=== PATIENT | male | born 1935 | race Caucasian/White ===

== ENCOUNTER → 2017-07-08 | Outpatient (CLI) | payer MEDICARE, BC ==
--- NOTE | 2017-07-09 07:04 | CT ---
EXAMINATION TYPE: CT abdomen pelvis wo con DATE OF EXAM: 07/08/2017 HISTORY: Weight loss and blood in stool CT DLP: 976 mGycm. Automated Exposure Control for Dose Reduction was Utilized. TECHNIQUE: CT scan of the abdomen and pelvis is performed with oral but without IV contrast. COMPARISON: NONE FINDINGS: Within the limitations of a non-contrast study, the following observations are made. LUNG BASES: There is some peripheral reticulation and fibrosis. There is coronary artery calcificatio n present which is noted marker for coronary artery disease. LIVER/GB: Liver is somewhat small in size and hyperdense in appearance. Etiologies such as hemochroma tosis should be excluded clinically. Gallbladder is contracted with dependent density felt to reflect small stones and/or gallbladder sludge. PANCREAS: No significant abnormality is seen. SPLEEN: No significant abnormality is seen. ADRENALS: No significant abnormality is seen. KIDNEYS: There is cortical thinning in both kidneys. There is 2.6 cm simple appearing cyst centrally left kidney on axial image 31. There are few additional subcentimeter low dense lesions scattered thr oughout both kidneys too small to further characterize per presumed benign. There is mild abnormal bl adder wall thickening measuring up to 9 mm. Finding is likely product of outlet obstruction as there is enlarged prostate gland noted. BOWEL: Oral contrast reaches level of the proximal transverse colon. There is no suspicious small or large bowel dilatation. Normal-appearing appendix is seen from the cecum. There are diverticula in t he left and sigmoid colon. There is no CT evidence for acute diverticulitis. GENITAL ORGANS: Prostate gland is enlarged in size bulging on bladder base, underlying BPH is strongl y suspected. LYMPH NODES: No greater than 1cm abdominal or pelvic lymph nodes are appreciated. OSSEOUS STRUCTURES: Osseous structures are demineralized. There is moderate to severe multilevel spur ring and disc space narrowing throughout the visualized thoracolumbar spine. Prominent spur disc comp saul effaces anterior thecal sac at L1-L2 and L3-L4 levels. Moderate joint space loss in both hips is present. OTHER: There is atherosclerotic and ectatic abdominal aorta. IMPRESSION: 1. No suspicious mass or adenopathy is identified to suggest neoplasm. 2. Colonic diverticulosis without CT evidence for acute diverticulitis. 3. Other findings as noted above.
== END | disposition home or self-care (01) ==
LOC: RADCTMAIN 17:39
PROVIDERS: ATTEND Family Medicine
DX: K57.30 Diverticulosis of large intestine without perforation or abscess without bleeding (principal); R63.4 Abnormal weight loss
CPT/HCPCS: 74176

== ENCOUNTER 2018-05-02 17:00 | Inpatient (IN) | payer MEDICARE, BC ==
[2018-05-02] MEDS ORDERED: SODIUM CHLORIDE 0.9% 1,000 ML IV STA (17:09)
--- NOTE | 2018-05-02 17:38 | ED ---
General Adult HPI <Diogo Crocker - Last Filed: 05/03/18 02:29> - General Source: patient, family, RN notes reviewed, old records reviewed Mode of arrival: wheelchair Limitations: no limitations <Charles Reed - Last Filed: 05/04/18 16:22> - General Chief complaint: Neuro Symptoms/Deficit Stated complaint: weakness, confusion, drooling Time Seen by Provider: 05/02/18 17:08 - History of Present Illness Initial comments: This is an 80-year-old male to the ER for evaluation. This patient presents today for evaluation regarding altered mental state, confusion, issue of A. fib diabetes high blood pressure, patient is on blood thinners. Patient denies headache. (Charles Reed) - Related Data Home Medications Medication Instructions Recorded Confirmed Acetaminophen/Diphenhydramine 1 tab PO HS 03/11/16 05/02/18 [Tylenol PM Extra Strength] Amiodarone [Cordarone] 100 mg PO DAILY 03/11/16 05/02/18 Atorvastatin [Lipitor] 10 mg PO HS 03/11/16 05/02/18 Doxazosin [Cardura] 4 mg PO HS 03/11/16 05/02/18 Finasteride [Proscar] 5 mg PO DAILY 03/11/16 05/02/18 Fish Oil/Dha/Epa [Fish Oil 1,200 1 cap PO DAILY@1200 03/11/16 05/02/18 mg Fish Oil] Levothyroxine Sodium [Synthroid] 75 mcg PO DAILY 03/11/16 05/02/18 Metoprolol Tartrate [Lopressor] 25 mg PO BID 03/11/16 05/02/18 Calcium/Magnesium/Zinc 1 tab PO DAILY@1200 05/02/18 05/02/18 [Kmkgvds-Krpgzhgri-Pwxn Tablet] Furosemide [Lasix] 40 mg PO DAILY 05/02/18 05/02/18 Lisinopril [Prinivil] 5 mg PO HS 05/02/18 05/02/18 Potassium Chloride ER [K-Dur 20] 20 meq PO Q48H 05/02/18 05/02/18 Sulfacetamide Sodium 2 drops BOTH EYES Q4H 05/02/18 05/02/18 [Sulfacetamide Sod 10% Ophth Soln] Turmeric Root Extract [Turmeric] 500 mg PO DAILY 05/02/18 05/02/18 Warfarin [Coumadin] 1.25 mg PO MOWEFR 05/02/18 05/02/18 Warfarin [Coumadin] 2.5 mg PO SUTUTHSA 05/02/18 05/02/18 Allergies Allergy/AdvReac Type Severity Reaction Status Date / Time No Known Allergies Allergy Verified 05/02/18 20:16 Review of Systems ROS Other: All systems not noted in ROS Statement are negative. <Diogo Crocker - Last Filed: 05/03/18 02:29> ROS Other: All systems not noted in ROS Statement are negative. <Charles Reed - Last Filed: 05/04/18 16:22> ROS Statement: Those systems with pertinent positive or pertinent negative responses have been documented in the HPI. Past Medical History Past Medical History: Atrial Fibrillation, Heart Failure, Diabetes Mellitus, Hypertension, Thyroid Disorder Additional Past Medical History / Comment(s): macular degeneration History of Any Multi-Drug Resistant Organisms: None Reported Past Surgical History: Orthopedic Surgery Additional Past Surgical History / Comment(s): hemorroidectomy, bilateral knee surgery Past Psychological History: No Psychological Hx Reported Smoking Status: Former smoker Past Alcohol Use History: Rare Past Drug Use History: None Reported <Charles Reed - Last Filed: 05/04/18 16:22> General Exam Limitations: no limitations General appearance: alert, in no apparent distress Head exam: Present: atraumatic, normocephalic, normal inspection Eye exam: Present: normal appearance, PERRL, EOMI. Absent: scleral icterus, conjunctival injection, periorbital swelling ENT exam: Present: normal exam, mucous membranes moist Neck exam: Present: normal inspection. Absent: tenderness, meningismus, lymphadenopathy Respiratory exam: Present: normal lung sounds bilaterally. Absent: respiratory distress, wheezes, rales, rhonchi, stridor Cardiovascular Exam: Present: regular rate, normal rhythm, normal heart sounds. Absent: systolic murmur, diastolic murmur, rubs, gallop, clicks GI/Abdominal exam: Present: soft, normal bowel sounds. Absent: distended, tenderness, guarding, rebound, rigid Extremities exam: Present: normal inspection, full ROM, normal capillary refill. Absent: tenderness, pedal edema, joint swelling, calf tenderness Back exam: Present: normal inspection Neurological exam: Present: alert, oriented X3, CN II-XII intact Psychiatric exam: Present: normal affect, normal mood Skin exam: Present: warm, dry, intact, normal color. Absent: rash <Charles Reed - Last Filed: 05/04/18 16:22> Vital Signs 05/02/18 05/02/18 05/02/18 17:16 19:22 21:02 Temperature 99.3 F Pulse Rate 99 80 99 Respiratory 18 18 20 Rate Blood Pressure 122/79 132/86 138/98 Blood Pressure [Left Arm] O2 Sat by Pulse 93 L 98 94 L Oximetry 05/02/18 05/02/18 05/02/18 22:36 22:38 23:31 Temperature 99.2 F 99.3 F Pulse Rate 99 128 H Respiratory 17 15 Rate Blood Pressure 148/78 Blood Pressure 133/97 [Left Arm] O2 Sat by Pulse 94 L Oximetry 05/02/18 05/02/18 23:40 23:50 Temperature Pulse Rate 116 H 88 Respiratory 12 16 Rate Blood Pressure 128/101 128/101 Blood Pressure [Left Arm] O2 Sat by Pulse 95 94 L Oximetry EKG Findings - EKG Comments: EKG Findings:: EKG shows atrial fibrillation rate of 87, QRS 90, QTc 454 <Charles Reed - Last Filed: 05/04/18 16:22> Medical Decision Making - Lab Data Result diagrams: 05/02/18 17:42 05/02/18 17:42 <Diogo Crocker - Last Filed: 05/03/18 02:29> - Lab Data Result diagrams: 05/04/18 04:54 05/04/18 04:54 <Charles Reed - Last Filed: 05/04/18 16:22> - Medical Decision Making Receive this patient as a sign out. The sign out was to have patient admitted for arrange transfer, based on family request. I reviewed the MRI results. I discussed the case with Dr. Bailey, the neurologist who is service station attendant, and he does recommend that the patient should be at a facility with neurosurgery availability should the degree of edema increase or should additional hemorrhage develop. Family is very aware of the risks, but requests patient stay here. Dr. Deleon discussed the case with Dr. Bender who will admit the patient. I subsequently discussed the case with Dr. Orona as the patient will be going to ICU overnight. (Diogo Crocker) - Lab Data Lab Results 05/02/18 05/02/18 05/02/18 Range/Units 17:42 17:42 17:42 WBC 10.2 (3.8-10.6) k/uL RBC 4.76 (4.30-5.90) m/uL Hgb 14.2 (13.0-17.5) gm/dL Hct 43.6 (39.0-53.0) % MCV 91.5 (80.0-100.0) fL MCH 29.9 (25.0-35.0) pg MCHC 32.7 (31.0-37.0) g/dL RDW 13.6 (11.5-15.5) % Plt Count 189 (150-450) k/uL Neutrophils % 76 % Lymphocytes % 13 % Monocytes % 8 % Eosinophils % 1 % Basophils % 0 % Neutrophils # 7.7 (1.3-7.7) k/uL Lymphocytes # 1.3 (1.0-4.8) k/uL Monocytes # 0.8 (0-1.0) k/uL Eosinophils # 0.1 (0-0.7) k/uL Basophils # 0.0 (0-0.2) k/uL PT (9.0-12.0) sec INR (<1.2) APTT (22.0-30.0) sec Sodium 137 (137-145) mmol/L Potassium 4.2 (3.5-5.1) mmol/L Chloride 102 (98-107) mmol/L Carbon Dioxide 28 (22-30) mmol/L Anion Gap 7 mmol/L BUN 31 H (9-20) mg/dL Creatinine 1.70 H (0.66-1.25) mg/dL Est GFR (CKD-EPI)AfAm 43 (>60 ml/min/1.73 sqM) Est GFR (CKD-EPI)NonAf 37 (>60 ml/min/1.73 sqM) Glucose 156 H (74-99) mg/dL Calcium 9.4 (8.4-10.2) mg/dL Phosphorus 4.0 (2.5-4.5) mg/dL Magnesium 2.0 (1.6-2.3) mg/dL Total Bilirubin 1.3 (0.2-1.3) mg/dL AST 24 (17-59) U/L ALT 30 (21-72) U/L Alkaline Phosphatase 105 (38-126) U/L Ammonia (<30) umol/L Total Creatine Kinase 77 (55-170) U/L CK-MB (CK-2) 0.9 (0.0-2.4) ng/mL CK-MB (CK-2) Rel Index 1.2 Troponin I <0.012 (0.000-0.034) ng/mL Total Protein 7.1 (6.3-8.2) g/dL Albumin 4.1 (3.5-5.0) g/dL TSH 1.700 (0.465-4.680) mIU/L Urine Color Urine Appearance (Clear) Urine pH (5.0-8.0) Ur Specific [place] (1.001-1.035) Urine Protein (Negative) Urine Glucose (UA) (Negative) Urine Ketones (Negative) Urine Blood (Negative) Urine Nitrite (Negative) Urine Bilirubin (Negative) Urine Urobilinogen (<2.0) mg/dL Ur Leukocyte Esterase (Negative) Digoxin <0.4 ng/mL Blood Type Blood Type Recheck Antibody Screen Transfuse Plasma Spec Expiration Date 05/02/18 05/02/18 05/02/18 Range/Units 17:42 17:42 17:42 WBC (3.8-10.6) k/uL RBC (4.30-5.90) m/uL Hgb (13.0-17.5) gm/dL Hct (39.0-53.0) % MCV (80.0-100.0) fL MCH (25.0-35.0) pg MCHC (31.0-37.0) g/dL RDW (11.5-15.5) % Plt Count (150-450) k/uL Neutrophils % % Lymphocytes % % Monocytes % % Eosinophils % % Basophils % % Neutrophils # (1.3-7.7) k/uL Lymphocytes # (1.0-4.8) k/uL Monocytes # (0-1.0) k/uL Eosinophils # (0-0.7) k/uL Basophils # (0-0.2) k/uL PT 13.0 H (9.0-12.0) sec INR 1.4 H (<1.2) APTT 25.8 (22.0-30.0) sec Sodium (137-145) mmol/L Potassium (3.5-5.1) mmol/L Chloride (98-107) mmol/L Carbon Dioxide (22-30) mmol/L Anion Gap mmol/L BUN (9-20) mg/dL Creatinine (0.66-1.25) mg/dL Est GFR (CKD-EPI)AfAm (>60 ml/min/1.73 sqM) Est GFR (CKD-EPI)NonAf (>60 ml/min/1.73 sqM) Glucose (74-99) mg/dL Calcium (8.4-10.2) mg/dL Phosphorus (2.5-4.5) mg/dL Magnesium (1.6-2.3) mg/dL Total Bilirubin (0.2-1.3) mg/dL AST (17-59) U/L ALT (21-72) U/L Alkaline Phosphatase (38-126) U/L Ammonia <9 (<30) umol/L Total Creatine Kinase (55-170) U/L CK-MB (CK-2) (0.0-2.4) ng/mL CK-MB (CK-2) Rel Index Troponin I (0.000-0.034) ng/mL Total Protein (6.3-8.2) g/dL Albumin (3.5-5.0) g/dL TSH (0.465-4.680) mIU/L Urine Color Light Yellow Urine Appearance Clear (Clear) Urine pH 6.0 (5.0-8.0) Ur Specific [place] 1.011 (1.001-1.035) Urine Protein Negative (Negative) Urine Glucose (UA) Negative (Negative) Urine Ketones Negative (Negative) Urine Blood Negative (Negative) Urine Nitrite Negative (Negative) Urine Bilirubin Negative (Negative) Urine Urobilinogen <2.0 (<2.0) mg/dL Ur Leukocyte Esterase Negative (Negative) Digoxin ng/mL Blood Type Blood Type Recheck Antibody Screen Transfuse Plasma Spec Expiration Date 05/02/18 Range/Units 17:42 WBC (3.8-10.6) k/uL RBC (4.30-5.90) m/uL Hgb (13.0-17.5) gm/dL Hct (39.0-53.0) % MCV (80.0-100.0) fL MCH (25.0-35.0) pg MCHC (31.0-37.0) g/dL RDW (11.5-15.5) % Plt Count (150-450) k/uL Neutrophils % % Lymphocytes % % Monocytes % % Eosinophils % % Basophils % % Neutrophils # (1.3-7.7) k/uL Lymphocytes # (1.0-4.8) k/uL Monocytes # (0-1.0) k/uL Eosinophils # (0-0.7) k/uL Basophils # (0-0.2) k/uL PT (9.0-12.0) sec INR (<1.2) APTT (22.0-30.0) sec Sodium (137-145) mmol/L Potassium (3.5-5.1) mmol/L Chloride (98-107) mmol/L Carbon Dioxide (22-30) mmol/L Anion Gap mmol/L BUN (9-20) mg/dL Creatinine (0.66-1.25) mg/dL Est GFR (CKD-EPI)AfAm (>60 ml/min/1.73 sqM) Est GFR (CKD-EPI)NonAf (>60 ml/min/1.73 sqM) Glucose (74-99) mg/dL Calcium (8.4-10.2) mg/dL Phosphorus (2.5-4.5) mg/dL Magnesium (1.6-2.3) mg/dL Total Bilirubin (0.2-1.3) mg/dL AST (17-59) U/L ALT (21-72) U/L Alkaline Phosphatase (38-126) U/L Ammonia (<30) umol/L Total Creatine Kinase (55-170) U/L CK-MB (CK-2) (0.0-2.4) ng/mL CK-MB (CK-2) Rel Index Troponin I (0.000-0.034) ng/mL Total Protein (6.3-8.2) g/dL Albumin (3.5-5.0) g/dL TSH (0.465-4.680) mIU/L Urine Color Urine Appearance (Clear) Urine pH (5.0-8.0) Ur Specific [place] (1.001-1.035) Urine Protein (Negative) Urine Glucose (UA) (Negative) Urine Ketones (Negative) Urine Blood (Negative) Urine Nitrite (Negative) Urine Bilirubin (Negative) Urine Urobilinogen (<2.0) mg/dL Ur Leukocyte Esterase (Negative) Digoxin ng/mL Blood Type O Positive Blood Type Recheck No Antibody Screen NEGATIVE Transfuse Plasma 05/03/2018 Spec Expiration Date 05/05/2018 - 2311 Disposition <Diogo Crocker - Last Filed: 05/03/18 02:29> Is patient prescribed a controlled substance at d/c from ED?: No <Charles Reed - Last Filed: 05/04/18 16:22> Clinical Impression: Cerebrovascular accident Disposition: ADMITTED IP TO THIS HOSP Condition: Fair
[2018-05-02 17:58] LABS: Basophils % (A) 0 %; Eosinophils # (A) 0.1 k/uL (0-0.7); Eosinophils % (A) 1 %; HCT 43.6 % (39.0-53.0); HGB 14.2 gm/dL (13.0-17.5); Lymphocytes # (A) 1.3 k/uL (1.0-4.8); Lymphocytes % (A) 13 %; MCH 29.9 pg (25.0-35.0); MCHC 32.7 g/dL (31.0-37.0); MCV 91.5 fL (80.0-100.0); Mean Platelet Volume 6.7; Monocytes # (A) 0.8 k/uL (0-1.0); Monocytes % (A) 8 %; Neutrophils # (A) 7.7 k/uL (1.3-7.7); Neutrophils % (A) 76 %; Platelet Count 189 k/uL (150-450); RBC 4.76 m/uL (4.30-5.90); RDW 13.6 % (11.5-15.5); WBC 10.2 k/uL (3.8-10.6)
[2018-05-02 18:10] LABS: ALT 30 U/L (21-72); AST 24 U/L (17-59); Albumin 4.1 g/dL (3.5-5.0); Alkaline Phosphatase 105 U/L (38-126); Anion Gap 7 mmol/L; Blood Urea Nitrogen 31 mg/dL (9-20); Calcium 9.4 mg/dL (8.4-10.2); Carbon Dioxide 28 mmol/L (22-30); Chloride 102 mmol/L (98-107); Digoxin <0.4 ng/mL; Glucose 156 mg/dL (74-99); Potassium 4.2 mmol/L (3.5-5.1); Sodium 137 mmol/L (137-145); Total Bilirubin 1.3 mg/dL (0.2-1.3); Total Protein 7.1 g/dL (6.3-8.2)
[2018-05-02 18:11] LABS: INR 1.4 (<1.2); Partial Thromboplastin Time 25.8 sec (22.0-30.0)
[2018-05-02 18:15] LABS: Creatine Kinase 77 U/L (55-170)
[2018-05-02 18:21] LABS: Appearance,Urine Clear (Clear); Bilirubin,Urine Negative (Negative); Blood,Urine Negative (Negative); Color,Urine Light Yellow; Glucose,Urine (UA) Negative (Negative); Ketones,Urine Negative (Negative); Leukocyte Esterase,Urine Negative (Negative); Nitrite,Urine Negative (Negative); Protein,Urine Negative (Negative); Specific Gravity,Urine 1.011 (1.001-1.035); Urobilinogen,Urine <2.0 mg/dL (<2.0)
[2018-05-02 18:26] LABS: Creatine Kinase MB 0.9 ng/mL (0.0-2.4); Troponin I <0.012 ng/mL (0.000-0.034)
[2018-05-02] MEDS ORDERED: DEXAMETHASONE SOD PHOSPHATE 10 MG/ML 1 ML VIAL IV STA (19:16)
[2018-05-02] MEDS ORDERED: PHYTONADIONE 10 MG in SODIUM CHLORIDE 0.9% 50 ML IVPB STA (19:17)
--- NOTE | 2018-05-02 19:17 | CT ---
EXAMINATION TYPE: CT brain wo con for TPA DATE OF EXAM: 05/02/2018 COMPARISON: None HISTORY: CONFUSION AND WEAKNESS CT DLP: 1726.4 mGycm Automated exposure control for dose reduction was used. FINDINGS: There is a large area of hypodensity involving the right middle cerebral artery distribution in the r ight temporal lobe and anterior right occipital lobe and right posterior parietal lobe consistent wit h subacute infarct. Edema related to a tumor is a consideration. There are small areas of high attenu ation at the right temporal lobe convexity consistent with hemorrhage. There is effacement of the sul ci of the right temporal lobe. There is slight shift of the midline to the left side. The calvarium i s intact. IMPRESSION: LARGE RIGHT HEMISPHERE ABNORMALITY WITH PARENCHYMAL SMALL AREAS OF HEMORRHAGE IN THE RIGHT TEMPORAL LOBE. MILD MASS EFFECT. I WOULD CONSIDER BOTH SUBACUTE TEMPORAL LOBE INFARCT AND TEMPORAL LOBE TUMOR WITH MASS EFFECT AND EDEMA. CONTRAST CT SCAN WOULD BE HELPFUL FOR FURTHER EVALUATION. THIS EXAM WAS D ISCUSSED WITH ER PHYSICIAN AT 7:10 PM.
--- NOTE | 2018-05-02 19:20 | XR ---
EXAMINATION TYPE: XR chest 2V DATE OF EXAM: 05/02/2018 COMPARISON: 03/11/2016 HISTORY: Weakness TECHNIQUE: Frontal and lateral views of the chest are obtained. FINDINGS: There is no heart failure nor confluent pneumonic infiltrate. Costophrenic angles are rené r. There are chest leads. Bony thorax is intact. IMPRESSION: No active cardiopulmonary disease. No change.
--- NOTE | 2018-05-02 21:06 | MR ---
EXAMINATION TYPE: MR brain wo/w con DATE OF EXAM: 05/02/2018 COMPARISON: None HISTORY: Weakness TECHNIQUE: Multiplanar, multisequence images of the brain and brainstem is performed without and with IV contras t, utilizing mL intravenous . Gadolinium FINDINGS: There is mixed signal involving a large area of the right temporal lobe in the right middle cerebral artery distribution. There is also involvement of the adjacent right occipital lobe and right parieta l lobe. There is slight shift of the midline to the left side. I see no discrete mass. The contrast i mages show no pathologic enhancement. There is some mixed signal at the right temporal lobe convexity consistent with focal hemorrhage. There is normal contrast enhancement of the middle cerebral arteri es bilaterally. The cerebellum is intact. Brainstem is intact. There is cerebral cortical atrophy. IMPRESSION: There is edema and mass effect involving the right cerebral hemisphere in the right tempo ral lobe. This is in the right middle cerebral artery distribution. There is however arterial flow in the right middle cerebral artery. This is consistent with subacute infarct. No underlying tumor mass seen. There is cortical mixed signal in the right temporal lobe consistent with small areas of hemor rhage that are also demonstrated on the CT scan today.
[2018-05-02] MEDS ORDERED: ONDANSETRON 4 MG/2 ML VIAL IVP PRN (23:21)
[2018-05-02 23:36] LABS: Glucose,Whole Blood 219 mg/dL (75-99)
[2018-05-02 23:58] VITALS: BMI 30.5
[2018-05-03] MEDS ORDERED: NALOXONE 0.4 MG/ML 1 ML VIAL IV PRN (00:07)
[2018-05-03] MEDS: DEXAMETHASONE SOD PHOSPHATE 4 MG/ML 1 ML VIAL IV SCH ×4 (00:57→18:18)
[2018-05-03] MEDS: SULFACETAMIDE SOD 10% OPHTH DROPS 15 ML BTL BOTH EYES SCH ×7 (00:57→22:18)
[2018-05-03 05:00] LABS: Basophils % (A) 0 %; Eosinophils # (A) 0.1 k/uL (0-0.7); Eosinophils % (A) 2 %; HCT 42.7 % (39.0-53.0); HGB 13.8 gm/dL (13.0-17.5); Lymphocytes # (A) 0.5 k/uL (1.0-4.8); Lymphocytes % (A) 7 %; MCH 29.9 pg (25.0-35.0); MCHC 32.4 g/dL (31.0-37.0); MCV 92.4 fL (80.0-100.0); Mean Platelet Volume 6.2; Monocytes # (A) 0.1 k/uL (0-1.0); Monocytes % (A) 1 %; Neutrophils # (A) 6.5 k/uL (1.3-7.7); Neutrophils % (A) 90 %; Platelet Count 166 k/uL (150-450); RBC 4.62 m/uL (4.30-5.90); RDW 13.6 % (11.5-15.5); WBC 7.2 k/uL (3.8-10.6)
[2018-05-03 05:19] LABS: Calcium 9.1 mg/dL (8.4-10.2); Magnesium 1.9 mg/dL (1.6-2.3); Phosphorus 4.7 mg/dL (2.5-4.5); Potassium 4.2 mmol/L (3.5-5.1)
[2018-05-03] MEDS: LEVOTHYROXINE 75 MCG TAB PO SCH (06:48)
[2018-05-03] MEDS: POTASSIUM CHLORIDE ER 20 MEQ TAB.ER PO SCH (06:52)
--- NOTE | 2018-05-03 06:58 | XR ---
EXAMINATION TYPE: XR chest 1V DATE OF EXAM: 05/03/2018 HISTORY: CHF. REFERENCE: Previous study dated 05/02/2018. FINDINGS: The heart is mildly enlarged. There is improved interstitial change with comparison to the previous examination. There is no significant vascular congestion. No definite pleural fluid is seen. IMPRESSION: 1. CARDIOMEGALY. 2. IMPROVING INTERSTITIAL CHANGE.
[2018-05-03 07:53] LABS: Glucose,Whole Blood 223 mg/dL (75-99)
[2018-05-03] MEDS: INSULIN ASPART 100 UNIT/ML 1 ML 10 ML VIAL SQ SCH ×4 (08:06→20:53)
[2018-05-03] MEDS ORDERED: FUROSEMIDE 40 MG TAB PO SCH (09:00)
--- NOTE | 2018-05-03 10:11 | P.CNPUL ---
History of Present Illness Consult date: 05/03/18 Chief complaint: Left-sided weakness History of present illness: 80-year-old male patient who presented to the emergency department with altered mentation, confusion and generalized weakness. The patient also had some left- sided facial droop and slurred speech and left-sided sensation impairment. The patient is known to have chronic atrial fibrillation and he is maintained on warfarin for long-term anticoagulation. He also has issues with hyperlipidemia , congestion heart failure, chronic renal failure, hypertension, hypothyroidism , and BPH. The patient had an initial CAT scan of the head in the emergency department that showed a subacute infarct involving the right temporal lobe with some areas of hemorrhage or mass effect and edema. Subsequently an MRI of the brain was done that showed similar findings with his mass effect and edema involving the right cerebral hemisphere in the right temporal lobe. This was along the right MCA distribution. There is adequate arterial flow in the right middle cerebral artery. The findings are consistent with subacute infarct. No underlying tumors identified. There was areas of small hemorrhage as demonstrated on the CAT scan of the brain. Patient was taken off the Coumadin. His INR on admission was at 1.4. His renal function is slightly impaired with a creatinine of 1.5 and the patient has evidence of chronic renal failure. His baseline creatinine from earlier evaluations showed a creatinine ranging between 1.7 and 2.0. On today's evaluation, the patient is drowsy yet arousable upon repeated stimulation.. He is communicating. He has some residual weakness on the left side specially left upper extremity compared to right. There may be some minimal residual weakness in the left face on inspection also. His speech is within normal limits. No headaches. He is awake and alert and oriented 3. He is in atrial fibrillation. His rate is controlled for now. His heart rate is in the mid 90s. Hemodynamically he has no significant hypertensive reaction. No hypotension. No fever. No seizure activity. Swallow is adequate and the patient had breakfast this morning. He is on Decadron per neurology's recommendation a dose of 4 mg IV push every 6 hours. Outpatient medications were all resumed with the exception of his Coumadin. Review of Systems Constitutional: Reports fatigue, Reports lethargy, Reports weakness Eyes: denies blurred vision, denies bulging eye, denies decreased vision Ears: deny: decreased hearing, ear discharge, earache Ears, nose, mouth and throat: Denies headache, Denies sore throat Cardiovascular: Reports irregular heart beat Respiratory: Denies cough Gastrointestinal: Denies abdominal pain, Denies diarrhea, Denies nausea, Denies vomiting Genitourinary: Reports as per HPI Musculoskeletal: Denies myalgias Musculoskeletal: absent: ankle pain, ankle stiffness, ankle swelling Integumentary: Denies pruritus, Denies rash Neurological: Reports confusion, Reports motor disturbance, Reports sensory deficit, Reports weakness Psychiatric: Denies anxiety, Denies depression Endocrine: Reports as per HPI Hematologic/Lymphatic: Reports as per HPI Allergic/Immunologic: Reports as per HPI Past Medical History Past Medical History: Atrial Fibrillation, Heart Failure, Diabetes Mellitus, Hypertension, Thyroid Disorder Additional Past Medical History / Comment(s): macular degeneration History of Any Multi-Drug Resistant Organisms: None Reported Past Surgical History: Orthopedic Surgery Additional Past Surgical History / Comment(s): hemorroidectomy, bilateral knee surgery Past Psychological History: No Psychological Hx Reported Smoking Status: Former smoker Past Alcohol Use History: Rare Past Drug Use History: None Reported Medications and Allergies Home Medications Medication Instructions Recorded Confirmed Type Acetaminophen/Diphenhydramine 1 tab PO HS 03/11/16 05/02/18 History [Tylenol PM Extra Strength] Amiodarone [Cordarone] 100 mg PO DAILY 03/11/16 05/02/18 History Atorvastatin [Lipitor] 10 mg PO HS 03/11/16 05/02/18 History Doxazosin [Cardura] 4 mg PO HS 03/11/16 05/02/18 History Finasteride [Proscar] 5 mg PO DAILY 03/11/16 05/02/18 History Fish Oil/Dha/Epa [Fish Oil 1,200 1 cap PO DAILY@1200 03/11/16 05/02/18 History mg Fish Oil] Levothyroxine Sodium [Synthroid] 75 mcg PO DAILY 03/11/16 05/02/18 History Metoprolol Tartrate [Lopressor] 25 mg PO BID 03/11/16 05/02/18 History Calcium/Magnesium/Zinc 1 tab PO DAILY@1200 05/02/18 05/02/18 History [Avxwoik-Bnhsmtcux-Zexj Tablet] Furosemide [Lasix] 40 mg PO DAILY 05/02/18 05/02/18 History Lisinopril [Prinivil] 5 mg PO HS 05/02/18 05/02/18 History Potassium Chloride ER [K-Dur 20] 20 meq PO Q48H 05/02/18 05/02/18 History Sulfacetamide Sodium 2 drops BOTH EYES Q4H 05/02/18 05/02/18 History [Sulfacetamide Sod 10% Ophth Soln] Turmeric Root Extract [Turmeric] 500 mg PO DAILY 05/02/18 05/02/18 History Warfarin [Coumadin] 1.25 mg PO MOWEFR 05/02/18 05/02/18 History Warfarin [Coumadin] 2.5 mg PO SUTUTHSA 05/02/18 05/02/18 History Allergies Allergy/AdvReac Type Severity Reaction Status Date / Time No Known Allergies Allergy Verified 05/02/18 20:16 Physical Exam Vitals: Vital Signs Temp Pulse Resp BP BP Pulse Ox 05/03/18 07:40 93 14 125/79 94 L 05/03/18 07:30 97 12 133/96 94 L 05/03/18 07:20 107 H 17 133/96 92 L 05/03/18 07:10 124 H 14 133/96 93 L 05/03/18 07:00 103 H 13 133/96 96 05/03/18 06:50 97 25 H 133/96 97 05/03/18 06:40 101 H 20 133/96 93 L 05/03/18 06:30 121 H 18 117/79 94 L 05/03/18 06:20 116 H 18 117/79 96 05/03/18 06:10 116 H 15 117/79 96 05/03/18 06:00 105 H 14 117/79 95 05/03/18 05:50 105 H 34 H 117/79 97 05/03/18 05:40 110 H 14 117/79 94 L 05/03/18 05:30 99 18 135/73 95 05/03/18 05:20 89 8 L 135/73 93 L 05/03/18 05:10 90 21 135/73 92 L 05/03/18 05:00 99 12 135/73 95 05/03/18 04:50 111 H 14 135/73 90 L 05/03/18 04:40 85 12 135/73 93 L 05/03/18 04:30 91 18 116/71 96 05/03/18 04:20 116 H 20 116/71 93 L 05/03/18 04:10 107 H 14 116/71 91 L 08/04/18 04:00 98.8 F 100 13 116/71 92 L 08/04/18 03:50 118 H 13 116/71 91 L 08/04/18 03:40 99 14 116/71 92 L 08/04/18 03:30 103 H 12 135/81 92 L 08/04/18 03:20 85 12 135/81 93 L 08/04/18 03:10 112 H 12 135/81 93 L 08/04/18 03:00 96 12 135/81 94 L 08/04/18 02:50 108 H 19 135/81 91 L 08/04/18 02:40 115 H 12 135/81 90 L 08/04/18 02:30 101 H 13 155/101 91 L 08/04/18 02:20 111 H 13 155/101 90 L 08/04/18 02:10 82 14 155/101 91 L 08/04/18 02:00 101 H 13 155/101 91 L 08/04/18 01:50 127 H 13 155/101 91 L 08/04/18 01:40 105 H 13 155/101 95 08/04/18 01:30 118 H 19 143/102 95 08/04/18 01:20 101 H 21 143/102 95 08/04/18 01:10 100 13 143/102 95 /04/18 01:00 99 14 143/102 94 L /04/18 00:50 107 H 29 H 143/102 92 L 08/04/18 00:40 91 18 143/102 94 L 08/04/18 00:30 101 H 17 128/101 91 L 08/04/18 00:20 114 H 15 128/101 94 L 08/04/18 00:10 98 19 128/101 94 L 08/04/18 00:00 99.2 F 103 H 19 128/101 97 08/03/18 23:50 88 16 128/101 94 L 08/03/18 23:40 116 H 12 128/101 95 08/03/18 23:31 128 H 08/03/18 22:38 99.3 F 15 133/97 08/03/18 22:36 99.2 F 99 17 148/78 94 L 08/03/18 21:02 99 20 138/98 94 L 08/03/18 19:22 80 18 132/86 98 05/02/18 17:16 99.3 F 99 18 122/79 93 L Intake and Output 05/02/18 05/03/18 05/03/18 22:59 06:59 14:59 Output Total 950 Balance -950 Output: Urine 950 Other: # Voids 0 0 Weight 96.5 kg Head exam was generally normal. There was no scleral icterus or corneal arcus. Mucous membranes were moist. Neck was supple and without jugular venous distension, thyromegaly, or carotid bruits. Carotids were easily palpable bilaterally. There was no adenopathy. Lungs were clear to auscultation and percussion, and with normal diaphragmatic excursion. No wheezes or rales were noted. Heart sounds are irregular S1-S2 and there is no significant murmurs appreciated. Abdominal exam revealed normal bowel sounds. The abdomen was soft, non-tender, and without masses, organomegaly, or appreciable enlargement of the abdominal aorta. Examination of the extremities revealed easily palpable radial, femoral and pedal pulses. There was no cyanosis, clubbing or edema. Examination of the skin revealed no evidence of significant rashes, suspicious appearing nevi or other concerning lesions. Neurologically there may be some left facial droop which is minimal at this point. He has equal and symmetrical pupils. Tongue is in midline. Poor range of extraocular muscle movements. No vision impairment. Adequate swallow. There may be some minimal residual motor dysfunction in the left upper extremity on the left compared to right. DTRs are equal and symmetrical. No clonus. No Babinski. Sensory function cannot be accurately assessed. No neck stiffness. Results - Laboratory Findings CBC and BMP: 05/03/18 04:50 05/03/18 04:50 PT/INR, D-dimer PT 13.0 sec (9.0-12.0) H 05/02/18 17:42 INR 1.4 (<1.2) H 05/02/18 17:42 Abnormal lab findings: Abnormal Labs 05/02/18 05/02/18 05/02/18 17:42 17:42 23:33 Lymphocytes # PT 13.0 H INR 1.4 H BUN 31 H Creatinine 1.70 H Glucose 156 H POC Glucose (mg/dL) 219 H Phosphorus HDL Cholesterol 05/03/18 05/03/18 05/03/18 04:50 04:50 07:51 Lymphocytes # 0.5 L PT INR BUN 29 H Creatinine 1.50 H Glucose 244 H POC Glucose (mg/dL) 223 H Phosphorus 4.7 H HDL Cholesterol 69 H Assessment and Plan Plan: 1 subacute stroke involving the right temporal lobe with edema and mass effect and limited areas of hemorrhage secondary to CVA. Possibility of an embolic CVA nontender the patient has chronic atrial fibrillation. Currently off anticoagulants and his INR is at 1.4. Neurology recommended transferring this patient to a facility where there is no surgical intervention. Family opted to keep the patient in [place]. Patient currently on Decadron. 2 left facial droop and some limited motor weakness on the left upper extremity secondary to above 3 chronic atrial fibrillation 4 CHF, per history. We'll need an echocardiogram to assess LV function and rule out any intracardiac clots. 5 hypothyroidism 6 hyperlipidemia 7 hypertension 8 BPH, check was voiding residual and if it significant insert a Taylor catheter. 9 chronic renal failure with a baseline creatinine ranging between 1.5 and 2. Plan Repeat CAT scan of the brain to assess the progression of J[employer] DEVELOPMENT [employer]IST edema and J[employer] DEVELOPMENT [employer]IST bleed. Monitored hemodynamics and avoid hypotension. Continue with the Decadron for now. Obtain echocardiogram. Obtain Doppler of the carotids. Patient has adequate swallow. Resume the rest of the outpatient medications. Hold Coumadin for now due to concern of JOB DEVELOPMENT SPECIALIST bleed. Neurology consultation. Keep the patient ICU for the. Neuro checks. SCD to lower extremities. IV Protonix. We'll continue to follow. NovoLog Scale for blood sugar coverage.
[2018-05-03] MEDS ORDERED: PANTOPRAZOLE 40 MG/10 ML VIAL IVP SCH (10:15)
[2018-05-03] MEDS: FINASTERIDE 5 MG TAB PO SCH (10:16)
[2018-05-03] MEDS: METOPROLOL TARTRATE 25 MG TAB PO SCH ×2 (10:16→20:49)
[2018-05-03] MEDS: AMIODARONE 100 MG TAB PO SCH ×2 (10:30→11:41)
--- NOTE | 2018-05-03 11:14 | US ---
EXAMINATION TYPE: US carotid duplex BILAT DATE OF EXAM: 05/03/2018 COMPARISON: NONE CLINICAL HISTORY: cva. ICU patient is unresponsive EXAM MEASUREMENTS: RIGHT: Peak Systolic Velocity (PSV) cm/sec ----- Right CCA: 44.3 ----- Right ICA: 28.4 ----- Right ECA: 38.1 ICA/CCA ratio: 0.6 RIGHT: End Diastole cm/sec ----- Right CCA: 3.8 ----- Right ICA: 12.2 ----- Right ECA: 3.1 LEFT: Peak Systolic Velocity (PSV) cm/sec ----- Left CCA: 34.9 ----- Left ICA: 44.0 ----- Left ECA: 53.1 ICA/CCA ratio: 1.3 LEFT: End Diastole cm/sec ----- Left CCA: 5.3 ----- Left ICA: 10.6 ----- Left ECA: 7.5 VERTEBRALS (direction of flow): Right Vertebral: Antegrade Left Vertebral: Antegrade Rhythm: Arrhythmia Heterogeneous plaque seen at left bulb, low velocities seen at bilateral ICA's, no significant stenos is seen. Patient laying with neck to the left made for suboptimal study on the left side. IMPRESSION: 1. I DO NOT SEE EVIDENCE OF A HEMODYNAMICALLY SIGNIFICANT STENOSIS IN EITHER CAROTID SYSTEM. 2. SLOW FLOW VELOCITIES BILATERALLY. Criteria for Assigning % of Stenosis / Diameter reduction (Estimation based on the indirect measurements of the internal carotid artery velocities (ICA PSV). 1. Normal (no stenosis)=ICA PSV < 125 cm/s: ratio < 2.0: ICA EDV<40 cm/s. 2. Less than 50% stenosis=ICA PSV < 125 cm/s: ratio < 2.0: ICA EDV<40 cm/s. 3. 50 to 69% stenosis=ICA PSV of 125 to 230 cm/s: ration 2.0 ? 4.0: ICA EDV 40-100 cm/s. 4. Greater than 70% stenosis to near occlusion= ICA PSV > 230 cm/s: ratio > 4.0: ICA EDV > 100 cm/s. 5. Near occlusion= ICA PSV velocities may be low or undetectable: variable ratio and ICA EDV. 6. Total occlusion=unable to detect flow.
[2018-05-03] MEDS: SODIUM CHLORIDE 0.9% 1,000 ML IV SCH (11:41)
--- NOTE | 2018-05-03 11:47 | CT ---
EXAMINATION TYPE: CT brain wo con DATE OF EXAM: 05/03/2018 COMPARISON: Previous study dated 05/02/2018 HISTORY: Change in mentation CT DLP: 978.20 mGycm Automated exposure control for dose reduction was used. FINDINGS: There is an evolving right MCA infarct. There is petechial hemorrhage present in the periphery of thi s. There is moderate mass effect with approximately 7.3 mm of subfalcine shift towards the left. It i s difficult to compare to the previous study as there was a great deal of motion artifact on the prev ious study. There are underlying changes of atrophy. Visualized portions of the sinuses and mastoids are clear. The bony calvarium is intact. IMPRESSION: 1. PROBABLE DEVELOPING RIGHT MCA INFARCT WITH MODERATE SUBFALCINE SHIFT. 2. UNDERLYING ATROPHY. 3. WHEN THE PATIENT'S CONDITION STABILIZES A POSTCONTRAST CT OR MR WOULD BE SUGGESTED.
[2018-05-03] MEDS ORDERED: CALCIUM CARBONATE 500 MG CHEWABLE PO SCH (12:00)
[2018-05-03] MEDS: CALCIUM CARBONATE 500 MG CHEWABLE PO SCH (12:41)
[2018-05-03 12:44] LABS: Glucose,Whole Blood 284 mg/dL (75-99)
--- NOTE | 2018-05-03 13:07 | P.HPIM ---
History of Present Illness 80-year-old the male came to emergency department with altered mental status confusion excessive drowsiness unable to arouse with the left-sided facial droop and left-sided tingling numbness. Patient the had a CAT scan which showed an infarct in the right temporal lobe with subsequent hemorrhage into it and patient is on anticoagulation for his atrial fibrillation. As per family request who doesn't want any aggressive management patient was not transferred to tertiary care hospital as the daughter does not want any neurosurgical intervention at this time. Patient appears to have had an ischemic stroke with possible post infarct hemorrhage. Patient is fairly arousable, patient is on Decadron at this time anti-correlation is being held MRI was obtained which showed mass effect and edema and hemorrhage in the temporal lobe on the right side. No seizure activity. Neurology will evaluate the patient. Review of Systems Unable to obtain Past Medical History Past Medical History: Atrial Fibrillation, Heart Failure, Diabetes Mellitus, Hypertension, Thyroid Disorder Additional Past Medical History / Comment(s): macular degeneration History of Any Multi-Drug Resistant Organisms: None Reported Past Surgical History: Orthopedic Surgery Additional Past Surgical History / Comment(s): hemorroidectomy, bilateral knee surgery Past Psychological History: No Psychological Hx Reported Smoking Status: Former smoker Past Alcohol Use History: Rare Past Drug Use History: None Reported Medications and Allergies Home Medications Medication Instructions Recorded Confirmed Type Acetaminophen/Diphenhydramine 1 tab PO HS 03/11/16 05/02/18 History [Tylenol PM Extra Strength] Amiodarone [Cordarone] 100 mg PO DAILY 03/11/16 05/02/18 History Atorvastatin [Lipitor] 10 mg PO HS 03/11/16 05/02/18 History Doxazosin [Cardura] 4 mg PO HS 03/11/16 05/02/18 History Finasteride [Proscar] 5 mg PO DAILY 03/11/16 05/02/18 History Fish Oil/Dha/Epa [Fish Oil 1,200 1 cap PO DAILY@1200 03/11/16 05/02/18 History mg Fish Oil] Levothyroxine Sodium [Synthroid] 75 mcg PO DAILY 03/11/16 05/02/18 History Metoprolol Tartrate [Lopressor] 25 mg PO BID 03/11/16 05/02/18 History Calcium/Magnesium/Zinc 1 tab PO DAILY@1200 18 05/02/18 History [Uehacfm-Hzbvkerny-Ilqs Tablet] Furosemide [Lasix] 40 mg PO DAILY 05/02/18 05/02/18 History Lisinopril [Prinivil] 5 mg PO HS 05/02/18 05/02/18 History Potassium Chloride ER [K-Dur 20] 20 meq PO Q48H 05/02/18 05/02/18 History Sulfacetamide Sodium 2 drops BOTH EYES Q4H 05/02/18 05/02/18 History [Sulfacetamide Sod 10% Ophth Soln] Turmeric Root Extract [Turmeric] 500 mg PO DAILY 05/02/18 05/02/18 History Warfarin [Coumadin] 1.25 mg PO MOWEFR 05/02/18 05/02/18 History Warfarin [Coumadin] 2.5 mg PO SUTUTHSA 05/02/18 05/02/18 History Allergies Allergy/AdvReac Type Severity Reaction Status Date / Time No Known Allergies Allergy Verified 05/02/18 20:16 Physical Exam Vitals: Vital Signs Temp Pulse Resp BP BP Pulse Ox 05/03/18 12:00 99 F 98 17 153/97 97 05/03/18 11:00 101 H 21 143/81 98 05/03/18 10:10 88 12 115/59 95 05/03/18 10:00 115 H 19 115/59 97 05/03/18 09:50 87 13 99/56 94 L 05/03/18 09:40 93 13 99/56 94 L 05/03/18 09:30 93 14 118/101 95 05/03/18 09:20 123 H 13 118/101 95 05/03/18 09:10 119 H 14 118/101 96 05/03/18 09:00 92 16 118/101 94 L 05/03/18 08:50 91 14 118/101 96 05/03/18 08:40 102 H 16 118/101 94 L 05/03/18 08:30 111 H 29 H 125/79 97 05/03/18 08:20 115 H 19 125/79 96 05/03/18 08:10 110 H 23 125/79 93 L 05/03/18 08:00 100 20 125/79 95 05/03/18 07:50 111 H 23 125/79 96 05/03/18 07:40 93 14 125/79 94 L 08/04/18 07:30 97 12 133/96 94 L 08/04/18 07:20 107 H 17 133/96 92 L 08/04/18 07:10 124 H 14 133/96 93 L 08/04/18 07:00 103 H 13 133/96 96 /04/18 06:50 97 25 H 133/96 97 05/03/18 06:40 101 H 20 133/96 93 L 08/04/18 06:30 121 H 18 117/79 94 L 08/04/18 06:20 116 H 18 117/79 96 08/04/18 06:10 116 H 15 117/79 96 04/18 06:00 105 H 14 117/79 95 /04/18 05:50 105 H 34 H 117/79 97 /04/18 05:40 110 H 14 117/79 94 L /04/18 05:30 99 18 135/73 95 /04/18 05:20 89 8 L 135/73 93 L 08/04/18 05:10 90 21 135/73 92 L 08/04/18 05:00 99 12 135/73 95 08/04/18 04:50 111 H 14 135/73 90 L 08/04/18 04:40 85 12 135/73 93 L 08/04/18 04:30 91 18 116/71 96 /04/18 04:20 116 H 20 116/71 93 L 08/04/18 04:10 107 H 14 116/71 91 L 08/04/18 04:00 98.8 F 100 13 116/71 92 L 08/04/18 03:50 118 H 13 116/71 91 L 08/04/18 03:40 99 14 116/71 92 L 08/04/18 03:30 103 H 12 135/81 92 L 08/04/18 03:20 85 12 135/81 93 L 08/04/18 03:10 112 H 12 135/81 93 L 08/04/18 03:00 96 12 135/81 94 L 08/04/18 02:50 108 H 19 135/81 91 L 08/04/18 02:40 115 H 12 135/81 90 L 08/04/18 02:30 101 H 13 155/101 91 L 08/04/18 02:20 111 H 13 155/101 90 L 08/04/18 02:10 82 14 155/101 91 L 05/03/18 02:00 101 H 13 155/101 91 L 05/03/18 01:50 127 H 13 155/101 91 L 05/03/18 01:40 105 H 13 155/101 95 05/03/18 01:30 118 H 19 143/102 95 05/03/18 01:20 101 H 21 143/102 95 05/03/18 01:10 100 13 143/102 95 05/03/18 01:00 99 14 143/102 94 L 05/03/18 00:50 107 H 29 H 143/102 92 L 05/03/18 00:40 91 18 143/102 94 L 05/03/18 00:30 101 H 17 128/101 91 L 05/03/18 00:20 114 H 15 128/101 94 L 05/03/18 00:10 98 19 128/101 94 L 05/03/18 00:00 99.2 F 103 H 19 128/101 97 05/02/18 23:50 88 16 128/101 94 L 05/02/18 23:40 116 H 12 128/101 95 05/02/18 23:31 128 H 05/02/18 22:38 99.3 F 15 133/97 05/02/18 22:36 99.2 F 99 17 148/78 94 L 05/02/18 21:02 99 20 138/98 94 L 05/02/18 19:22 80 18 132/86 98 05/02/18 17:16 99.3 F 99 18 122/79 93 L Intake and Output 05/02/18 05/03/18 05/03/18 22:59 06:59 14:59 Intake Total 360 Output Total 950 200 Balance -950 160 Intake: IV 0 Sodium Chloride 0.9% 1, 0 000 ml @ 50 mls/hr IV . Q20H [facility] Rx#:[id number] Oral 240 Tube Feeding 120 Output: Urine 950 200 Other: # Voids 0 0 Weight 96.5 kg PHYSICAL EXAMINATION: GENERAL: Patient is barely arousable arousable with painful stimuli patient does have facial droop as mentioned above HEENT: Pupils are round and equally reacting to light. EOMI. No scleral icterus. No conjunctival pallor. Normocephalic, atraumatic. No pharyngeal erythema. No thyromegaly. CARDIOVASCULAR: S1 and S2 present. No murmurs, rubs, or gallops. PULMONARY: Chest is clear to auscultation, no wheezing or crackles. ABDOMEN: Soft, nontender, nondistended, normoactive bowel sounds. No palpable organomegaly. MUSCULOSKELETAL: No joint swelling or deformity. EXTREMITIES: No cyanosis, clubbing, or pedal edema. NEUROLOGICAL: Unable to assess SKIN: No rashes. Results CBC & Chem 7: 05/03/18 04:50 05/03/18 04:50 Labs: Abnormal Lab Results - Last 24 Hours (Table) 05/02/18 05/02/18 05/02/18 Range/Units 17:42 17:42 23:33 Lymphocytes # (1.0-4.8) k/uL PT 13.0 H (9.0-12.0) sec INR 1.4 H (<1.2) BUN 31 H (9-20) mg/dL Creatinine 1.70 H (0.66-1.25) mg/dL Glucose 156 H (74-99) mg/dL POC Glucose (mg/dL) 219 H (75-99) mg/dL Phosphorus (2.5-4.5) mg/dL HDL Cholesterol (40-60) mg/dL 05/03/18 05/03/18 05/03/18 Range/Units 04:50 04:50 07:51 Lymphocytes # 0.5 L (1.0-4.8) k/uL PT (9.0-12.0) sec INR (<1.2) BUN 29 H (9-20) mg/dL Creatinine 1.50 H (0.66-1.25) mg/dL Glucose 244 H (74-99) mg/dL POC Glucose (mg/dL) 223 H (75-99) mg/dL Phosphorus 4.7 H (2.5-4.5) mg/dL HDL Cholesterol 69 H (40-60) mg/dL 05/03/18 Range/Units 12:42 Lymphocytes # (1.0-4.8) k/uL PT (9.0-12.0) sec INR (<1.2) BUN (9-20) mg/dL Creatinine (0.66-1.25) mg/dL Glucose (74-99) mg/dL POC Glucose (mg/dL) 284 H (75-99) mg/dL Phosphorus (2.5-4.5) mg/dL HDL Cholesterol (40-60) mg/dL Microbiology - Last 24 Hours (Table) 05/02/18 17:42 Urine Culture - Preliminary Urine,Clean Catch Assessment and Plan Plan: -Subacute stroke ischemic stroke with the post ischemic hemorrhage in the right temporal lobe. 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 -Patient's prognosis is extremely poor continue with supportive measures as mentioned above will discuss with the family, newsstand vendor already discussed with the family members today. Her Cardizem will be obtain carotid Doppler will be obtained.
--- NOTE | 2018-05-03 15:48 | P.CNNES ---
History of Present Illness Consult date: 05/03/18 Requesting physician: Bruce Bender Reason for Consult: Subacute ischemic stroke History of Present Illness: Patient is a pleasant 80-year-old male who is being evaluated by the neurology service on 05/03/2018 per the request of Dr. Bender for the above- mentioned. Patient presented to the ER for evaluation regarding altered mental state, confusion, and hypertension. Patient does have history of atrial fibrillation and is on Coumadin in the home setting. Patient is a poor historian and information was gathered from the nursing staff as well as the chart. Prior to admission that she reported the patient was difficult to arouse and had left-sided facial droop along with left-sided numbness and tingling. Patient had computed tomography scan of the brain on arrival which showed large right hemisphere abnormality with parenchymal small areas of hemorrhage in the right temporal lobe. Mild mass effect was noted. CT showed both subacute temporal lobe infarct and temporal lobe tumor with mass effect and edema. MRI of the brain was done which showed edema and mass effect involving right cerebral hemisphere in the right temporal lobe. This would be in the right middle cerebral artery distribution. No underlying tumor mass was seen. Small areas of hemorrhage were noted in the right temporal lobe which were also demonstrated on the CAT scan. Coumadin was discontinued. INR was 1.4 on admission. Chest x-ray showed no active cardiopulmonary disease. EKG reveals patient is in atrial fibrillation with controlled rate. Carotid Doppler was done which showed no evidence of hemodynamically significant stenosis in either carotid system. A follow-up computed tomography scan of the brain was done which showed probable developing right middle cerebral artery infarct with moderate subfalcine shift. CT also showed underlying atrophy. Vital signs on admission were temperature 99.3, pulse rate 99, respiratory rate 18, blood pressure 122/79, and oxygen saturation of 93% on room air. Patient has been running a low-grade temperature without leukocytosis. Labs revealed unremarkable CBC with differential, BUN 29, creatinine 1.5, glucose 219, phosphorus 4.7. Lipid panel was within normal limits except for a high HDL of 69. At the time of my evaluation, patient is sitting up in bed resting comfortably and appears to be in no acute distress. Review of Systems REVIEW OF SYSTEMS: Otherwise unremarkable and noncontributory. Past Medical History Past Medical History: Atrial Fibrillation, Heart Failure, Diabetes Mellitus, Hypertension, Thyroid Disorder Additional Past Medical History / Comment(s): macular degeneration History of Any Multi-Drug Resistant Organisms: None Reported Past Surgical History: Orthopedic Surgery Additional Past Surgical History / Comment(s): hemorroidectomy, bilateral knee surgery Past Psychological History: No Psychological Hx Reported Smoking Status: Former smoker Past Alcohol Use History: Rare Past Drug Use History: None Reported Medications and Allergies Home Medications Medication Instructions Recorded Confirmed Type Acetaminophen/Diphenhydramine 1 tab PO HS 03/11/16 05/02/18 History [Tylenol PM Extra Strength] Amiodarone [Cordarone] 100 mg PO DAILY 03/11/16 05/02/18 History Atorvastatin [Lipitor] 10 mg PO HS 03/11/16 05/02/18 History Doxazosin [Cardura] 4 mg PO HS 03/11/16 05/02/18 History Finasteride [Proscar] 5 mg PO DAILY 03/11/16 05/02/18 History Fish Oil/Dha/Epa [Fish Oil 1,200 1 cap PO DAILY@1200 03/11/16 05/02/18 History mg Fish Oil] Levothyroxine Sodium [Synthroid] 75 mcg PO DAILY 03/11/16 05/02/18 History Metoprolol Tartrate [Lopressor] 25 mg PO BID 03/11/16 05/02/18 History Calcium/Magnesium/Zinc 1 tab PO DAILY@1200 05/02/18 05/02/18 History [Wcqrjav-Narrapvbb-Oimn Tablet] Furosemide [Lasix] 40 mg PO DAILY 05/02/18 05/02/18 History Lisinopril [Prinivil] 5 mg PO HS 05/02/18 05/02/18 History Potassium Chloride ER [K-Dur 20] 20 meq PO Q48H 05/02/18 05/02/18 History Sulfacetamide Sodium 2 drops BOTH EYES Q4H 05/02/18 05/02/18 History [Sulfacetamide Sod 10% Ophth Soln] Turmeric Root Extract [Turmeric] 500 mg PO DAILY 05/02/18 05/02/18 History Warfarin [Coumadin] 1.25 mg PO MOWEFR 05/02/18 05/02/18 History Warfarin [Coumadin] 2.5 mg PO SUTUTHSA 05/02/18 05/02/18 History Allergies Allergy/AdvReac Type Severity Reaction Status Date / Time No Known Allergies Allergy Verified 05/02/18 20:16 Physical Examination - Vital Signs Vital Signs: Vital Signs Temp Pulse Resp BP BP Pulse Ox 05/03/18 15:00 82 19 139/94 95 05/03/18 14:00 81 20 111/74 97 05/03/18 13:00 89 21 132/81 97 05/03/18 12:00 99 F 98 17 153/97 97 05/03/18 11:00 101 H 21 143/81 98 05/03/18 10:10 88 12 115/59 95 05/03/18 10:00 115 H 19 115/59 97 05/03/18 09:50 87 13 99/56 94 L 05/03/18 09:40 93 13 99/56 94 L 05/03/18 09:30 93 14 118/101 95 05/03/18 09:20 123 H 13 118/101 95 05/03/18 09:10 119 H 14 118/101 96 05/03/18 09:00 92 16 118/101 94 L 05/03/18 08:50 91 14 118/101 96 05/03/18 08:40 102 H 16 118/101 94 L 05/03/18 08:30 111 H 29 H 125/79 97 05/03/18 08:20 115 H 19 125/79 96 05/03/18 08:10 110 H 23 125/79 93 L 05/03/18 08:00 100 20 125/79 95 05/03/18 07:50 111 H 23 125/79 96 05/03/18 07:40 93 14 125/79 94 L 05/03/18 07:30 97 12 133/96 94 L 05/03/18 07:20 107 H 17 133/96 92 L 05/03/18 07:10 124 H 14 133/96 93 L 05/03/18 07:00 103 H 13 133/96 96 05/03/18 06:50 97 25 H 133/96 97 05/03/18 06:40 101 H 20 133/96 93 L 05/03/18 06:30 121 H 18 117/79 94 L 05/03/18 06:20 116 H 18 117/79 96 05/03/18 06:10 116 H 15 117/79 96 05/03/18 06:00 105 H 14 117/79 95 08/04/18 05:50 105 H 34 H 117/79 97 08/04/18 05:40 110 H 14 117/79 94 L 08/04/18 05:30 99 18 135/73 95 08/04/18 05:20 89 8 L 135/73 93 L 08/04/18 05:10 90 21 135/73 92 L 08/04/18 05:00 99 12 135/73 95 08/04/18 04:50 111 H 14 135/73 90 L 08/04/18 04:40 85 12 135/73 93 L 08/04/18 04:30 91 18 116/71 96 08/04/18 04:20 116 H 20 116/71 93 L 08/04/18 04:10 107 H 14 116/71 91 L 08/04/18 04:00 98.8 F 100 13 116/71 92 L 08/04/18 03:50 118 H 13 116/71 91 L 08/04/18 03:40 99 14 116/71 92 L 08/04/18 03:30 103 H 12 135/81 92 L 08/04/18 03:20 85 12 135/81 93 L 08/04/18 03:10 112 H 12 135/81 93 L 08/04/18 03:00 96 12 135/81 94 L 08/04/18 02:50 108 H 19 135/81 91 L 08/04/18 02:40 115 H 12 135/81 90 L 08/04/18 02:30 101 H 13 155/101 91 L 08/04/18 02:20 111 H 13 155/101 90 L 08/04/18 02:10 82 14 155/101 91 L 08/04/18 02:00 101 H 13 155/101 91 L 08/04/18 01:50 127 H 13 155/101 91 L 08/04/18 01:40 105 H 13 155/101 95 08/04/18 01:30 118 H 19 143/102 95 08/04/18 01:20 101 H 21 143/102 95 08/04/18 01:10 100 13 143/102 95 /04/18 01:00 99 14 143/102 94 L 08/04/18 00:50 107 H 29 H 143/102 92 L 08/04/18 00:40 91 18 143/102 94 L 08/04/18 00:30 101 H 17 128/101 91 L 05/03/18 00:20 114 H 15 128/101 94 L 05/03/18 00:10 98 19 128/101 94 L 05/03/18 00:00 99.2 F 103 H 19 128/101 97 05/02/18 23:50 88 16 128/101 94 L 05/02/18 23:40 116 H 12 128/101 95 05/02/18 23:31 128 H 05/02/18 22:38 99.3 F 15 133/97 05/02/18 22:36 99.2 F 99 17 148/78 94 L 05/02/18 21:02 99 20 138/98 94 L 05/02/18 19:22 80 18 132/86 98 05/02/18 17:16 99.3 F 99 18 122/79 93 L Intake and Output 05/03/18 05/03/18 05/03/18 06:59 14:59 22:59 Intake Total 700 50 Output Total 950 200 Balance -950 500 50 Intake: IV 100 50 Sodium Chloride 0.9% 1, 100 50 000 ml @ 50 mls/hr IV . Q20H [facility] Rx#:[id number] Oral 600 Tube Feeding 0 Output: Urine 950 200 Other: # Voids 0 0 PHYSICAL EXAM: GENERAL APPEARANCE: Patient is a well-developed, male who appears to be in no acute distress. HEENT: Normocephalic, atraumatic, no facial asymmetry is seen. Neck is supple with no masses felt. CARDIOVASCULAR: Regular rate and rhythm. ABDOMEN: Nontender, nondistended. EXTREMITIES: Show no edema or clubbing. NEUROLOGICAL EXAM: Patient is awake, alert, and oriented to place and self. Patient does not know what year this is. Speech and language are normal. Strength is 4/5 in the left upper extremity and 5-/5 in all other extremities. A meaningful sensory exam could not be performed due to patient not fully understanding direction. No obvious facial asymmetry is noted. No tremors or seizure-like activity noted. Results - Laboratory Findings CBC and BMP: 05/03/18 04:50 05/03/18 04:50 Abnormal Lab Findings: Abnormal Labs 05/02/18 05/02/18 05/02/18 17:42 17:42 23:33 Lymphocytes # PT 13.0 H INR 1.4 H BUN 31 H Creatinine 1.70 H Glucose 156 H POC Glucose (mg/dL) 219 H Phosphorus HDL Cholesterol 05/03/18 05/03/18 05/03/18 04:50 04:50 07:51 Lymphocytes # 0.5 L PT INR BUN 29 H Creatinine 1.50 H Glucose 244 H POC Glucose (mg/dL) 223 H Phosphorus 4.7 H HDL Cholesterol 69 H 05/03/18 12:42 Lymphocytes # PT INR BUN Creatinine Glucose POC Glucose (mg/dL) 284 H Phosphorus HDL Cholesterol Assessment and Plan Plan: Impression: 1. Subacute stroke 2. Hemorrhagic areas in the right temporal lobe 3. Cerebral edema, on Decadron 4. Left-sided weakness 5. Altered mental status 6. Atrial fibrillation 7. Coagulability disorder, Coumadin-induced 8. Chronic kidney disease Recommendation: It does appear patient suffered a subacute ischemic stroke with small areas of hemorrhage in the right temporal lobe. I do recommend transferring patient to a facility that has neurosurgery available. Family wishes to keep the patient at [facility]. If patient is not to be transferred, I suggest CODE STATUS be discussed with the family. I recommend to continue Decadron for cerebral edema. Continue to hold Coumadin. Staff reports patient status is actually improved. Should patient show any sign of decline, I would recommend transfer to another facility. As you recall, carotid Doppler showed no significant stenosis. I recommend physical therapy and occupational therapy to evaluate and treat. I recommend speech therapy for swallow evaluation. I will order an EEG, fasting lipid panel, and serum homocysteine level. I will continue to follow with you. Further recommendations to follow. Thank you for allowing me to participate in the care of this patient. Feel free to call with any questions or concerns. I performed an examination of the patient and discussed the management with the RESIDENT CARE TECHNICIAN. I have reviewed the RESIDENT CARE TECHNICIAN notes and agree with the findings and plan of care.
[2018-05-03 17:15] LABS: Glucose,Whole Blood 276 mg/dL (75-99)
[2018-05-03] MEDS ORDERED: INSULIN ASPART 100 UNIT/ML 1 ML 10 ML VIAL SQ ONE (17:55)
[2018-05-03 20:27] LABS: Glucose,Whole Blood 185 mg/dL (75-99)
[2018-05-03] MEDS: DOXAZOSIN 4 MG TAB PO SCH (20:49)
[2018-05-03] MEDS: ATORVASTATIN 10 MG TAB PO SCH (20:50)
[2018-05-03] MEDS: LISINOPRIL 5 MG TAB PO SCH (22:19)
[2018-05-04] MEDS: SULFACETAMIDE SOD 10% OPHTH DROPS 15 ML BTL BOTH EYES SCH ×6 (02:48→21:40)
[2018-05-04 05:08] LABS: Basophils % (A) 0 %; Eosinophils # (A) 0.1 k/uL (0-0.7); Eosinophils % (A) 0 %; HCT 41.5 % (39.0-53.0); Lymphocytes # (A) 0.6 k/uL (1.0-4.8); Lymphocytes % (A) 4 %; MCH 28.5 pg (25.0-35.0); MCHC 31.2 g/dL (31.0-37.0); MCV 91.5 fL (80.0-100.0); Mean Platelet Volume 6.7; Monocytes # (A) 0.4 k/uL (0-1.0); Monocytes % (A) 3 %; Neutrophils % (A) 93 %; Platelet Count 177 k/uL (150-450); RBC 4.54 m/uL (4.30-5.90); RDW 13.4 % (11.5-15.5); WBC 15.1 k/uL (3.8-10.6)
[2018-05-04 05:17] LABS: Calcium 8.8 mg/dL (8.4-10.2); Potassium 4.1 mmol/L (3.5-5.1)
[2018-05-04] MEDS: SODIUM CHLORIDE 0.9% 1,000 ML IV SCH (05:48)
[2018-05-04] MEDS: DEXAMETHASONE SOD PHOSPHATE 4 MG/ML 1 ML VIAL IV SCH ×4 (05:48→18:04)
[2018-05-04] MEDS: LEVOTHYROXINE 75 MCG TAB PO SCH (05:49)
--- NOTE | 2018-05-04 06:27 | XR ---
EXAMINATION TYPE: XR chest 1V DATE OF EXAM: 05/04/2018 HISTORY: CHF. REFERENCE: Previous study dated 05/03/2018. FINDINGS: The heart is enlarged. There is worsening vascular congestion and pulmonary edema. Pleural spaces appear clear. IMPRESSION: WORSENING CHANGES OF CONGESTIVE HEART FAILURE.
[2018-05-04 07:21] LABS: Glucose,Whole Blood 173 mg/dL (75-99)
[2018-05-04] MEDS: INSULIN ASPART 100 UNIT/ML 1 ML 10 ML VIAL SQ SCH ×4 (07:45→21:38)
[2018-05-04] MEDS: PANTOPRAZOLE 40 MG TABLET PO SCH (07:46)
[2018-05-04] MEDS: METOPROLOL TARTRATE 25 MG TAB PO SCH ×2 (09:20→20:57)
[2018-05-04] MEDS: FINASTERIDE 5 MG TAB PO SCH (09:20)
[2018-05-04] MEDS: AMIODARONE 100 MG TAB PO SCH (09:20)
--- NOTE | 2018-05-04 09:48 | P.PN ---
Subjective Progress Note Date: 05/04/18 80-year-old male patient who presented to the emergency department with altered mentation, confusion and generalized weakness. The patient also had some left- sided facial droop and slurred speech and left-sided sensation impairment. The patient is known to have chronic atrial fibrillation and he is maintained on warfarin for long-term anticoagulation. He also has issues with hyperlipidemia , congestion heart failure, chronic renal failure, hypertension, hypothyroidism , and BPH. The patient had an initial CAT scan of the head in the emergency department that showed a subacute infarct involving the right temporal lobe with some areas of hemorrhage or mass effect and edema. Subsequently an MRI of the brain was done that showed similar findings with his mass effect and edema involving the right cerebral hemisphere in the right temporal lobe. This was along the right MCA distribution. There is adequate arterial flow in the right middle cerebral artery. The findings are consistent with subacute infarct. No underlying tumors identified. There was areas of small hemorrhage as demonstrated on the CAT scan of the brain. Patient was taken off the Coumadin. His INR on admission was at 1.4. His renal function is slightly impaired with a creatinine of 1.5 and the patient has evidence of chronic renal failure. His baseline creatinine from earlier evaluations showed a creatinine ranging between 1.7 and 2.0. On today's evaluation, the patient is drowsy yet arousable upon repeated stimulation.. He is communicating. He has some residual weakness on the left side specially left upper extremity compared to right. There may be some minimal residual weakness in the left face on inspection also. His speech is within normal limits. No headaches. He is awake and alert and oriented 3. He is in atrial fibrillation. His rate is controlled for now. His heart rate is in the mid 90s. Hemodynamically he has no significant hypertensive reaction. No hypotension. No fever. No seizure activity. Swallow is adequate and the patient had breakfast this morning. He is on Decadron per neurology's recommendation a dose of 4 mg IV push every 6 hours. Outpatient medications were all resumed with the exception of his Coumadin. On 05/04/2018, I'm seeing this patient for a follow-up. The patient feels good. He was able to ambulate however was able to get out of bed and sit up on a chair. He feels the left-sided slightly weak however and examination I cannot appreciate that. I think both upper extremities are quite strong. There may be some slight facial droop on the left. Hemodynamically stable. No headaches. No altered mentation. He is following commands and answering questions appropriately. A follow-up CAT scan of the brain was done that showed an evolving CVA along the left MCA distribution along with some mass effect. He remains on Decadron. His cardiac rhythm is still in atrial fibrillation. Rate is controlled. He is on no anticoagulants due to concern of hemorrhagic transformation of the CVA. Renal function is stable with a creatinine of 1.3. Rest of the electrodes are all within normal limits. Objective - Vital Signs Vital signs: Vital Signs Temp 97.7 F 05/04/18 04:00 Pulse 90 05/04/18 07:00 Resp 26 H 05/04/18 07:00 BP 137/80 05/04/18 07:00 Pulse Ox 97 05/04/18 07:00 Intake & Output 05/03/18 05/04/18 05/04/18 18:59 06:59 18:59 Intake Total 1380 840 50 Output Total 450 700 Balance 930 140 50 Weight 94.5 kg Intake: IV 300 600 50 Sodium Chloride 0.9% 1, 300 600 50 000 ml @ 50 mls/hr IV . Q20H [facility] Rx#:[id number] Oral 1080 240 Tube Feeding 0 Output: Urine 450 700 Other: # Voids 0 - Exam Head exam was generally normal. There was no scleral icterus or corneal arcus. Mucous membranes were moist. Neck was supple and without jugular venous distension, thyromegaly, or carotid bruits. Carotids were easily palpable bilaterally. There was no adenopathy. Lungs were clear to auscultation and percussion, and with normal diaphragmatic excursion. No wheezes or rales were noted. Heart sounds are irregular S1-S2 and there is no significant murmurs appreciated. Abdominal exam revealed normal bowel sounds. The abdomen was soft, non-tender, and without masses, organomegaly, or appreciable enlargement of the abdominal aorta. Examination of the extremities revealed easily palpable radial, femoral and pedal pulses. There was no cyanosis, clubbing or edema. Examination of the skin revealed no evidence of significant rashes, suspicious appearing nevi or other concerning lesions. Neurologically there may be some left facial droop which is minimal at this point. He has equal and symmetrical pupils. Tongue is in midline. Poor range of extraocular muscle movements. No vision impairment. Adequate swallow. There may be some minimal residual motor dysfunction in the left upper extremity on the left compared to right. DTRs are equal and symmetrical. No clonus. No Babinski. Sensory function cannot be accurately assessed. No neck stiffness. - Labs CBC & Chem 7: 05/04/18 04:54 05/04/18 04:54 Labs: Abnormal Lab Results - Last 24 Hours (Table) 05/03/18 05/03/18 05/03/18 Range/Units 12:42 17:13 20:26 WBC (3.8-10.6) k/uL Neutrophils # (1.3-7.7) k/uL Lymphocytes # (1.0-4.8) k/uL Sodium (137-145) mmol/L BUN (9-20) mg/dL Creatinine (0.66-1.25) mg/dL Glucose (74-99) mg/dL POC Glucose (mg/dL) 284 H 276 H 185 H (75-99) mg/dL 05/04/18 05/04/18 05/04/18 Range/Units 04:54 04:54 07:20 WBC 15.1 H (3.8-10.6) k/uL Neutrophils # 14.0 H (1.3-7.7) k/uL Lymphocytes # 0.6 L (1.0-4.8) k/uL Sodium 135 L (137-145) mmol/L BUN 33 H (9-20) mg/dL Creatinine 1.30 H (0.66-1.25) mg/dL Glucose 174 H (74-99) mg/dL POC Glucose (mg/dL) 173 H (75-99) mg/dL Microbiology - Last 24 Hours (Table) 05/02/18 17:42 Urine Culture - Final Urine,Clean Catch Assessment and Plan Plan: 1 subacute stroke involving the right temporal lobe with edema and mass effect and limited areas of hemorrhage secondary to CVA. Possibility of an embolic CVA nontender the patient has chronic atrial fibrillation. The patient had a follow-up CAT scan yesterday that showed evolution of a right MCA/temporal CVA with some mass effect and the patient is to be on Decadron. Surprisingly, no significant deficits can be seen at least on the water aspect of the patient is awake and alert and stable. 2 left facial droop and some limited motor weakness on the left upper extremity secondary to above, unchanged compared to yesterday 3 chronic atrial fibrillation 4 CHF, per history. We'll need an echocardiogram to assess LV function and rule out any intracardiac clots. 5 hypothyroidism 6 hyperlipidemia 7 hypertension 8 BPH, check was voiding residual and if it significant insert a Taylor catheter. 9 chronic renal failure Plan Will discuss with neurology the need for a follow-up CAT scan of the brain specially with the edema in the mass effect and the punctate hemorrhages seen. Kept on IV fluids to KVO. Keep the patient ICU. Continue Decadron. Patient is swallowing well and he is tolerating diet. He is hemodynamically stable. He remains nature fibrillation. Rate is controlled. No anticoagulants. We'll follow.
[2018-05-04] MEDS: CALCIUM CARBONATE 500 MG CHEWABLE PO SCH (11:51)
[2018-05-04 11:56] LABS: Glucose,Whole Blood 237 mg/dL (75-99)
--- NOTE | 2018-05-04 12:23 | P.PN ---
Subjective 80-year-old the male came to emergency department with altered mental status confusion excessive drowsiness unable to arouse with the left-sided facial droop and left-sided tingling numbness. Patient the had a CAT scan which showed an infarct in the right temporal lobe with subsequent hemorrhage into it and patient is on anticoagulation for his atrial fibrillation. As per family request who doesn't want any aggressive management patient was not transferred to tertiary care hospital as the daughter does not want any neurosurgical intervention at this time. Patient appears to have had an ischemic stroke with possible post infarct hemorrhage. Patient is fairly arousable, patient is on Decadron at this time anti-correlation is being held MRI was obtained which showed mass effect and edema and hemorrhage in the temporal lobe on the right side. No seizure activity. Neurology will evaluate the patient. 05/04/2018 Patient clinically looking much better today sitting in the chair able to answer my questions appropriately. Although quite weak patient's cerebral edema clinically appears to be improving with Decadron all the CAT scan from yesterday showed worsening infarct and edema. Patient was evaluated by neurology. Patient is not on any prophylactic antiseizure medications at this time. Constitutional: Denied any fatigue denied any fever. Cardio vascular: denied any chest pain, palpitations Gastrointestinal denied any nausea vomiting Pulmonary: Denied any shortness of breath cough Neurologic unable to assess alert oriented 3 today Objective - Vital Signs Vital signs: Vital Signs Temp 98.6 F 05/04/18 12:00 Pulse 89 05/04/18 12:00 Resp 18 05/04/18 12:00 BP 127/87 05/04/18 12:00 Pulse Ox 94 L 05/04/18 12:00 Intake & Output 05/03/18 05/04/18 05/04/18 18:59 06:59 18:59 Intake Total 0005 338 4994 Output Total 450 700 450 Balance 930 140 830 Weight 94.5 kg Intake: IV 300 600 200 Sodium Chloride 0.9% 1, 300 600 200 000 ml @ 50 mls/hr IV . Q20H [facility] Rx#:[id number] Oral 3776 190 2136 Tube Feeding 0 Output: Urine 450 700 450 Other: # Voids 0 - Exam PHYSICAL EXAMINATION: GENERAL: Appears quite weak although alert oriented 3 HEENT: Pupils are round and equally reacting to light. EOMI. No scleral icterus. No conjunctival pallor. Normocephalic, atraumatic. No pharyngeal erythema. No thyromegaly. CARDIOVASCULAR: S1 and S2 present. No murmurs, rubs, or gallops. PULMONARY: Chest is clear to auscultation, no wheezing or crackles. ABDOMEN: Soft, nontender, nondistended, normoactive bowel sounds. No palpable organomegaly. MUSCULOSKELETAL: No joint swelling or deformity. EXTREMITIES: No cyanosis, clubbing, or pedal edema. NEUROLOGICAL: Unable to assess SKIN: No rashes. - Labs CBC & Chem 7: 05/04/18 04:54 05/04/18 04:54 Labs: Abnormal Lab Results - Last 24 Hours (Table) 05/03/18 05/03/18 05/03/18 Range/Units 12:42 17:13 20:26 WBC (3.8-10.6) k/uL Neutrophils # (1.3-7.7) k/uL Lymphocytes # (1.0-4.8) k/uL Sodium (137-145) mmol/L BUN (9-20) mg/dL Creatinine (0.66-1.25) mg/dL Glucose (74-99) mg/dL POC Glucose (mg/dL) 284 H 276 H 185 H (75-99) mg/dL 05/04/18 05/04/18 05/04/18 Range/Units 04:54 04:54 07:20 WBC 15.1 H (3.8-10.6) k/uL Neutrophils # 14.0 H (1.3-7.7) k/uL Lymphocytes # 0.6 L (1.0-4.8) k/uL Sodium 135 L (137-145) mmol/L BUN 33 H (9-20) mg/dL Creatinine 1.30 H (0.66-1.25) mg/dL Glucose 174 H (74-99) mg/dL POC Glucose (mg/dL) 173 H (75-99) mg/dL 05/04/18 Range/Units 11:55 WBC (3.8-10.6) k/uL Neutrophils # (1.3-7.7) k/uL Lymphocytes # (1.0-4.8) k/uL Sodium (137-145) mmol/L BUN (9-20) mg/dL Creatinine (0.66-1.25) mg/dL Glucose (74-99) mg/dL POC Glucose (mg/dL) 237 H (75-99) mg/dL Microbiology - Last 24 Hours (Table) 05/02/18 17:42 Urine Culture - Final Urine,Clean Catch Assessment and Plan Plan: -Subacute stroke ischemic stroke with the post ischemic hemorrhage in the right temporal lobe. Holding off anticoagulation patient has significant edema in the temporal lobe area for which patient is on Decadron, patient looks clinically well patient may need prophylactic antiseizure medications. Continue with present therapy Dr. 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 Patient is drinking water well his creatinine today is 1.3
--- NOTE | 2018-05-04 13:29 | ECHOF ---
Referral Reason:cva MEASUREMENTS -------- HEIGHT: 177.8 cm WEIGHT: 96.2 kg BP: 115/59 RVIDd: 2.8 cm (< 3.3) IVSd: 1.2 cm (0.6 - 1.1) LVIDd: 4.3 cm (3.9 - 5.3) LVPWd: 1.1 cm (0.6 - 1.1) IVSs: 1.7 cm LVIDs: 2.7 cm LVPWs: 1.7 cm LA Diam: 2.9 cm (2.7 - 3.8) LAESV Index (A-L): 30.38 ml/m Ao Diam: 4.7 cm (2.0 - 3.7) AV Cusp: 1.6 cm (1.5 - 2.6) MV EXCURSION: 18.330 mm (> 18.000) MV EF SLOPE: 102 mm/s (70 - 150) EPSS: 1.2 cm RAP: 15.00 mmHg RVSP: 39.61 mmHg FINDINGS -------- Atrial fibrillation. This was a technically adequate study. The left ventricular size is normal. There is borderline concentric left ventricular hypertrophy. Overall left ventricular systolic function is mild-moderately impaired with, an EF between 40 - 45 % . The right ventricle is normal in size. LA is midly dilated 29-33ml/m2. The right atrium is normal in size. There is mild aortic valve sclerosis. There is mild aortic regurgitation. The mitral valve leaflets are mildly thickened. Mild mitral annular calcification present. Mild m itral regurgitation is present. Mild tricuspid regurgitation present. There is mild pulmonary hypertension. The right ventricular systolic pressure, as measured by Doppler, is 39.61mmHg. Trace/mild (physiologic) pulmonic regurgitation. The aortic root is dilated measuring 4.7cm. The inferior vena cava is dilated with no significant inspiratory collapse which is consistent estima edie right atrial pressure of >15 mmHg. There is no pericardial effusion. CONCLUSIONS -------- 1. Atrial fibrillation. 2. This was a technically adequate study. 3. The left ventricular size is normal. 4. There is borderline concentric left ventricular hypertrophy. 5. Overall left ventricular systolic function is mild-moderately impaired with, an EF between 40 - 45 %. 6. The right ventricle is normal in size. 7. LA is midly dilated 29-33ml/m2. 8. The right atrium is normal in size. 9. There is mild aortic valve sclerosis. 10. There is mild aortic regurgitation. 11. The mitral valve leaflets are mildly thickened. 12. Mild mitral annular calcification present. 13. Mild mitral regurgitation is present. 14. Mild tricuspid regurgitation present. 15. There is mild pulmonary hypertension. 16. The right ventricular systolic pressure, as measured by Doppler, is 39.61mmHg. 17. Trace/mild (physiologic) pulmonic regurgitation. 18. The aortic root is dilated measuring 4.7cm. 19. The inferior vena cava is dilated with no significant inspiratory collapse which is consistent es timated right atrial pressure of >15 mmHg. 20. There is no pericardial effusion. FOOT CUTTER: Yadira Thompson RDCS
--- NOTE | 2018-05-04 17:20 | P.PN ---
Subjective Progress Note Date: 05/04/18 Patient is a pleasant 80-year-old male who is being followed by the neurology service for CVA. Patient was found to be more confused and drowsy in the home setting and came to the emergency room at [facility]. CT on admission showed a large right hemisphere abnormality with parenchymal small areas of hemorrhage in the right temporal lobe. Mild mass effect. CT showed both subacute temporal lobe infarct and temporal lobe tumor with mass effect and edema. Brain MRI showed edema and mass effect in the right cerebral hemisphere in the right temporal lobe. No underlying tumor mass was seen. Small areas of hemorrhage noted which was also demonstrated on the CAT scan. I recommended patient be transferred to facility that has neurosurgical ability. Family opted for patient to remain here. Carotid Doppler showed no evidence of hemodynamically significant stenosis. Patient is doing much better today as compared to yesterday. Left upper extremity is much stronger today as compared to yesterday. Patient is hemodynamically stable. As you recall, follow-up CT did show an evolving CVA along the left MCA distribution along with mass effect. He continues to receive Decadron. Anticoagulation is on hold. At the time of my evaluation, patient's resting comfortably in bed and appears to be in no acute distress. Objective - Vital Signs Vital signs: Vital Signs Temp 98.4 F 05/04/18 16:00 Pulse 75 05/04/18 17:00 Resp 13 05/04/18 17:00 BP 145/84 05/04/18 17:00 Pulse Ox 96 05/04/18 17:00 Intake & Output 05/03/18 05/04/18 05/04/18 18:59 06:59 18:59 Intake Total 8562 777 1817 Output Total 450 700 701 Balance 487 274 5352 Weight 94.5 kg Intake: IV 300 600 200 Sodium Chloride 0.9% 1, 300 600 200 000 ml @ 50 mls/hr IV . Q20H [facility] Rx#:[id number] Oral 3419 119 4419 Tube Feeding 0 Output: Urine 450 700 700 Stool 1 Other: # Voids 0 - Exam PHYSICAL EXAM: GENERAL APPEARANCE: Patient is a well-developed, male who appears to be in no acute distress. HEENT: Normocephalic, atraumatic, slight facial asymmetry is seen. Neck is supple with no masses felt. CARDIOVASCULAR: Regular rate and rhythm. ABDOMEN: Nontender, nondistended. EXTREMITIES: Show no edema or clubbing. NEUROLOGICAL EXAM: Patient is awake, alert, and oriented 3. Speech and language are normal. Strength is 5-/5 in the left upper extremity and 5/5 in all other extremities. Sensory exam is normal to light touch in all 4 extremities. Questionable left facial droop on cranial nerve testing. No tremors or seizure-like activity is noted. - Labs CBC & Chem 7: 05/04/18 04:54 05/04/18 04:54 Labs: Abnormal Lab Results - Last 24 Hours (Table) 05/03/18 05/03/18 05/04/18 Range/Units 17:13 20:26 04:54 WBC (3.8-10.6) k/uL Neutrophils # (1.3-7.7) k/uL Lymphocytes # (1.0-4.8) k/uL Sodium 135 L (137-145) mmol/L BUN 33 H (9-20) mg/dL Creatinine 1.30 H (0.66-1.25) mg/dL Glucose 174 H (74-99) mg/dL POC Glucose (mg/dL) 276 H 185 H (75-99) mg/dL 05/04/18 05/04/18 05/04/18 Range/Units 04:54 07:20 11:55 WBC 15.1 H (3.8-10.6) k/uL Neutrophils # 14.0 H (1.3-7.7) k/uL Lymphocytes # 0.6 L (1.0-4.8) k/uL Sodium (137-145) mmol/L BUN (9-20) mg/dL Creatinine (0.66-1.25) mg/dL Glucose (74-99) mg/dL POC Glucose (mg/dL) 173 H 237 H (75-99) mg/dL Microbiology - Last 24 Hours (Table) 05/02/18 17:42 Urine Culture - Final Urine,Clean Catch Assessment and Plan Plan: Impression: 1. Subacute stroke 2. Hemorrhagic areas in the right temporal lobe 3. Cerebral edema, on Decadron 4. Left-sided weakness 5. Altered mental status 6. Atrial fibrillation 7. Coagulability disorder, Coumadin-induced 8. Chronic kidney disease Recommendation: It does appear patient suffered a subacute ischemic stroke with small areas of hemorrhage in the right temporal lobe. I do recommend transferring patient to a facility that has neurosurgery available. Family wishes to keep the patient at [facility]. If patient is not to be transferred, I suggest CODE STATUS be discussed with the family. I recommend to continue Decadron for cerebral edema. Continue to hold Coumadin. Should patient show any sign of decline, I would recommend transfer to another facility. I will repeat a computed tomography scan of the brain to evaluate edema. I do not recommend prophylactic antiepileptic medication. He will need antiepileptic medication only if he develops seizures. Continue physical therapy. EEG is not yet performed. His fasting lipid panel is within normal limits. Serum homocysteine level is pending. I will continue to follow with you. Further recommendations to follow. I performed an examination of the patient and discussed the management with the FILLING CARRIER. I have reviewed the FILLING CARRIER notes and agree with the findings and plan of care.
[2018-05-04 17:33] LABS: Glucose,Whole Blood 192 mg/dL (75-99)
--- NOTE | 2018-05-04 18:55 | CT ---
EXAMINATION TYPE: CT brain wo con DATE OF EXAM: 05/04/2018 COMPARISON: 03/03/2018 HISTORY: 82-year-old male CVA. TECHNIQUE: Examination was done in axial plane without intravenous contrast. Coronal and sagittal r econstructions performed. CT DLP: 1022.6 mGycm Automated exposure control for dose reduction was used. FINDINGS: Redemonstrated is extensive hypodensity at the right frontoparietal junction extending down into the right temporal lobe. Some areas of cortical density are preserved but there is gyriform and petechial hemorrhage again noted throughout the abnormal regions. Continued sulcal effacement and partial flat tening of the right lateral ventricle. There is 6 mm of leftward midline shift versus 7 mm, previousl y. No angus herniation seen. Paranasal sinuses and mastoid air cells well pneumatized. Orbits and globes are intact. IMPRESSION: 1. Overall similar appearance to the right frontoparietal and right temporal hypodensity with associa edie mass effect. Leftward midline shift measures 6 mm versus 7 mm, previously and there is similar as sociated gyriform and petechial areas of hemorrhage. Acute infarct suspected. 2. When patient's condition stabilizes, follow-up contrast enhanced MRI to exclude underlying mass.
[2018-05-04] MEDS: ATORVASTATIN 10 MG TAB PO SCH (20:56)
[2018-05-04] MEDS: DOXAZOSIN 4 MG TAB PO SCH (20:56)
[2018-05-04] MEDS: LISINOPRIL 5 MG TAB PO SCH (20:57)
[2018-05-04 21:00] LABS: Glucose,Whole Blood 306 mg/dL (75-99)
[2018-05-04] MEDS: POTASSIUM CHLORIDE ER 20 MEQ TAB.ER PO SCH (21:40)
[2018-05-05] MEDS: DEXAMETHASONE SOD PHOSPHATE 4 MG/ML 1 ML VIAL IV SCH ×5 (00:21→23:25)
[2018-05-05] MEDS: SULFACETAMIDE SOD 10% OPHTH DROPS 15 ML BTL BOTH EYES SCH ×6 (02:11→23:25)
[2018-05-05 04:42] LABS: Basophils % (A) 0 %; Eosinophils % (A) 0 %; HGB 13.6 gm/dL (13.0-17.5); Lymphocytes # (A) 0.6 k/uL (1.0-4.8); Lymphocytes % (A) 5 %; MCH 28.9 pg (25.0-35.0); MCHC 31.7 g/dL (31.0-37.0); MCV 91.2 fL (80.0-100.0); Mean Platelet Volume 6.8; Monocytes # (A) 0.3 k/uL (0-1.0); Monocytes % (A) 3 %; Neutrophils # (A) 11.5 k/uL (1.3-7.7); Neutrophils % (A) 92 %; Platelet Count 197 k/uL (150-450); RBC 4.72 m/uL (4.30-5.90); RDW 13.3 % (11.5-15.5); WBC 12.6 k/uL (3.8-10.6)
[2018-05-05 04:56] LABS: Calcium 8.9 mg/dL (8.4-10.2); Phosphorus 3.5 mg/dL (2.5-4.5); Potassium 4.8 mmol/L (3.5-5.1)
[2018-05-05] MEDS: LEVOTHYROXINE 75 MCG TAB PO SCH (06:35)
[2018-05-05] MEDS: MAGNESIUM SULFATE-D5W PMX 1 GM in DEXTROSE/WATER 1 100ML.BAG IVPB SCH ×2 (06:37→09:27)
[2018-05-05 07:24] LABS: Glucose,Whole Blood 234 mg/dL (75-99)
--- NOTE | 2018-05-05 08:16 | XR ---
EXAMINATION TYPE: XR chest 1V DATE OF EXAM: 05/05/2018 COMPARISON: 05/04/2018 HISTORY: Congestive heart failure TECHNIQUE: Single frontal view of the chest is obtained. FINDINGS: Patchy bibasilar subsegmental atelectasis is noted. Previously seen pulmonary vascular con gestion has resolved in the interim. Cardia mediastinal silhouette is mildly enlarged. Osseous struct ures are generally demineralized. IMPRESSION: Resolution of the previously seen pulmonary vascular congestion. No overt congestive hea rt failure.
[2018-05-05] MEDS: PANTOPRAZOLE 40 MG TABLET PO SCH (08:38)
[2018-05-05] MEDS: INSULIN ASPART 100 UNIT/ML 1 ML 10 ML VIAL SQ SCH ×7 (08:39→20:43)
[2018-05-05] MEDS: AMIODARONE 100 MG TAB PO SCH (09:12)
[2018-05-05] MEDS: FINASTERIDE 5 MG TAB PO SCH (09:12)
[2018-05-05] MEDS: METOPROLOL TARTRATE 25 MG TAB PO SCH ×2 (09:12→20:42)
[2018-05-05] MEDS ORDERED: INSULIN ASPART 100 UNIT/ML 1 ML 10 ML VIAL SQ ONE ×2 (09:14→12:13)
[2018-05-05 09:15] LABS: Glucose,Whole Blood 221 mg/dL (75-99)
--- NOTE | 2018-05-05 11:42 | CDI ---
Last Revision, August 2017 Documentation Clarification Form Date: 05/05/2018 11:31:39 AM From: Verona Berg RN, CCDS Admit Date: 05/02/2018 9:40:00 PM Patient Name: Aba Deleon Visit Number: [id number] ATTENTION: The Clinical Documentation Specialists (CDI) and [facility] Coding Staff appreciate your assistance in clarifying documentation. Please respond to the clarification below the line at the bottom and electronically sign. The CDI & [facility] Coding staff will review the response and follow-up if needed. Please note: Queries are made part of the Legal Health Record. If you have any questions, please contact the author of this message via ITS. Dr. Hickey History/Risk Factors: CHF, AF, DM Clinical Indicators: 05/04 Attending Progress Note: "Congestive heart failure history: Patient is bit hypovolemic because of which is a diuretic therapy is being held at did not know the ejection fraction echocardiac exam is being obtained to assess his LV function, results of which are still pending." VS/Pulse OX: Temp 99.3, hr 99, RR 18, B/P 122/79, spo2 93% ra BNP: not checked. Echocardiogram Results: EF 40-45%, mild pulmonary HTN 05/05 Chest X Ray: "Resolution of the previously seen pulmonary vascular congestion. No overt congestive heart failure." Treatment: Lasix 40 mg PO QD In your professional opinion, can you please clarify the acuity and type of CHF if known? Systolic Heart Failure: Chronic Acute on Chronic Unable to Determine Other, please specify Please continue to document in your progress notes and discharge summary in order to capture severity of illness and risk of mortality. Include clinical findings that support your diagnosis. Systolic Heart Failure: Acute on Chronic MTDD
[2018-05-05] MEDS: CALCIUM CARBONATE 500 MG CHEWABLE PO SCH (11:50)
--- NOTE | 2018-05-05 12:03 | P.PN ---
Subjective Progress Note Date: 05/05/18 Principal diagnosis: Subacute CVA involving the right temporal lobe with edema and limited hemorrhage 80-year-old male patient who presented to the emergency department with altered mentation, confusion and generalized weakness. The patient also had some left- sided facial droop and slurred speech and left-sided sensation impairment. The patient is known to have chronic atrial fibrillation and he is maintained on warfarin for long-term anticoagulation. He also has issues with hyperlipidemia , congestion heart failure, chronic renal failure, hypertension, hypothyroidism , and BPH. The patient had an initial CAT scan of the head in the emergency department that showed a subacute infarct involving the right temporal lobe with some areas of hemorrhage or mass effect and edema. Subsequently an MRI of the brain was done that showed similar findings with his mass effect and edema involving the right cerebral hemisphere in the right temporal lobe. This was along the right MCA distribution. There is adequate arterial flow in the right middle cerebral artery. The findings are consistent with subacute infarct. No underlying tumors identified. There was areas of small hemorrhage as demonstrated on the CAT scan of the brain. Patient was taken off the Coumadin. His INR on admission was at 1.4. His renal function is slightly impaired with a creatinine of 1.5 and the patient has evidence of chronic renal failure. His baseline creatinine from earlier evaluations showed a creatinine ranging between 1.7 and 2.0. On today's evaluation, the patient is drowsy yet arousable upon repeated stimulation.. He is communicating. He has some residual weakness on the left side specially left upper extremity compared to right. There may be some minimal residual weakness in the left face on inspection also. His speech is within normal limits. No headaches. He is awake and alert and oriented 3. He is in atrial fibrillation. His rate is controlled for now. His heart rate is in the mid 90s. Hemodynamically he has no significant hypertensive reaction. No hypotension. No fever. No seizure activity. Swallow is adequate and the patient had breakfast this morning. He is on Decadron per neurology's recommendation a dose of 4 mg IV push every 6 hours. Outpatient medications were all resumed with the exception of his Coumadin. On 05/04/2018, I'm seeing this patient for a follow-up. The patient feels good. He was able to ambulate however was able to get out of bed and sit up on a chair. He feels the left-sided slightly weak however and examination I cannot appreciate that. I think both upper extremities are quite strong. There may be some slight facial droop on the left. Hemodynamically stable. No headaches. No altered mentation. He is following commands and answering questions appropriately. A follow-up CAT scan of the brain was done that showed an evolving CVA along the left MCA distribution along with some mass effect. He remains on Decadron. His cardiac rhythm is still in atrial fibrillation. Rate is controlled. He is on no anticoagulants due to concern of hemorrhagic transformation of the CVA. Renal function is stable with a creatinine of 1.3. Rest of the electrodes are all within normal limits. On 05/05/2018, patient was reevaluated, seems to be doing quite well, no appreciable weakness was noted on physical examination. Patient is alert, oriented, knew exactly where he was, he knew the month, but did not know the exact year. Patient is relatively asymptomatic, hemodynamically stable, in atrial fibrillation, but rate seems to be well-controlled. Coumadin is still on hold. Repeat CT of the brain showed similar appearance compared to the previous one, MRI was recommended by the radiologist. Labs were reviewed CBC is relatively normal, WBC count is 12.6 basic metabolic profile is normal, renal profile is improving creatinine is up to 1.20 today. Chest x-ray showed improved pulmonary vascular congestion, patchy bibasilar atelectasis is noted. Objective - Vital Signs Vital signs: Vital Signs Temp 97.9 F 05/05/18 04:00 Pulse 81 05/05/18 10:00 Resp 21 05/05/18 10:00 BP 164/111 05/05/18 10:00 Pulse Ox 97 05/05/18 10:00 Intake & Output 05/04/18 05/05/18 05/05/18 18:59 06:59 18:59 Intake Total 2120 890 100 Output Total 701 2000 1 Balance 1419 -1110 99 Weight 93.8 kg Intake: IV 200 Sodium Chloride 0.9% 1, 200 000 ml @ 50 mls/hr IV . Q20H [facility] Rx#:[id number] Intake, IV Titration 100 Amount Magnesium Sulfate-D5w Pmx 100 1 gm In Dextrose/Water 1 100ml.bag @ 100 mls/hr IVPB Q1H [facility] Rx#: [id number] Oral 1920 890 Output: Urine 700 2000 0 Stool 1 1 Other: # Voids 1 - Exam Physical exam revealed an 82-year-old white male in no distress. Head: Atraumatic, normocephalic. HEENT: PERRLA, EOMI, no icterus, neck supple, no stridor, no neck masses, no lymphadenopathy, no carotid bruits noted. Lungs were clear to auscultation and percussion, and with normal diaphragmatic excursion. No wheezes or rales were noted. Heart sounds irregular irregular rhythm, normal S1-S2 and there is no significant murmurs appreciated. Abdominal exam revealed normal bowel sounds. The abdomen was soft, non-tender, and without masses, organomegaly, or appreciable enlargement of the abdominal aorta. Examination of the extremities revealed no clubbing, no edema, no cyanosis. Examination of the skin revealed no rashes, no erythema. Neurologically there may be some left facial droop which is minimal at this point. He has equal and symmetrical pupils. Tongue is in midline. Poor range of extraocular muscle movements. No vision impairment. Adequate swallow. No significant weakness was appreciated in upper and lower extremities. DTRs are equal and symmetrical. No clonus. No Babinski. Sensory function cannot be accurately assessed. No neck stiffness. - Labs CBC & Chem 7: 05/05/18 03:58 05/05/18 03:58 Labs: Abnormal Lab Results - Last 24 Hours (Table) 05/04/18 05/04/18 05/04/18 Range/Units 11:55 17:20 20:58 WBC (3.8-10.6) k/uL Neutrophils # (1.3-7.7) k/uL Lymphocytes # (1.0-4.8) k/uL Sodium (137-145) mmol/L BUN (9-20) mg/dL Glucose (74-99) mg/dL POC Glucose (mg/dL) 237 H 192 H 306 H (75-99) mg/dL 05/05/18 05/05/18 05/05/18 Range/Units 03:58 03:58 07:20 WBC 12.6 H (3.8-10.6) k/uL Neutrophils # 11.5 H (1.3-7.7) k/uL Lymphocytes # 0.6 L (1.0-4.8) k/uL Sodium 132 L (137-145) mmol/L BUN 38 H (9-20) mg/dL Glucose 175 H (74-99) mg/dL POC Glucose (mg/dL) 234 H (75-99) mg/dL 05/05/18 Range/Units 09:13 WBC (3.8-10.6) k/uL Neutrophils # (1.3-7.7) k/uL Lymphocytes # (1.0-4.8) k/uL Sodium (137-145) mmol/L BUN (9-20) mg/dL Glucose (74-99) mg/dL POC Glucose (mg/dL) 221 H (75-99) mg/dL Assessment and Plan Assessment: 1 subacute stroke involving the right temporal lobe with edema and mass effect and limited areas of hemorrhage secondary to CVA. Possibility of an embolic CVA nontender the patient has chronic atrial fibrillation. The patient had a follow-up CAT scan yesterday that showed evolution of a right MCA/temporal CVA with some mass effect and the patient is to be on Decadron. 2 left facial droop and resolution of the limited motor weakness on the left upper extremity secondary to above 3 chronic atrial fibrillation 4 CHF, per history. We'll need an echocardiogram to assess LV function and rule out any intracardiac clots. 5 hypothyroidism 6 hyperlipidemia 7 hypertension 8 BPH, check was voiding residual and if it significant insert a Taylor catheter. 9 acute renal failure, improving creatinine is 1.2 today. Recommendation: Continue present supportive care measures, consider transferring the patient to a monitor bed on selective, patient is being followed by neurology, so far, the patient seems to be doing better than expected. We'll continue to follow. Time with Patient: Less than 30
[2018-05-05 12:11] LABS: Glucose,Whole Blood 234 mg/dL (75-99)
--- NOTE | 2018-05-05 12:46 | EEG ---
ELECTROENCEPHALOGRAM REPORT DATE OF SERVICE: 05/05/2018. REASON FOR TESTING: Stroke. DESCRIPTION OF THE PROCEDURE: This EEG was performed using a 21 channel digital electroencephalograph, following international 10-20 system. DESCRIPTION OF THE RECORDING: From the beginning of the of the tracing, and with patient's eyes closed, the background rhythm was mostly consisting of 7 Hz theta frequency in the posterior occipital leads. No obvious asymmetry is seen. Photic stimulation was performed with no driving response seen. No pathological waves were elicited. Occasional movement artifacts and muscle artifacts are seen. Hyperventilation was not performed. The patient does reach stage II of sleep during the tracing and occasional sleep spindles are seen. No epileptiform discharges were seen. INTERPRETATION: This asleep and awake EEG is abnormal due to presence of generalized slowing of the background rhythm, mostly in the theta range. This is consistent with mild encephalopathy. No epileptiform discharges were seen. The absence of epileptiform discharges does not rule out the diagnosis of epilepsy; therefore clinical correlation is recommended. MMMARIE / ALIREZAN: [id number] /
--- NOTE | 2018-05-05 13:20 | PN ---
PROGRESS NOTE DATE OF SERVICE: 05/05/2018. INTERVAL HISTORY: This 82-year-old gentleman who was admitted with right temporal lobe infarct with hemorrhage is being closely monitored. No chest pain. No palpitations. No fever. Patient was on anticoagulation previously. EXAM: Alert and oriented x3. The pulse is 67, blood pressure 126/74, respiration 20, temperature 97.2, pulse ox 98% room air. HEENT: Conjunctivae normal. Neck: No jugular venous distention. Cardiovascular : S1, S2. Respiration: Breath sounds diminished in the bases. No rhonchi. No crackles. Abdomen is soft, nontender. No mass palpable. Legs no edema. No swelling. Central nervous system: Mild diffuse weakness. LAB STUDIES: WBC 12.6, hemoglobin 13.2, sodium 132, and glucose 221 and 234. ASSESSMENT: 1. Acute right temporal cerebral infarct with hemorrhagic conversion. 2. Chronic atrial fibrillation off anticoagulation. 3. Congestive heart failure with chronic systolic dysfunction. Ejection fraction 40 to 45%. 4. Hypothyroidism. 5. Hyperlipidemia. 6. Hypertension. 7. Chronic kidney stage 3. 8. Macular degeneration. 9. Gait dysfunction. 10.History of nicotine dependence. 11.FULL CODE. RECOMMENDATIONS AND DISCUSSION: This 82-year-old gentleman who presented with multiple complex medical issues, we will monitor the patient closely. Continue the current medications, management and symptomatic treatment. Continue with current medications. Off antiplatelets and anticoagulants because of the hemorrhagic conversion. PT/OT evaluation and resume the home medications. Neurovascular work up including 2D echo showed ejection fraction about 45%. The patient also had mild multiple valvular abnormalities. Carotid ultrasound, carotid Doppler showed no evidence of hemodynamically significant stenosis. We will continue to monitor. Guarded prognosis. PT, OT evaluation. Further recommendations to follow. MMODL / IJN: [id number] / MTDD
--- NOTE | 2018-05-05 16:22 | P.PN ---
Subjective Progress Note Date: 05/05/18 Patient is a pleasant 80-year-old male who is being followed by the neurology service for CVA. Patient was found to be more confused and drowsy in the home setting and came to the emergency room at [facility]. CT on admission showed a large right hemisphere abnormality with parenchymal small areas of hemorrhage in the right temporal lobe. Mild mass effect. CT showed both subacute temporal lobe infarct and temporal lobe tumor with mass effect and edema. Brain MRI showed edema and mass effect in the right cerebral hemisphere and the right temporal lobe. No underlying tumor mass was seen. Small areas of hemorrhage noted which was also demonstrated on the CAT scan. I recommended patient be transferred to facility that has neurosurgical ability. Family opted for patient to remain here. Carotid Doppler showed no evidence of hemodynamically significant stenosis. Patient is doing much better today as compared to yesterday. Left upper extremity is much stronger today as compared to yesterday. Patient is hemodynamically stable. As you recall, follow-up CT did show an evolving CVA along the left MCA distribution along with mass effect. He continues to receive Decadron. Anticoagulation is on hold. At the time of my evaluation, patient's resting comfortably in bed and appears to be in no acute distress. 05/05/2018 Patient is a pleasant 80-year-old male who is being followed by the neurology service for CVA. Patient is doing much better today as compared to yesterday. Patient is alert and conversant and sitting up in the chair. EEG was done this morning and shows generalized slowing of the background rhythm which is consistent with mild encephalopathy. No epileptiform discharges were seen. As you recall, MRI of the brain showed edema and mass effect in the right cerebral hemisphere and the right temporal lobe. Small hemorrhagic areas were noted which were also demonstrated on the computed tomography scan. A repeat computed tomography scan was done which showed overall similar appearance to the right frontoparietal and right temporal hypodensity with associated mass effect. Also petechial areas of hemorrhage were noted. This is similar as compared to the computed tomography scan. Neurologically, patient 's strength is much improved as compared to yesterday. Patient is awake, alert , and oriented 2. Patient could not recall the year. Vital signs of been stable. Coumadin remains on hold. Patient continues to be on Decadron 4 mass effect. At the time of my evaluation, patient's sitting up in the chair and appears to be in no acute distress. Objective - Vital Signs Vital signs: Vital Signs Temp 97.2 F L 05/05/18 12:00 Pulse 73 05/05/18 15:00 Resp 19 05/05/18 15:00 BP 120/85 05/05/18 15:00 Pulse Ox 98 05/05/18 13:00 Intake & Output 05/04/18 05/05/18 05/05/18 18:59 06:59 18:59 Intake Total 2120 890 200 Output Total 701 2000 676 Balance 1419 -1110 -476 Weight 93.8 kg Intake: IV 200 Sodium Chloride 0.9% 1, 200 000 ml @ 50 mls/hr IV . Q20H [facility] Rx#:[id number] Intake, IV Titration 100 Amount Magnesium Sulfate-D5w Pmx 100 1 gm In Dextrose/Water 1 100ml.bag @ 100 mls/hr IVPB Q1H [facility] Rx#: [id number] Oral 1920 890 100 Output: Urine 700 2000 675 Stool 1 1 Other: # Voids 2 - Exam PHYSICAL EXAM: GENERAL APPEARANCE: Patient is a well-developed, male who appears to be in no acute distress. HEENT: Normocephalic, atraumatic, slight facial asymmetry is seen. Neck is supple with no masses felt. CARDIOVASCULAR: Regular rate and rhythm. ABDOMEN: Nontender, nondistended. EXTREMITIES: Show no edema or clubbing. NEUROLOGICAL EXAM: Patient is awake, alert, and oriented 2. Patient could not recall the year. Speech and language are normal. Strength is 5-/5 in the left upper extremity and 5/5 in all other extremities. Sensory exam is normal to light touch in all 4 extremities. Questionable left facial droop on cranial nerve testing. No tremors or seizure-like activity is noted. - Labs CBC & Chem 7: 05/05/18 03:58 05/05/18 03:58 Labs: Abnormal Lab Results - Last 24 Hours (Table) 05/04/18 05/04/18 05/05/18 Range/Units 17:20 20:58 03:58 WBC 12.6 H (3.8-10.6) k/uL Neutrophils # 11.5 H (1.3-7.7) k/uL Lymphocytes # 0.6 L (1.0-4.8) k/uL Sodium (137-145) mmol/L BUN (9-20) mg/dL Glucose (74-99) mg/dL POC Glucose (mg/dL) 192 H 306 H (75-99) mg/dL 05/05/18 05/05/18 05/05/18 Range/Units 03:58 07:20 09:13 WBC (3.8-10.6) k/uL Neutrophils # (1.3-7.7) k/uL Lymphocytes # (1.0-4.8) k/uL Sodium 132 L (137-145) mmol/L BUN 38 H (9-20) mg/dL Glucose 175 H (74-99) mg/dL POC Glucose (mg/dL) 234 H 221 H (75-99) mg/dL 05/05/18 Range/Units 12:09 WBC (3.8-10.6) k/uL Neutrophils # (1.3-7.7) k/uL Lymphocytes # (1.0-4.8) k/uL Sodium (137-145) mmol/L BUN (9-20) mg/dL Glucose (74-99) mg/dL POC Glucose (mg/dL) 234 H (75-99) mg/dL Assessment and Plan Plan: Impression: 1. Subacute stroke 2. Hemorrhagic areas in the right temporal lobe 3. Cerebral edema, on Decadron 4. Left-sided weakness 5. Altered mental status 6. Atrial fibrillation 7. Coagulability disorder, Coumadin-induced 8. Chronic kidney disease Recommendation: It does appear patient suffered a subacute ischemic stroke with small areas of hemorrhage in the right temporal lobe. I do recommend transferring patient to a facility that has neurosurgery available. Family wishes to keep the patient at [facility]. If patient is not to be transferred, I suggest CODE STATUS be discussed with the family. I recommend to continue Decadron for cerebral edema. Continue to hold Coumadin. Should patient show any sign of decline, I would recommend transfer to another facility. His repeat computed tomography scan of the brain was essentially unchanged as compared to last CT of the brain. I do not recommend prophylactic antiepileptic medication. He will need antiepileptic medication only if he develops seizures. Continue physical therapy. EEG showed mild encephalopathy but no epileptiform discharges. His fasting lipid panel is within normal limits. Serum homocysteine level is within normal limits. Patient is stable from a neurological standpoint. As mentioned above, and a decline in neurological status I would recommend transfer to facility with neurosurgical ability. I will continue to follow with you on an as-needed basis. Feel free to call with any questions or concerns. I performed an examination of the patient and discussed the management with the RETAIL DISTRICT MANAGER. I have reviewed the RETAIL DISTRICT MANAGER notes and agree with the findings and plan of care.
[2018-05-05 17:43] LABS: Glucose,Whole Blood 224 mg/dL (75-99)
[2018-05-05 20:39] LABS: Glucose,Whole Blood 243 mg/dL (75-99)
[2018-05-05] MEDS: LISINOPRIL 5 MG TAB PO SCH (20:42)
[2018-05-05] MEDS: ATORVASTATIN 10 MG TAB PO SCH (20:42)
[2018-05-05] MEDS: DOXAZOSIN 4 MG TAB PO SCH (20:42)
[2018-05-06] MEDS: SULFACETAMIDE SOD 10% OPHTH DROPS 15 ML BTL BOTH EYES SCH ×6 (02:29→21:13)
[2018-05-06 06:12] LABS: Glucose,Whole Blood 176 mg/dL (75-99)
[2018-05-06 06:28] LABS: Basophils % (A) 0 %; Eosinophils % (A) 0 %; HCT 43.6 % (39.0-53.0); HGB 13.8 gm/dL (13.0-17.5); Lymphocytes # (A) 0.7 k/uL (1.0-4.8); Lymphocytes % (A) 6 %; MCH 28.8 pg (25.0-35.0); MCHC 31.7 g/dL (31.0-37.0); MCV 90.9 fL (80.0-100.0); Mean Platelet Volume 7.1; Monocytes # (A) 0.3 k/uL (0-1.0); Monocytes % (A) 3 %; Neutrophils # (A) 9.8 k/uL (1.3-7.7); Neutrophils % (A) 90 %; Platelet Count 199 k/uL (150-450); RDW 13.4 % (11.5-15.5); WBC 10.9 k/uL (3.8-10.6)
[2018-05-06] MEDS: INSULIN ASPART 100 UNIT/ML 1 ML 10 ML VIAL SQ SCH ×8 (06:48→21:12)
[2018-05-06 06:49] LABS: Calcium 8.8 mg/dL (8.4-10.2); Magnesium 2.4 mg/dL (1.6-2.3); Phosphorus 3.7 mg/dL (2.5-4.5); Potassium 4.7 mmol/L (3.5-5.1)
[2018-05-06] MEDS: DEXAMETHASONE SOD PHOSPHATE 4 MG/ML 1 ML VIAL IV SCH ×4 (06:57→23:13)
[2018-05-06] MEDS: LEVOTHYROXINE 75 MCG TAB PO SCH (06:57)
[2018-05-06] MEDS: PANTOPRAZOLE 40 MG TABLET PO SCH (07:02)
[2018-05-06] MEDS: AMIODARONE 100 MG TAB PO SCH (08:41)
[2018-05-06] MEDS: FINASTERIDE 5 MG TAB PO SCH (08:42)
[2018-05-06] MEDS: METOPROLOL TARTRATE 25 MG TAB PO SCH ×2 (08:42→19:55)
--- NOTE | 2018-05-06 09:14 | XR ---
EXAMINATION TYPE: XR chest 1V DATE OF EXAM: 05/06/2018 COMPARISON: 05/05/2018 HISTORY: 82-year-old male follow-up CHF TECHNIQUE: Single frontal view of the chest is obtained. FINDINGS: Heart remains borderline enlarged. Aorta within normal limits. Mild diffuse interstitial prominence i s unchanged. No new consolidation or pleural effusion. IMPRESSION: Stable exam with chronic-appearing changes, possible minimal residual pulmonary vascular congestion.
--- NOTE | 2018-05-06 11:05 | P.PN ---
Subjective Progress Note Date: 05/06/18 Principal diagnosis: Subacute CVA involving the right temporal lobe with edema and limited hemorrhage 80-year-old male patient who presented to the emergency department with altered mentation, confusion and generalized weakness. The patient also had some left- sided facial droop and slurred speech and left-sided sensation impairment. The patient is known to have chronic atrial fibrillation and he is maintained on warfarin for long-term anticoagulation. He also has issues with hyperlipidemia , congestion heart failure, chronic renal failure, hypertension, hypothyroidism , and BPH. The patient had an initial CAT scan of the head in the emergency department that showed a subacute infarct involving the right temporal lobe with some areas of hemorrhage or mass effect and edema. Subsequently an MRI of the brain was done that showed similar findings with his mass effect and edema involving the right cerebral hemisphere in the right temporal lobe. This was along the right MCA distribution. There is adequate arterial flow in the right middle cerebral artery. The findings are consistent with subacute infarct. No underlying tumors identified. There was areas of small hemorrhage as demonstrated on the CAT scan of the brain. Patient was taken off the Coumadin. His INR on admission was at 1.4. His renal function is slightly impaired with a creatinine of 1.5 and the patient has evidence of chronic renal failure. His baseline creatinine from earlier evaluations showed a creatinine ranging between 1.7 and 2.0. On today's evaluation, the patient is drowsy yet arousable upon repeated stimulation.. He is communicating. He has some residual weakness on the left side specially left upper extremity compared to right. There may be some minimal residual weakness in the left face on inspection also. His speech is within normal limits. No headaches. He is awake and alert and oriented 3. He is in atrial fibrillation. His rate is controlled for now. His heart rate is in the mid 90s. Hemodynamically he has no significant hypertensive reaction. No hypotension. No fever. No seizure activity. Swallow is adequate and the patient had breakfast this morning. He is on Decadron per neurology's recommendation a dose of 4 mg IV push every 6 hours. Outpatient medications were all resumed with the exception of his Coumadin. On 05/04/2018, I'm seeing this patient for a follow-up. The patient feels good. He was able to ambulate however was able to get out of bed and sit up on a chair. He feels the left-sided slightly weak however and examination I cannot appreciate that. I think both upper extremities are quite strong. There may be some slight facial droop on the left. Hemodynamically stable. No headaches. No altered mentation. He is following commands and answering questions appropriately. A follow-up CAT scan of the brain was done that showed an evolving CVA along the left MCA distribution along with some mass effect. He remains on Decadron. His cardiac rhythm is still in atrial fibrillation. Rate is controlled. He is on no anticoagulants due to concern of hemorrhagic transformation of the CVA. Renal function is stable with a creatinine of 1.3. Rest of the electrodes are all within normal limits. On 05/05/2018, patient was reevaluated, seems to be doing quite well, no appreciable weakness was noted on physical examination. Patient is alert, oriented, knew exactly where he was, he knew the month, but did not know the exact year. Patient is relatively asymptomatic, hemodynamically stable, in atrial fibrillation, but rate seems to be well-controlled. Coumadin is still on hold. Repeat CT of the brain showed similar appearance compared to the previous one, MRI was recommended by the radiologist. Labs were reviewed CBC is relatively normal, WBC count is 12.6 basic metabolic profile is normal, renal profile is improving creatinine is up to 1.20 today. Chest x-ray showed improved pulmonary vascular congestion, patchy bibasilar atelectasis is noted. The patient is seen again today 05/06/2018 in follow-up on the selective care unit. He remains in no acute distress. He is able to protect his airway. He is maintaining O2 saturations in the 90s on room air. Chest x-ray reveals chronic changes with minimal pulmonary vascular congestion. No new consolidations or pleural effusions. He is currently afebrile. White count 10.9. Hemoglobin 13.8. Creatinine 1.36. He remains on Decadron. EEG revealed slowing of the background rhythm consistent with mild encephalopathy. No epileptiform discharges were noted. Objective - Vital Signs Vital signs: Vital Signs Temp 97.0 F L 05/06/18 08:00 Pulse 72 05/06/18 08:00 Resp 18 05/06/18 08:00 BP 149/88 05/06/18 08:00 Pulse Ox 93 L 05/06/18 08:00 Intake & Output 05/05/18 05/06/18 05/06/18 18:59 06:59 18:59 Intake Total 210 247 240 Output Total 976 250 1 Balance -766 -3 239 Weight 95.8 kg Intake: IV 10 10 0.9 10 Sodium Chloride 0.9% 10 Intake, IV Titration 100 Amount Magnesium Sulfate-D5w Pmx 100 1 gm In Dextrose/Water 1 100ml.bag @ 100 mls/hr IVPB Q1H [facility] Rx#: [id number] Oral 100 237 240 Output: Urine 975 250 Stool 1 1 Other: Voiding Method Urinal Incontinent # Voids 1 0 - Exam Physical exam revealed an 82-year-old white male in no distress. Head: Atraumatic, normocephalic. HEENT: PERRLA, EOMI, no icterus, neck supple, no stridor, no neck masses, no lymphadenopathy, no carotid bruits noted. Lungs were clear to auscultation and percussion, and with normal diaphragmatic excursion. No wheezes or rales were noted. Heart sounds irregular irregular rhythm, normal S1-S2 and there is no significant murmurs appreciated. Abdominal exam revealed normal bowel sounds. The abdomen was soft, non-tender, and without masses, organomegaly, or appreciable enlargement of the abdominal aorta. Examination of the extremities revealed no clubbing, no edema, no cyanosis. Examination of the skin revealed no rashes, no erythema. Neurologically there may be some left facial droop which is minimal at this point. He has equal and symmetrical pupils. Tongue is in midline. Poor range of extraocular muscle movements. No vision impairment. Adequate swallow. No significant weakness was appreciated in upper and lower extremities. DTRs are equal and symmetrical. No clonus. No Babinski. Sensory function cannot be accurately assessed. No neck stiffness. - Labs CBC & Chem 7: 05/06/18 06:00 05/06/18 06:00 Labs: Abnormal Lab Results - Last 24 Hours (Table) 05/05/18 05/05/18 05/05/18 Range/Units 12:09 17:22 20:36 WBC (3.8-10.6) k/uL Neutrophils # (1.3-7.7) k/uL Lymphocytes # (1.0-4.8) k/uL BUN (9-20) mg/dL Creatinine (0.66-1.25) mg/dL Glucose (74-99) mg/dL POC Glucose (mg/dL) 234 H 224 H 243 H (75-99) mg/dL Magnesium (1.6-2.3) mg/dL 05/06/18 05/06/18 05/06/18 Range/Units 05:59 06:00 06:00 WBC 10.9 H (3.8-10.6) k/uL Neutrophils # 9.8 H (1.3-7.7) k/uL Lymphocytes # 0.7 L (1.0-4.8) k/uL BUN 38 H (9-20) mg/dL Creatinine 1.36 H (0.66-1.25) mg/dL Glucose 160 H (74-99) mg/dL POC Glucose (mg/dL) 176 H (75-99) mg/dL Magnesium 2.4 H (1.6-2.3) mg/dL Assessment and Plan Assessment: Impression: 1 subacute stroke involving the right temporal lobe with edema and mass effect and limited areas of hemorrhage secondary to CVA. Possibility of an embolic CVA nontender the patient has chronic atrial fibrillation. The patient had a follow-up CAT scan yesterday that showed evolution of a right MCA/temporal CVA with some mass effect and the patient is to be on Decadron. 2 left facial droop and resolution of the limited motor weakness on the left upper extremity secondary to above 3 chronic atrial fibrillation, was on warfarin in the outpatient setting. 4 CHF, per history. Echocardiogram reveals mildly impaired left ventricular systolic function with ejection fraction 40-45%. 5 hypothyroidism 6 hyperlipidemia 7 hypertension 8 BPH, check was voiding residual and if it significant insert a Taylor catheter. 9 acute renal failure, improving creatinine is 1. 36 today. Recommendation: The patient was seen and evaluated by Dr. Berumen. Chest x-ray and labs were reviewed. He remains stable from the pulmonary standpoint. Maintaining good O2 saturations in the 90s on room air. He remains on Decadron. Prognosis remains guarded. We will continue to follow make further recommendations based on his clinical status. I, the cosigning physician, performed a history & physical examination of the patient. Lungs sounds with faint crackles in the posterior bases. Maintaining good O2 saturations in the 90s on room air. I discussed the assessment and plan of care with my nurse practitioner, Kailee Ross. I attest to the above note as dictated by her.
[2018-05-06 12:21] LABS: Glucose,Whole Blood 167 mg/dL (75-99)
[2018-05-06] MEDS: CALCIUM CARBONATE 500 MG CHEWABLE PO SCH (12:32)
--- NOTE | 2018-05-06 13:03 | PN ---
PROGRESS NOTE DATE OF SERVICE: 05/06/2018 INTERVAL HISTORY: This is an 82-year-old gentleman who was admitted with acute right temporal lobe cerebra; infarct is being closely monitored at this time. The patient is slightly drowsy today, but able to answer the questions. The PT/OT evaluated the patient for possible ECF rehab. The most recent chest x-ray showed no evidence of fluid overload. No chest pain or palpitation. PHYSICAL EXAM: Arousable, oriented x2. Pulse 72, blood pressure 149/88, respiration 18, temperature 97 degrees, pulse ox 98% on room air. HEENT: Conjunctivae normal, oral mucosa moist. NECK: No jugular venous distension. No carotid, bruit. is no nausea. No jugular venous distention. No lymph node enlargement. CARDIOVASCULAR SYSTEM: S1, S2, muffled. RESPIRATION: Breath sounds diminished at the bases, no rhonchi, no crackles. ABDOMEN: Soft, nontender. NERVOUS SYSTEM: Diffusely weak. LAB STUDIES: WBC is 10.9, sodium 137, potassium 4.7, creatinine is 1.36. ASSESSMENT: 1. Acute right temporal cerebral infarct with hemorrhagic conversion. 2. Chronic atrial fibrillation, off anticoagulation. 3. Congestive heart failure with chronic systolic dysfunction ejection fraction 40%- 45%. 4. Hypothyroidism. 5. Hyperlipidemia. 6. Hypertension. 7. Chronic kidney disease stage III. 8. Macular degeneration. 9. Gait dysfunction. 10.History of nicotine dependence. 11.FULL CODE. RECOMMENDATION AND DISCUSSION: In this 82-year-old gentleman who presented with multiple complex medical issues, will monitor the patient closely, continue with the current medication and continue symptomatic treatment. Otherwise, at this time I would hold off the antiplatelets and anticoagulants for now. Otherwise PT, OT evaluation, possible ECF rehab. Other than that, I would also recommend continue the neuro checks. The blood pressure is labile at this time. Will continue to monitor because of recent stroke and further recommendations to follow. Prognosis guarded. MMODL / IJN: [id number] /
--- NOTE | 2018-05-06 15:24 | FL ---
MODIFIED SWALLOW / DEGLUTITION STUDY DATE OF EXAM: 05/06/2018 CLINICAL HISTORY: 82-year-old male with CVA and coughing at the bedside, weak swallow, Dysphagia. TECHNIQUE: Deglutition study is performed utilizing thin liquid barium, barium thick pudding, and ba rium coated cracker. Total fluoroscopy time: 2 minutes 28 seconds. Total images: None. Real-time fluoroscopy support was provided to speech pathology. COMPARISON: None. FINDINGS: Swallow initiation was mildly delayed with bolus free spilling to the level of the vallecula. Inlet which showed a single episode of transient penetration. Otherwise, no penetration or aspiration . 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 No sign ificant pharyngeal residue was appreciated. IMPRESSION: Mildly delayed swallow. Single episode of transient penetration with thin liquids. Otherwise, no othe r penetration or aspiration seen. Please refer to speech therapist notes for further details if necessary.
[2018-05-06 16:23] LABS: Glucose,Whole Blood 186 mg/dL (75-99)
[2018-05-06] MEDS: ATORVASTATIN 10 MG TAB PO SCH (19:55)
[2018-05-06] MEDS: DOXAZOSIN 4 MG TAB PO SCH (19:55)
[2018-05-06] MEDS: LISINOPRIL 5 MG TAB PO SCH (19:55)
[2018-05-06 21:04] LABS: Glucose,Whole Blood 241 mg/dL (75-99)
[2018-05-06] MEDS: POTASSIUM CHLORIDE ER 20 MEQ TAB.ER PO SCH (21:13)
[2018-05-07] MEDS: SULFACETAMIDE SOD 10% OPHTH DROPS 15 ML BTL BOTH EYES SCH ×6 (01:28→21:31)
[2018-05-07] MEDS: DEXAMETHASONE SOD PHOSPHATE 4 MG/ML 1 ML VIAL IV SCH ×4 (05:33→23:10)
[2018-05-07] MEDS: LEVOTHYROXINE 75 MCG TAB PO SCH (05:33)
[2018-05-07 05:41] LABS: Glucose,Whole Blood 165 mg/dL (75-99)
[2018-05-07 06:30] LABS: Basophils % (A) 0 %; Eosinophils % (A) 0 %; HGB 14.1 gm/dL (13.0-17.5); Lymphocytes # (A) 0.6 k/uL (1.0-4.8); Lymphocytes % (A) 6 %; MCH 29.7 pg (25.0-35.0); MCHC 32.8 g/dL (31.0-37.0); MCV 90.6 fL (80.0-100.0); Monocytes # (A) 0.5 k/uL (0-1.0); Monocytes % (A) 5 %; Neutrophils # (A) 8.8 k/uL (1.3-7.7); Neutrophils % (A) 89 %; Platelet Count 179 k/uL (150-450); RBC 4.75 m/uL (4.30-5.90); RDW 13.4 % (11.5-15.5)
[2018-05-07 06:58] LABS: Calcium 8.4 mg/dL (8.4-10.2); Magnesium 2.2 mg/dL (1.6-2.3); Phosphorus 3.7 mg/dL (2.5-4.5); Potassium 4.7 mmol/L (3.5-5.1)
[2018-05-07] MEDS: PANTOPRAZOLE 40 MG TABLET PO SCH (07:04)
[2018-05-07] MEDS: INSULIN ASPART 100 UNIT/ML 1 ML 10 ML VIAL SQ SCH ×8 (07:04→21:31)
--- NOTE | 2018-05-07 08:09 | XR ---
EXAMINATION TYPE: XR chest 1V DATE OF EXAM: 05/07/2018 CLINICAL HISTORY: Difficulty breathing progress study. History of CHF. TECHNIQUE: Single AP portable frontal view of the chest is obtained. COMPARISON: Chest x-ray from one day earlier and older studies. FINDINGS: Cardiac silhouette size is stable and mildly enlarged. There is chronic parenchymal change without suspicious new focal airspace opacity, pleural effusion, or pneumothorax bilaterally. Osseous structures are intact. Overlying EKG leads are redemonstrated. IMPRESSION: Overall stable findings, cardiomegaly and chronic parenchymal changes without suspiciou s acute pulmonary process.
[2018-05-07] MEDS: METOPROLOL TARTRATE 25 MG TAB PO SCH ×2 (08:52→21:31)
[2018-05-07] MEDS: AMIODARONE 100 MG TAB PO SCH (08:52)
[2018-05-07] MEDS: FINASTERIDE 5 MG TAB PO SCH (08:52)
--- NOTE | 2018-05-07 11:24 | P.PN ---
Subjective Progress Note Date: 05/07/18 Principal diagnosis: Subacute CVA involving the right temporal lobe with edema and limited hemorrhage 80-year-old male patient who presented to the emergency department with altered mentation, confusion and generalized weakness. The patient also had some left- sided facial droop and slurred speech and left-sided sensation impairment. The patient is known to have chronic atrial fibrillation and he is maintained on warfarin for long-term anticoagulation. He also has issues with hyperlipidemia , congestion heart failure, chronic renal failure, hypertension, hypothyroidism , and BPH. The patient had an initial CAT scan of the head in the emergency department that showed a subacute infarct involving the right temporal lobe with some areas of hemorrhage or mass effect and edema. Subsequently an MRI of the brain was done that showed similar findings with his mass effect and edema involving the right cerebral hemisphere in the right temporal lobe. This was along the right MCA distribution. There is adequate arterial flow in the right middle cerebral artery. The findings are consistent with subacute infarct. No underlying tumors identified. There was areas of small hemorrhage as demonstrated on the CAT scan of the brain. Patient was taken off the Coumadin. His INR on admission was at 1.4. His renal function is slightly impaired with a creatinine of 1.5 and the patient has evidence of chronic renal failure. His baseline creatinine from earlier evaluations showed a creatinine ranging between 1.7 and 2.0. On today's evaluation, the patient is drowsy yet arousable upon repeated stimulation.. He is communicating. He has some residual weakness on the left side specially left upper extremity compared to right. There may be some minimal residual weakness in the left face on inspection also. His speech is within normal limits. No headaches. He is awake and alert and oriented 3. He is in atrial fibrillation. His rate is controlled for now. His heart rate is in the mid 90s. Hemodynamically he has no significant hypertensive reaction. No hypotension. No fever. No seizure activity. Swallow is adequate and the patient had breakfast this morning. He is on Decadron per neurology's recommendation a dose of 4 mg IV push every 6 hours. Outpatient medications were all resumed with the exception of his Coumadin. On 05/04/2018, I'm seeing this patient for a follow-up. The patient feels good. He was able to ambulate however was able to get out of bed and sit up on a chair. He feels the left-sided slightly weak however and examination I cannot appreciate that. I think both upper extremities are quite strong. There may be some slight facial droop on the left. Hemodynamically stable. No headaches. No altered mentation. He is following commands and answering questions appropriately. A follow-up CAT scan of the brain was done that showed an evolving CVA along the left MCA distribution along with some mass effect. He remains on Decadron. His cardiac rhythm is still in atrial fibrillation. Rate is controlled. He is on no anticoagulants due to concern of hemorrhagic transformation of the CVA. Renal function is stable with a creatinine of 1.3. Rest of the electrodes are all within normal limits. On 05/05/2018, patient was reevaluated, seems to be doing quite well, no appreciable weakness was noted on physical examination. Patient is alert, oriented, knew exactly where he was, he knew the month, but did not know the exact year. Patient is relatively asymptomatic, hemodynamically stable, in atrial fibrillation, but rate seems to be well-controlled. Coumadin is still on hold. Repeat CT of the brain showed similar appearance compared to the previous one, MRI was recommended by the radiologist. Labs were reviewed CBC is relatively normal, WBC count is 12.6 basic metabolic profile is normal, renal profile is improving creatinine is up to 1.20 today. Chest x-ray showed improved pulmonary vascular congestion, patchy bibasilar atelectasis is noted. The patient is seen again today 05/06/2018 in follow-up on the selective care unit. He remains in no acute distress. He is able to protect his airway. He is maintaining O2 saturations in the 90s on room air. Chest x-ray reveals chronic changes with minimal pulmonary vascular congestion. No new consolidations or pleural effusions. He is currently afebrile. White count 10.9. Hemoglobin 13.8. Creatinine 1.36. He remains on Decadron. EEG revealed slowing of the background rhythm consistent with mild encephalopathy. No epileptiform discharges were noted. The patient is seen again today 05/07/2018 in follow-up on the selective care unit. He is a bit more awake and alert today as compared to yesterday. He denies any shortness of breath, cough or congestion. He was having some coughing episodes with swallowing as witness percent. The patient himself denies having issues with swallowing. His chest x-ray is stable with no acute pulmonary process. He is maintaining good O2 saturations in the upper 90s on room air. He's been afebrile. Hemodynamically stable. White count 10.0. Hemoglobin 14.1. Creatinine 1.30. Objective - Vital Signs Vital signs: Vital Signs Temp 97.0 F L 05/07/18 08:00 Pulse 85 05/07/18 08:00 Resp 18 05/07/18 08:00 BP 148/87 05/07/18 08:00 Pulse Ox 97 05/07/18 08:00 Intake & Output 05/06/18 05/07/18 05/07/18 18:59 06:59 18:59 Intake Total 360 30 240 Output Total 2 1 Balance 358 30 239 Weight 0 g Intake: IV 30 0.9 30 Oral 360 240 Output: Stool 2 1 Other: Voiding Method Incontinent Incontinent Incontinent # Voids 1 - Exam Physical exam revealed an 82-year-old white male in no distress. Head: Atraumatic, normocephalic. HEENT: PERRLA, EOMI, no icterus, neck supple, no stridor, no neck masses, no lymphadenopathy, no carotid bruits noted. Lungs were clear to auscultation and percussion, and with normal diaphragmatic excursion. No wheezes or rales were noted. Heart sounds irregular irregular rhythm, normal S1-S2 and there is no significant murmurs appreciated. Abdominal exam revealed normal bowel sounds. The abdomen was soft, non-tender, and without masses, organomegaly, or appreciable enlargement of the abdominal aorta. Examination of the extremities revealed no clubbing, no edema, no cyanosis. Examination of the skin revealed no rashes, no erythema. Neurologically there may be some left facial droop which is minimal at this point. He has equal and symmetrical pupils. Tongue is in midline. Poor range of extraocular muscle movements. No vision impairment. Adequate swallow. No significant weakness was appreciated in upper and lower extremities. DTRs are equal and symmetrical. No clonus. No Babinski. Sensory function cannot be accurately assessed. No neck stiffness. - Labs CBC & Chem 7: 05/07/18 06:09 05/07/18 06:09 Labs: Abnormal Lab Results - Last 24 Hours (Table) 05/06/18 05/06/18 05/06/18 Range/Units 11:53 16:10 21:03 Neutrophils # (1.3-7.7) k/uL Lymphocytes # (1.0-4.8) k/uL Sodium (137-145) mmol/L BUN (9-20) mg/dL Creatinine (0.66-1.25) mg/dL Glucose (74-99) mg/dL POC Glucose (mg/dL) 167 H 186 H 241 H (75-99) mg/dL 05/07/18 05/07/18 05/07/18 Range/Units 05:39 06:09 06:09 Neutrophils # 8.8 H (1.3-7.7) k/uL Lymphocytes # 0.6 L (1.0-4.8) k/uL Sodium 135 L (137-145) mmol/L BUN 39 H (9-20) mg/dL Creatinine 1.30 H (0.66-1.25) mg/dL Glucose 186 H (74-99) mg/dL POC Glucose (mg/dL) 165 H (75-99) mg/dL Assessment and Plan Assessment: Impression: 1 subacute stroke involving the right temporal lobe with edema and mass effect and limited areas of hemorrhage secondary to CVA. Possibility of an embolic CVA nontender the patient has chronic atrial fibrillation. The patient had a follow-up CAT scan that showed evolution of a right MCA/temporal CVA with some mass effect and the patient is on Decadron. 2 left facial droop and resolution of the limited motor weakness on the left upper extremity secondary to above 3 chronic atrial fibrillation, was on warfarin in the outpatient setting. 4 CHF, per history. Echocardiogram reveals mildly impaired left ventricular systolic function with ejection fraction 40-45%. 5 hypothyroidism 6 hyperlipidemia 7 hypertension 8 BPH, check was voiding residual and if it significant insert a Taylor catheter. 9 acute renal failure, improving creatinine is 1. 30 today. 10 Dysphagia. Swallow eval revealed mildly delayed swallow. Single episode of transient penetration with thin liquids. Otherwise no penetration or aspiration noted. Recommendation: The patient was seen and evaluated by Dr. Berumen. Chest x-ray, swallow evaluation and labs were reviewed. He remains stable from the pulmonary standpoint. Maintaining good O2 saturations in the 90s on room air. Prognosis remains guarded. Discharge planning in place. We will continue to follow make further recommendations based on his clinical status. I, the cosigning physician, performed a history & physical examination of the patient. Lungs sounds clear. Maintaining good O2 saturations in the 90s on room air. I discussed the assessment and plan of care with my nurse practitioner, Kailee Ross. I attest to the above note as dictated by her.
[2018-05-07 11:38] LABS: Glucose,Whole Blood 219 mg/dL (75-99)
[2018-05-07] MEDS: CALCIUM CARBONATE 500 MG CHEWABLE PO SCH (11:51)
--- NOTE | 2018-05-07 12:16 | PN ---
PROGRESS NOTE DATE OF SERVICE: 05/07/2018 This 82-year-old gentleman was admitted with acute right temporal cerebral infarct with hemorrhagic conversion is being closely monitored at this time. The patient was slightly drowsy yesterday, much more alert today. PT, OT is following the patient for possible ECF rehab. No chest pain or palpitation. No fever. PHYSICAL EXAM: On exam, alert and oriented x2. Pulse 85, blood pressure 148/87, respiration 18 , temperature 97 degrees, pulse ox 97% on room air. HEENT: Conjunctivae normal. Oral mucosa moist. NECK: No jugular venous distention. No carotid bruit. No lymph enlargement. CARDIOVASCULAR: S1 and S2 muffled. No S3, no S4. RESPIRATORY: Breath sounds diminished at the bases. No rhonchi. No crackles. ABDOMEN: Soft, nontender. No mass palpable. LEGS: No edema, no swelling. NERVOUS SYSTEM: Higher function as mentioned earlier. Moves all 4 limbs. No focal motor deficits. LYMPHATICS: No lymphadenopathy of the neck, axillae or groin. SKIN: No ulcer, rash or bleeding. LABS: WBC 10, hemoglobin 14.1. Sodium 135. Creatinine is 1.3. ASSESSMENT: 1. Acute right temporal cerebral infarct with hemorrhagic conversion. 2. Chronic atrial fibrillation off anticoagulation. 3. Congestive heart failure with chronic systolic dysfunction, ejection fraction 40% to 45%. 4. Gait dysfunction. 5. Hypothyroidism. 6. Hyperlipidemia. 7. Hypertension. 8. Chronic kidney disease stage III. 9. Macular degeneration. 10.Gait dysfunction. 11.History of nicotine dependence. 12.FULL CODE. RECOMMENDATIONS AND DISCUSSION: This 82-year-old gentleman who presented with multiple medical problems, will monitor the patient closely. Continue the current medications, continue symptomatic treatment. Otherwise monitor the blood pressure closely. PT, OT evaluation, possible ECF rehab, off anticoagulation, antiplatelet agents. Closely will follow up with neurology. The patient also had some swallowing difficulties even though the modified barium swallow was negative. Will continue to monitor and follow closely with speech pathology recommendations. Further recommendations to follow. MMODL / IJN: [id number] / MTDHarley
[2018-05-07] MEDS: THIAMINE 100 MG TAB PO SCH (13:34)
[2018-05-07] MEDS: FOLIC ACID 1 MG TAB PO SCH (13:35)
[2018-05-07] MEDS: MULTIVITAMINS, THERA 1 EACH TAB PO SCH (13:35)
[2018-05-07 16:46] LABS: Glucose,Whole Blood 195 mg/dL (75-99)
[2018-05-07 21:26] LABS: Glucose,Whole Blood 181 mg/dL (75-99)
[2018-05-07] MEDS: DOXAZOSIN 4 MG TAB PO SCH (21:30)
[2018-05-07] MEDS: ATORVASTATIN 10 MG TAB PO SCH (21:30)
[2018-05-07] MEDS: LISINOPRIL 5 MG TAB PO SCH (21:31)
[2018-05-08 01:14] LABS: Hemoglobin A1C 7.9 % (4.0-6.0)
[2018-05-08] MEDS: SULFACETAMIDE SOD 10% OPHTH DROPS 15 ML BTL BOTH EYES SCH ×6 (04:28→20:46)
[2018-05-08 05:45] LABS: Basophils % (A) 0 %; Eosinophils # (A) 0.1 k/uL (0-0.7); Eosinophils % (A) 1 %; HCT 45.8 % (39.0-53.0); Lymphocytes # (A) 0.5 k/uL (1.0-4.8); Lymphocytes % (A) 5 %; MCH 29.7 pg (25.0-35.0); MCHC 32.8 g/dL (31.0-37.0); MCV 90.3 fL (80.0-100.0); Monocytes # (A) 0.4 k/uL (0-1.0); Monocytes % (A) 4 %; Neutrophils # (A) 9.9 k/uL (1.3-7.7); Neutrophils % (A) 90 %; Platelet Count 186 k/uL (150-450); RBC 5.07 m/uL (4.30-5.90); RDW 13.4 % (11.5-15.5)
[2018-05-08 05:51] LABS: Glucose,Whole Blood 179 mg/dL (75-99)
[2018-05-08 05:55] LABS: Calcium 8.5 mg/dL (8.4-10.2); Magnesium 2.2 mg/dL (1.6-2.3); Phosphorus 3.8 mg/dL (2.5-4.5); Potassium 4.6 mmol/L (3.5-5.1)
[2018-05-08] MEDS: LEVOTHYROXINE 75 MCG TAB PO SCH (06:51)
[2018-05-08] MEDS: PANTOPRAZOLE 40 MG TABLET PO SCH (06:52)
[2018-05-08] MEDS: DEXAMETHASONE SOD PHOSPHATE 4 MG/ML 1 ML VIAL IV SCH ×4 (06:52→22:59)
[2018-05-08] MEDS: INSULIN ASPART 100 UNIT/ML 1 ML 10 ML VIAL SQ SCH ×8 (06:52→20:58)
[2018-05-08] MEDS: AMIODARONE 100 MG TAB PO SCH (09:47)
[2018-05-08] MEDS: METOPROLOL TARTRATE 25 MG TAB PO SCH ×2 (09:47→20:46)
[2018-05-08] MEDS: FINASTERIDE 5 MG TAB PO SCH (09:47)
[2018-05-08] MEDS: CALCIUM CARBONATE 500 MG CHEWABLE PO SCH (11:32)
[2018-05-08] MEDS: FOLIC ACID 1 MG TAB PO SCH (11:34)
[2018-05-08] MEDS: MULTIVITAMINS, THERA 1 EACH TAB PO SCH (11:34)
[2018-05-08] MEDS: THIAMINE 100 MG TAB PO SCH (11:34)
[2018-05-08 11:47] LABS: Glucose,Whole Blood 233 mg/dL (75-99)
--- NOTE | 2018-05-08 12:32 | PN ---
PROGRESS NOTE DATE OF SERVICE: 05/08/2018 This is an 82-year-old gentleman admitted with acute right temporal cerebral infarct is improving significantly. No chest pain. No palpitations. PT, OT is evaluated the patient. The chest x-ray showed no evidence of any significant fluid overload at this time. The patient also had some swallowing difficulties even though the video fluoroscopic swallow test was normal. Diet was adjusted. No chest pain. No palpitations. No fever. PHYSICAL EXAM: Alert and oriented x3. Pulse 79, blood pressure 150/104, respirations 16, temperature 97.1, pulse ox 98% on room air. HEENT: Conjunctivae normal, oral mucosa moist. Neck is no jugular venous distention. No lymph node enlargement. CARDIOVASCULAR SYSTEMS: S1, S2. RESPIRATION: Breath sounds diminished at the bases, no rhonchi, no crackles. ABDOMEN: Soft, nontender. LEGS: No edema, no swelling. NERVOUS SYSTEM: Diffusely weak, left more than right. LABS: WBC 11 and glucose is 175. ASSESSMENT: 1. Acute right temporal cerebral infarct with hemorrhagic conversion. 2. Chronic atrial fibrillation off anticoagulation currently. 3. Congestive heart failure with chronic systolic dysfunction, ejection fraction 40%- 45%. 4. Gait dysfunction. 5. Hypothyroidism. 6. Hyperlipidemia. 7. Hypertension. 8. Chronic kidney disease stage III. 9. Macular degeneration. 10.Gait dysfunction. 11.History of nicotine dependence. 12.FULL CODE. RECOMMENDATION: This 82-year-old gentleman presented with multiple complex medical issues, will monitor the patient closely, continue with the current management and symptomatic treatment. Otherwise at this time, the patient is off anticoagulations and antiplatelet agents, possibly ECF rehab. I would recommend also repeat CAT scan of the brain to ensure stability. Will continue to monitor. Further recommendations to follow. MMODL / IJN: [id number] /
--- NOTE | 2018-05-08 13:03 | CT ---
EXAMINATION TYPE: CT brain wo con DATE OF EXAM: 05/08/2018 COMPARISON: 05/04/2018 HISTORY: rt infarct with hemorhagic conversion CT DLP: 1938.7 mGycm Automated exposure control for dose reduction was used. FINDINGS: There is a similar appearing wedge shaped area of hypoattenuation involving the right frontoparietal junction and temporal lobe zamora and white matter with a few punctate areas of hyperintensity such as on series 8 image 13 and 14 similar and less conspicuous to the prior. These represent punctate areas of petechial hemorrhage that are evolving from the prior. No other evidence of hemorrhagic transform ation is seen. Right to left midline shift is stable measuring 6 mm. There remains effacement of the peripheral sulci and partial effacement of the right lateral ventricle. No new transtentorial or unca l herniation is seen. No new evidence of additional areas of infarct are noted. A few patchy areas of hypoattenuation are noted within the periventricular subcortical white matter, most commonly on the basis of chronic microangiopathy. Paranasal sinuses and mastoid air cells are we ll aerated. Calvarium is intact. Cerebral atrophy is similar to the prior. IMPRESSION: PUNCTATE AREAS OF EVOLVING SUBACUTE PETECHIAL HEMORRHAGE AT THE PERIPHERY OF THE RIGHT MIDDLE CEREBRA L ARTERY AND WATERSHED INFARCT WITH PERSISTENT AND UNCHANGED 6 MM RIGHT TO LEFTWARD MIDLINE SHIFT (CASTAÑEDA BFALCINE HERNIATION). NO NEW ADDITIONAL AREAS OF HEMORRHAGIC TRANSFORMATION.
[2018-05-08 16:35] LABS: Glucose,Whole Blood 195 mg/dL (75-99)
[2018-05-08] MEDS: ATORVASTATIN 10 MG TAB PO SCH (20:46)
[2018-05-08] MEDS: DOXAZOSIN 4 MG TAB PO SCH (20:46)
[2018-05-08] MEDS: POTASSIUM CHLORIDE ER 20 MEQ TAB.ER PO SCH (20:46)
[2018-05-08] MEDS: LISINOPRIL 5 MG TAB PO SCH (20:46)
[2018-05-08 20:48] LABS: Glucose,Whole Blood 178 mg/dL (75-99)
[2018-05-09] MEDS: SULFACETAMIDE SOD 10% OPHTH DROPS 15 ML BTL BOTH EYES SCH ×3 (01:37→10:32)
[2018-05-09 03:59] VITALS: RESP 18
[2018-05-09 05:53] LABS: Glucose,Whole Blood 189 mg/dL (75-99)
[2018-05-09] MEDS: LEVOTHYROXINE 75 MCG TAB PO SCH (06:06)
[2018-05-09] MEDS: DEXAMETHASONE SOD PHOSPHATE 4 MG/ML 1 ML VIAL IV SCH ×2 (06:06→11:52)
[2018-05-09] MEDS: PANTOPRAZOLE 40 MG TABLET PO SCH (06:07)
[2018-05-09] MEDS: INSULIN ASPART 100 UNIT/ML 1 ML 10 ML VIAL SQ SCH ×4 (07:06→11:51)
[2018-05-09] MEDS: METOPROLOL TARTRATE 25 MG TAB PO SCH (07:52)
[2018-05-09] MEDS: FINASTERIDE 5 MG TAB PO SCH (07:52)
[2018-05-09] MEDS: AMIODARONE 100 MG TAB PO SCH (07:52)
--- NOTE | 2018-05-09 10:51 | P.DS ---
Providers Date of admission: 05/02/18 21:40 Expected date of discharge: 05/09/18 Attending physician: Bruce Hickey Consults: 05/02/18 21:39 Consult Physician Urgent Consulting Provider: Jack Bailey Consult Reason/Comments: Subacute ischemic stroke Do you want consulting provider notified?: Already Contacted 05/02/18 22:45 Consult Physician Stat Consulting Provider: Gabe Orona Consult Reason/Comments: ICU management Do you want consulting provider notified?: Already Contacted Primary care physician: Von Deleon Hospital Course: Final Diagnoses 1. Acute right temporal cerebral infarct with hemorrhagic conversion 2. Chronic atrial fibrillation off anticoagulation currently 3. Congestive heart failure with chronic systolic dysfunction, EF 40-45% 4. Gait dysfunction 5. Hypothyroidism 6. Hyperlipidemia 7. Hypertension 8. Chronic kidney disease, stage III 9. Macular degeneration 10. Gait dysfunction 11. History of nicotine dependence Hospital course: This is an 82-year-old gentleman admitted with acute right temporal cerebral infarct. Evaluated by weight recorder/nutrition services aide, neurology. Follow-up brain CT reported evolving subacute petechial hemorrhage of right middle cerebral artery pressure for, watershed infarct with persistent and unchanged 6 mm great toe leftward midline shift( subfalcine herniation), no new additional areas of hemorrhagic transformation.Currently off of anticoagulation. Maintained on Decadron as per neurology. Significant clinical improvement. Cleared by consults for discharge. Patient is being discharged to [facility] subacute rehab in a stable condition with guarded prognosis. Exam: GENERAL: Alert and oriented 3, no acute distress. CV: Regular S1 and S2, irregular,CVR.PULM: Bilateral bases diminished, no rhonchi, no crackles.ABD: Soft, nontender, positive bowel sounds. NEURO: Diffuse weakness, left more than right. The impression and plan of care has been dictated as directed. : I performed a history and examination of this patient, discussed the same with the dictator. I agree with the dictator's note ,documented as a scribe. Any additional findings or plans will be noted. Time taken: 35 minutes Patient Condition at Discharge: Stable Plan - Discharge Summary Discharge Rx Participant: Yes New Discharge Prescriptions: New Folic Acid 1 mg PO DAILY@1200 tab Multivitamins, Thera [Multivitamin (formulary)] 1 each PO DAILY@1200 tab Pantoprazole [Protonix] 40 mg PO AC-BRKFST tablet. Thiamine [Vitamin B-1] 100 mg PO DAILY@1200 tab INSULIN LISPRO (HumaLOG) [humaLOG] 0 unit SQ ACHS #1 vial Dexamethasone [Decadron] 2 mg PO DAILY #1 tablet Continue Atorvastatin [Lipitor] 10 mg PO HS Fish Oil/Dha/Epa [Fish Oil 1,200 mg Fish Oil] 1 cap PO DAILY@1200 Finasteride [Proscar] 5 mg PO DAILY Doxazosin [Cardura] 4 mg PO HS Levothyroxine Sodium [Synthroid] 75 mcg PO DAILY Amiodarone [Cordarone] 100 mg PO DAILY Metoprolol Tartrate [Lopressor] 25 mg PO BID Acetaminophen/Diphenhydramine [Tylenol PM Extra Strength] 1 tab PO HS Lisinopril [Prinivil] 5 mg PO HS Potassium Chloride ER [K-Dur 20] 20 meq PO Q48H Furosemide [Lasix] 40 mg PO DAILY Calcium/Magnesium/Zinc [Bhfegga-Lhxxgyjdk-Xqhh Tablet] 1 tab PO DAILY@1200 Turmeric Root Extract [Turmeric] 500 mg PO DAILY Sulfacetamide Sodium [Sulfacetamide Sod 10% Ophth Soln] 2 drops BOTH EYES Q4H Discontinued Warfarin [Coumadin] 1.25 mg PO MOWEFR Warfarin [Coumadin] 2.5 mg PO SUTUTHSA Discharge Medication List Acetaminophen/Diphenhydramine [Tylenol PM Extra Strength] 1 tab PO HS 03/11/16 [ History] Amiodarone [Cordarone] 100 mg PO DAILY 03/11/16 [History] Atorvastatin [Lipitor] 10 mg PO HS 03/11/16 [History] Doxazosin [Cardura] 4 mg PO HS 03/11/16 [History] Finasteride [Proscar] 5 mg PO DAILY 03/11/16 [History] Fish Oil/Dha/Epa [Fish Oil 1,200 mg Fish Oil] 1 cap PO DAILY@1200 03/11/16 [ History] Levothyroxine Sodium [Synthroid] 75 mcg PO DAILY 03/11/16 [History] Metoprolol Tartrate [Lopressor] 25 mg PO BID 03/11/16 [History] Calcium/Magnesium/Zinc [Psblooi-Ermnfpooc-Qkap Tablet] 1 tab PO DAILY@1200 05/02 [History] Furosemide [Lasix] 40 mg PO DAILY 05/02/18 [History] Lisinopril [Prinivil] 5 mg PO HS 05/02/18 [History] Potassium Chloride ER [K-Dur 20] 20 meq PO Q48H 05/02/18 [History] Sulfacetamide Sodium [Sulfacetamide Sod 10% Ophth Soln] 2 drops BOTH EYES Q4H [History] Turmeric Root Extract [Turmeric] 500 mg PO DAILY 05/02/18 [History] Dexamethasone [Decadron] 2 mg PO DAILY #1 tablet 05/09/18 [Rx] Folic Acid 1 mg PO DAILY@1200 tab 05/09/18 [Rx] INSULIN LISPRO (HumaLOG) [humaLOG] 0 unit SQ ACHS #1 vial 05/09/18 [Rx] Multivitamins, Thera [Multivitamin (formulary)] 1 each PO DAILY@1200 tab [Rx] Pantoprazole [Protonix] 40 mg PO AC-BRKFST tablet. 05/09/18 [Rx] Thiamine [Vitamin B-1] 100 mg PO DAILY@1200 tab 05/09/18 [Rx] Follow up Appointment(s)/Referral(s): Jack Bailey MD [STAFF PHYSICIAN] - 2 Weeks Von Deleon MD [Primary Care Provider] - 1 Week (after dc from [facility]) Suman Carlos MD [STAFF PHYSICIAN] - 3 Days (while at [facility] Patient Instructions/Handouts: Ischemic Stroke (DC) Activity/Diet/Wound Care/Special Instructions: [facility] Decadron as per neurology. Off of anticoagulation currently. cbc,bmp in 3 days Diet: Strict aspiration precautions , consistent carb ,dysphagia level III chopped, nectar thick liquids, no straws Activity: As tolerated Discharge Disposition: TRANSFER TO SNF/ECF
[2018-05-09 11:19] VITALS: BP 144/97; PULSE 72; TEMP 96.2
[2018-05-09 11:39] LABS: Glucose,Whole Blood 175 mg/dL (75-99)
[2018-05-09] MEDS: THIAMINE 100 MG TAB PO SCH (11:51)
[2018-05-09] MEDS: FOLIC ACID 1 MG TAB PO SCH (11:51)
[2018-05-09] MEDS: MULTIVITAMINS, THERA 1 EACH TAB PO SCH (11:51)
[2018-05-09] MEDS: CALCIUM CARBONATE 500 MG CHEWABLE PO SCH (11:51)
== END 2018-05-09 15:17 | DRG 64 ==
LOC: EC 17:00 → 6ICU 21:40 → 6SEL 05-06 02:51
PROVIDERS: ADMIT Internal Medicine; ATTEND Internal Medicine
DX: I63.511 Cerebral infarction due to unspecified occlusion or stenosis of right middle cerebral artery (principal); I61.9 Nontraumatic intracerebral hemorrhage, unspecified; G93.6 Cerebral edema; G93.40 Encephalopathy, unspecified; G81.94 Hemiplegia, unspecified affecting left nondominant side; I50.22 Chronic systolic (congestive) heart failure; I13.0 Hypertensive heart and chronic kidney disease with heart failure and stage 1 through stage 4 chronic kidney disease, or unspecified chronic kidney disease; N17.9 Acute kidney failure, unspecified; J98.11 Atelectasis; E11.22 Type 2 diabetes mellitus with diabetic chronic kidney disease; N18.3 Chronic kidney disease, stage 3 (moderate); I48.2 Chronic atrial fibrillation; R13.10 Dysphagia, unspecified; E86.1 Hypovolemia; R40.2362 Coma scale, best motor response, obeys commands, at arrival to emergency department; R40.2132 Coma scale, eyes open, to sound, at arrival to emergency department; R40.2242 Coma scale, best verbal response, confused conversation, at arrival to emergency department; R29.706 NIHSS score 6; R26.9 Unspecified abnormalities of gait and mobility; R47.81 Slurred speech; H35.30 Unspecified macular degeneration; R29.810 Facial weakness; E03.9 Hypothyroidism, unspecified; E78.5 Hyperlipidemia, unspecified; N40.0 Benign prostatic hyperplasia without lower urinary tract symptoms; Z79.01 Long term (current) use of anticoagulants; Z79.890 Hormone replacement therapy; Z79.899 Other long term (current) drug therapy; Z87.891 Personal history of nicotine dependence; Z71.6 Tobacco abuse counseling
CPT/HCPCS: 36415; 70450; 70553; 71045; 71046; 74230; 80048; 80053; 80061; 80162; 81003; 82140; 82550; 82553; 83036; 83090; 83735; 84100; 84443; 84484; 85025; 85610; 85730; 86850; 86900; 86901; 87086; 93005; 93306; 93880; 95819; 96361; 96365; 96366; 96368; 99285

== ENCOUNTER 2018-05-17 20:44 | Inpatient (IN) | payer MEDICARE, BC ==
[2018-05-17] MEDS ORDERED: SODIUM CHLORIDE 0.9% 500 ML IV ONE ×3 (21:05→22:41)
[2018-05-17 21:22] LABS: Basophils % (A) 0 %; Eosinophils # (A) 0.1 k/uL (0-0.7); Eosinophils % (A) 1 %; HCT 54.3 % (39.0-53.0); HGB 17.4 gm/dL (13.0-17.5); Lymphocytes # (A) 0.8 k/uL (1.0-4.8); Lymphocytes % (A) 4 %; MCH 30.3 pg (25.0-35.0); MCV 94.5 fL (80.0-100.0); Mean Platelet Volume 7.4; Monocytes # (A) 0.8 k/uL (0-1.0); Monocytes % (A) 4 %; Neutrophils # (A) 17.8 k/uL (1.3-7.7); Neutrophils % (A) 91 %; Platelet Count 138 k/uL (150-450); RBC 5.75 m/uL (4.30-5.90); RDW 13.7 % (11.5-15.5); WBC 19.6 k/uL (3.8-10.6)
--- NOTE | 2018-05-17 21:24 | ED ---
General Adult HPI - General Chief complaint: Altered Mental Status Stated complaint: Altered Mental Status Time Seen by Provider: 05/17/18 21:05 Source: family, EMS, RN notes reviewed, old records reviewed Mode of arrival: EMS Limitations: no limitations - History of Present Illness Initial comments: 82-year-old male presenting with altered mental status [facility]. Patient was found by family sent in a chair. He was hypoxic and nonresponsive. Patient is several weeks status post CVA. He is in [facility] for [facility]. According to family he was diaphoretic. At the time of my initial evaluation, patient is somewhat lethargic however he is able to answer questions. Denies any specific complaints. No pain complaints. He is alert and oriented. - Related Data Home Medications Medication Instructions Recorded Confirmed Acetaminophen/Diphenhydramine 1 tab PO HS 03/11/16 05/02/18 [Tylenol PM Extra Strength] Amiodarone [Cordarone] 100 mg PO DAILY 03/11/16 05/02/18 Atorvastatin [Lipitor] 10 mg PO HS 03/11/16 05/02/18 Doxazosin [Cardura] 4 mg PO HS 03/11/16 05/02/18 Finasteride [Proscar] 5 mg PO DAILY 03/11/16 05/02/18 Fish Oil/Dha/Epa [Fish Oil 1,200 1 cap PO DAILY@1200 03/11/16 05/02/18 mg Fish Oil] Levothyroxine Sodium [Synthroid] 75 mcg PO DAILY 03/11/16 05/02/18 Metoprolol Tartrate [Lopressor] 25 mg PO BID 03/11/16 05/02/18 Calcium/Magnesium/Zinc 1 tab PO DAILY@1200 05/02/18 05/02/18 [Ejvosbl-Eyllnhcuh-Eufo Tablet] Furosemide [Lasix] 40 mg PO DAILY 05/02/18 05/02/18 Lisinopril [Prinivil] 5 mg PO HS 05/02/18 05/02/18 Potassium Chloride ER [K-Dur 20] 20 meq PO Q48H 05/02/18 05/02/18 Sulfacetamide Sodium 2 drops BOTH EYES Q4H 05/02/18 05/02/18 [Sulfacetamide Sod 10% Ophth Soln] Turmeric Root Extract [Turmeric] 500 mg PO DAILY 05/02/18 05/02/18 Previous Rx's Medication Instructions Recorded Dexamethasone [Decadron] 2 mg PO DAILY #1 tablet 05/09/18 Folic Acid 1 mg PO DAILY@1200 tab 05/09/18 INSULIN LISPRO (HumaLOG) [humaLOG] 0 unit SQ ACHS #1 vial 05/09/18 Multivitamins, Thera [Multivitamin 1 each PO DAILY@1200 tab 05/09/18 (formulary)] Pantoprazole [Protonix] 40 mg PO [id number] tablet. 05/09/18 Thiamine [Vitamin B-1] 100 mg PO DAILY@1200 tab 05/09/18 Allergies Allergy/AdvReac Type Severity Reaction Status Date / Time No Known Allergies Allergy Verified 05/02/18 20:16 Review of Systems ROS Statement: Those systems with pertinent positive or pertinent negative responses have been documented in the HPI. ROS Other: All systems not noted in ROS Statement are negative. Past Medical History Past Medical History: Atrial Fibrillation, Heart Failure, Diabetes Mellitus, Hypertension, Thyroid Disorder Additional Past Medical History / Comment(s): macular degeneration, massive stroke History of Any Multi-Drug Resistant Organisms: None Reported Past Surgical History: Orthopedic Surgery Additional Past Surgical History / Comment(s): hemorroidectomy, bilateral knee surgery Past Psychological History: No Psychological Hx Reported Smoking Status: Former smoker Past Alcohol Use History: Rare Past Drug Use History: None Reported General Exam Limitations: no limitations General appearance: in no apparent distress, lethargic Head exam: Present: atraumatic, normocephalic Eye exam: Present: PERRL (2 mm and sluggish bilaterally) ENT exam: Present: mucous membranes dry Neck exam: Present: normal inspection. Absent: meningismus Respiratory exam: Present: normal lung sounds bilaterally. Absent: respiratory distress, wheezes Cardiovascular Exam: Present: regular rate, irregular rhythm GI/Abdominal exam: Present: soft. Absent: distended, tenderness, guarding Extremities exam: Present: other (Hemostasis). Absent: pedal edema Neurological exam: Present: alert, CN II-XII intact. Absent: motor sensory deficit Skin exam: Absent: warm (cool), cyanosis, diaphoretic Course Vital Signs 05/17/18 05/17/18 05/17/18 20:49 21:33 22:27 Temperature 94.9 F L 100 F H Pulse Rate 94 103 H 99 Respiratory 16 20 Rate Blood Pressure 102/56 102/68 O2 Sat by Pulse 87 L 100 100 Oximetry EKG Findings - EKG Comments: EKG Findings:: EKG: Atrial fibrillation, rate of 80, artifact in V2, no ST segment elevation or depression, QRS duration 84, QTC 452 Medical Decision Making - Medical Decision Making 82-year-old male presenting with confusion, hypoxia. Initially temperature is low however rectal temperature reveals patient is febrile with temperature of 100. Laboratory studies reveal significantly elevated white blood cell count at 19, lactic of 4.4. Patient's urinalysis is negative for infection, chest x- ray interpreted by radiology as negative however there is concern for right lower lobe pneumonia and on history there is concern for aspiration. Patient will be treated for aspiration pneumonia. Admitted to internal medicine. - Lab Data Result diagrams: 05/17/18 21:10 05/17/18 21:10 Lab Results 05/17/18 05/17/18 05/17/18 Range/Units 21:10 21:10 21:10 WBC 19.6 H (3.8-10.6) k/uL RBC 5.75 (4.30-5.90) m/uL Hgb 17.4 (13.0-17.5) gm/dL Hct 54.3 H (39.0-53.0) % MCV 94.5 (80.0-100.0) fL MCH 30.3 (25.0-35.0) pg MCHC 32.0 (31.0-37.0) g/dL RDW 13.7 (11.5-15.5) % Plt Count 138 L (150-450) k/uL Neutrophils % 91 % Lymphocytes % 4 % Monocytes % 4 % Eosinophils % 1 % Basophils % 0 % Neutrophils # 17.8 H (1.3-7.7) k/uL Lymphocytes # 0.8 L (1.0-4.8) k/uL Monocytes # 0.8 (0-1.0) k/uL Eosinophils # 0.1 (0-0.7) k/uL Basophils # 0.0 (0-0.2) k/uL PT (9.0-12.0) sec INR (<1.2) APTT (22.0-30.0) sec Sodium 138 (137-145) mmol/L Potassium 4.6 (3.5-5.1) mmol/L Chloride 101 (98-107) mmol/L Carbon Dioxide 23 (22-30) mmol/L Anion Gap 14 mmol/L BUN 40 H (9-20) mg/dL Creatinine 1.81 H (0.66-1.25) mg/dL Est GFR (CKD-EPI)AfAm 39 (>60 ml/min/1.73 sqM) Est GFR (CKD-EPI)NonAf 34 (>60 ml/min/1.73 sqM) Glucose 274 H (74-99) mg/dL Plasma Lactic Acid Raffy (0.7-2.0) mmol/L Calcium 8.8 (8.4-10.2) mg/dL Total Bilirubin 1.7 H (0.2-1.3) mg/dL AST 22 (17-59) U/L ALT 28 (21-72) U/L Alkaline Phosphatase 97 (38-126) U/L Total Creatine Kinase <20 L (55-170) U/L CK-MB (CK-2) 1.0 (0.0-2.4) ng/mL CK-MB (CK-2) Rel Index Troponin I 0.022 (0.000-0.034) ng/mL Total Protein 6.3 (6.3-8.2) g/dL Albumin 3.6 (3.5-5.0) g/dL TSH 9.760 H (0.465-4.680) mIU/L Urine Color Urine Appearance (Clear) Urine pH (5.0-8.0) Ur Specific [place] (1.001-1.035) Urine Protein (Negative) Urine Glucose (UA) (Negative) Urine Ketones (Negative) Urine Blood (Negative) Urine Nitrite (Negative) Urine Bilirubin (Negative) Urine Urobilinogen (<2.0) mg/dL Ur Leukocyte Esterase (Negative) Urine RBC (0-5) /hpf Urine WBC (0-5) /hpf Ur Squamous Epith Cells (0-4) /hpf Amorphous Sediment (None) /hpf Hyaline Casts (0-2) /lpf Granular Casts (0) /lpf Urine Mucus (None) /hpf 05/17/18 05/17/18 05/17/18 Range/Units 21:10 21:10 21:25 WBC (3.8-10.6) k/uL RBC (4.30-5.90) m/uL Hgb (13.0-17.5) gm/dL Hct (39.0-53.0) % MCV (80.0-100.0) fL MCH (25.0-35.0) pg MCHC (31.0-37.0) g/dL RDW (11.5-15.5) % Plt Count (150-450) k/uL Neutrophils % % Lymphocytes % % Monocytes % % Eosinophils % % Basophils % % Neutrophils # (1.3-7.7) k/uL Lymphocytes # (1.0-4.8) k/uL Monocytes # (0-1.0) k/uL Eosinophils # (0-0.7) k/uL Basophils # (0-0.2) k/uL PT 11.7 (9.0-12.0) sec INR 1.2 H (<1.2) APTT 20.9 L (22.0-30.0) sec Sodium (137-145) mmol/L Potassium (3.5-5.1) mmol/L Chloride (98-107) mmol/L Carbon Dioxide (22-30) mmol/L Anion Gap mmol/L BUN (9-20) mg/dL Creatinine (0.66-1.25) mg/dL Est GFR (CKD-EPI)AfAm (>60 ml/min/1.73 sqM) Est GFR (CKD-EPI)NonAf (>60 ml/min/1.73 sqM) Glucose (74-99) mg/dL Plasma Lactic Acid Raffy 4.4 H* (0.7-2.0) mmol/L Calcium (8.4-10.2) mg/dL Total Bilirubin (0.2-1.3) mg/dL AST (17-59) U/L ALT (21-72) U/L Alkaline Phosphatase (38-126) U/L Total Creatine Kinase (55-170) U/L CK-MB (CK-2) (0.0-2.4) ng/mL CK-MB (CK-2) Rel Index Troponin I (0.000-0.034) ng/mL Total Protein (6.3-8.2) g/dL Albumin (3.5-5.0) g/dL TSH (0.465-4.680) mIU/L Urine Color Dark Yellow Urine Appearance Cloudy (Clear) Urine pH 6.0 (5.0-8.0) Ur Specific [place] 1.016 (1.001-1.035) Urine Protein 2+ H (Negative) Urine Glucose (UA) 1+ H (Negative) Urine Ketones Negative (Negative) Urine Blood Negative (Negative) Urine Nitrite Negative (Negative) Urine Bilirubin Negative (Negative) Urine Urobilinogen 4.0 (<2.0) mg/dL Ur Leukocyte Esterase Trace H (Negative) Urine RBC 2 (0-5) /hpf Urine WBC 8 H (0-5) /hpf Ur Squamous Epith Cells 3 (0-4) /hpf Amorphous Sediment Rare H (None) /hpf Hyaline Casts 40 H (0-2) /lpf Granular Casts 186 (0) /lpf Urine Mucus Occasional H (None) /hpf Disposition Clinical Impression: Altered mental status, Aspiration pneumonia Disposition: ADMITTED IP TO THIS [facility] Condition: Stable Is patient prescribed a controlled substance at d/c from ED?: No Referrals: Von Deleon MD [Primary Care Provider] - 1-2 days Decision to Admit Reason: Admit from EC Decision Date: 05/17/18 Decision Time: 22:40
[2018-05-17 21:31] LABS: Albumin 3.6 g/dL (3.5-5.0); Calcium 8.8 mg/dL (8.4-10.2); Potassium 4.6 mmol/L (3.5-5.1); Total Bilirubin 1.7 mg/dL (0.2-1.3); Total Protein 6.3 g/dL (6.3-8.2)
[2018-05-17 21:36] LABS: INR 1.2 (<1.2); Prothrombin Time 11.7 sec (9.0-12.0)
[2018-05-17 21:43] LABS: Creatine Kinase <20 U/L (55-170)
[2018-05-17] MEDS ORDERED: SODIUM CHLORIDE 0.9% 1,000 ML IV ONE (21:54)
[2018-05-17] MEDS ORDERED: cefTRIAXone IN SWFI 1,000 MG/10 ML SYRINGE IVP STA (21:54)
[2018-05-17] MEDS ORDERED: VANCOMYCIN IV PER PHARMACY 1 EACH MISC MISCELLANE PRN (21:54)
[2018-05-17] MEDS ORDERED: AMPICILLIN-SULBACTAM 3 GM in SODIUM CHLORIDE 0.9% 100 ML IVPB STA (21:55)
[2018-05-17 21:56] LABS: Troponin I 0.022 ng/mL (0.000-0.034)
--- NOTE | 2018-05-17 21:58 | XR ---
EXAMINATION TYPE: XR chest 2V DATE OF EXAM: 05/17/2018 COMPARISON: Chest x-ray from 10 days ago. HISTORY: Altered mental status and weakness. TECHNIQUE: Frontal and lateral views of the chest are obtained. FINDINGS: There is chronic parenchymal change without suspicious focal air space opacity, pleural ef fusion, or pneumothorax seen. The cardiac silhouette size is felt upper limits of normal currently. There is mild to moderate multilevel spurring of the thoracic spine.. IMPRESSION: No acute cardiopulmonary process currently.
[2018-05-17 22:00] LABS: Partial Thromboplastin Time 20.9 sec (22.0-30.0)
--- NOTE | 2018-05-17 22:00 | CT ---
EXAMINATION TYPE: CT brain wo con DATE OF EXAM: 05/17/2018 HISTORY: Altered mental status. CT DLP: 985.8 mGycm. Automated Exposure Control for Dose Reduction was Utilized. TECHNIQUE: CT scan of the head is performed without contrast. COMPARISON: CT brain from 9 days ago and older studies. FINDINGS: There is no new acute intracranial hemorrhage or midline shift identified. Subtle midline shift to the left axial image 26 is stable. There is diffuse ventricular and sulcal prominence consi stent with diffuse age-related cerebral atrophy. There is low-attenuation in the periventricular whi te matter consistent with chronic small vessel ischemic change. There is redemonstration of evolving subacute partially hemorrhagic infarct in the right MCA distribution involving frontal temporal and p arietal lobes The globes are intact and the visualized sinuses are clear. IMPRESSION: There is moderate diffuse age-related cerebral atrophy and chronic small vessel ischemic change as well as evolving subacute MCA distribution infarct all redemonstrated. No significant lackey ge from most recent CT 9 days earlier.
[2018-05-17 22:01] LABS: Amorphous Sediment,Urine Rare /hpf; Appearance,Urine Cloudy (Clear); Bilirubin,Urine Negative (Negative); Blood,Urine Negative (Negative); Color,Urine Dark Yellow; Glucose,Urine (UA) 1+ (Negative); Granular Casts,Urine 186 /lpf (0); Hyaline Casts,Urine 40 /lpf (0-2); Ketones,Urine Negative (Negative); Leukocyte Esterase,Urine Trace (Negative); Mucus,Urine Occasional /hpf; Nitrite,Urine Negative (Negative); Protein,Urine 2+ (Negative); RBC,Urine 2 /hpf (0-5); Specific Gravity,Urine 1.016 (1.001-1.035); Squamous Epithelial Cell,Urine 3 /hpf (0-4); WBC,Urine 8 /hpf (0-5)
[2018-05-17] MEDS ORDERED: VANCOMYCIN 1,500 MG in SODIUM CHLORIDE 0.9% 250 ML IVPB STA (22:07)
[2018-05-17] MEDS ORDERED: NALOXONE 0.4 MG/ML 1 ML VIAL IV PRN (22:35)
[2018-05-17] MEDS ORDERED: ACETAMINOPHEN TAB 325 MG TAB PO PRN (22:35)
[2018-05-17] MEDS: SODIUM CHLORIDE 0.9% 1,000 ML IV SCH (22:45)
[2018-05-17 23:11] LABS: T4, Free (Free Thyroxine) 1.99 ng/dL (0.78-2.19)
[2018-05-18 00:10] VITALS: BMI 28.1
[2018-05-18 02:59] LABS: Calcium 8.1 mg/dL (8.4-10.2); Potassium 4.8 mmol/L (3.5-5.1)
[2018-05-18 06:31] LABS: Glucose,Whole Blood 173 mg/dL (75-99)
[2018-05-18] MEDS: AMPICILLIN-SULBACTAM 3 GM in SODIUM CHLORIDE 0.9% 100 ML IVPB SCH ×2 (06:41→12:08)
[2018-05-18] MEDS: LEVOTHYROXINE 75 MCG TAB PO SCH (06:41)
--- NOTE | 2018-05-18 08:06 | XR ---
EXAMINATION TYPE: XR chest 2V DATE OF EXAM: 05/18/2018 HISTORY: Aspiration PNA. REFERENCE: Previous study dated 05/17/2018. FINDINGS: The lungs are clear. Pleural space are clear. The heart is not enlarged. IMPRESSION: NO ACUTE INTRATHORACIC ABNORMALITY.
--- NOTE | 2018-05-18 08:29 | US ---
EXAMINATION TYPE: US gallbladder DATE OF EXAM: 05/18/2018 COMPARISON: CT 07/08/2017 CLINICAL HISTORY: Pain. Patient is a poor historian. Extremely difficult and limited exam due to pauly ent's inability to take a deep breath and hold, roll onto his side, and due to overlying bowel gas. EXAM MEASUREMENTS: Liver Length: 13.5 cm Gallbladder Wall: 0.2 cm CBD: 0.5 cm Right Kidney: 9.0 x 4.5 x 4.7 cm Pancreas: Obscured by bowel gas Liver: Limited visualization, visualized portions appear wnl Gallbladder: Multiple echogenic foci visualized Evidence for sonographic Whitmore's sign: No CBD: wnl as visualized, distal portion obscured by bowel gas Right Kidney: No hydronephrosis. Limited visualization due to bowel gas. The pancreas is obscured. The liver is normal in size without biliary dilatation. The gallbladder contains multiple gallstones. Gallbladder wall is not thickened measuring 2 mm. The d istal common hepatic duct measures 5 mm. There is no sonographic Whitmore's sign. Limited views of the right kidney are normal. IMPRESSION: CHOLELITHIASIS.
[2018-05-18] MEDS: DEXAMETHASONE 2 MG TAB PO SCH (08:34)
[2018-05-18] MEDS: VANCOMYCIN 1,500 MG in SODIUM CHLORIDE 0.9% 250 ML IVPB SCH (08:34)
[2018-05-18] MEDS: AMIODARONE 100 MG TAB PO SCH (08:34)
[2018-05-18 11:53] LABS: Glucose,Whole Blood 187 mg/dL (75-99)
[2018-05-18] MEDS: THIAMINE 100 MG TAB PO SCH (12:08)
[2018-05-18] MEDS: SODIUM CHLORIDE 0.9% 1,000 ML IV SCH (12:08)
[2018-05-18] MEDS ORDERED: IPRATROPIUM-ALBUTEROL 3 ML NEB INHALATION PRN (15:36)
[2018-05-18 16:56] LABS: Glucose,Whole Blood 240 mg/dL (75-99)
[2018-05-18] MEDS: PIPERACILLIN-TAZOBACTAM 3.375 GM in DEXTROSE/WATER 1 50ML.BAG IVPB SCH (17:01)
[2018-05-18] MEDS: SULFACETAMIDE SOD 10% OPHTH DROPS 15 ML BTL BOTH EYES SCH ×2 (17:01→22:25)
[2018-05-18] MEDS: FUROSEMIDE 10 MG/ML 4 ML VIAL IV SCH (17:02)
[2018-05-18] MEDS: INSULIN ASPART 100 UNIT/ML 1 ML 10 ML VIAL SQ SCH ×2 (17:02→22:20)
--- NOTE | 2018-05-18 19:06 | HP ---
HISTORY AND PHYSICAL DATE OF SERVICE: 05/18/2018 CHIEF COMPLAINT: Change in mental status. HISTORY OF PRESENT ILLNESS: This 82-year-old gentleman with a past medical history of multiple medical problems including atrial fibrillation, CHF, diabetes, hypertension, pneumonia being followed by Dr. Von Deleon in the outpatient setting was recently admitted with significant right temporal cerebral infarct with hemorrhagic conversion. The patient was sent to rehab to [facility] on [facility] under the care of Dr. Carlos. The patient apparently doing well, but yesterday the patient was sitting in a chair and the patient become unresponsive and hypoxic and the patient taken to [facility] and admitted to the hospital for further evaluation and treatment. The blood pressure was also found to be low which was fluctuating as well. Chest x-ray showed possible aspiration pneumonia. Patient is on broad-spectrum IV antibiotics. Plasma lactic acid elevated to 4.4. There is no history of any fever, rigors or chills. No history of chest pain, palpitation at this time. PAST MEDICAL HISTORY: History of recent stroke as mentioned, atrial fibrillation, CHF, CVA, TIA, diabetes, hypertension, pneumonia, macular degeneration. MEDICATIONS: Home medications are: 1. K-Dur 20 mEq p.o. q48 hours. 2. Turmeric 500 mg q.h.s. 3. Vitamin B1 100 mg daily. 5. Protonix 40 mg daily. 6. Multivitamins. 7. Lopressor 25 mg p.o. b.i.d. 8. Prinivil 5 mg p.o. q.h.s. 9. Synthroid 75 mcg p.o. daily. 10.Humalog scale. 11.Lasix 40 mg p.o. daily. 12.Folic acid 1 mg daily. 13.Fish oil. 14.Proscar 5 mg daily. 15.Cardura 4 mg q.h.s. 16.Decadron 2 mg p.o. daily. 17.Calcium with magnesium 1 tablets p.o. daily. 18.Lipitor 10 mg q.h.s. 19.Cordarone 100 mg p.o. daily. 20.Tylenol p.m. 1 tablet q.h.s. ALLERGIES: None. FAMILY HISTORY: No history of heart disease or strokes in the family. SOCIAL HISTORY: Previous history of smoking. No history of current smoking. No alcohol intake. REVIEW OF SYSTEMS: ENT: Diminished hearing and diminished vision. CARDIOVASCULAR: No angina or palpitations. RESPIRATORY: As mentioned earlier. GI: No nausea or vomiting. no dysuria. Nervous System: As mentioned earlier. Musculoskeletal: As mentioned earlier. Hematology/Oncology: No history of anemia. ENDOCRINE: Diabetes and hypothyroidism. CONSTITUTIONAL: As mentioned earlier. Dermatology: Negative. Rheumatology: Negative. Psychiatry: As mentioned earlier. PHYSICAL EXAMINATION: Alert and oriented x2. Pulse is 109. Blood pressure 170/92, respiration 18, temperature 97.5, pulse ox 100 percent on 3 L. HEENT is conjunctivae normal. Oral mucosa moist. Neck is no jugular venous distention. No carotid bruit. No lymph node enlargement. Cardiovascular S1, S2 muffled. No S3, no S4. Respiratory: Breath sounds diminished in the bases. A few scattered rhonchi. No crackles. ABDOMEN: Soft, nontender. No mass palpable. Legs: No edema. No swelling. NERVOUS SYSTEM: Higher functions as mentioned. Moves all 4 limbs. No focal motor or sensory deficits. Lymphatics: No lymph nodes palpable in the neck, axillae or groin. SKIN: No ulcer, rash or bleeding. LABS: WBC 19.6 and hemoglobin 17.4. INR 1.2. Creatinine is 1.60. ASSESSMENT: 1. Syncope possibly vasovagal and orthostatic hypotension. 2. Possible bilateral aspiration pneumonia. 3. History of recent acute right temporal infarct with hemorrhagic conversion. 4. Chronic atrial fibrillation off anticoagulation therapy. 5. Congestive heart failure with chronic systolic dysfunction ejection fraction 40-45 percent. 6. Gait dysfunction. 7. Hypothyroidism. 8. Hyperlipidemia. 9. Hypertension. 10.Chronic kidney stage 3. 11.Macular degeneration. 12.Gait dysfunction. 13.History of nicotine dependence. 14.NO CODE, NO CPR, NO VENT. RECOMMENDATIONS AND DISCUSSION: In this 82-year-old gentleman who presented with multiple complex medical issues. We will monitor the patient closely. Continue the current medications, continue symptomatic treatment. We will initiate broad-spectrum IV antibiotics, bronchodilators, continue the diuretics. Guarded prognosis because of multiple complex medical issues. Continue the rest of medications. PT/OT evaluation. Orthostatic vitals. Prognosis guarded because of multiple complex medical issues. Further recommendations to follow. The patient is currently NO CODE, NO CPR, NO VENT. MMODL / IJN: [id number] / [facility]
[2018-05-18] MEDS: IPRATROPIUM-ALBUTEROL 3 ML NEB INHALATION SCH (20:25)
[2018-05-18] MEDS ORDERED: ACETAMINOPHEN TAB 500 MG TAB PO PRN (21:00)
[2018-05-18] MEDS ORDERED: diphenhydrAMINE 25 MG CAP PO PRN (21:00)
[2018-05-18] MEDS ORDERED: LISINOPRIL 5 MG TAB PO SCH (21:00)
[2018-05-18] MEDS ORDERED: NON-FORMULARY DRUG (Turmeric Root Extract [Turmeric] 500 MG) PO SCH (21:00)
[2018-05-18 21:19] LABS: Glucose,Whole Blood 243 mg/dL (75-99)
[2018-05-18] MEDS: METOPROLOL TARTRATE 25 MG TAB PO SCH (22:17)
[2018-05-18] MEDS: DOXAZOSIN 4 MG TAB PO SCH (22:17)
[2018-05-18] MEDS: ATORVASTATIN 10 MG TAB PO SCH (22:18)
[2018-05-19] MEDS: SULFACETAMIDE SOD 10% OPHTH DROPS 15 ML BTL BOTH EYES SCH ×6 (02:21→21:49)
[2018-05-19] MEDS: PIPERACILLIN-TAZOBACTAM 3.375 GM in DEXTROSE/WATER 1 50ML.BAG IVPB SCH ×3 (02:54→17:11)
[2018-05-19] MEDS: PANTOPRAZOLE 40 MG TABLET PO SCH (05:57)
[2018-05-19] MEDS: LEVOTHYROXINE 75 MCG TAB PO SCH (05:57)
[2018-05-19 06:37] LABS: Basophils % (A) 0 %; Calcium 8.4 mg/dL (8.4-10.2); Eosinophils % (A) 0 %; HCT 43.8 % (39.0-53.0); Lymphocytes # (A) 1.2 k/uL (1.0-4.8); Lymphocytes % (A) 8 %; MCHC 32.1 g/dL (31.0-37.0); MCV 93.6 fL (80.0-100.0); Mean Platelet Volume 7.4; Monocytes # (A) 0.7 k/uL (0-1.0); Monocytes % (A) 4 %; Neutrophils # (A) 13.3 k/uL (1.3-7.7); Neutrophils % (A) 87 %; Platelet Count 105 k/uL (150-450); Potassium 4.4 mmol/L (3.5-5.1); RBC 4.68 m/uL (4.30-5.90); RDW 13.8 % (11.5-15.5); WBC 15.3 k/uL (3.8-10.6)
[2018-05-19 06:38] LABS: HGB 14.1 gm/dL (13.0-17.5)
[2018-05-19 06:40] LABS: Glucose,Whole Blood 169 mg/dL (75-99)
[2018-05-19] MEDS: INSULIN ASPART 100 UNIT/ML 1 ML 10 ML VIAL SQ SCH ×4 (06:53→21:49)
[2018-05-19] MEDS: IPRATROPIUM-ALBUTEROL 3 ML NEB INHALATION SCH ×3 (07:28→20:56)
[2018-05-19] MEDS: FINASTERIDE 5 MG TAB PO SCH (08:24)
[2018-05-19] MEDS: THIAMINE 100 MG TAB PO SCH (08:24)
[2018-05-19] MEDS: POTASSIUM CHLORIDE ER 20 MEQ TAB.ER PO SCH (08:24)
[2018-05-19] MEDS: DEXAMETHASONE 2 MG TAB PO SCH (08:24)
[2018-05-19] MEDS: FOLIC ACID 1 MG TAB PO SCH (08:24)
[2018-05-19] MEDS: AMIODARONE 100 MG TAB PO SCH (08:24)
[2018-05-19] MEDS: METOPROLOL TARTRATE 25 MG TAB PO SCH ×2 (08:24→21:40)
[2018-05-19] MEDS: FUROSEMIDE 10 MG/ML 4 ML VIAL IV SCH (08:25)
[2018-05-19] MEDS: VANCOMYCIN 1,500 MG in SODIUM CHLORIDE 0.9% 250 ML IVPB SCH (08:40)
[2018-05-19 11:47] LABS: Glucose,Whole Blood 187 mg/dL (75-99)
[2018-05-19] MEDS ORDERED: NON-FORMULARY DRUG (Fish Oil/Dha/Epa [Fish Oil 1,200 Mg Fish Oil] 1 CAP) PO SCH (12:00)
[2018-05-19] MEDS ORDERED: NON-FORMULARY DRUG (Calcium/Magnesium/Zinc [Calcium-Magnesium-Zinc Tablet] 1 TAB) PO SCH (12:00)
[2018-05-19 13:14] LABS: Hemoglobin A1C 8.4 % (4.0-6.0)
[2018-05-19 16:50] LABS: Glucose,Whole Blood 222 mg/dL (75-99)
--- NOTE | 2018-05-19 18:43 | PN ---
PROGRESS NOTE DATE OF SERVICE: 05/19/2018. INTERVAL HISTORY: This 82-year-old gentleman who was admitted with syncope and vasovagal syncope also had orthostatic hypotension. Patient also had possible bilateral aspiration pneumonia. The sensorium has improved significantly and gallbladder ultrasound showed cholelithiasis. No chest pain. No palpitation. The blood pressure is fluctuating. PHYSICAL EXAM: Alert and oriented x3. The pulse is 73. Blood pressure 93/77, respiration 18. Temperature 98.2. Pulse ox 97 percent on 2 L. HEENT is conjunctivae normal. Oral mucosa moist. Neck is no jugular venous distention. No carotid bruit. No lymph node enlargement. Cardiovascular systems: S1, S2 muffled. Respiration: Breath sounds diminished in the bases. A few scattered rhonchi and crackles. ABDOMEN: Soft, nontender. No mass palpable. Legs: No edema and no swelling. Nervous system: Higher functions as mentioned earlier. Moves all four extremities. No focal motor or sensory deficits. Lymphatics: No lymph nodes palpable in the neck, axillae or groin. Skin: No ulcer, rash or bleeding. LABS: At this time shows WBC 15.2, hemoglobin 14.1, glucose noted. ASSESSMENT: 1. Syncope possibly vasovagal and orthostatic hypotension. 2. Bilateral aspiration pneumonia. 3. History of recent acute right temporal infarct with hemorrhagic conversion. 4. Chronic atrial fibrillation off anticoagulation therapy. 5. Congestive heart failure with chronic systolic dysfunction ejection fraction 40-45 percent. 6. Gait dysfunction. 7. Hypothyroidism. 8. Hyperlipidemia. 9. Hypertension. 10.Chronic kidney disease stage 3. 11.Macular degeneration. 12.Gait dysfunction. 13.Nicotine dependence. 14.NO CODE, NO CPR, NO VENT. RECOMMENDATIONS AND DISCUSSION: Recommend to continue current medications, continue to monitor. Symptomatic treatment. Otherwise at this time, we will monitor the patient closely. Closely follow with PT, OT evaluation. Guarded prognosis. Further recommendations to follow. MMODL / IJN: [id number] /
[2018-05-19 20:52] LABS: Glucose,Whole Blood 234 mg/dL (75-99)
[2018-05-19] MEDS: DOXAZOSIN 4 MG TAB PO SCH (20:53)
[2018-05-19] MEDS: ATORVASTATIN 10 MG TAB PO SCH (21:49)
[2018-05-20] MEDS: SULFACETAMIDE SOD 10% OPHTH DROPS 15 ML BTL BOTH EYES SCH ×6 (00:39→20:53)
[2018-05-20] MEDS: PIPERACILLIN-TAZOBACTAM 3.375 GM in DEXTROSE/WATER 1 50ML.BAG IVPB SCH ×3 (00:39→17:16)
[2018-05-20 06:22] LABS: Glucose,Whole Blood 147 mg/dL (75-99)
[2018-05-20 06:23] LABS: Basophils % (A) 0 %; Eosinophils # (A) 0.1 k/uL (0-0.7); Eosinophils % (A) 0 %; HCT 46.3 % (39.0-53.0); HGB 14.4 gm/dL (13.0-17.5); Lymphocytes # (A) 1.1 k/uL (1.0-4.8); Lymphocytes % (A) 7 %; MCH 29.4 pg (25.0-35.0); MCHC 31.1 g/dL (31.0-37.0); MCV 94.6 fL (80.0-100.0); Mean Platelet Volume 6.8; Monocytes # (A) 0.7 k/uL (0-1.0); Monocytes % (A) 4 %; Neutrophils # (A) 13.9 k/uL (1.3-7.7); Neutrophils % (A) 87 %; RDW 13.7 % (11.5-15.5)
[2018-05-20 06:26] LABS: Calcium 8.1 mg/dL (8.4-10.2); Potassium 3.9 mmol/L (3.5-5.1)
[2018-05-20] MEDS: LEVOTHYROXINE 75 MCG TAB PO SCH (07:09)
[2018-05-20] MEDS: PANTOPRAZOLE 40 MG TABLET PO SCH (07:09)
[2018-05-20 07:24] LABS: Platelet Count 96 k/uL (150-450)
[2018-05-20] MEDS: INSULIN ASPART 100 UNIT/ML 1 ML 10 ML VIAL SQ SCH ×4 (08:10→21:30)
[2018-05-20] MEDS: VANCOMYCIN 1,500 MG in SODIUM CHLORIDE 0.9% 250 ML IVPB SCH (08:29)
[2018-05-20] MEDS: AMIODARONE 100 MG TAB PO SCH (08:31)
[2018-05-20] MEDS: THIAMINE 100 MG TAB PO SCH (08:31)
[2018-05-20] MEDS: FUROSEMIDE 10 MG/ML 4 ML VIAL IV SCH (08:31)
[2018-05-20] MEDS: FOLIC ACID 1 MG TAB PO SCH (08:31)
[2018-05-20] MEDS: METOPROLOL TARTRATE 25 MG TAB PO SCH ×2 (08:31→20:53)
[2018-05-20] MEDS: FINASTERIDE 5 MG TAB PO SCH (08:32)
[2018-05-20] MEDS: DEXAMETHASONE 2 MG TAB PO SCH (08:32)
[2018-05-20] MEDS: IPRATROPIUM-ALBUTEROL 3 ML NEB INHALATION SCH ×3 (08:49→20:23)
[2018-05-20 12:17] LABS: Glucose,Whole Blood 223 mg/dL (75-99)
--- NOTE | 2018-05-20 16:42 | P.CNPUL ---
History of Present Illness Consult date: 05/20/18 Requesting physician: Kala Hickey Reason for consult: dyspnea Chief complaint: Altered mental status History of present illness: This is an 82-year-old gentleman who follows with Dr. Von Deleon as his primary care physician. He has a history of atrial fibrillation, systolic congestive heart failure with an ejection fraction of 40-45%, diabetes mellitus , type tension, hypothyroidism, macular degeneration, hyperlipidemia, chronic kidney disease, stage III, prior history of nicotine dependence, gait dysfunction. 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 He was not continued on anticoagulation for his chronic atrial fibrillation following that. Yesterday he was found by his family in the skilled nursing sitting up in a chair unresponsive and hypoxic. He was brought here for further evaluation. EKG revealed atrial fibrillation with a controlled ventricular response. Computed tomography scan of the brain revealed moderate diffuse age-related cerebral atrophy and chronic small vessel ischemic change as well as evolving subacute MCA distribution infarct. All without significant change compared to previous computed tomography scan 9 days prior. There is some concern regarding possible aspiration pneumonia and the right lower lobe and we're consulted for the same. White count 19.6. T-max 100 rectally. Initially hypoxic 87% on a 15 L nonrebreather mask. On today's consultation the patient is currently sitting up in a chair at the bedside. He is drowsy but arouses to verbal stimuli. He is answering questions appropriately. He currently denies any shortness of breath. He has a loose nonproductive cough. No chills or night sweats. He is currently afebrile, maintaining good O2 saturations in the upper 90s on room air. He's been hemodynamically stable. Today's white count 16.0. Hemoglobin 14.4. Hematocrit 1.43. Initial lactic acid 4.4, currently 1.7. Review of Systems Constitutional: Reports fatigue, Reports lethargy, Reports weakness Eyes: denies blurred vision, denies bulging eye, denies decreased vision Ears: deny: decreased hearing, ear discharge, earache Ears, nose, mouth and throat: Denies headache, Denies sore throat Cardiovascular: Reports irregular heart beat Respiratory: Denies cough Gastrointestinal: Denies abdominal pain, Denies diarrhea, Denies nausea, Denies vomiting Genitourinary: Reports as per HPI Musculoskeletal: Denies myalgias Musculoskeletal: absent: ankle pain, ankle stiffness, ankle swelling Integumentary: Denies pruritus, Denies rash Neurological: Reports confusion, Reports motor disturbance, Reports sensory deficit, Reports weakness Psychiatric: Denies anxiety, Denies depression Endocrine: Reports as per HPI Hematologic/Lymphatic: Reports as per HPI Allergic/Immunologic: Reports as per HPI Past Medical History Past Medical History: Atrial Fibrillation, Heart Failure, CVA/TIA, Diabetes Mellitus, Hypertension, Pneumonia, Thyroid Disorder Additional Past Medical History / Comment(s): macular degeneration, massive stroke History of Any Multi-Drug Resistant Organisms: None Reported Past Surgical History: Orthopedic Surgery Additional Past Surgical History / Comment(s): hemorroidectomy, bilateral knee surgery Past Psychological History: No Psychological Hx Reported Smoking Status: Former smoker Past Alcohol Use History: Rare Past Drug Use History: None Reported Medications and Allergies Home Medications Medication Instructions Recorded Confirmed Type Acetaminophen/Diphenhydramine 1 tab PO HS 03/11/16 05/18/18 History [Tylenol PM Extra Strength] Amiodarone [Cordarone] 100 mg PO DAILY 03/11/16 05/18/18 History Atorvastatin [Lipitor] 10 mg PO HS 03/11/16 05/18/18 History Doxazosin [Cardura] 4 mg PO HS 03/11/16 05/18/18 History Finasteride [Proscar] 5 mg PO DAILY 03/11/16 05/18/18 History Fish Oil/Dha/Epa [Fish Oil 1,200 1 cap PO DAILY@1200 03/11/16 05/18/18 History mg Fish Oil] Levothyroxine Sodium [Synthroid] 75 mcg PO DAILY 03/11/16 05/18/18 History Metoprolol Tartrate [Lopressor] 25 mg PO BID 03/11/16 05/18/18 History Calcium/Magnesium/Zinc 1 tab PO DAILY@1200 05/02/18 05/18/18 History [Zkchzrj-Iawfylcsa-Llsn Tablet] Furosemide [Lasix] 40 mg PO DAILY 05/02/18 05/18/18 History Lisinopril [Prinivil] 5 mg PO HS 05/02/18 05/18/18 History Potassium Chloride ER [K-Dur 20] 20 meq PO Q48H 05/02/18 05/18/18 History Sulfacetamide Sodium 2 drops BOTH EYES Q4H 05/02/18 05/18/18 History [Sulfacetamide Sod 10% Ophth Soln] Turmeric Root Extract [Turmeric] 500 mg PO HS 05/02/18 05/18/18 History Dexamethasone [Decadron] 2 mg PO DAILY #1 tablet 05/09/18 05/18/18 Rx Folic Acid 1 mg PO DAILY@1200 tab 05/09/18 05/18/18 Rx Pantoprazole [Protonix] 40 mg PO [id number] tablet. 05/09/18 05/18/18 Rx Thiamine [Vitamin B-1] 100 mg PO DAILY@1200 tab 05/09/18 05/18/18 Rx INSULIN LISPRO (HumaLOG) [humaLOG] See Protocol SQ ACHS 05/18/18 05/18/18 History Multivitamins, Thera [Multivitamin 1 tab PO DAILY@1200 05/18/18 05/18/18 History (formulary)] Allergies Allergy/AdvReac Type Severity Reaction Status Date / Time No Known Allergies Allergy Verified 05/18/18 12:09 Physical Exam Vitals: Vital Signs Temp Pulse Pulse Resp BP BP BP 05/20/18 13:39 105 H 05/20/18 13:27 100 05/20/18 12:00 97.7 F 82 18 112/74 05/20/18 08:59 90 05/20/18 08:49 86 05/20/18 08:00 97.8 F 80 18 110/70 102/72 05/20/18 04:00 96.9 F L 89 18 116/70 134/80 120/74 05/20/18 00:00 97.5 F L 79 18 137/80 05/19/18 21:12 100 05/19/18 21:00 05/19/18 20:56 98 05/19/18 20:00 97.7 F 70 18 93/62 Pulse Ox 05/20/18 13:39 05/20/18 13:27 05/20/18 12:00 98 05/20/18 08:59 05/20/18 08:49 05/20/18 08:00 99 05/20/18 04:00 99 05/20/18 00:00 99 05/19/18 21:12 05/19/18 21:00 97 05/19/18 20:56 05/19/18 20:00 100 Intake and Output 05/20/18 05/20/18 05/20/18 06:59 14:59 22:59 Intake Total 120 Balance 120 Intake: Oral 120 Other: Voiding Method Diaper Diaper # Voids 2 1 Weight 88 kg Head exam was generally normal. There was no scleral icterus or corneal arcus. Mucous membranes were moist. Neck was supple and without jugular venous distension, thyromegaly, or carotid bruits. Carotids were easily palpable bilaterally. There was no adenopathy. Lungs were clear to auscultation and percussion, and with normal diaphragmatic excursion. No wheezes or rales were noted. Heart sounds are irregular S1-S2 and there is no significant murmurs appreciated. Abdominal exam revealed normal bowel sounds. The abdomen was soft, non-tender, and without masses, organomegaly, or appreciable enlargement of the abdominal aorta. Examination of the extremities revealed easily palpable radial, femoral and pedal pulses. There was no cyanosis, clubbing or edema. Examination of the skin revealed no evidence of significant rashes, suspicious appearing nevi or other concerning lesions. Neurologically there may be some left facial droop which is minimal at this point. He has equal and symmetrical pupils. Tongue is in midline. Poor range of extraocular muscle movements. No vision impairment. Adequate swallow without using straws and thickened liquids. There may be some minimal residual motor dysfunction in the left upper extremity on the left compared to right. DTRs are equal and symmetrical. No clonus. No Babinski. Sensory function cannot be accurately assessed. No neck stiffness. Results - Laboratory Findings CBC and BMP: 05/20/18 05:47 05/20/18 05:47 PT/INR, D-dimer PT 11.7 sec (9.0-12.0) 05/17/18 21:10 INR 1.2 (<1.2) H 05/17/18 21:10 Abnormal lab findings: Abnormal Labs 05/17/18 05/17/18 05/17/18 21:10 21:10 21:10 WBC 19.6 H Hct 54.3 H Plt Count 138 L Neutrophils # 17.8 H Lymphocytes # 0.8 L INR APTT BUN 40 H Creatinine 1.81 H Glucose 274 H POC Glucose (mg/dL) Hemoglobin A1c Plasma Lactic Acid Raffy Calcium Total Bilirubin 1.7 H Total Creatine Kinase <20 L TSH 9.760 H Free T3 pg/mL Urine Protein Urine Glucose (UA) Ur Leukocyte Esterase Urine WBC Amorphous Sediment Hyaline Casts Urine Mucus 05/17/18 05/17/18 05/17/18 21:10 21:10 21:10 WBC Hct Plt Count Neutrophils # Lymphocytes # INR 1.2 H APTT 20.9 L BUN Creatinine Glucose POC Glucose (mg/dL) Hemoglobin A1c Plasma Lactic Acid Raffy 4.4 H* Calcium Total Bilirubin Total Creatine Kinase TSH Free T3 pg/mL 2.5 L Urine Protein Urine Glucose (UA) Ur Leukocyte Esterase Urine WBC Amorphous Sediment Hyaline Casts Urine Mucus 05/17/18 05/17/18 05/18/18 21:10 21:25 02:08 WBC Hct Plt Count Neutrophils # Lymphocytes # INR APTT BUN 42 H Creatinine 1.60 H Glucose 212 H POC Glucose (mg/dL) Hemoglobin A1c 8.4 H Plasma Lactic Acid Raffy Calcium 8.1 L Total Bilirubin Total Creatine Kinase TSH Free T3 pg/mL Urine Protein 2+ H Urine Glucose (UA) 1+ H Ur Leukocyte Esterase Trace H Urine WBC 8 H Amorphous Sediment Rare H Hyaline Casts 40 H Urine Mucus Occasional H 05/18/18 05/18/18 05/18/18 06:30 11:23 16:53 WBC Hct Plt Count Neutrophils # Lymphocytes # INR APTT BUN Creatinine Glucose POC Glucose (mg/dL) 173 H 187 H 240 H Hemoglobin A1c Plasma Lactic Acid Raffy Calcium Total Bilirubin Total Creatine Kinase TSH Free T3 pg/mL Urine Protein Urine Glucose (UA) Ur Leukocyte Esterase Urine WBC Amorphous Sediment Hyaline Casts Urine Mucus 05/18/18 05/19/18 05/19/18 21:05 05:58 05:58 WBC 15.3 H Hct Plt Count 105 L Neutrophils # 13.3 H Lymphocytes # INR APTT BUN 37 H Creatinine 1.60 H Glucose 184 H POC Glucose (mg/dL) 243 H Hemoglobin A1c Plasma Lactic Acid Raffy Calcium Total Bilirubin Total Creatine Kinase TSH Free T3 pg/mL Urine Protein Urine Glucose (UA) Ur Leukocyte Esterase Urine WBC Amorphous Sediment Hyaline Casts Urine Mucus 05/19/18 05/19/18 05/19/18 06:30 11:35 16:32 WBC Hct Plt Count Neutrophils # Lymphocytes # INR APTT BUN Creatinine Glucose POC Glucose (mg/dL) 169 H 187 H 222 H Hemoglobin A1c Plasma Lactic Acid Raffy Calcium Total Bilirubin Total Creatine Kinase TSH Free T3 pg/mL Urine Protein Urine Glucose (UA) Ur Leukocyte Esterase Urine WBC Amorphous Sediment Hyaline Casts Urine Mucus 05/19/18 05/20/18 05/20/18 20:50 05:47 05:47 WBC 16.0 H Hct Plt Count 96 L Neutrophils # 13.9 H Lymphocytes # INR APTT BUN 32 H Creatinine 1.43 H Glucose 153 H POC Glucose (mg/dL) 234 H Hemoglobin A1c Plasma Lactic Acid Raffy Calcium 8.1 L Total Bilirubin Total Creatine Kinase TSH Free T3 pg/mL Urine Protein Urine Glucose (UA) Ur Leukocyte Esterase Urine WBC Amorphous Sediment Hyaline Casts Urine Mucus 05/20/18 05/20/18 06:09 11:58 WBC Hct Plt Count Neutrophils # Lymphocytes # INR APTT BUN Creatinine Glucose POC Glucose (mg/dL) 147 H 223 H Hemoglobin A1c Plasma Lactic Acid Raffy Calcium Total Bilirubin Total Creatine Kinase TSH Free T3 pg/mL Urine Protein Urine Glucose (UA) Ur Leukocyte Esterase Urine WBC Amorphous Sediment Hyaline Casts Urine Mucus - Diagnostic Findings Chest x-ray: image reviewed Assessment and Plan Assessment: Impression: #1 Acute hypoxic respiratory failure secondary to suspected aspiration pneumonia , cannot rule out hospital-acquired as the patient was recently discharged on . #2 Altered mental status secondary to above. #3 Lactic acidosis secondary to above, recovered. #4 Leukocytosis secondary to above #5 Acute on chronic renal failure. Baseline creatinine ranges between 1.5 and 2.0. #6 Recent evolving subacute MCA distribution infarct along with moderate diffuse age-related cerebral atrophy and chronic small vessel ischemic changes or #7 Atrial fibrillation, chronic, previously anticoagulated with warfarin, discontinued from recent admission for CVA with limited areas of hemorrhage. #8 Chronic systolic congestive heart failure with an ejection fraction of 45%. #9 Hypothyroidism. #10 Hyperlipidemia. #11 Hypertension. #12 Poor overall functional performance based on the above-mentioned multiple comorbidities. 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 Plan: The patient was seen and evaluated by Dr. Orona. Chest x-ray and labs were reviewed. We will go ahead and treat the patient for suspected aspiration pneumonia however not clearly visualized on chest x-ray. Sputum sample if possible. Currently on vancomycin and Zosyn. Continue bronchodilators. Aspiration precautions. Continue diuretics. The patient is a DO NOT RESUSCITATE /DO NOT INTUBATE CODE STATUS. We will continue to follow and make further recommendations based on his clinical status. I, the cosigning physician, performed a history & physical examination of the patient. Lungs sounds are clear. Maintaining good O2 saturations in the 90s on room air. I discussed the assessment and plan of care with my nurse practitioner, Kailee Ross. I attest to the above consultation as dictated by her. Time with Patient: Greater than 30
[2018-05-20 16:59] LABS: Glucose,Whole Blood 239 mg/dL (75-99)
--- NOTE | 2018-05-20 17:04 | PN ---
PROGRESS NOTE DATE OF SERVICE: 05/20/2008 INTERVAL HISTORY: This 82-year-old gentleman admitted with syncope also had possible bilateral aspiration pneumonia. The patient was having cough at this time. One-to-one aspiration precautions recommended by speech pathology. No chest pain. No palpitations. No fever. EXAM: On exam, alert and oriented x2. Pulse 82, blood pressure 112/74, respiration 18, temperature 97.9, pulse ox 98 percent on room air. HEENT: Conjunctivae normal. Oral mucosa moist. Neck is no jugular venous distention. No carotid bruit. No lymph node enlargement. Cardiovascular system: S1, S2 muffled. Respiratory: Breath sounds diminished at the bases. A few scattered rhonchi and crackles. ABDOMEN: Soft, nontender. Legs are no edema. No swelling. Central nervous system: Mild diffuse weakness. LABS: WBC 16, hemoglobin 14.4, and creatinine is 1.43. ASSESSMENT: 1. Syncope possibly vasovagal and orthostatic hypotension. 2. Bilateral aspiration pneumonia. 3. History of recent acute right temporal infarct with hemorrhagic conversion. 4. Chronic atrial fibrillation with anticoagulation therapy. 5. Congestive heart failure with chronic systolic dysfunction ejection fraction 40-45 percent. 6. Gait dysfunction. 7. Hypothyroidism. 8. Hyperlipidemia. 9. Hypertension. 10.Chronic kidney stage III. 11.Macular degeneration. 12.Gait dysfunction. 13.History of nicotine dependence. 14.NO CODE, NO CPR, NO VENT. RECOMMENDATIONS AND DISCUSSION: Recommend to continue current medications, management and symptomatic treatment. Otherwise, at this time, I recommend continue with broad-spectrum IV antibiotics and monitor the orthostatics. Continue to monitor orthostatic vitals. Aspiration precautions. I discussed with staff. Further recommendations to follow. MMODL / IJN: [id number] /
[2018-05-20] MEDS: DOXAZOSIN 4 MG TAB PO SCH (20:53)
[2018-05-20] MEDS: ATORVASTATIN 10 MG TAB PO SCH (20:53)
[2018-05-20 21:33] LABS: Glucose,Whole Blood 226 mg/dL (75-99)
[2018-05-21] MEDS: SULFACETAMIDE SOD 10% OPHTH DROPS 15 ML BTL BOTH EYES SCH ×5 (00:09→17:20)
[2018-05-21 02:00] VITALS: RESP 18
[2018-05-21] MEDS: LEVOTHYROXINE 75 MCG TAB PO SCH (06:01)
[2018-05-21] MEDS: PANTOPRAZOLE 40 MG TABLET PO SCH (06:01)
[2018-05-21 06:12] LABS: Glucose,Whole Blood 166 mg/dL (75-99)
[2018-05-21] MEDS: INSULIN ASPART 100 UNIT/ML 1 ML 10 ML VIAL SQ SCH ×3 (06:21→17:20)
[2018-05-21 06:52] LABS: Basophils % (A) 0 %; Eosinophils # (A) 0.1 k/uL (0-0.7); Eosinophils % (A) 0 %; HCT 41.7 % (39.0-53.0); HGB 13.4 gm/dL (13.0-17.5); Lymphocytes # (A) 1.1 k/uL (1.0-4.8); Lymphocytes % (A) 8 %; MCV 93.8 fL (80.0-100.0); Mean Platelet Volume 7.2; Monocytes # (A) 0.6 k/uL (0-1.0); Monocytes % (A) 4 %; Neutrophils # (A) 11.6 k/uL (1.3-7.7); Neutrophils % (A) 86 %; Platelet Count 100 k/uL (150-450); RBC 4.45 m/uL (4.30-5.90); RDW 13.5 % (11.5-15.5); WBC 13.5 k/uL (3.8-10.6)
[2018-05-21] MEDS ORDERED: VANCOMYCIN TROUGH DUE 1 EACH MISC MISCELLANE ONE (07:00)
[2018-05-21 07:24] LABS: Potassium 3.6 mmol/L (3.5-5.1)
[2018-05-21] MEDS: IPRATROPIUM-ALBUTEROL 3 ML NEB INHALATION SCH ×2 (09:12→13:21)
[2018-05-21] MEDS: PIPERACILLIN-TAZOBACTAM 3.375 GM in DEXTROSE/WATER 1 50ML.BAG IVPB SCH ×3 (09:12→17:19)
[2018-05-21] MEDS: FUROSEMIDE 10 MG/ML 4 ML VIAL IV SCH (09:13)
[2018-05-21] MEDS: FINASTERIDE 5 MG TAB PO SCH (09:13)
[2018-05-21] MEDS: DEXAMETHASONE 2 MG TAB PO SCH (09:13)
[2018-05-21] MEDS: AMIODARONE 100 MG TAB PO SCH (09:13)
[2018-05-21] MEDS: THIAMINE 100 MG TAB PO SCH (09:14)
[2018-05-21] MEDS: POTASSIUM CHLORIDE ER 20 MEQ TAB.ER PO SCH (09:14)
[2018-05-21] MEDS: METOPROLOL TARTRATE 25 MG TAB PO SCH (09:14)
[2018-05-21] MEDS: FOLIC ACID 1 MG TAB PO SCH (09:14)
[2018-05-21] MEDS: VANCOMYCIN 1,500 MG in SODIUM CHLORIDE 0.9% 250 ML IVPB SCH (10:28)
--- NOTE | 2018-05-21 11:32 | FL ---
Modified barium swallow. HISTORY: Dysphagia. Modified barium swallow was performed with the department of speech pathology. The patient was prese nted with various consistencies of barium. There is no evidence for aspiration. Mild transient penetration with thin liquid barium. Full report is to follow from the department of speech pathology. Impression: Mild transient penetration with thin liquid barium.
--- NOTE | 2018-05-21 13:44 | P.PN ---
Subjective Progress Note Date: 05/21/18 Principal diagnosis: Altered mental status This is an 82-year-old gentleman who follows with Dr. Von Deleon as his primary care physician. He has a history of atrial fibrillation, systolic congestive heart failure with an ejection fraction of 40-45%, diabetes mellitus , type tension, hypothyroidism, macular degeneration, hyperlipidemia, chronic kidney disease, stage III, prior history of nicotine dependence, gait dysfunction. 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 He was not continued on anticoagulation for his chronic atrial fibrillation following that. Yesterday he was found by his family in the [facility] sitting up in a chair unresponsive and hypoxic. He was brought here for further evaluation. EKG revealed atrial fibrillation with a controlled ventricular response. Computed tomography scan of the brain revealed moderate diffuse age-related cerebral atrophy and chronic small vessel ischemic change as well as evolving subacute MCA distribution infarct. All without significant change compared to previous computed tomography scan 9 days prior. There is some concern regarding possible aspiration pneumonia and the right lower lobe and we're consulted for the same. White count 19.6. T-max 100 rectally. Initially hypoxic 87% on a 15 L nonrebreather mask. On today's consultation the patient is currently sitting up in a chair at the bedside. He is drowsy but arouses to verbal stimuli. He is answering questions appropriately. He currently denies any shortness of breath. He has a loose nonproductive cough. No chills or night sweats. He is currently afebrile, maintaining good O2 saturations in the upper 90s on room air. He's been hemodynamically stable. Today's white count 16.0. Hemoglobin 14.4. Hematocrit 1.43. Initial lactic acid 4.4, currently 1.7. The patient is seen again today 05/21/2018 in follow-up on the selective care unit. He is currently resting quite comfortably in bed. He is eating his lunch. He is tolerating his diet well. He has been seen and evaluated by speech therapy and had a swallow evaluation. He was found to have mild transient penetration with thin liquid barium. There was no evidence of aspiration. He has been afebrile. Maintaining O2 saturations in the high 90s on room air. He's been hemodynamically stable. Blood and urine cultures are negative. White count 13.5. Hemoglobin 13.4. Creatinine 1.71. He remains on IV diuretics. He is also on vancomycin and Zosyn. Objective - Vital Signs Vital signs: Vital Signs Temp 97.6 F 05/21/18 12:00 Pulse 102 H 05/21/18 13:32 Resp 18 05/21/18 12:00 BP 122/73 05/21/18 12:00 Pulse Ox 99 05/21/18 12:00 Intake & Output 05/20/18 05/21/18 05/21/18 18:59 06:59 18:59 Intake Total 120 240 Output Total 1 Balance 120 239 Weight 87.8 kg Intake: Oral 120 240 Output: Urine/Stool Mix 1 Other: Voiding Method Diaper Diaper Diaper # Voids 1 2 - Exam Head exam was generally normal. There was no scleral icterus or corneal arcus. Mucous membranes were moist. Neck was supple and without jugular venous distension, thyromegaly, or carotid bruits. Carotids were easily palpable bilaterally. There was no adenopathy. Lungs were clear to auscultation and percussion, and with normal diaphragmatic excursion. No wheezes or rales were noted. Heart sounds are irregular S1-S2 and there is no significant murmurs appreciated. Abdominal exam revealed normal bowel sounds. The abdomen was soft, non-tender, and without masses, organomegaly, or appreciable enlargement of the abdominal aorta. Examination of the extremities revealed easily palpable radial, femoral and pedal pulses. There was no cyanosis, clubbing or edema. Examination of the skin revealed no evidence of significant rashes, suspicious appearing nevi or other concerning lesions. Neurologically there may be some left facial droop which is minimal at this point. He has equal and symmetrical pupils. Tongue is in midline. Poor range of extraocular muscle movements. No vision impairment. Adequate swallow without using straws and thickened liquids. There may be some minimal residual motor dysfunction in the left upper extremity on the left compared to right. DTRs are equal and symmetrical. No clonus. No Babinski. Sensory function cannot be accurately assessed. No neck stiffness. - Labs CBC & Chem 7: 05/21/18 06:17 05/21/18 06:17 Labs: Abnormal Lab Results - Last 24 Hours (Table) 05/20/18 05/20/18 05/21/18 Range/Units 16:56 21:32 06:10 WBC (3.8-10.6) k/uL Plt Count (150-450) k/uL Neutrophils # (1.3-7.7) k/uL Sodium (137-145) mmol/L BUN (9-20) mg/dL Creatinine (0.66-1.25) mg/dL Glucose (74-99) mg/dL POC Glucose (mg/dL) 239 H 226 H 166 H (75-99) mg/dL Calcium (8.4-10.2) mg/dL 05/21/18 05/21/18 Range/Units 06:17 06:17 WBC 13.5 H (3.8-10.6) k/uL Plt Count 100 L (150-450) k/uL Neutrophils # 11.6 H (1.3-7.7) k/uL Sodium 135 L (137-145) mmol/L BUN 37 H (9-20) mg/dL Creatinine 1.71 H (0.66-1.25) mg/dL Glucose 168 H (74-99) mg/dL POC Glucose (mg/dL) (75-99) mg/dL Calcium 8.0 L (8.4-10.2) mg/dL Microbiology - Last 24 Hours (Table) 05/17/18 21:10 Blood Culture - Preliminary Blood No Growth after 72 hours Assessment and Plan Assessment: Impression: #1 Acute hypoxic respiratory failure secondary to suspected aspiration pneumonia , cannot rule out hospital-acquired as the patient was recently discharged on . Swallow evaluation revealed mild penetration of thin barium but no evidence of aspiration. #2 Altered mental status secondary to above. Improved. #3 Lactic acidosis secondary to above, recovered. #4 Leukocytosis secondary to above #5 Acute on chronic renal failure. Baseline creatinine ranges between 1.5 and 2.0. #6 Recent evolving subacute MCA distribution infarct along with moderate diffuse age-related cerebral atrophy and chronic small vessel ischemic changes or #7 Atrial fibrillation, chronic, previously anticoagulated with warfarin, discontinued from recent admission for CVA with limited areas of hemorrhage. #8 Chronic systolic congestive heart failure with an ejection fraction of 45%. #9 Hypothyroidism. #10 Hyperlipidemia. #11 Hypertension. #12 Poor overall functional performance based on the above-mentioned multiple comorbidities. 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 Plan: The patient was seen and evaluated by Dr. Orona. The patient is stable from the pulmonary standpoint and could be transferred back to inpatient rehabilitation. Continue bronchodilators. Aspiration precautions. Continue diuretics. The patient is a DO NOT RESUSCITATE/DO NOT INTUBATE CODE STATUS. We will continue to follow and make further recommendations based on his clinical status. I, the cosigning physician, performed a history & physical examination of the patient. Lungs sounds are clear. Maintaining good O2 saturations in the 90s on room air. I discussed the assessment and plan of care with my nurse practitioner, Kailee Ross. I attest to the above consultation as dictated by her.
--- NOTE | 2018-05-21 14:18 | P.DS ---
Providers Date of admission: 05/17/18 22:57 Expected date of discharge: 05/21/18 Attending physician: Bruce Hickey Consults: 05/20/18 10:44 Consult Physician Routine Consulting Provider: Gabe Orona Consult Reason/Comments: pneumonia Do you want consulting provider notified?: Yes Primary care physician: Von Deleon Hospital Course: Final Diagnoses: 1. Syncope, possible vasovagal and orthostatic hypotension 2. Bilateral aspiration pneumonia 3. 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 Chronic atrial fibrillation without anticoagulation therapy 5. Congestive heart failure with chronic systolic dysfunction, EF 40-45% 6. Gait dysfunction 7. Hypothyroidism 8. Hypertension 9. Hyperlipidemia 10. chronic kidney disease stage III 11.Macular degeneration 12. History of nicotine dependence 13. No code, no CPR, no vent Hospital course: This is an 82-year-old gentleman admitted with syncope, possible bilateral aspiration pneumonia with cough. Evaluated by both speech therapy and pulmonary. MBS performed, with recommendations noted on discharge plan. Maintained on IV antibiotics. Significant clinical improvement. Patient has been cleared by all consults for discharge. Patient is being discharged to [facility] subacute rehab in a stable condition with guarded prognosis. Exam: GEN: Alert and oriented 2, no acute distress.CV; muffled S1, S2. Respiratory: Bilateral bases diminished, scattered rhonchi and crackles. Abdomen: Soft, nontender. NEURO: Mild diffuse weakness. The impression and plan of care has been dictated as directed. : I performed a history and examination of this patient, discussed the same with the dictator. I agree with the dictator's note ,documented as a scribe. Any additional findings or plans will be noted. Time taken: 35 minutes Patient Condition at Discharge: Stable Plan - Discharge Summary Discharge Rx Participant: Yes New Discharge Prescriptions: New Amoxic-Pot Clav 875-125Mg [Augmentin 875-125] 1 tab PO Q12HR #10 tablet Ipratropium-Albuterol Nebulize [Duoneb 0.5 mg-3 mg/3 ml Soln] 3 ml INHALATION RT-TID ampul.neb Ipratropium-Albuterol Nebulize [Duoneb 0.5 mg-3 mg/3 ml Soln] 3 ml INHALATION Q4H PRN ampul.neb PRN Reason: Shortness Of Breath Or Wheezing Budesonide-Formot 160-4.5 Mcg [Symbicort 160-4.5 Mcg Inhaler] 2 puff INHALATION BID #1 inhaler Continue Atorvastatin [Lipitor] 10 mg PO HS Fish Oil/Dha/Epa [Fish Oil 1,200 mg Fish Oil] 1 cap PO DAILY@1200 Finasteride [Proscar] 5 mg PO DAILY Doxazosin [Cardura] 4 mg PO HS Levothyroxine Sodium [Synthroid] 75 mcg PO DAILY Amiodarone [Cordarone] 100 mg PO DAILY Metoprolol Tartrate [Lopressor] 25 mg PO BID Acetaminophen/Diphenhydramine [Tylenol PM Extra Strength] 1 tab PO HS Potassium Chloride ER [K-Dur 20] 20 meq PO Q48H Furosemide [Lasix] 40 mg PO DAILY Calcium/Magnesium/Zinc [Edjemcg-Aejbxfqdv-Arux Tablet] 1 tab PO DAILY@1200 Turmeric Root Extract [Turmeric] 500 mg PO HS Sulfacetamide Sodium [Sulfacetamide Sod 10% Ophth Soln] 2 drops BOTH EYES Q4H Folic Acid 1 mg PO DAILY@1200 tab Pantoprazole [Protonix] 40 mg PO AC-BRKFST tablet. Thiamine [Vitamin B-1] 100 mg PO DAILY@1200 tab Dexamethasone [Decadron] 2 mg PO DAILY #1 tablet Multivitamins, Thera [Multivitamin (formulary)] 1 tab PO DAILY@1200 INSULIN LISPRO (HumaLOG) [humaLOG] See Protocol SQ ACHS Discontinued Lisinopril [Prinivil] 5 mg PO HS Discharge Medication List Acetaminophen/Diphenhydramine [Tylenol PM Extra Strength] 1 tab PO HS 03/11/16 [ History] Amiodarone [Cordarone] 100 mg PO DAILY 03/11/16 [History] Atorvastatin [Lipitor] 10 mg PO HS 03/11/16 [History] Doxazosin [Cardura] 4 mg PO HS 03/11/16 [History] Finasteride [Proscar] 5 mg PO DAILY 03/11/16 [History] Fish Oil/Dha/Epa [Fish Oil 1,200 mg Fish Oil] 1 cap PO DAILY@1200 03/11/16 [ History] Levothyroxine Sodium [Synthroid] 75 mcg PO DAILY 03/11/16 [History] Metoprolol Tartrate [Lopressor] 25 mg PO BID 03/11/16 [History] Calcium/Magnesium/Zinc [Xkyfsge-Kdqvepwet-Cwhk Tablet] 1 tab PO DAILY@1200 05/02 [History] Furosemide [Lasix] 40 mg PO DAILY 05/02/18 [History] Potassium Chloride ER [K-Dur 20] 20 meq PO Q48H 05/02/18 [History] Sulfacetamide Sodium [Sulfacetamide Sod 10% Ophth Soln] 2 drops BOTH EYES Q4H [History] Turmeric Root Extract [Turmeric] 500 mg PO HS 05/02/18 [History] Dexamethasone [Decadron] 2 mg PO DAILY #1 tablet 05/09/18 [Rx] Folic Acid 1 mg PO DAILY@1200 tab 05/09/18 [Rx] Pantoprazole [Protonix] 40 mg PO AC-BRKFST tablet. 05/09/18 [Rx] Thiamine [Vitamin B-1] 100 mg PO DAILY@1200 tab 05/09/18 [Rx] INSULIN LISPRO (HumaLOG) [humaLOG] See Protocol SQ ACHS 05/18/18 [History] Multivitamins, Thera [Multivitamin (formulary)] 1 tab PO DAILY@1200 05/18/18 [ History] Amoxic-Pot Clav 875-125Mg [Augmentin 875-125] 1 tab PO Q12HR #10 tablet [Rx] Budesonide-Formot 160-4.5 Mcg [Symbicort 160-4.5 Mcg Inhaler] 2 puff INHALATION BID #1 inhaler 05/21/18 [Rx] Ipratropium-Albuterol Nebulize [Duoneb 0.5 mg-3 mg/3 ml Soln] 3 ml INHALATION Q4H PRN ampul.neb 05/21/18 [Rx] Ipratropium-Albuterol Nebulize [Duoneb 0.5 mg-3 mg/3 ml Soln] 3 ml INHALATION RT -TID ampul.neb 05/21/18 [Rx] Follow up Appointment(s)/Referral(s): Von Deleon MD [Primary Care Provider] - 3 Days (After DC from subacute rehab ) Suman Carlos MD [STAFF PHYSICIAN] - 3 Days (While at subacute rehab) Gabe Orona MD [STAFF PHYSICIAN] - 1 Week Activity/Diet/Wound Care/Special Instructions: [facility] Diet : Strict aspiration precautions , head of bed up at 90. 1-1 Supervision with all oral intake dysphagia 3, CHopped, No straws, liquids from, NT liquids ortho vs Q SHIFT thIGH hIGH TEDS Discharge Disposition: TRANSFER TO SNF/ECF
[2018-05-21 16:44] LABS: Glucose,Whole Blood 196 mg/dL (75-99)
[2018-05-21 16:52] LABS: Glucose,Whole Blood 249 mg/dL (75-99)
[2018-05-21 17:22] VITALS: BP 132/81; PULSE 114; TEMP 97.1
== END 2018-05-21 19:00 | DRG 177 ==
LOC: EC 20:44 → 6SEL 22:57
PROVIDERS: ADMIT Internal Medicine; ATTEND Internal Medicine
DX: J69.0 Pneumonitis due to inhalation of food and vomit (principal); J96.01 Acute respiratory failure with hypoxia; E87.2 Acidosis; I13.0 Hypertensive heart and chronic kidney disease with heart failure and stage 1 through stage 4 chronic kidney disease, or unspecified chronic kidney disease; I50.22 Chronic systolic (congestive) heart failure; N17.9 Acute kidney failure, unspecified; E03.9 Hypothyroidism, unspecified; E11.22 Type 2 diabetes mellitus with diabetic chronic kidney disease; E78.5 Hyperlipidemia, unspecified; F17.200 Nicotine dependence, unspecified, uncomplicated; H35.30 Unspecified macular degeneration; I48.2 Chronic atrial fibrillation; I95.1 Orthostatic hypotension; K80.20 Calculus of gallbladder without cholecystitis without obstruction; N18.3 Chronic kidney disease, stage 3 (moderate); Z79.01 Long term (current) use of anticoagulants; Z79.899 Other long term (current) drug therapy; Z86.73 Personal history of transient ischemic attack (TIA), and cerebral infarction without residual deficits; Z79.4 Long term (current) use of insulin; Z79.890 Hormone replacement therapy
CPT/HCPCS: 36415; 70450; 71046; 74230; 76705; 80048; 80053; 80202; 81001; 82550; 82553; 83036; 83605; 84439; 84443; 84481; 84484; 85025; 85610; 85730; 87040; 87086; 93005; 94640; 94760; 96361; 96365; 96375; 99285

== ENCOUNTER 2018-05-26 23:03 | Inpatient (IN) | payer MEDICARE, BC ==
[2018-05-26] MEDS ORDERED: SODIUM CHLORIDE 0.9% 500 ML IV STA (23:26)
[2018-05-26 23:41] LABS: Basophils % (A) 0 %; Eosinophils % (A) 0 %; HCT 43.3 % (39.0-53.0); HGB 14.3 gm/dL (13.0-17.5); Lymphocytes # (A) 0.4 k/uL (1.0-4.8); Lymphocytes % (A) 6 %; MCH 30.7 pg (25.0-35.0); MCHC 33.1 g/dL (31.0-37.0); MCV 92.7 fL (80.0-100.0); Mean Platelet Volume 7.6; Monocytes # (A) 0.5 k/uL (0-1.0); Monocytes % (A) 7 %; Neutrophils # (A) 5.6 k/uL (1.3-7.7); Neutrophils % (A) 86 %; Platelet Count 105 k/uL (150-450); RBC 4.67 m/uL (4.30-5.90); RDW 13.8 % (11.5-15.5); WBC 6.5 k/uL (3.8-10.6)
--- NOTE | 2018-05-26 23:41 | ED ---
General Adult HPI - General Chief complaint: Recheck/Abnormal Lab/Rx Stated complaint: altered mental status Time Seen by Provider: 05/26/18 23:14 Source: patient, family, EMS, RN notes reviewed, old records reviewed Mode of arrival: ambulatory Limitations: altered mental status - History of Present Illness Initial comments: 82-year-old male presents for evaluation of elevated heart rate and concern for congestive heart failure. Patient is presenting from the shelter, he has had recent CVA and admission of this institution with pneumonia and sepsis. Patient has had some confusion and has been somewhat difficult to arouse over the past several weeks. His is at bedside and states that this is unchanged this evening from where it has been over the past several weeks. Patient was evaluated by his primary care physician this evening found to be in A. fib with RVR with a rate of 150. He was transferred to the emergency department for further evaluation and treatment. At the time my evaluation, patient is somewhat lethargic, but able to answer questions. Denies any pain complaints. There was concern from the patient's family that he was holding his chest earlier today. He was asked at that time if he had chest pain and denied. - Related Data Home Medications Medication Instructions Recorded Confirmed Acetaminophen/Diphenhydramine 1 tab PO HS 05/27/18 05/27/18 [Tylenol PM 500-25mg] Amiodarone [Cordarone] 100 mg PO DAILY 05/27/18 05/27/18 Amoxicillin/Potassium Clav 1 tab PO BID 05/27/18 05/27/18 [Augmentin 875-125 Tablet] Atorvastatin [Lipitor] 10 mg PO DAILY 05/27/18 05/27/18 Budesonide/Formoterol Fumarate 2 puff INHALATION BID 05/27/18 05/27/18 [Symbicort 160-4.5 Mcg Inhaler] Calcium Carbonate [Calcium] 600 mg PO DAILY 05/27/18 05/27/18 Dexamethasone 2 mg PO DAILY 05/27/18 05/27/18 Dexamethasone [Decadron] 0.5 mg PO DAILY 05/27/18 05/27/18 Doxazosin [Cardura] 4 mg PO HS 05/27/18 05/27/18 Finasteride [Proscar] 5 mg PO DAILY 05/27/18 05/27/18 Fluticasone/Vilanterol [Breo 1 puff INHALATION DAILY 05/27/18 05/27/18 Ellipta 100-25 Mcg Inhaler] Folic Acid 1 mg PO DAILY 05/27/18 05/27/18 Furosemide [Lasix] 40 mg PO DAILY 05/27/18 05/27/18 Insulin Glargine,Hum.rec.anlog 0 unit SQ 05/27/18 05/27/18 [Basaglar Kwikpen U-100] Ipratropium-Albuterol Nebulize 3 ml INHALATION TID 05/27/18 05/27/18 [Duoneb 0.5 mg-3 mg/3 ml Soln] Levothyroxine Sodium [Synthroid] 75 mcg PO DAILY 05/27/18 05/27/18 Lisinopril [Zestril] 5 mg PO HS 05/27/18 05/27/18 Metoprolol Tartrate 25 mg PO BID 05/27/18 05/27/18 Multivitamin [Men's Multi-Vitamin] 1 each PO DAILY 05/27/18 05/27/18 [place]-3 Fatty Acids/Fish Oil [Fish 1 each PO DAILY 05/27/18 05/27/18 Oil 1,000 mg Softgel] Pantoprazole Sodium [Protonix] 40 mg PO DAILY 05/27/18 05/27/18 Potassium Chloride [K-Tab ER] 10 meq PO DAILY 05/27/18 05/27/18 Potassium Chloride [K-Tab ER] 20 meq PO DAILY 05/27/18 05/27/18 Sulfacetamide Sodium 2 drop BOTH EYES BID 05/27/18 05/27/18 [Sulfacetamide Sod 10% Ophth Soln] Thiamine HCl [Vitamin B-1] 100 mg PO DAILY 05/27/18 05/27/18 Allergies Allergy/AdvReac Type Severity Reaction Status Date / Time No Known Allergies Allergy Verified 05/26/18 23:19 Review of Systems ROS Statement: Those systems with pertinent positive or pertinent negative responses have been documented in the HPI. ROS Other: All systems not noted in ROS Statement are negative. Past Medical History Past Medical History: Atrial Fibrillation, Heart Failure, CVA/TIA, Diabetes Mellitus, Hypertension, Pneumonia, Thyroid Disorder Additional Past Medical History / Comment(s): macular degeneration, massive stroke History of Any Multi-Drug Resistant Organisms: None Reported Past Surgical History: Orthopedic Surgery Additional Past Surgical History / Comment(s): hemorroidectomy, bilateral knee surgery Past Psychological History: No Psychological Hx Reported Smoking Status: Former smoker Past Alcohol Use History: Rare Past Drug Use History: None Reported General Exam Limitations: altered mental status General appearance: lethargic Head exam: Present: atraumatic, normocephalic Eye exam: Present: normal appearance, PERRL ENT exam: Present: mucous membranes dry Neck exam: Present: normal inspection. Absent: tenderness, meningismus Respiratory exam: Present: normal lung sounds bilaterally. Absent: respiratory distress, wheezes Cardiovascular Exam: Present: regular rate, irregular rhythm GI/Abdominal exam: Present: soft. Absent: distended, tenderness, guarding Extremities exam: Present: pedal edema Neurological exam: Absent: motor sensory deficit Skin exam: Present: warm, dry, intact. Absent: cyanosis, diaphoretic Course Vital Signs 05/26/18 05/26/18 05/27/18 23:10 23:14 00:13 Temperature 96.6 F L Pulse Rate 106 H 90 Pulse Rate [ 84 Director Of Clinical Services ] Respiratory 16 18 Rate Blood Pressure 134/86 142/88 O2 Sat by Pulse 98 100 Oximetry 05/27/18 00:43 Temperature Pulse Rate 81 Pulse Rate [ Director Of Clinical Services ] Respiratory 16 Rate Blood Pressure 115/63 O2 Sat by Pulse 96 Oximetry EKG Findings - EKG Comments: EKG Findings:: EKG: Atrial fibrillation, T-wave flattening in the anterior septal leads, rate of 94, QRS duration 100, QTC 358, no ST segment elevation. Medical Decision Making - Medical Decision Making 82-year-old male presenting with A. fib with RVR at the shelter. This was not identified in the emergency partner. He was rate controlled A. fib. There is some new EKG changes with T-wave flattening in the precordial leads. No ST segment elevation. There was reported history of some chest pain although this history is difficult to completely characterize. Chest x-ray does show some bilateral infiltrate and atelectasis. This may be residual pneumonia from his recent aspiration pneumonia. He is currently on Augmentin. He will be maintained on this medication. White blood cell count 6.5, hemoglobin 14.3 creatinine stable at 1.5. Mild lactic acidosis likely related to dehydration at 2.3. Troponin is 0.016. Mild elevation in BNP at 2000. No clinical signs of acute heart failure. Patient will be admitted with serial cardiac enzymes. Given the infiltrate on x-ray, x- ray will be repeated to ensure no worsening of pneumonia. Also CBC will be repeated to evaluate white blood cell count in the morning. Cardiology placed on consult. Admitted to telemetry. Case discussed with admitting physician Dr. Elizondo. - Lab Data Result diagrams: 05/26/18 23:10 05/26/18 23:10 Lab Results 05/26/18 05/26/18 05/26/18 Range/Units 23:10 23:10 23:10 WBC 6.5 (3.8-10.6) k/uL RBC 4.67 (4.30-5.90) m/uL Hgb 14.3 (13.0-17.5) gm/dL Hct 43.3 (39.0-53.0) % MCV 92.7 (80.0-100.0) fL MCH 30.7 (25.0-35.0) pg MCHC 33.1 (31.0-37.0) g/dL RDW 13.8 (11.5-15.5) % Plt Count 105 L (150-450) k/uL Neutrophils % 86 % Lymphocytes % 6 % Monocytes % 7 % Eosinophils % 0 % Basophils % 0 % Neutrophils # 5.6 (1.3-7.7) k/uL Lymphocytes # 0.4 L (1.0-4.8) k/uL Monocytes # 0.5 (0-1.0) k/uL Eosinophils # 0.0 (0-0.7) k/uL Basophils # 0.0 (0-0.2) k/uL PT (9.0-12.0) sec INR (<1.2) APTT (22.0-30.0) sec VBG pH (7.31-7.41) VBG pCO2 (37-51) mmHg VBG HCO3 (24-28) mmol/L Sodium 136 L (137-145) mmol/L Potassium 3.4 L (3.5-5.1) mmol/L Chloride 104 (98-107) mmol/L Carbon Dioxide 21 L (22-30) mmol/L Anion Gap 11 mmol/L BUN 35 H (9-20) mg/dL Creatinine 1.50 H (0.66-1.25) mg/dL Est GFR (CKD-EPI)AfAm 50 (>60 ml/min/1.73 sqM) Est GFR (CKD-EPI)NonAf 43 (>60 ml/min/1.73 sqM) Glucose 312 H (74-99) mg/dL Plasma Lactic Acid Raffy (0.7-2.0) mmol/L Calcium 8.2 L (8.4-10.2) mg/dL Magnesium 2.0 (1.6-2.3) mg/dL Total Bilirubin 0.6 (0.2-1.3) mg/dL AST 14 L (17-59) U/L ALT 30 (21-72) U/L Alkaline Phosphatase 80 (38-126) U/L Total Creatine Kinase 21 L (55-170) U/L CK-MB (CK-2) 0.7 (0.0-2.4) ng/mL CK-MB (CK-2) Rel Index 3.3 Troponin I 0.016 (0.000-0.034) ng/mL NT-Pro-B Natriuret Pep pg/mL Total Protein 5.1 L (6.3-8.2) g/dL Albumin 2.8 L (3.5-5.0) g/dL 05/26/18 05/26/18 05/26/18 Range/Units 23:10 23:10 23:10 WBC (3.8-10.6) k/uL RBC (4.30-5.90) m/uL Hgb (13.0-17.5) gm/dL Hct (39.0-53.0) % MCV (80.0-100.0) fL MCH (25.0-35.0) pg MCHC (31.0-37.0) g/dL RDW (11.5-15.5) % Plt Count (150-450) k/uL Neutrophils % % Lymphocytes % % Monocytes % % Eosinophils % % Basophils % % Neutrophils # (1.3-7.7) k/uL Lymphocytes # (1.0-4.8) k/uL Monocytes # (0-1.0) k/uL Eosinophils # (0-0.7) k/uL Basophils # (0-0.2) k/uL PT 10.9 (9.0-12.0) sec INR 1.1 (<1.2) APTT 23.1 (22.0-30.0) sec VBG pH (7.31-7.41) VBG pCO2 (37-51) mmHg VBG HCO3 (24-28) mmol/L Sodium (137-145) mmol/L Potassium (3.5-5.1) mmol/L Chloride (98-107) mmol/L Carbon Dioxide (22-30) mmol/L Anion Gap mmol/L BUN (9-20) mg/dL Creatinine (0.66-1.25) mg/dL Est GFR (CKD-EPI)AfAm (>60 ml/min/1.73 sqM) Est GFR (CKD-EPI)NonAf (>60 ml/min/1.73 sqM) Glucose (74-99) mg/dL Plasma Lactic Acid Raffy 2.3 H* (0.7-2.0) mmol/L Calcium (8.4-10.2) mg/dL Magnesium (1.6-2.3) mg/dL Total Bilirubin (0.2-1.3) mg/dL AST (17-59) U/L ALT (21-72) U/L Alkaline Phosphatase (38-126) U/L Total Creatine Kinase (55-170) U/L CK-MB (CK-2) (0.0-2.4) ng/mL CK-MB (CK-2) Rel Index Troponin I (0.000-0.034) ng/mL NT-Pro-B Natriuret Pep 2250 pg/mL Total Protein (6.3-8.2) g/dL Albumin (3.5-5.0) g/dL 05/26/18 Range/Units 23:10 WBC (3.8-10.6) k/uL RBC (4.30-5.90) m/uL Hgb (13.0-17.5) gm/dL Hct (39.0-53.0) % MCV (80.0-100.0) fL MCH (25.0-35.0) pg MCHC (31.0-37.0) g/dL RDW (11.5-15.5) % Plt Count (150-450) k/uL Neutrophils % % Lymphocytes % % Monocytes % % Eosinophils % % Basophils % % Neutrophils # (1.3-7.7) k/uL Lymphocytes # (1.0-4.8) k/uL Monocytes # (0-1.0) k/uL Eosinophils # (0-0.7) k/uL Basophils # (0-0.2) k/uL PT (9.0-12.0) sec INR (<1.2) APTT (22.0-30.0) sec VBG pH 7.44 H (7.31-7.41) VBG pCO2 33 L (37-51) mmHg VBG HCO3 22 L (24-28) mmol/L Sodium (137-145) mmol/L Potassium (3.5-5.1) mmol/L Chloride (98-107) mmol/L Carbon Dioxide (22-30) mmol/L Anion Gap mmol/L BUN (9-20) mg/dL Creatinine (0.66-1.25) mg/dL Est GFR (CKD-EPI)AfAm (>60 ml/min/1.73 sqM) Est GFR (CKD-EPI)NonAf (>60 ml/min/1.73 sqM) Glucose (74-99) mg/dL Plasma Lactic Acid Raffy (0.7-2.0) mmol/L Calcium (8.4-10.2) mg/dL Magnesium (1.6-2.3) mg/dL Total Bilirubin (0.2-1.3) mg/dL AST (17-59) U/L ALT (21-72) U/L Alkaline Phosphatase (38-126) U/L Total Creatine Kinase (55-170) U/L CK-MB (CK-2) (0.0-2.4) ng/mL CK-MB (CK-2) Rel Index Troponin I (0.000-0.034) ng/mL NT-Pro-B Natriuret Pep pg/mL Total Protein (6.3-8.2) g/dL Albumin (3.5-5.0) g/dL Disposition Clinical Impression: Chest pain Disposition: ADMITTED IP TO THIS [facility] Condition: Stable Is patient prescribed a controlled substance at d/c from ED?: No Referrals: Von Deleon MD [Primary Care Provider] - 1-2 days Decision to Admit Reason: Admit from EC Decision Date: 05/27/18 Decision Time: 00:54
[2018-05-26 23:47] LABS: VBG PH 7.44 (7.31-7.41)
[2018-05-26 23:50] LABS: Albumin 2.8 g/dL (3.5-5.0); Calcium 8.2 mg/dL (8.4-10.2); Potassium 3.4 mmol/L (3.5-5.1); Total Bilirubin 0.6 mg/dL (0.2-1.3); Total Protein 5.1 g/dL (6.3-8.2)
--- NOTE | 2018-05-26 23:52 | XR ---
EXAMINATION TYPE: XR chest 2V DATE OF EXAM: 05/26/2018 COMPARISON: 05/18/2018 HISTORY: Chest pain TECHNIQUE: Frontal and lateral views of the chest are obtained. FINDINGS: There is poor inspiration. There is coarse infiltrate in the mid and lower lung kim. Th ere is no gross heart failure. Thoracic aorta is atheromatous. There are chest leads. I see no pleura l effusion. IMPRESSION: There is infiltrate and atelectasis in the mid and lower lung kim that is new compare d to old exam. No definite heart failure. Poor inspiration.
[2018-05-26 23:59] LABS: INR 1.1 (<1.2)
[2018-05-27] LABS: Partial Thromboplastin Time 23.1 sec (22.0-30.0); Prothrombin Time 10.9 sec (9.0-12.0)
[2018-05-27 00:19] LABS: Creatine Kinase MB 0.7 ng/mL (0.0-2.4); Troponin I 0.016 ng/mL (0.000-0.034)
[2018-05-27] MEDS ORDERED: NALOXONE 0.4 MG/ML 1 ML VIAL IV PRN (00:42)
[2018-05-27] MEDS: SODIUM CHLORIDE 0.9% 1,000 ML IV SCH ×2 (00:59→21:20)
[2018-05-27] MEDS ORDERED: Potassium Replacement Protocol 1 EACH MISC MISCELLANE PRN (03:38)
[2018-05-27] MEDS: POTASSIUM CHLORIDE 20 MEQ in WATER FOR INJECTION 1 100ML.BAG IVPB SCH ×3 (04:12→09:01)
[2018-05-27 06:02] LABS: Glucose,Whole Blood 236 mg/dL (75-99)
[2018-05-27] MEDS: LEVOTHYROXINE 75 MCG TAB PO SCH (06:13)
[2018-05-27] MEDS: PANTOPRAZOLE 40 MG TABLET PO SCH (06:13)
[2018-05-27] MEDS: INSULIN ASPART 100 UNIT/ML 1 ML 10 ML VIAL SQ SCH ×4 (06:19→21:37)
[2018-05-27 06:46] LABS: Creatine Kinase MB 0.9 ng/mL (0.0-2.4); Troponin I 0.013 ng/mL (0.000-0.034)
[2018-05-27] MEDS: IPRATROPIUM-ALBUTEROL 3 ML NEB INHALATION SCH ×3 (07:31→20:55)
[2018-05-27] MEDS: AMOXIC-POT CLAV 875-125MG 1 EACH TAB PO SCH ×2 (09:00→21:21)
[2018-05-27] MEDS: ATORVASTATIN 10 MG TAB PO SCH (09:00)
[2018-05-27] MEDS ORDERED: FUROSEMIDE 40 MG TAB PO SCH (09:00)
[2018-05-27] MEDS: POTASSIUM CHLORIDE ER 10 MEQ TAB.ER.PRT PO SCH (09:00)
[2018-05-27] MEDS: METOPROLOL TARTRATE 25 MG TAB PO SCH ×2 (09:00→21:21)
[2018-05-27] MEDS: AMIODARONE 100 MG TAB PO SCH (09:01)
[2018-05-27] MEDS: POTASSIUM CHLORIDE ER 20 MEQ TAB.ER PO SCH (09:02)
[2018-05-27] MEDS: SULFACETAMIDE SOD 10% OPHTH DROPS 15 ML BTL BOTH EYES SCH ×2 (09:34→21:21)
[2018-05-27 11:35] LABS: Appearance,Urine Clear (Clear); Bilirubin,Urine Negative (Negative); Blood,Urine Trace (Negative); Color,Urine Light Yellow; Glucose,Urine (UA) 2+ (Negative); Ketones,Urine Negative (Negative); Leukocyte Esterase,Urine Negative (Negative); Mucus,Urine Rare /hpf; Nitrite,Urine Negative (Negative); Protein,Urine Negative (Negative); RBC,Urine 3 /hpf (0-5); Specific Gravity,Urine 1.006 (1.001-1.035); Squamous Epithelial Cell,Urine <1 /hpf (0-4); Urobilinogen,Urine <2.0 mg/dL (<2.0); WBC,Urine 1 /hpf (0-5)
[2018-05-27 11:50] LABS: Glucose,Whole Blood 180 mg/dL (75-99)
[2018-05-27] MEDS: THIAMINE 100 MG TAB PO SCH (12:06)
--- NOTE | 2018-05-27 12:10 | P.CRDCN ---
History of Present Illness Consult date: 05/27/18 Requesting physician: Kala Hickey Consult reason: atrial fibrillation Chief complaint: Palpitations History of present illness: This is a pleasant 82-year-old gentleman who follows with Dr. Beard in the office. He has a known history of persistent atrial fibrillation, hypertension, diabetes, chronic renal failure, nicotine dependence , was recently in the hospital with a stroke and is currently at an ECF. Patient was brought into the hospital because of rapid irregular heartbeat and shortness of breath. Patient had been on Coumadin in the past, this was discontinued on this recent admission with CVA because there was evidence of hemorrhage. Chest x-ray on admission here reveals infiltrate and atelectasis in the mid to lower lung kim which appear to be new as compared with old exam. No definite evidence of heart failure. EKG on arrival here showed atrial fibrillation with a moderately rapid ventricular response. I pressure on arrival 134/86, heart rate low 100s, 98% on room air. Blood pressure this morning 132/90 with a heart rate of 100, 96% on room air. White blood cell count 6.5, hemoglobin 14.3, platelet count 105. Sodium 136, potassium 3. 0.4, BUN 35, creatinine 1.5. Lactic acid 2.3 on admission, magnesium 2.0. Troponin 0.01 6.013, BNP 2250. Patient was seen and examined, he is aware of where he is , however he did not recognize Dr. Beard. Patient also had his hand on his chest at the time we were examining him, complaining of some chest discomfort. He appears to be eating okay, good appetite, no difficulty swallowing. Past Medical History Past Medical History: Atrial Fibrillation, Heart Failure, CVA/TIA, Diabetes Mellitus, Hypertension, Pneumonia, Thyroid Disorder Additional Past Medical History / Comment(s): macular degeneration, massive stroke History of Any Multi-Drug Resistant Organisms: None Reported Past Surgical History: Orthopedic Surgery Additional Past Surgical History / Comment(s): hemorroidectomy, bilateral knee surgery Past Psychological History: No Psychological Hx Reported Smoking Status: Former smoker Past Alcohol Use History: Rare Past Drug Use History: None Reported Medications and Allergies Home Medications Medication Instructions Recorded Confirmed Type Acetaminophen/Diphenhydramine 1 tab PO HS 05/27/18 05/27/18 History [Tylenol PM 500-25mg] Amiodarone [Cordarone] 100 mg PO DAILY 05/27/18 05/27/18 History Atorvastatin [Lipitor] 10 mg PO HS 05/27/18 05/27/18 History Calcium/Magnesium/Zinc 1 tab PO DAILY@119905/27/18 05/27/18 History [Vfvpnha-Izuremurx-Ebqy Tablet] Dexamethasone [Decadron] 2 mg PO DAILY 05/27/18 05/27/18 History Dimethicone/Zinc Oxide [Inzo Zinc 1 applic TOPICAL BID 05/27/18 05/27/18 History Oxide Barrier Cream] Doxazosin [Cardura] 4 mg PO HS 05/27/18 05/27/18 History Finasteride [Proscar] 5 mg PO DAILY 05/27/18 05/27/18 History Fluticasone/Vilanterol [Breo 1 puff INHALATION RT-DAILY 05/27/18 05/27/18 History Ellipta 100-25 Mcg Inhaler] Folic Acid 1 mg PO DAILY@119905/27/18 05/27/18 History Furosemide [Lasix] 40 mg PO DAILY@59905/27/18 05/27/18 History INSULIN LISPRO (HumaLOG) [HumaLOG] See Protocol SQ ACHS 05/27/18 05/27/18 History Insulin Glargine,Hum.rec.anlog 10 unit SQ 05/27/18 05/27/18 History [Basaglar Kwikpen U-100] Ipratropium-Albuterol Nebulize 3 ml INHALATION RT-Q4H PRN 05/27/18 05/27/18 History [Duoneb 0.5 mg-3 mg/3 ml Soln] Ipratropium-Albuterol Nebulize 3 ml INHALATION RT-TID 05/27/18 05/27/18 History [Duoneb 0.5 mg-3 mg/3 ml Soln] Levothyroxine Sodium [Synthroid] 75 mcg PO DAILY@59905/27/18 05/27/18 History Metoprolol Tartrate 25 mg PO BID 05/27/18 05/27/18 History Multivits,Th W-Ca,Fe,Oth Min 1 tab PO DAILY@119905/27/18 05/27/18 History [Therapeutic M] [place]-3 Fatty Acids/Fish Oil [Fish 1 cap PO DAILY@1200 05/27/18 05/27/18 History Oil 1,000 mg Softgel] Pantoprazole Sodium [Protonix] 40 mg PO DAILY 05/27/18 05/27/18 History Potassium Chloride [Klor-Con 20] 10 meq PO DAILY@1700 05/27/18 05/27/18 History Potassium Chloride [Klor-Con 20] 20 meq PO DAILY@0900 05/27/18 05/27/18 History Sulfacetamide Sodium 2 drop BOTH EYES Q4H 05/27/18 05/27/18 History [Sulfacetamide Sod 10% Ophth Soln] Thiamine HCl [Vitamin B-1] 100 mg PO DAILY@1200 05/27/18 05/27/18 History Turmeric Root Extract [Turmeric] 500 mg PO HS 05/27/18 05/27/18 History Allergies Allergy/AdvReac Type Severity Reaction Status Date / Time No Known Allergies Allergy Verified 05/26/18 23:19 Physical Exam Vitals: Vital Signs Temp Pulse Pulse Resp BP BP Pulse Ox 05/27/18 11:33 97.8 F 100 15 133/90 96 05/27/18 08:44 97.3 F L 109 H 134/103 96 05/27/18 07:43 124 H 05/27/18 07:35 122 H 05/27/18 04:00 97.2 F L 125 H 16 142/87 99 05/27/18 02:49 97.4 F L 05/27/18 02:03 95 16 126/76 100 05/27/18 01:52 96.4 F L 77 16 136/69 97 05/27/18 01:11 94 14 105/76 100 05/27/18 00:43 81 16 115/63 96 05/27/18 00:13 90 18 142/88 100 05/26/18 23:14 96.6 F L 106 H 16 134/86 98 05/26/18 23:10 84 Intake and Output 05/26/18 05/27/18 05/27/18 22:59 06:59 14:59 Intake Total 200 218 Balance 200 218 Intake: Intake, IV Titration 200 Amount Sodium Chloride 0.9% 1, 200 000 ml @ 50 mls/hr IV . Q20H [facility] Rx#:[id number] Oral 218 Other: Voiding Method Diaper Diaper Weight 71 kg PHYSICAL EXAMINATION: GENERAL: 82-year-old gentleman in no acute distress at the time of my examination HEENT: Head is atraumatic, normocephalic. Pupils equal, round. Sclera anicteric. Conjunctiva are clear. Mucous membranes of the mouth are moist. Neck is supple. There is no elevated jugular venous pressure. No carotid bruit is heard. HEART EXAMINATION: Heart S1-S2 irregularly irregular CHEST EXAMINATION: Lungs are clear to auscultation and precussion. No chest wall tenderness is noted on palpation or with deep breathing. ABDOMEN: Soft, nontender. Bowel sounds are heard. No organomegaly noted. EXTREMITIES: 2+ peripheral pulses with no evidence of peripheral edema and no calf tenderness noted. NEUROLOGIC patient is awake, alert and oriented X2. . Results 05/26/18 23:10 05/26/18 23:10 Cardiac Enzymes 05/26/18 05/26/18 05/27/18 Range/Units 23:10 23:10 05:51 AST 14 L (17-59) U/L CK-MB (CK-2) 0.7 0.9 (0.0-2.4) ng/mL Troponin I 0.016 0.013 (0.000-0.034) ng/mL Coagulation 05/26/18 Range/Units 23:10 PT 10.9 (9.0-12.0) sec APTT 23.1 (22.0-30.0) sec CBC 05/26/18 Range/Units 23:10 WBC 6.5 (3.8-10.6) k/uL RBC 4.67 (4.30-5.90) m/uL Hgb 14.3 (13.0-17.5) gm/dL Hct 43.3 (39.0-53.0) % Plt Count 105 L (150-450) k/uL Comprehensive Metabolic Panel 05/26/18 Range/Units 23:10 Sodium 136 L (137-145) mmol/L Potassium 3.4 L (3.5-5.1) mmol/L Chloride 104 (98-107) mmol/L Carbon Dioxide 21 L (22-30) mmol/L BUN 35 H (9-20) mg/dL Creatinine 1.50 H (0.66-1.25) mg/dL Glucose 312 H (74-99) mg/dL Calcium 8.2 L (8.4-10.2) mg/dL AST 14 L (17-59) U/L ALT 30 (21-72) U/L Alkaline Phosphatase 80 (38-126) U/L Total Protein 5.1 L (6.3-8.2) g/dL Albumin 2.8 L (3.5-5.0) g/dL Current Medications Generic Name Dose Route Start Last Admin Trade Name Freq PRN Reason Stop Dose Admin Acetaminophen 650 mg 05/27/18 00:42 Tylenol Tab PO Q6HR PRN Mild Pain or Fever > 100.5 Albuterol/Ipratropium 3 ml 05/27/18 08:00 05/27/18 07:31 Duoneb 0.5 Mg-3 Mg/3 Ml Soln INHALATION 3 ml RT-TID [facility] Administration Amiodarone HCl 100 mg 05/27/18 09:00 05/27/18 09:01 Cordarone PO 100 mg DAILY [facility] Administration Amoxicillin/Clavulanate Potassium 1 each 05/27/18 09:00 05/27/18 09:00 Augmentin 875-125 PO 1 each BID [facility] Administration Atorvastatin Calcium 10 mg 05/27/18 09:00 05/27/18 09:00 Lipitor PO 10 mg DAILY [facility] Administration Doxazosin Mesylate 4 mg 05/27/18 21:00 Cardura PO HS [facility] Furosemide 40 mg 05/27/18 09:00 05/27/18 09:00 Lasix PO 40 mg DAILY [facility] Administration Sodium Chloride 1,000 mls @ 50 mls/hr 05/27/18 00:45 05/27/18 00:59 Saline 0.9% IV 50 mls/hr .Q20H [facility] Administration Insulin Aspart 0 unit 05/27/18 07:30 05/27/18 06:19 Novolog SQ 3 unit ACHS [facility] Administration Protocol Levothyroxine Sodium 75 mcg 05/27/18 06:30 05/27/18 06:13 Synthroid PO 75 mcg DAILY@0630 [facility] Administration Lisinopril 5 mg 05/27/18 21:00 Zestril PO HS [facility] Metoprolol Tartrate 25 mg 05/27/18 09:00 05/27/18 09:00 Lopressor PO 25 mg BID [facility] Administration Miscellaneous Information 1 each 05/27/18 03:38 Potassium Per Protocol MISCELLANE DAILY PRN Per Protocol Protocol Naloxone HCl 0.2 mg 05/27/18 00:42 Narcan IV Q2M PRN Opioid Reversal Pantoprazole Sodium 40 mg 05/27/18 07:30 05/27/18 06:13 Protonix PO 40 mg [id number] [facility] Administration Potassium Chloride 10 meq 05/27/18 17:00 05/27/18 09:00 K-Dur 10 PO 10 meq 1700 [facility] Administration Potassium Chloride 20 meq 05/27/18 09:00 05/27/18 09:02 K-Dur 20 PO Not Given 0900 [facility] Sulfacetamide Sodium 2 drops 05/27/18 09:00 05/27/18 09:34 Bleph-10 BOTH EYES 2 drops BID [facility] Administration Thiamine HCl 100 mg 05/27/18 12:00 Vitamin B-1 PO DAILY@1200 [facility] Intake and Output 05/26/18 05/27/18 05/27/18 22:59 06:59 14:59 Intake Total 200 218 Balance 200 218 Intake: Intake, IV Titration 200 Amount Sodium Chloride 0.9% 1, 200 000 ml @ 50 mls/hr IV . Q20H [facility] Rx#:[id number] Oral 218 Other: Voiding Method Diaper Diaper Weight 71 kg 05/26/18 23:10 05/26/18 23:10 EKG Interpretations (text) EKG shows atrial fibrillation with a moderately rapid ventricular response. Assessment and Plan Plan: Assessment and plan #1 atrial fibrillation with moderately rapid ventricular response in a patient with chronic persistent atrial fibrillation #2 recent CVA in early April, the CT at that time revealed a large right hemisphere abnormality with small areas of hemorrhage in the right temporal lobe. #3 hypertension #4 diabetes #5 hyperlipidemia #6 history of nicotine dependence Plan We will obtain an echocardiogram with Doppler study as well as TSH level. Patient is not on anticoagulation at this time because of the recent CVA with evidence of hemorrhage. We will increase his dose of beta brianda for more optimal heart rate control. Further recommendations to follow. DNP note has been reviewed, I agree with a documented findings and plan of care. Patient was seen and examined.
[2018-05-27 12:52] LABS: Creatine Kinase <20 U/L (55-170)
[2018-05-27] MEDS ORDERED: FUROSEMIDE 10 MG/ML 4 ML VIAL IV SCH (13:00)
[2018-05-27 13:03] LABS: Troponin I 0.014 ng/mL (0.000-0.034)
--- NOTE | 2018-05-27 13:42 | XR ---
EXAMINATION TYPE: XR chest 2V DATE OF EXAM: 05/27/2018 COMPARISON: 05/26/2018 INDICATION: Pneumonia TECHNIQUE: Frontal and lateral views of the chest are obtained. FINDINGS: The heart size is enlarged. The pulmonary vasculature is normal. Mild right middle lobe infiltrate appears to be present.. IMPRESSION: 1. Mild cardiomegaly. 2. Mild right middle lobe infiltrate.
--- NOTE | 2018-05-27 15:04 | P.HPIM ---
History of Present Illness 82-year-old pleasant was sent in from subacute rehabilitation because of severe lethargy found to be in atrial fibrillation. Patient does have atrial fibrillation history. Not on any anti-correlation because of his recent subarachnoid hemorrhage. Patient is unable to provide much of a history because of excessive tiredness chest x-ray did show infiltrate elevated BNP. Patient's previous ejection fraction is around 40-45% patient on oral Lasix which will be switched to IV Lasix. Chest x-ray suspicious for some infiltrate although patient does not have any leukocytosis or fever I suspicion is low for pneumonia is not coughing up much. Patient's weight creatinine is 1.6 baseline is around 1.6-1.8. Patient is able to recognize his daughter and her name. Patient does have baseline some age appropriate memory deficit but does not have any significant dementia. Review of Systems Unable to obtain due to his clinical condition Past Medical History Past Medical History: Atrial Fibrillation, Heart Failure, CVA/TIA, Diabetes Mellitus, Hypertension, Pneumonia, Thyroid Disorder Additional Past Medical History / Comment(s): macular degeneration, massive stroke History of Any Multi-Drug Resistant Organisms: None Reported Past Surgical History: Orthopedic Surgery Additional Past Surgical History / Comment(s): hemorroidectomy, bilateral knee surgery Past Psychological History: No Psychological Hx Reported Smoking Status: Former smoker Past Alcohol Use History: Rare Past Drug Use History: None Reported Medications and Allergies Home Medications Medication Instructions Recorded Confirmed Type Acetaminophen/Diphenhydramine 1 tab PO HS 05/27/18 05/27/18 History [Tylenol PM 500-25mg] Amiodarone [Cordarone] 100 mg PO DAILY 05/27/18 05/27/18 History Atorvastatin [Lipitor] 10 mg PO HS 05/27/18 05/27/18 History Calcium/Magnesium/Zinc 1 tab PO DAILY@1200 05/27/18 05/27/18 History [Lpwhwvx-Frmoumqsf-Fful Tablet] Dexamethasone [Decadron] 2 mg PO DAILY 05/27/18 05/27/18 History Dimethicone/Zinc Oxide [Inzo Zinc 1 applic TOPICAL BID 05/27/18 05/27/18 History Oxide Barrier Cream] Doxazosin [Cardura] 4 mg PO HS 05/27/18 05/27/18 History Finasteride [Proscar] 5 mg PO DAILY 05/27/18 05/27/18 History Fluticasone/Vilanterol [Breo 1 puff INHALATION RT-DAILY 05/27/18 05/27/18 History Ellipta 100-25 Mcg Inhaler] Folic Acid 1 mg PO DAILY@119905/27/18 05/27/18 History Furosemide [Lasix] 40 mg PO DAILY@0605/27/18 05/27/18 History INSULIN LISPRO (HumaLOG) [HumaLOG] See Protocol SQ ACHS 05/27/18 05/27/18 History Insulin Glargine,Hum.rec.anlog 10 unit SQ HS 05/27/18 05/27/18 History [Basaglar Kwikpen U-100] Ipratropium-Albuterol Nebulize 3 ml INHALATION RT-Q4H PRN 05/27/18 05/27/18 History [Duoneb 0.5 mg-3 mg/3 ml Soln] Ipratropium-Albuterol Nebulize 3 ml INHALATION RT-TID 05/27/18 05/27/18 History [Duoneb 0.5 mg-3 mg/3 ml Soln] Levothyroxine Sodium [Synthroid] 75 mcg PO DAILY@0605/27/18 05/27/18 History Metoprolol Tartrate 25 mg PO BID 05/27/18 05/27/18 History Multivits,Th W-Ca,Fe,Oth Min 1 tab PO DAILY@119905/27/18 05/27/18 History [Therapeutic M] [place]-3 Fatty Acids/Fish Oil [Fish 1 cap PO DAILY@119905/27/18 05/27/18 History Oil 1,000 mg Softgel] Pantoprazole Sodium [Protonix] 40 mg PO DAILY 05/27/18 05/27/18 History Potassium Chloride [Klor-Con 20] 10 meq PO DAILY@1700 05/27/18 05/27/18 History Potassium Chloride [Klor-Con 20] 20 meq PO DAILY@0905/27/18 05/27/18 History Sulfacetamide Sodium 2 drop BOTH EYES Q4H 05/27/18 05/27/18 History [Sulfacetamide Sod 10% Ophth Soln] Thiamine HCl [Vitamin B-1] 100 mg PO DAILY@1200 05/27/18 05/27/18 History Turmeric Root Extract [Turmeric] 500 mg PO HS 05/27/18 05/27/18 History Allergies Allergy/AdvReac Type Severity Reaction Status Date / Time No Known Allergies Allergy Verified 05/26/18 23:19 Physical Exam Vitals: Vital Signs Temp Pulse Pulse Resp BP BP Pulse Ox 05/27/18 13:06 120 H 05/27/18 12:58 108 H 05/27/18 11:33 97.8 F 100 15 133/90 96 05/27/18 08:44 97.3 F L 109 H 134/103 96 05/27/18 07:43 124 H 05/27/18 07:35 122 H 05/27/18 04:00 97.2 F L 125 H 16 142/87 99 05/27/18 02:49 97.4 F L 05/27/18 02:03 95 16 126/76 100 05/27/18 01:52 96.4 F L 77 16 136/69 97 05/27/18 01:11 94 14 105/76 100 05/27/18 00:43 81 16 115/63 96 05/27/18 00:13 90 18 142/88 100 05/26/18 23:14 96.6 F L 106 H 16 134/86 98 05/26/18 23:10 84 Intake and Output 05/26/18 05/27/18 05/27/18 22:59 06:59 14:59 Intake Total 200 668 Output Total 1 Balance 200 667 Intake: Intake, IV Titration 200 450 Amount Potassium Chloride 20 meq 50 In Water For Injection 1 100ml.bag @ 50 mls/hr IVPB Q2H [facility] Rx#: [id number] Sodium Chloride 0.9% 1, 200 400 000 ml @ 50 mls/hr IV . Q20H [facility] Rx#:[id number] Oral 218 Output: Stool 1 Other: Voiding Method Diaper Diaper # Voids 2 Weight 71 kg PHYSICAL EXAMINATION: GENERAL: The patient is alert and oriented x3, not in any acute distress. Severely lethargic HEENT: Pupils are round and equally reacting to light. EOMI. No scleral icterus. No conjunctival pallor. Normocephalic, atraumatic. No pharyngeal erythema. No thyromegaly. CARDIOVASCULAR: S1 and S2 present. No murmurs, rubs, or gallops. Tachycardic irregularly irregular rhythm PULMONARY: Chest is clear to auscultation, no wheezing or crackles. ABDOMEN: Soft, nontender, nondistended, normoactive bowel sounds. No palpable organomegaly. MUSCULOSKELETAL: No joint swelling or deformity. EXTREMITIES: No cyanosis, clubbing, or pedal edema. NEUROLOGICAL: Gross neurological examination did not reveal any focal deficits. SKIN: No rashes. Results CBC & Chem 7: 05/26/18 23:10 05/27/18 12:16 Labs: Abnormal Lab Results - Last 24 Hours (Table) 05/26/18 05/26/18 05/26/18 Range/Units 11:00 23:10 23:10 Plt Count 105 L (150-450) k/uL Lymphocytes # 0.4 L (1.0-4.8) k/uL VBG pH (7.31-7.41) VBG pCO2 (37-51) mmHg VBG HCO3 (24-28) mmol/L Sodium (137-145) mmol/L Potassium (3.5-5.1) mmol/L Carbon Dioxide (22-30) mmol/L BUN (9-20) mg/dL Creatinine (0.66-1.25) mg/dL Glucose (74-99) mg/dL POC Glucose (mg/dL) (75-99) mg/dL Plasma Lactic Acid Raffy (0.7-2.0) mmol/L Calcium (8.4-10.2) mg/dL AST (17-59) U/L Total Creatine Kinase 21 L (55-170) U/L Total Protein (6.3-8.2) g/dL Albumin (3.5-5.0) g/dL Urine Glucose (UA) 2+ H (Negative) Urine Blood Trace H (Negative) Urine Mucus Rare H (None) /hpf 05/26/18 05/26/18 05/26/18 Range/Units 23:10 23:10 23:10 Plt Count (150-450) k/uL Lymphocytes # (1.0-4.8) k/uL VBG pH 7.44 H (7.31-7.41) VBG pCO2 33 L (37-51) mmHg VBG HCO3 22 L (24-28) mmol/L Sodium 136 L (137-145) mmol/L Potassium 3.4 L (3.5-5.1) mmol/L Carbon Dioxide 21 L (22-30) mmol/L BUN 35 H (9-20) mg/dL Creatinine 1.50 H (0.66-1.25) mg/dL Glucose 312 H (74-99) mg/dL POC Glucose (mg/dL) (75-99) mg/dL Plasma Lactic Acid Raffy 2.3 H* (0.7-2.0) mmol/L Calcium 8.2 L (8.4-10.2) mg/dL AST 14 L (17-59) U/L Total Creatine Kinase (55-170) U/L Total Protein 5.1 L (6.3-8.2) g/dL Albumin 2.8 L (3.5-5.0) g/dL Urine Glucose (UA) (Negative) Urine Blood (Negative) Urine Mucus (None) /hpf 05/27/18 05/27/18 05/27/18 Range/Units 05:51 06:01 11:47 Plt Count (150-450) k/uL Lymphocytes # (1.0-4.8) k/uL VBG pH (7.31-7.41) VBG pCO2 (37-51) mmHg VBG HCO3 (24-28) mmol/L Sodium (137-145) mmol/L Potassium (3.5-5.1) mmol/L Carbon Dioxide (22-30) mmol/L BUN (9-20) mg/dL Creatinine (0.66-1.25) mg/dL Glucose (74-99) mg/dL POC Glucose (mg/dL) 236 H 180 H (75-99) mg/dL Plasma Lactic Acid Raffy (0.7-2.0) mmol/L Calcium (8.4-10.2) mg/dL AST (17-59) U/L Total Creatine Kinase 23 L (55-170) U/L Total Protein (6.3-8.2) g/dL Albumin (3.5-5.0) g/dL Urine Glucose (UA) (Negative) Urine Blood (Negative) Urine Mucus (None) /hpf 05/27/18 Range/Units 12:16 Plt Count (150-450) k/uL Lymphocytes # (1.0-4.8) k/uL VBG pH (7.31-7.41) VBG pCO2 (37-51) mmHg VBG HCO3 (24-28) mmol/L Sodium (137-145) mmol/L Potassium (3.5-5.1) mmol/L Carbon Dioxide (22-30) mmol/L BUN (9-20) mg/dL Creatinine (0.66-1.25) mg/dL Glucose (74-99) mg/dL POC Glucose (mg/dL) (75-99) mg/dL Plasma Lactic Acid Raffy (0.7-2.0) mmol/L Calcium (8.4-10.2) mg/dL AST (17-59) U/L Total Creatine Kinase <20 L (55-170) U/L Total Protein (6.3-8.2) g/dL Albumin (3.5-5.0) g/dL Urine Glucose (UA) (Negative) Urine Blood (Negative) Urine Mucus (None) /hpf Thrombosis Risk Factor Assmnt - Choose All That Apply Any of the Below Risk Factors Present?: No Other Risk Factors: Yes Each Risk Factor Represents 3 Points: Age 75 years or older Other congenital or acquired thrombophilia - If yes, enter type in comment: Yes Each Risk Factor Represents 5 Points: Stroke (< 1 month) Thrombosis Risk Factor Assessment Total Risk Factor Score: 8 Thrombosis Risk Factor Assessment Level: High Risk Assessment and Plan Plan: -Atrial fibrillation with rapid ventricular rate: Patient does have chronic persistent atrial fibrillation patient will be resumed on his rate control medications, TSH level will be obtained repeat echocardiogram will be obtained, not on any anticoagulation because of his recent subarachnoid hemorrhage -Hypertension -Type 2 diabetes mellitus next and-hyperlipemia -Congestive heart failure chronic systolic dysfunction previous ejection fraction of around 40% possible mild exacerbation patient will be started on IV Lasix -Chronic kidney disease stage III creatinine is around his baseline. -Residual infiltrate probably from his recent bilateral aspiration pneumonia -Hypothyroidism -CODE STATUS DO NOT RESUSCITATE
[2018-05-27 16:42] LABS: Glucose,Whole Blood 216 mg/dL (75-99)
[2018-05-27 19:40] LABS: Hemoglobin A1C 8.3 % (4.0-6.0)
[2018-05-27 20:42] LABS: Glucose,Whole Blood 157 mg/dL (75-99)
[2018-05-27] MEDS: LISINOPRIL 5 MG TAB PO SCH (21:21)
[2018-05-27] MEDS: DOXAZOSIN 4 MG TAB PO SCH (21:21)
[2018-05-28 05:52] LABS: Glucose,Whole Blood 134 mg/dL (75-99)
[2018-05-28] MEDS: LEVOTHYROXINE 75 MCG TAB PO SCH (06:06)
[2018-05-28] MEDS: PANTOPRAZOLE 40 MG TABLET PO SCH (06:06)
[2018-05-28] MEDS: INSULIN ASPART 100 UNIT/ML 1 ML 10 ML VIAL SQ SCH ×4 (06:12→20:44)
[2018-05-28 06:49] LABS: Basophils % (A) 0 %; Eosinophils # (A) 0.2 k/uL (0-0.7); Eosinophils % (A) 3 %; HCT 38.5 % (39.0-53.0); HGB 12.7 gm/dL (13.0-17.5); Lymphocytes # (A) 0.9 k/uL (1.0-4.8); Lymphocytes % (A) 13 %; MCHC 32.9 g/dL (31.0-37.0); MCV 94.1 fL (80.0-100.0); Mean Platelet Volume 6.9; Monocytes # (A) 0.5 k/uL (0-1.0); Monocytes % (A) 7 %; Neutrophils % (A) 75 %; Platelet Count 122 k/uL (150-450); RBC 4.09 m/uL (4.30-5.90); RDW 13.8 % (11.5-15.5); WBC 6.8 k/uL (3.8-10.6)
[2018-05-28 07:04] LABS: Albumin 2.4 g/dL (3.5-5.0); Calcium 7.7 mg/dL (8.4-10.2); Total Bilirubin 0.8 mg/dL (0.2-1.3); Total Protein 4.6 g/dL (6.3-8.2)
[2018-05-28] MEDS: IPRATROPIUM-ALBUTEROL 3 ML NEB INHALATION SCH ×3 (09:07→20:23)
[2018-05-28] MEDS: SULFACETAMIDE SOD 10% OPHTH DROPS 15 ML BTL BOTH EYES SCH ×2 (09:49→20:44)
[2018-05-28] MEDS: METOPROLOL TARTRATE 25 MG TAB PO SCH ×3 (09:50→20:44)
[2018-05-28] MEDS: ATORVASTATIN 10 MG TAB PO SCH (09:50)
[2018-05-28] MEDS: AMOXIC-POT CLAV 875-125MG 1 EACH TAB PO SCH ×2 (09:50→20:44)
[2018-05-28] MEDS: FUROSEMIDE 40 MG TAB PO SCH (09:50)
[2018-05-28] MEDS: AMIODARONE 100 MG TAB PO SCH (09:50)
[2018-05-28] MEDS: THIAMINE 100 MG TAB PO SCH (09:51)
[2018-05-28] MEDS: POTASSIUM CHLORIDE ER 20 MEQ TAB.ER PO SCH (09:51)
[2018-05-28] MEDS: NYSTATIN 100,000 UNIT/ML SUSP 500,000 UNIT/5 ML CUP PO SCH ×4 (09:53→20:44)
[2018-05-28 11:49] LABS: Glucose,Whole Blood 257 mg/dL (75-99)
--- NOTE | 2018-05-28 12:51 | P.PN ---
Subjective Patient is admitted for a atrial fibrillation with rapid ventricular rate unsure whether patient has CHF exacerbation continue with present oral Lasix. We will obtain a BNP. Rate is well controlled kidney function did improve patient is mildly hyponatremic. Patient is still lethargic but more awake and able to eat by himself. Objective - Vital Signs Vital signs: Vital Signs Temp 96.9 F L 05/28/18 11:56 Pulse 99 05/28/18 11:56 Resp 16 05/28/18 11:56 BP 124/80 05/28/18 11:56 Pulse Ox 97 05/28/18 11:56 Intake & Output 05/27/18 05/28/18 05/28/18 18:59 06:59 18:59 Intake Total 1608 360 Output Total 3 1 2 Balance 1605 -1 358 Weight 71 kg 72.5 kg Intake: Intake, IV Titration 450 Amount Potassium Chloride 20 meq 50 In Water For Injection 1 100ml.bag @ 50 mls/hr IVPB Q2H [facility] Rx#: [id number] Sodium Chloride 0.9% 1, 400 000 ml @ 50 mls/hr IV . Q20H [facility] Rx#:[id number] Oral 1158 360 Output: Stool 3 1 2 Other: Voiding Method Diaper Diaper Diaper # Voids 3 1 1 # Bowel Movements 2 1 1 - Exam PHYSICAL EXAMINATION: GENERAL: The patient is alert and oriented x3, not in any acute distress. Severely lethargic HEENT: Pupils are round and equally reacting to light. EOMI. No scleral icterus. No conjunctival pallor. Normocephalic, atraumatic. No pharyngeal erythema. No thyromegaly. CARDIOVASCULAR: S1 and S2 present. No murmurs, rubs, or gallops. Tachycardic irregularly irregular rhythm PULMONARY: Chest is clear to auscultation, no wheezing or crackles. ABDOMEN: Soft, nontender, nondistended, normoactive bowel sounds. No palpable organomegaly. MUSCULOSKELETAL: No joint swelling or deformity. EXTREMITIES: No cyanosis, clubbing, or pedal edema. NEUROLOGICAL: Gross neurological examination did not reveal any focal deficits. SKIN: No rashes. - Labs CBC & Chem 7: 05/28/18 05:30 05/28/18 05:30 Labs: Abnormal Lab Results - Last 24 Hours (Table) 05/26/18 05/27/1818 Range/Units 23:10 12:16 16:22 RBC (4.30-5.90) m/uL Hgb (13.0-17.5) gm/dL Hct (39.0-53.0) % Plt Count (150-450) k/uL Lymphocytes # (1.0-4.8) k/uL Sodium (137-145) mmol/L BUN (9-20) mg/dL Glucose (74-99) mg/dL POC Glucose (mg/dL) 216 H (75-99) mg/dL Hemoglobin A1c 8.3 H (4.0-6.0) % Calcium (8.4-10.2) mg/dL Total Creatine Kinase <20 L (55-170) U/L Total Protein (6.3-8.2) g/dL Albumin (3.5-5.0) g/dL 05/27/18 05/28/18 05/28/18 Range/Units 20:40 05:30 05:30 RBC 4.09 L (4.30-5.90) m/uL Hgb 12.7 L (13.0-17.5) gm/dL Hct 38.5 L (39.0-53.0) % Plt Count 122 L (150-450) k/uL Lymphocytes # 0.9 L (1.0-4.8) k/uL Sodium 134 L (137-145) mmol/L BUN 24 H (9-20) mg/dL Glucose 127 H (74-99) mg/dL POC Glucose (mg/dL) 157 H (75-99) mg/dL Hemoglobin A1c (4.0-6.0) % Calcium 7.7 L (8.4-10.2) mg/dL Total Creatine Kinase (55-170) U/L Total Protein 4.6 L (6.3-8.2) g/dL Albumin 2.4 L (3.5-5.0) g/dL 05/28/18 05/28/18 Range/Units 05:51 11:21 RBC (4.30-5.90) m/uL Hgb (13.0-17.5) gm/dL Hct (39.0-53.0) % Plt Count (150-450) k/uL Lymphocytes # (1.0-4.8) k/uL Sodium (137-145) mmol/L BUN (9-20) mg/dL Glucose (74-99) mg/dL POC Glucose (mg/dL) 134 H 257 H (75-99) mg/dL Hemoglobin A1c (4.0-6.0) % Calcium (8.4-10.2) mg/dL Total Creatine Kinase (55-170) U/L Total Protein (6.3-8.2) g/dL Albumin (3.5-5.0) g/dL Microbiology - Last 24 Hours (Table) 05/27/18 11:00 Urine Culture - Preliminary Urine,Catheterized Assessment and Plan Plan: -Atrial fibrillation with rapid ventricular rate: Patient does have chronic persistent atrial fibrillation patient will be resumed on his rate control medications, heart rate improved and patient is not on anticoagulant because of his recent subarachnoid hemorrhage -Hypertension -Type 2 diabetes mellitus next and-hyperlipemia -Congestive heart failure chronic systolic dysfunction may have mild acute exacerbation. Continue with oral Lasix BNP today. -Chronic kidney disease stage III creatinine is around his baseline. There is superimposed acute renal failure which improved probably due to heart failure -Residual infiltrate probably from his recent bilateral aspiration pneumonia -Hypothyroidism -CODE STATUS DO NOT RESUSCITATE
--- NOTE | 2018-05-28 14:54 | P.PN ---
Subjective Progress Note Date: 05/28/18 This is a pleasant 82-year-old gentleman who follows with Dr. Beard in the office. He has a known history of persistent atrial fibrillation, hypertension, diabetes, chronic renal failure, nicotine dependence , was recently in the hospital with a stroke and is currently at an ECF. Patient was brought into the hospital because of rapid irregular heartbeat and shortness of breath. Patient had been on Coumadin in the past, this was discontinued on this recent admission with CVA because there was evidence of hemorrhage. Chest x-ray on admission here reveals infiltrate and atelectasis in the mid to lower lung kim which appear to be new as compared with old exam. No definite evidence of heart failure. EKG on arrival here showed atrial fibrillation with a moderately rapid ventricular response. I pressure on arrival 134/86, heart rate low 100s, 98% on room air. Blood pressure this morning 132/90 with a heart rate of 100, 96% on room air. White blood cell count 6.5, hemoglobin 14.3, platelet count 105. Sodium 136, potassium 3. 0.4, BUN 35, creatinine 1.5. Lactic acid 2.3 on admission, magnesium 2.0. Troponin 0.01 6.013, BNP 2250. Patient was seen and examined, he is aware of where he is , however he did not recognize Dr. Beard. Patient also had his hand on his chest at the time we were examining him, complaining of some chest discomfort. He appears to be eating okay, good appetite, no difficulty swallowing. 05/28/2000 Patient seen and examined this morning, does appear to be somewhat more alert today. Heart rate in the 1 teens. We will increase the dose of beta brianda to a 3 times a day dose. Blood pressure 124/80, 97% on room air. White blood cell count 6.8, hemoglobin 12.7, platelet count 122. Sodium 134, potassium 4.0 , BUN 24, creatinine 1.1. BNP level 3550. Objective - Vital Signs Vital signs: Vital Signs Temp 96.9 F L 05/28/18 11:56 Pulse 99 05/28/18 11:56 Resp 16 05/28/18 11:56 BP 124/80 05/28/18 11:56 Pulse Ox 97 05/28/18 11:56 Intake & Output 05/27/18 05/28/18 05/28/18 18:59 06:59 18:59 Intake Total 1608 540 Output Total 3 1 2 Balance 1605 -1 538 Weight 71 kg 72.5 kg Intake: Intake, IV Titration 450 Amount Potassium Chloride 20 meq 50 In Water For Injection 1 100ml.bag @ 50 mls/hr IVPB Q2H [facility] Rx#: [id number] Sodium Chloride 0.9% 1, 400 000 ml @ 50 mls/hr IV . Q20H [facility] Rx#:[id number] Oral 1158 540 Output: Stool 3 1 2 Other: Voiding Method Diaper Diaper Diaper # Voids 3 1 1 # Bowel Movements 2 1 1 - Exam PHYSICAL EXAMINATION: GENERAL: 82-year-old gentleman in no acute distress at the time of my examination HEENT: Head is atraumatic, normocephalic. Pupils equal, round. Sclera anicteric. Conjunctiva are clear. Mucous membranes of the mouth are moist. Neck is supple. There is no elevated jugular venous pressure. No carotid bruit is heard. HEART EXAMINATION: Heart S1-S2 irregularly irregular CHEST EXAMINATION: Lungs are clear to auscultation and precussion. No chest wall tenderness is noted on palpation or with deep breathing. ABDOMEN: Soft, nontender. Bowel sounds are heard. No organomegaly noted. EXTREMITIES: 2+ peripheral pulses with no evidence of peripheral edema and no calf tenderness noted. NEUROLOGIC patient is awake, alert and oriented X2. - Labs CBC & Chem 7: 05/28/18 05:30 05/28/18 05:30 Labs: Abnormal Lab Results - Last 24 Hours (Table) 05/26/18 05/27/18 05/27/18 Range/Units 23:10 16:22 20:40 RBC (4.30-5.90) m/uL Hgb (13.0-17.5) gm/dL Hct (39.0-53.0) % Plt Count (150-450) k/uL Lymphocytes # (1.0-4.8) k/uL Sodium (137-145) mmol/L BUN (9-20) mg/dL Glucose (74-99) mg/dL POC Glucose (mg/dL) 216 H 157 H (75-99) mg/dL Hemoglobin A1c 8.3 H (4.0-6.0) % Calcium (8.4-10.2) mg/dL Total Protein (6.3-8.2) g/dL Albumin (3.5-5.0) g/dL 05/28/18 05/28/18 05/28/18 Range/Units 05:30 05:30 05:51 RBC 4.09 L (4.30-5.90) m/uL Hgb 12.7 L (13.0-17.5) gm/dL Hct 38.5 L (39.0-53.0) % Plt Count 122 L (150-450) k/uL Lymphocytes # 0.9 L (1.0-4.8) k/uL Sodium 134 L (137-145) mmol/L BUN 24 H (9-20) mg/dL Glucose 127 H (74-99) mg/dL POC Glucose (mg/dL) 134 H (75-99) mg/dL Hemoglobin A1c (4.0-6.0) % Calcium 7.7 L (8.4-10.2) mg/dL Total Protein 4.6 L (6.3-8.2) g/dL Albumin 2.4 L (3.5-5.0) g/dL 05/28/18 Range/Units 11:21 RBC (4.30-5.90) m/uL Hgb (13.0-17.5) gm/dL Hct (39.0-53.0) % Plt Count (150-450) k/uL Lymphocytes # (1.0-4.8) k/uL Sodium (137-145) mmol/L BUN (9-20) mg/dL Glucose (74-99) mg/dL POC Glucose (mg/dL) 257 H (75-99) mg/dL Hemoglobin A1c (4.0-6.0) % Calcium (8.4-10.2) mg/dL Total Protein (6.3-8.2) g/dL Albumin (3.5-5.0) g/dL Microbiology - Last 24 Hours (Table) 05/27/18 11:00 Urine Culture - Preliminary Urine,Catheterized Assessment and Plan Plan: Assessment and plan #1 atrial fibrillation with moderately rapid ventricular response in a patient with chronic persistent atrial fibrillation #2 recent CVA in early April, the CT at that time revealed a large right hemisphere abnormality with small areas of hemorrhage in the right temporal lobe. #3 hypertension #4 diabetes #5 hyperlipidemia #6 history of nicotine dependence Plan Echocardiogram with Doppler study remains pending. We'll increase dose of beta brianda to a 3 times a day dose today. Continue the rest of his medications. DNP note has been reviewed, I agree with a documented findings and plan of care. Patient was seen and examined.
[2018-05-28 16:19] LABS: Glucose,Whole Blood 161 mg/dL (75-99)
[2018-05-28] MEDS: SODIUM CHLORIDE 0.9% 1,000 ML IV SCH (17:35)
[2018-05-28] MEDS: POTASSIUM CHLORIDE ER 10 MEQ TAB.ER.PRT PO SCH (17:35)
[2018-05-28 20:30] LABS: Glucose,Whole Blood 284 mg/dL (75-99)
[2018-05-28] MEDS: DOXAZOSIN 4 MG TAB PO SCH (20:44)
[2018-05-28] MEDS: LISINOPRIL 5 MG TAB PO SCH (20:44)
[2018-05-28] MEDS: ACETAMINOPHEN TAB 325 MG TAB PO PRN (23:10)
[2018-05-29 05:42] LABS: Glucose,Whole Blood 153 mg/dL (75-99)
[2018-05-29] MEDS: PANTOPRAZOLE 40 MG TABLET PO SCH (06:10)
[2018-05-29] MEDS: LEVOTHYROXINE 75 MCG TAB PO SCH (06:11)
[2018-05-29] MEDS: INSULIN ASPART 100 UNIT/ML 1 ML 10 ML VIAL SQ SCH ×4 (06:14→22:21)
[2018-05-29] MEDS: POTASSIUM CHLORIDE ER 20 MEQ TAB.ER PO SCH (08:08)
[2018-05-29] MEDS: ATORVASTATIN 10 MG TAB PO SCH (08:08)
[2018-05-29] MEDS: AMOXIC-POT CLAV 875-125MG 1 EACH TAB PO SCH ×2 (08:08→22:06)
[2018-05-29] MEDS: METOPROLOL TARTRATE 25 MG TAB PO SCH ×3 (08:08→22:06)
[2018-05-29] MEDS: FUROSEMIDE 40 MG TAB PO SCH (08:08)
[2018-05-29] MEDS: AMIODARONE 100 MG TAB PO SCH (08:08)
[2018-05-29] MEDS: NYSTATIN 100,000 UNIT/ML SUSP 500,000 UNIT/5 ML CUP PO SCH ×4 (08:08→22:07)
[2018-05-29] MEDS: IPRATROPIUM-ALBUTEROL 3 ML NEB INHALATION SCH ×3 (08:19→20:21)
[2018-05-29] MEDS: SULFACETAMIDE SOD 10% OPHTH DROPS 15 ML BTL BOTH EYES SCH ×3 (08:50→22:07)
--- NOTE | 2018-05-29 11:15 | P.PN ---
Subjective Patient is admitted for a atrial fibrillation with rapid ventricular rate unsure whether patient has CHF exacerbation continue with present oral Lasix. We will obtain a BNP. Rate is well controlled kidney function did improve patient is mildly hyponatremic. Patient is still lethargic but more awake and able to eat by himself. 05/29/2018 Clinical condition no significant change patient has issues with the swallowing during his last hospital admission patient had aspiration pneumonia and patient is still on Augmentin. Patient is supposed to be on thick liquids which the patient doesn't like. We'll get speech therapy evaluation again see if there is any change in his swallow. Objective - Vital Signs Vital signs: Vital Signs Temp 98.6 F 05/29/18 08:00 Pulse 103 H 05/29/18 08:29 Resp 16 05/29/18 08:29 BP 134/74 05/29/18 08:00 Pulse Ox 93 L 05/29/18 08:19 Intake & Output 05/28/18 05/29/18 05/29/18 18:59 06:59 18:59 Intake Total 1140 400 180 Output Total 3 2 Balance 1137 398 180 Weight 86.5 kg Intake: IV 400 Sodium Chloride 0.9% 1, 400 000 ml @ 50 mls/hr IV . Q20H [facility] Rx#:[id number] Intake, IV Titration 600 Amount Sodium Chloride 0.9% 1, 600 000 ml @ 50 mls/hr IV . Q20H [facility] Rx#:[id number] Oral 540 180 Output: Stool 3 2 Other: Voiding Method Diaper Diaper # Voids 1 2 # Bowel Movements 1 1 - Exam PHYSICAL EXAMINATION: GENERAL: The patient is alert and oriented x3, not in any acute distress. Severely lethargic HEENT: Pupils are round and equally reacting to light. EOMI. No scleral icterus. No conjunctival pallor. Normocephalic, atraumatic. No pharyngeal erythema. No thyromegaly. CARDIOVASCULAR: S1 and S2 present. No murmurs, rubs, or gallops. Tachycardic irregularly irregular rhythm PULMONARY: Chest is clear to auscultation, no wheezing or crackles. ABDOMEN: Soft, nontender, nondistended, normoactive bowel sounds. No palpable organomegaly. MUSCULOSKELETAL: No joint swelling or deformity. EXTREMITIES: No cyanosis, clubbing, or pedal edema. NEUROLOGICAL: Gross neurological examination did not reveal any focal deficits. SKIN: No rashes. - Labs CBC & Chem 7: 05/28/18 05:30 05/28/18 05:30 Labs: Abnormal Lab Results - Last 24 Hours (Table) 05/28/18 05/28/18 05/28/18 Range/Units 11:21 16:14 20:28 POC Glucose (mg/dL) 257 H 161 H 284 H (75-99) mg/dL 05/29/18 Range/Units 05:41 POC Glucose (mg/dL) 153 H (75-99) mg/dL Microbiology - Last 24 Hours (Table) 05/27/18 11:00 Urine Culture - Final Urine,Catheterized Assessment and Plan Plan: -Atrial fibrillation with rapid ventricular rate: Patient does have chronic persistent atrial fibrillation patient will be resumed on his rate control medications, heart rate improved and patient is not on anticoagulant because of his recent subarachnoid hemorrhage -Hypertension -Type 2 diabetes mellitus next and-hyperlipemia -Congestive heart failure chronic systolic dysfunction may have mild acute exacerbation. Continue with oral Lasix, BNP yesterday was bit elevated than admission. Patient's IV fluids will be discontinued continue with oral Lasix. Overall prognosis is extremely poor -Chronic kidney disease stage III creatinine is around his baseline. There is superimposed acute renal failure which improved probably due to heart failure -Residual infiltrate probably from his recent bilateral aspiration pneumonia -Hypothyroidism -Dysphagia with the recent aspiration: Speech therapy evaluation. -CODE STATUS DO NOT RESUSCITATE
[2018-05-29 11:43] LABS: Potassium 4.4 mmol/L (3.5-5.1)
[2018-05-29 11:45] LABS: Glucose,Whole Blood 214 mg/dL (75-99)
[2018-05-29] MEDS: ACETAMINOPHEN TAB 325 MG TAB PO PRN (11:45)
[2018-05-29] MEDS: THIAMINE 100 MG TAB PO SCH (11:45)
--- NOTE | 2018-05-29 13:53 | P.PN ---
Subjective Progress Note Date: 05/29/18 This is a pleasant 82-year-old gentleman who follows with Dr. Beard in the office. He has a known history of persistent atrial fibrillation, hypertension, diabetes, chronic renal failure, nicotine dependence , was recently in the hospital with a stroke and is currently at an ECF. Patient was brought into the hospital because of rapid irregular heartbeat and shortness of breath. Patient had been on Coumadin in the past, this was discontinued on this recent admission with CVA because there was evidence of hemorrhage. Chest x-ray on admission here reveals infiltrate and atelectasis in the mid to lower lung kim which appear to be new as compared with old exam. No definite evidence of heart failure. EKG on arrival here showed atrial fibrillation with a moderately rapid ventricular response. I pressure on arrival 134/86, heart rate low 100s, 98% on room air. Blood pressure this morning 132/90 with a heart rate of 100, 96% on room air. White blood cell count 6.5, hemoglobin 14.3, platelet count 105. Sodium 136, potassium 3. 0.4, BUN 35, creatinine 1.5. Lactic acid 2.3 on admission, magnesium 2.0. Troponin 0.01 6.013, BNP 2250. Patient was seen and examined, he is aware of where he is , however he did not recognize Dr. Beard. Patient also had his hand on his chest at the time we were examining him, complaining of some chest discomfort. He appears to be eating okay, good appetite, no difficulty swallowing. 05/28/2000 Patient seen and examined this morning, does appear to be somewhat more alert today. Heart rate in the 1 teens. We will increase the dose of beta brianda to a 3 times a day dose. Blood pressure 124/80, 97% on room air. White blood cell count 6.8, hemoglobin 12.7, platelet count 122. Sodium 134, potassium 4.0 , BUN 24, creatinine 1.1. BNP level 3550. Objective - Vital Signs Vital signs: Vital Signs Temp 99.5 F 05/29/18 12:00 Pulse 88 05/29/18 12:00 Resp 18 05/29/18 12:00 BP 138/92 05/29/18 12:00 Pulse Ox 95 05/29/18 12:00 Intake & Output 05/28/18 05/29/18 05/29/18 18:59 06:59 18:59 Intake Total 1140 400 180 Output Total 3 2 Balance 1137 398 180 Weight 86.5 kg Intake: IV 400 Sodium Chloride 0.9% 1, 400 000 ml @ 50 mls/hr IV . Q20H [facility] Rx#:[id number] Intake, IV Titration 600 Amount Sodium Chloride 0.9% 1, 600 000 ml @ 50 mls/hr IV . Q20H [facility] Rx#:[id number] Oral 540 180 Output: Stool 3 2 Other: Voiding Method Diaper Diaper # Voids 1 2 # Bowel Movements 1 1 - Exam PHYSICAL EXAMINATION: GENERAL: 82-year-old gentleman in no acute distress at the time of my examination HEENT: Head is atraumatic, normocephalic. Pupils equal, round. Sclera anicteric. Conjunctiva are clear. Mucous membranes of the mouth are moist. Neck is supple. There is no elevated jugular venous pressure. No carotid bruit is heard. HEART EXAMINATION: Heart S1-S2 irregularly irregular CHEST EXAMINATION: Lungs are clear to auscultation and precussion. No chest wall tenderness is noted on palpation or with deep breathing. ABDOMEN: Soft, nontender. Bowel sounds are heard. No organomegaly noted. EXTREMITIES: 2+ peripheral pulses with no evidence of peripheral edema and no calf tenderness noted. NEUROLOGIC patient is awake, alert and oriented X2. - Labs CBC & Chem 7: 05/28/18 05:30 05/29/18 11:22 Labs: Abnormal Lab Results - Last 24 Hours (Table) 05/28/18 05/28/18 05/29/18 Range/Units 16:14 20:28 05:41 Sodium (137-145) mmol/L BUN (9-20) mg/dL Glucose (74-99) mg/dL POC Glucose (mg/dL) 161 H 284 H 153 H (75-99) mg/dL Calcium (8.4-10.2) mg/dL 05/29/18 05/29/18 Range/Units 11:22 11:39 Sodium 134 L (137-145) mmol/L BUN 24 H (9-20) mg/dL Glucose 214 H (74-99) mg/dL POC Glucose (mg/dL) 214 H (75-99) mg/dL Calcium 8.0 L (8.4-10.2) mg/dL Microbiology - Last 24 Hours (Table) 05/27/18 11:00 Urine Culture - Final Urine,Catheterized Assessment and Plan Plan: Assessment and plan #1 atrial fibrillation with moderately rapid ventricular response in a patient with chronic persistent atrial fibrillation #2 recent CVA in early April, the CT at that time revealed a large right hemisphere abnormality with small areas of hemorrhage in the right temporal lobe. #3 hypertension #4 diabetes #5 hyperlipidemia #6 history of nicotine dependence Plan Echocardiogram with Doppler study performed on the fourth of this month revealed an ejection fraction of 40-45%. From cardiology's perspective, at this time we will continue the patient on his current medications. DNP note has been reviewed, I agree with a documented findings and plan of care. Patient was seen and examined.
[2018-05-29] MEDS: POTASSIUM CHLORIDE ER 10 MEQ TAB.ER.PRT PO SCH (16:09)
[2018-05-29 16:44] LABS: Glucose,Whole Blood 158 mg/dL (75-99)
[2018-05-29 21:26] LABS: Glucose,Whole Blood 204 mg/dL (75-99)
[2018-05-29] MEDS: DOXAZOSIN 4 MG TAB PO SCH (22:06)
[2018-05-29] MEDS: LISINOPRIL 5 MG TAB PO SCH (22:06)
[2018-05-30 05:55] LABS: Glucose,Whole Blood 156 mg/dL (75-99)
[2018-05-30] MEDS: SULFACETAMIDE SOD 10% OPHTH DROPS 15 ML BTL BOTH EYES SCH ×6 (06:17→21:37)
[2018-05-30] MEDS: LEVOTHYROXINE 75 MCG TAB PO SCH (06:18)
[2018-05-30] MEDS: PANTOPRAZOLE 40 MG TABLET PO SCH (06:18)
[2018-05-30] MEDS: INSULIN ASPART 100 UNIT/ML 1 ML 10 ML VIAL SQ SCH ×4 (06:23→21:56)
[2018-05-30 06:44] LABS: HCT 39.2 % (39.0-53.0); HGB 12.5 gm/dL (13.0-17.5); MCH 30.2 pg (25.0-35.0); MCHC 31.9 g/dL (31.0-37.0); MCV 94.9 fL (80.0-100.0); Platelet Count 160 k/uL (150-450); RBC 4.13 m/uL (4.30-5.90); WBC 7.4 k/uL (3.8-10.6)
[2018-05-30 06:58] LABS: Potassium 4.1 mmol/L (3.5-5.1)
[2018-05-30] MEDS: IPRATROPIUM-ALBUTEROL 3 ML NEB INHALATION SCH ×3 (08:34→20:16)
[2018-05-30] MEDS: AMIODARONE 100 MG TAB PO SCH (09:05)
[2018-05-30] MEDS: ATORVASTATIN 10 MG TAB PO SCH (09:05)
[2018-05-30] MEDS: AMOXIC-POT CLAV 875-125MG 1 EACH TAB PO SCH (09:06)
[2018-05-30] MEDS: NYSTATIN 100,000 UNIT/ML SUSP 500,000 UNIT/5 ML CUP PO SCH ×4 (09:07→21:37)
[2018-05-30] MEDS: FUROSEMIDE 40 MG TAB PO SCH (09:07)
[2018-05-30] MEDS: POTASSIUM CHLORIDE ER 20 MEQ TAB.ER PO SCH (09:07)
[2018-05-30] MEDS: METOPROLOL TARTRATE 25 MG TAB PO SCH ×3 (09:07→21:37)
[2018-05-30] MEDS: ACETAMINOPHEN TAB 325 MG TAB PO PRN ×2 (09:13→16:13)
[2018-05-30] MEDS: THIAMINE 100 MG TAB PO SCH (11:01)
[2018-05-30 11:39] LABS: Glucose,Whole Blood 253 mg/dL (75-99)
--- NOTE | 2018-05-30 12:27 | XR ---
EXAMINATION TYPE: XR chest 1V portable DATE OF EXAM: 05/30/2018 HISTORY: Shortness of breath. COMPARISON: May 27, 2018 TECHNIQUE: Single view of the chest is submitted. FINDINGS: Demonstrated are scattered senescent parenchymal change. Scattered patchy infiltrates about the right perihilar and left basilar regions may reflect developin g pneumonia or early features of pulmonary edema. Correlate clinically and progress studies are recom mended. The heart is stable. Hilar and mediastinal structures are within normal limits. Degenerative changes are seen of the dorsal spine. IMPRESSION: 1. Scattered patchy infiltrates about the right perihilar and left basilar regions may reflect devel oping pneumonia or early features of pulmonary edema. Correlate clinically and progress studies are r ecommended.
--- NOTE | 2018-05-30 13:48 | P.PN ---
Subjective Patient is admitted for a atrial fibrillation with rapid ventricular rate unsure whether patient has CHF exacerbation continue with present oral Lasix. We will obtain a BNP. Rate is well controlled kidney function did improve patient is mildly hyponatremic. Patient is still lethargic but more awake and able to eat by himself. 05/29/2018 Clinical condition no significant change patient has issues with the swallowing during his last hospital admission patient had aspiration pneumonia and patient is still on Augmentin. Patient is supposed to be on thick liquids which the patient doesn't like. We'll get speech therapy evaluation again see if there is any change in his swallow. 05/30/2018 Patient is severely lethargic obtained a chest x-ray which is showing significant pulmonary edema. Patient probably aspirated does have low-grade fever Augmentin will be disc in your patient was started on Zosyn and blood cultures urine culture CA will be obtained. Patient prognosis is extremely poor. We'll discuss with the family regarding comfort care and hospice. Unable to answer much of questions today because of severe lethargy Objective - Vital Signs Vital signs: Vital Signs Temp 98.0 F 05/30/18 10:59 Pulse 100 05/30/18 13:32 Resp 16 05/30/18 12:56 BP 114/77 05/30/18 12:56 Pulse Ox 94 L 05/30/18 12:56 Intake & Output 05/29/18 05/30/18 05/30/18 18:59 06:59 18:59 Intake Total 616 90 Balance 616 90 Weight 74 kg Intake: IV 200 Sodium Chloride 0.9% 1, 200 000 ml @ 50 mls/hr IV . Q20H [facility] Rx#:[id number] Oral 416 90 Other: Voiding Method Diaper Diaper # Voids 2 1 2 # Bowel Movements 1 - Exam PHYSICAL EXAMINATION: GENERAL: The patient is alert and oriented x3, not in any acute distress. Severely lethargic HEENT: Pupils are round and equally reacting to light. EOMI. No scleral icterus. No conjunctival pallor. Normocephalic, atraumatic. No pharyngeal erythema. No thyromegaly. CARDIOVASCULAR: S1 and S2 present. No murmurs, rubs, or gallops. Tachycardic irregularly irregular rhythm PULMONARY: Chest is clear to auscultation, no wheezing or crackles. ABDOMEN: Soft, nontender, nondistended, normoactive bowel sounds. No palpable organomegaly. MUSCULOSKELETAL: No joint swelling or deformity. EXTREMITIES: No cyanosis, clubbing, or pedal edema. NEUROLOGICAL: Gross neurological examination did not reveal any focal deficits. SKIN: No rashes. - Labs CBC & Chem 7: 05/30/18 06:23 05/30/18 06:23 Labs: Abnormal Lab Results - Last 24 Hours (Table) 05/29/18 05/29/18 05/30/18 Range/Units 16:35 21:11 05:53 RBC (4.30-5.90) m/uL Hgb (13.0-17.5) gm/dL Sodium (137-145) mmol/L BUN (9-20) mg/dL Glucose (74-99) mg/dL POC Glucose (mg/dL) 158 H 204 H 156 H (75-99) mg/dL Calcium (8.4-10.2) mg/dL 05/30/18 05/30/18 05/30/18 Range/Units 06:23 06:23 11:35 RBC 4.13 L (4.30-5.90) m/uL Hgb 12.5 L (13.0-17.5) gm/dL Sodium 135 L (137-145) mmol/L BUN 21 H (9-20) mg/dL Glucose 160 H (74-99) mg/dL POC Glucose (mg/dL) 253 H (75-99) mg/dL Calcium 8.0 L (8.4-10.2) mg/dL Assessment and Plan Plan: -Atrial fibrillation with rapid ventricular rate: Patient does have chronic persistent atrial fibrillation patient will be resumed on his rate control medications, heart rate still high and patient is not on anticoagulant because of his recent subarachnoid hemorrhage -Fever, probably secondary to aspiration again. Patient was switched to Zosyn and urine culture blood cultures are being obtained -Hypertension -Type 2 diabetes mellitus next and-hyperlipemia -Congestive heart failure chronic systolic dysfunction in acute exacerbation, pulmonary was consulted may need Lasix. -Chronic kidney disease stage III creatinine is around his baseline. There is superimposed acute renal failure which improved probably due to heart failure -Hypothyroidism -Dysphagia with the recent aspiration: Speech therapy reviewed -CODE STATUS DO NOT RESUSCITATE
--- NOTE | 2018-05-30 14:51 | P.CNPUL ---
History of Present Illness Consult date: 05/30/18 Requesting physician: Marce Elizondo Reason for consult: dyspnea Chief complaint: Shortness of breath, rapid heart rate History of present illness: This is an 82-year-old gentleman who follows with Dr. Deleon as his primary care physician. He has a history of atrial fibrillation, systolic congestive heart failure with ejection fraction 40-45%, diabetes mellitus, hypertension, hypothyroidism, macular degeneration, hyperlipidemia, chronic kidney disease stage III, prior history of nicotine dependence, gait dysfunction. 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 He was presented here again on May 17 for hypoxemia and altered mental status. We had seen and evaluated the patient at that time. He was subsequently again transferred to an extended care facility for further rehabilitation on 05/21/2018. He presented here again on 05/26/2018. He was found to have atrial fibrillation with a rapid ventricular response and was admitted to the selective care unit. We are consulted today for evaluation of his ongoing dyspnea. Today's chest x-ray shows scattered patchy infiltrates throughout the right perihilar and left basilar regions which may reflect developing pneumonia or early features of pulmonary edema. No leukocytosis. He did have a T-max of 100.3 yesterday currently afebrile. Urine culture revealed no growth. He is maintaining O2 saturations in the 90s on room air. He remains tachycardic at 119. Blood pressure stable. He is currently difficult to arouse. Unable to obtain any history from the patient. He is a DO NOT RESUSCITATE/DO NOT INTUBATE CODE STATUS per family request. Review of Systems ROS unobtainable: due to mental status Past Medical History Past Medical History: Atrial Fibrillation, Heart Failure, CVA/TIA, Diabetes Mellitus, Hypertension, Pneumonia, Thyroid Disorder Additional Past Medical History / Comment(s): macular degeneration, massive stroke History of Any Multi-Drug Resistant Organisms: None Reported Past Surgical History: Orthopedic Surgery Additional Past Surgical History / Comment(s): hemorroidectomy, bilateral knee surgery Past Psychological History: No Psychological Hx Reported Smoking Status: Former smoker Past Alcohol Use History: Rare Past Drug Use History: None Reported Medications and Allergies Home Medications Medication Instructions Recorded Confirmed Type Acetaminophen/Diphenhydramine 1 tab PO HS 05/27/18 05/27/18 History [Tylenol PM 500-25mg] Amiodarone [Cordarone] 100 mg PO DAILY 05/27/18 05/27/18 History Atorvastatin [Lipitor] 10 mg PO HS 05/27/18 05/27/18 History Calcium/Magnesium/Zinc 1 tab PO DAILY@119905/27/18 05/27/18 History [Wtjfgfl-Eusenprvl-Iobq Tablet] Dexamethasone [Decadron] 2 mg PO DAILY 05/27/18 05/27/18 History Dimethicone/Zinc Oxide [Inzo Zinc 1 applic TOPICAL BID 05/27/18 05/27/18 History Oxide Barrier Cream] Doxazosin [Cardura] 4 mg PO HS 05/27/18 05/27/18 History Finasteride [Proscar] 5 mg PO DAILY 05/27/18 05/27/18 History Fluticasone/Vilanterol [Breo 1 puff INHALATION RT-DAILY 05/27/18 05/27/18 History Ellipta 100-25 Mcg Inhaler] Folic Acid 1 mg PO DAILY@119905/27/18 05/27/18 History Furosemide [Lasix] 40 mg PO DAILY@59905/27/18 05/27/18 History INSULIN LISPRO (HumaLOG) [HumaLOG] See Protocol SQ ACHS 05/27/18 05/27/18 History Insulin Glargine,Hum.rec.anlog 10 unit SQ 05/27/18 05/27/18 History [Basaglar Kwikpen U-100] Ipratropium-Albuterol Nebulize 3 ml INHALATION RT-Q4H PRN 05/27/18 05/27/18 History [Duoneb 0.5 mg-3 mg/3 ml Soln] Ipratropium-Albuterol Nebulize 3 ml INHALATION RT-TID 05/27/18 05/27/18 History [Duoneb 0.5 mg-3 mg/3 ml Soln] Levothyroxine Sodium [Synthroid] 75 mcg PO DAILY@59905/27/18 05/27/18 History Metoprolol Tartrate 25 mg PO BID 05/27/18 05/27/18 History Multivits,Th W-Ca,Fe,Oth Min 1 tab PO DAILY@119905/27/18 05/27/18 History [Therapeutic M] [place]-3 Fatty Acids/Fish Oil [Fish 1 cap PO DAILY@1200 05/27/18 05/27/18 History Oil 1,000 mg Softgel] Pantoprazole Sodium [Protonix] 40 mg PO DAILY 05/27/18 05/27/18 History Potassium Chloride [Klor-Con 20] 10 meq PO DAILY@1700 05/27/18 05/27/18 History Potassium Chloride [Klor-Con 20] 20 meq PO DAILY@0900 05/27/18 05/27/18 History Sulfacetamide Sodium 2 drop BOTH EYES Q4H 05/27/18 05/27/18 History [Sulfacetamide Sod 10% Ophth Soln] Thiamine HCl [Vitamin B-1] 100 mg PO DAILY@1200 05/27/18 05/27/18 History Turmeric Root Extract [Turmeric] 500 mg PO HS 05/27/18 05/27/18 History Allergies Allergy/AdvReac Type Severity Reaction Status Date / Time No Known Allergies Allergy Verified 05/26/18 23:19 Physical Exam Vitals: Vital Signs Temp Pulse Pulse Pulse Resp BP Pulse Ox 05/30/18 13:32 100 05/30/18 13:21 100 05/30/18 12:56 119 H 16 114/77 94 L 05/30/18 10:59 98.0 F 05/30/18 08:59 100.3 F H 05/30/18 08:56 117 H 20 106/62 94 L 05/30/18 08:44 108 H 05/30/18 08:34 100 05/30/18 04:00 97.8 F 88 88 18 114/88 94 L 05/30/18 00:00 98.9 F 113 H 20 128/81 92 L 05/29/18 20:30 108 H 05/29/18 20:23 108 H 05/29/18 20:00 99.5 F 113 H 20 155/99 92 L 05/29/18 16:00 98.5 F 115 H 16 112/63 95 Intake and Output 05/29/18 05/30/18 05/30/18 22:59 06:59 14:59 Intake Total 436 90 Balance 436 90 Intake: IV 200 Sodium Chloride 0.9% 1, 200 000 ml @ 50 mls/hr IV . Q20H [facility] Rx#:[id number] Oral 236 90 Other: Voiding Method Diaper Diaper Diaper # Voids 1 2 Weight 74 kg GENERAL EXAM: Difficult to arouse, lethargic. HEAD: Normocephalic. EYES: Normal reaction of pupils, equal size. NOSE: Clear with pink turbinates. THROAT: No erythema or exudates. NECK: No masses, no JVD. CHEST: No chest wall deformity. LUNGS: Equal air entry with crackles in the bilateral posterior bases. CVS: S1 and S2 normal with no audible murmur, irregular rhythm. Tachycardic. ABDOMEN: No hepatosplenomegaly, normal bowel sounds, no guarding or rigidity. SPINE: No scoliosis or deformity SKIN: No rashes CENTRAL NERVOUS SYSTEM: Tone is normal in all 4 extremities. EXTREMITIES: There is no peripheral edema. No clubbing, no cyanosis. Peripheral pulses are intact. Results - Laboratory Findings CBC and BMP: 05/30/18 06:23 05/30/18 06:23 PT/INR, D-dimer PT 10.9 sec (9.0-12.0) 05/26/18 23:10 INR 1.1 (<1.2) 05/26/18 23:10 Abnormal lab findings: Abnormal Labs 05/26/18 05/26/18 05/26/18 11:00 23:10 23:10 RBC Hgb Hct Plt Count 105 L Lymphocytes # 0.4 L VBG pH VBG pCO2 VBG HCO3 Sodium Potassium Carbon Dioxide BUN Creatinine Glucose POC Glucose (mg/dL) Hemoglobin A1c Plasma Lactic Acid Raffy Calcium AST Total Creatine Kinase 21 L Total Protein Albumin Urine Glucose (UA) 2+ H Urine Blood Trace H Urine Mucus Rare H 05/26/18 05/26/18 05/26/18 23:10 23:10 23:10 RBC Hgb Hct Plt Count Lymphocytes # VBG pH 7.44 H VBG pCO2 33 L VBG HCO3 22 L Sodium 136 L Potassium 3.4 L Carbon Dioxide 21 L BUN 35 H Creatinine 1.50 H Glucose 312 H POC Glucose (mg/dL) Hemoglobin A1c Plasma Lactic Acid Raffy 2.3 H* Calcium 8.2 L AST 14 L Total Creatine Kinase Total Protein 5.1 L Albumin 2.8 L Urine Glucose (UA) Urine Blood Urine Mucus 05/26/18 05/27/18 05/27/18 23:10 05:51 06:01 RBC Hgb Hct Plt Count Lymphocytes # VBG pH VBG pCO2 VBG HCO3 Sodium Potassium Carbon Dioxide BUN Creatinine Glucose POC Glucose (mg/dL) 236 H Hemoglobin A1c 8.3 H Plasma Lactic Acid Raffy Calcium AST Total Creatine Kinase 23 L Total Protein Albumin Urine Glucose (UA) Urine Blood Urine Mucus 05/27/18 05/27/18 05/27/18 11:47 12:16 16:22 RBC Hgb Hct Plt Count Lymphocytes # VBG pH VBG pCO2 VBG HCO3 Sodium Potassium Carbon Dioxide BUN Creatinine Glucose POC Glucose (mg/dL) 180 H 216 H Hemoglobin A1c Plasma Lactic Acid Raffy Calcium AST Total Creatine Kinase <20 L Total Protein Albumin Urine Glucose (UA) Urine Blood Urine Mucus 05/27/18 05/28/18 05/28/18 20:40 05:30 05:30 RBC 4.09 L Hgb 12.7 L Hct 38.5 L Plt Count 122 L Lymphocytes # 0.9 L VBG pH VBG pCO2 VBG HCO3 Sodium 134 L Potassium Carbon Dioxide BUN 24 H Creatinine Glucose 127 H POC Glucose (mg/dL) 157 H Hemoglobin A1c Plasma Lactic Acid Raffy Calcium 7.7 L AST Total Creatine Kinase Total Protein 4.6 L Albumin 2.4 L Urine Glucose (UA) Urine Blood Urine Mucus 05/28/18 05/28/18 05/28/18 05:51 11:21 16:14 RBC Hgb Hct Plt Count Lymphocytes # VBG pH VBG pCO2 VBG HCO3 Sodium Potassium Carbon Dioxide BUN Creatinine Glucose POC Glucose (mg/dL) 134 H 257 H 161 H Hemoglobin A1c Plasma Lactic Acid Raffy Calcium AST Total Creatine Kinase Total Protein Albumin Urine Glucose (UA) Urine Blood Urine Mucus 05/28/18 05/29/18 05/29/18 20:28 05:41 11:22 RBC Hgb Hct Plt Count Lymphocytes # VBG pH VBG pCO2 VBG HCO3 Sodium 134 L Potassium Carbon Dioxide BUN 24 H Creatinine Glucose 214 H POC Glucose (mg/dL) 284 H 153 H Hemoglobin A1c Plasma Lactic Acid Raffy Calcium 8.0 L AST Total Creatine Kinase Total Protein Albumin Urine Glucose (UA) Urine Blood Urine Mucus 05/29/18 05/29/18 05/29/18 11:39 16:35 21:11 RBC Hgb Hct Plt Count Lymphocytes # VBG pH VBG pCO2 VBG HCO3 Sodium Potassium Carbon Dioxide BUN Creatinine Glucose POC Glucose (mg/dL) 214 H 158 H 204 H Hemoglobin A1c Plasma Lactic Acid Raffy Calcium AST Total Creatine Kinase Total Protein Albumin Urine Glucose (UA) Urine Blood Urine Mucus 05/30/18 05/30/18 05/30/18 05:53 06:23 06:23 RBC 4.13 L Hgb 12.5 L Hct Plt Count Lymphocytes # VBG pH VBG pCO2 VBG HCO3 Sodium 135 L Potassium Carbon Dioxide BUN 21 H Creatinine Glucose 160 H POC Glucose (mg/dL) 156 H Hemoglobin A1c Plasma Lactic Acid Raffy Calcium 8.0 L AST Total Creatine Kinase Total Protein Albumin Urine Glucose (UA) Urine Blood Urine Mucus 05/30/18 11:35 RBC Hgb Hct Plt Count Lymphocytes # VBG pH VBG pCO2 VBG HCO3 Sodium Potassium Carbon Dioxide BUN Creatinine Glucose POC Glucose (mg/dL) 253 H Hemoglobin A1c Plasma Lactic Acid Raffy Calcium AST Total Creatine Kinase Total Protein Albumin Urine Glucose (UA) Urine Blood Urine Mucus - Diagnostic Findings Chest x-ray: image reviewed Assessment and Plan Assessment: Impression: #1 Acute exacerbation of systolic congestive heart failure with ejection fraction 40-45% secondary to atrial fibrillation with rapid ventricular response. #2 Altered mental status. #3 Recent admission for acute hypoxic respiratory failure secondary to aspiration pneumonia. #4 Acute on chronic renal failure. #5 Recent evolving subacute MCA distribution infarct along with moderate diffuse age-related cerebral atrophy and chronic small vessel ischemic changes. #6 Hypothyroidism. #7 Hypertension. #8 Hyperlipidemia. #9 Cholelithiasis. #10 Poor overall functional performance based on the above-mentioned multiple comorbidities. Plan: The patient was seen and evaluated by Dr. Berumen. Chest x-ray and labs were reviewed. The patient has been initiated on Zosyn. Currently on diuretics. His overall prognosis remains quite guarded and poor. He is a DO NOT RESUSCITATE/DO NOT INTUBATE CODE STATUS. He may benefit from a hospice referral. In the interim we'll continue to follow and make further recommendations based on his clinical status. I, the cosigning physician, performed a history & physical examination of the patient. Lungs sounds with crackles in the bilateral posterior bases. Maintaining good O2 saturations in the 90s on room air. I discussed the assessment and plan of care with my nurse practitioner, Kailee Ross. I attest to the above note as dictated by her. Time with Patient: Greater than 30
[2018-05-30] MEDS: POTASSIUM CHLORIDE ER 10 MEQ TAB.ER.PRT PO SCH (16:12)
[2018-05-30] MEDS: PIPERACILLIN-TAZOBACTAM 3.375 GM in DEXTROSE/WATER 1 50ML.BAG IVPB SCH (16:13)
[2018-05-30 17:08] LABS: Glucose,Whole Blood 253 mg/dL (75-99)
[2018-05-30 21:20] LABS: Glucose,Whole Blood 202 mg/dL (75-99)
[2018-05-30] MEDS: LISINOPRIL 5 MG TAB PO SCH (21:37)
[2018-05-30] MEDS: DOXAZOSIN 4 MG TAB PO SCH (21:37)
[2018-05-31] MEDS: SULFACETAMIDE SOD 10% OPHTH DROPS 15 ML BTL BOTH EYES SCH ×6 (01:06→21:38)
[2018-05-31] MEDS: PIPERACILLIN-TAZOBACTAM 3.375 GM in DEXTROSE/WATER 1 50ML.BAG IVPB SCH ×3 (01:06→16:21)
[2018-05-31 06:14] LABS: Glucose,Whole Blood 173 mg/dL (75-99)
[2018-05-31] MEDS: PANTOPRAZOLE 40 MG TABLET PO SCH (06:43)
[2018-05-31] MEDS: LEVOTHYROXINE 75 MCG TAB PO SCH (06:43)
[2018-05-31] MEDS: INSULIN ASPART 100 UNIT/ML 1 ML 10 ML VIAL SQ SCH ×4 (06:48→21:36)
[2018-05-31] MEDS: IPRATROPIUM-ALBUTEROL 3 ML NEB INHALATION SCH ×3 (07:06→21:22)
[2018-05-31] MEDS: AMIODARONE 100 MG TAB PO SCH (09:38)
[2018-05-31] MEDS: ATORVASTATIN 10 MG TAB PO SCH (09:38)
[2018-05-31] MEDS: FUROSEMIDE 40 MG TAB PO SCH (09:38)
[2018-05-31] MEDS: POTASSIUM CHLORIDE ER 20 MEQ TAB.ER PO SCH (09:38)
[2018-05-31] MEDS: METOPROLOL TARTRATE 25 MG TAB PO SCH ×3 (09:38→21:36)
[2018-05-31] MEDS: NYSTATIN 100,000 UNIT/ML SUSP 500,000 UNIT/5 ML CUP PO SCH ×4 (09:38→21:36)
[2018-05-31] MEDS: THIAMINE 100 MG TAB PO SCH (09:39)
--- NOTE | 2018-05-31 11:20 | P.PN ---
Subjective Progress Note Date: 05/31/18 Principal diagnosis: Acute exacerbation of chronic systolic congestive heart failure with ejection fraction 40-45% secondary to atrial fibrillation with rapid ventricular response This is an 82-year-old gentleman who follows with Dr. Deleon as his primary care physician. He has a history of atrial fibrillation, systolic congestive heart failure with ejection fraction 40-45%, diabetes mellitus, hypertension, hypothyroidism, macular degeneration, hyperlipidemia, chronic kidney disease stage III, prior history of nicotine dependence, gait dysfunction. 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 He was presented here again on May 17 for hypoxemia and altered mental status. We had seen and evaluated the patient at that time. He was subsequently again transferred to an extended care facility for further rehabilitation on 05/21/2018. He presented here again on 05/26/2018. He was found to have atrial fibrillation with a rapid ventricular response and was admitted to the selective care unit. We are consulted today for evaluation of his ongoing dyspnea. Today's chest x-ray shows scattered patchy infiltrates throughout the right perihilar and left basilar regions which may reflect developing pneumonia or early features of pulmonary edema. No leukocytosis. He did have a T-max of 100.3 yesterday currently afebrile. Urine culture revealed no growth. He is maintaining O2 saturations in the 90s on room air. He remains tachycardic at 119. Blood pressure stable. He is currently difficult to arouse. Unable to obtain any history from the patient. He is a DO NOT RESUSCITATE/DO NOT INTUBATE CODE STATUS per family request. The patient seen again today May 31 2018 in follow-up on the selective care unit. He opens his eyes to verbal stimuli currently nonverbal. He is in no acute distress. He is currently maintaining O2 saturations in the 90s on room air he's been afebrile. Hemodynamically stable. He remains on bronchodilators and Zosyn. He remains an aspiration precautions. Objective - Vital Signs Vital signs: Vital Signs Temp 98.3 F 05/31/18 08:46 Pulse 100 05/31/18 08:46 Resp 18 05/31/18 08:46 BP 104/63 05/31/18 08:46 Pulse Ox 91 L 05/31/18 08:46 Intake & Output 05/30/18 05/31/18 05/31/18 18:59 06:59 18:59 Intake Total 180 140 246 Output Total 3 6 Balance 177 134 246 Weight 72.5 kg Intake: IV 30 10 Invasive Line 2 30 10 Intake, IV Titration 50 Amount Piperacillin-Tazobactam 3 50 .375 gm In Dextrose/Water 1 50ml.bag @ 12.5 mls/hr IVPB Q8HR [facility] Rx#: [id number] Oral 180 60 236 Output: Stool 3 6 Other: Voiding Method Diaper Diaper # Voids 1 3 1 # Bowel Movements 1 1 - Exam GENERAL EXAM: Difficult to arouse, lethargic. HEAD: Normocephalic. EYES: Normal reaction of pupils, equal size. NOSE: Clear with pink turbinates. THROAT: No erythema or exudates. NECK: No masses, no JVD. CHEST: No chest wall deformity. LUNGS: Equal air entry with crackles in the bilateral posterior bases. CVS: S1 and S2 normal with no audible murmur, irregular rhythm. Tachycardic. ABDOMEN: No hepatosplenomegaly, normal bowel sounds, no guarding or rigidity. SPINE: No scoliosis or deformity SKIN: No rashes CENTRAL NERVOUS SYSTEM: Tone is normal in all 4 extremities. EXTREMITIES: There is no peripheral edema. No clubbing, no cyanosis. Peripheral pulses are intact. - Labs CBC & Chem 7: 05/30/18 06:23 05/30/18 06:23 Labs: Abnormal Lab Results - Last 24 Hours (Table) 05/30/18 05/30/18 05/30/18 Range/Units 11:35 16:43 21:19 POC Glucose (mg/dL) 253 H 253 H 202 H (75-99) mg/dL 05/31/18 Range/Units 06:12 POC Glucose (mg/dL) 173 H (75-99) mg/dL Microbiology - Last 24 Hours (Table) 05/30/18 15:40 Urine Culture - Preliminary Urine,Voided Assessment and Plan Assessment: Impression: #1 Acute exacerbation of systolic congestive heart failure with ejection fraction 40-45% secondary to atrial fibrillation with rapid ventricular response. #2 Altered mental status. #3 Recent admission for acute hypoxic respiratory failure secondary to aspiration pneumonia. #4 Acute on chronic renal failure. #5 Recent evolving subacute MCA distribution infarct along with moderate diffuse age-related cerebral atrophy and chronic small vessel ischemic changes. #6 Hypothyroidism. #7 Hypertension. #8 Hyperlipidemia. #9 Cholelithiasis. #10 Poor overall functional performance based on the above-mentioned multiple comorbidities. Plan: The patient was seen and evaluated by Dr. eBrumen. The patient remains aspiration precautions. Continued on bronchodilators and Zosyn. We'll continue to follow and make further recommendations based on his clinical status. I, the cosigning physician, performed a history & physical examination of the patient. Lungs sounds with crackles in the bilateral posterior bases. Maintaining good O2 saturations in the 90s on room air. I discussed the assessment and plan of care with my nurse practitioner, Kailee Ross. I attest to the above note as dictated by her.
[2018-05-31 11:51] LABS: Glucose,Whole Blood 206 mg/dL (75-99)
--- NOTE | 2018-05-31 15:51 | P.PN ---
Subjective Patient is admitted for a atrial fibrillation with rapid ventricular rate unsure whether patient has CHF exacerbation continue with present oral Lasix. We will obtain a BNP. Rate is well controlled kidney function did improve patient is mildly hyponatremic. Patient is still lethargic but more awake and able to eat by himself. 05/29/2018 Clinical condition no significant change patient has issues with the swallowing during his last hospital admission patient had aspiration pneumonia and patient is still on Augmentin. Patient is supposed to be on thick liquids which the patient doesn't like. We'll get speech therapy evaluation again see if there is any change in his swallow. 05/30/2018 Patient is severely lethargic obtained a chest x-ray which is showing significant pulmonary edema. Patient probably aspirated does have low-grade fever Augmentin will be disc in your patient was started on Zosyn and blood cultures urine culture CA will be obtained. Patient prognosis is extremely poor. We'll discuss with the family regarding comfort care and hospice. Unable to answer much of questions today because of severe lethargy 05/31/2018 No significant overnight events patient is doing minimally better, did eat by himself. Although his overall prognosis is extremely poor. We'll discuss with family members regarding his overall goals of care Objective - Vital Signs Vital signs: Vital Signs Temp 98.1 F 05/31/18 12:00 Pulse 110 H 05/31/18 13:43 Resp 18 05/31/18 12:00 BP 111/73 05/31/18 12:00 Pulse Ox 93 L 05/31/18 12:00 Intake & Output 05/30/18 05/31/18 05/31/18 18:59 06:59 18:59 Intake Total 525 957 3628 Output Total 3 6 Balance 149 454 2870 Weight 72.5 kg Intake: IV 30 10 Invasive Line 2 30 10 Intake, IV Titration 50 50 Amount Piperacillin-Tazobactam 3 50 50 .375 gm In Dextrose/Water 1 50ml.bag @ 12.5 mls/hr IVPB Q8HR [facility] Rx#: [id number] Oral 560 45 6470 Output: Stool 3 6 Other: Voiding Method Diaper Diaper # Voids 1 3 1 # Bowel Movements 1 1 - Exam PHYSICAL EXAMINATION: GENERAL: The patient is alert and oriented x3, not in any acute distress. Severely lethargic HEENT: Pupils are round and equally reacting to light. EOMI. No scleral icterus. No conjunctival pallor. Normocephalic, atraumatic. No pharyngeal erythema. No thyromegaly. CARDIOVASCULAR: S1 and S2 present. No murmurs, rubs, or gallops. Tachycardic irregularly irregular rhythm PULMONARY: Chest is clear to auscultation, no wheezing or crackles. ABDOMEN: Soft, nontender, nondistended, normoactive bowel sounds. No palpable organomegaly. MUSCULOSKELETAL: No joint swelling or deformity. EXTREMITIES: No cyanosis, clubbing, or pedal edema. NEUROLOGICAL: Gross neurological examination did not reveal any focal deficits. SKIN: No rashes. - Labs CBC & Chem 7: 05/30/18 06:23 05/30/18 06:23 Labs: Abnormal Lab Results - Last 24 Hours (Table) 05/30/18 05/30/18 05/31/18 Range/Units 16:43 21:19 06:12 POC Glucose (mg/dL) 253 H 202 H 173 H (75-99) mg/dL 05/31/18 Range/Units 11:50 POC Glucose (mg/dL) 206 H (75-99) mg/dL Microbiology - Last 24 Hours (Table) 05/30/18 12:46 Blood Culture - Preliminary Blood No Growth after 24 hours 05/30/18 15:40 Urine Culture - Preliminary Urine,Voided Assessment and Plan Plan: -Atrial fibrillation with rapid ventricular rate: Patient does have chronic persistent atrial fibrillation patient will be resumed on his rate control medications, heart rate still high and patient is not on anticoagulant because of his recent subarachnoid hemorrhage -Fever, probably secondary to aspiration again. Patient was switched to Zosyn and urine culture blood cultures are being obtained -Hypertension -Type 2 diabetes mellitus next and-hyperlipemia -Congestive heart failure chronic systolic dysfunction in acute exacerbation, pulmonary was consulted may need Lasix. -Chronic kidney disease stage III creatinine is around his baseline. There is superimposed acute renal failure which improved probably due to heart failure -Hypothyroidism -Dysphagia with the recent aspiration: Speech therapy reviewed -CODE STATUS DO NOT RESUSCITATE
[2018-05-31] MEDS: POTASSIUM CHLORIDE ER 10 MEQ TAB.ER.PRT PO SCH (16:03)
[2018-05-31 16:28] LABS: Glucose,Whole Blood 237 mg/dL (75-99)
[2018-05-31 20:52] LABS: Glucose,Whole Blood 275 mg/dL (75-99)
[2018-05-31] MEDS: DOXAZOSIN 4 MG TAB PO SCH (21:36)
[2018-05-31] MEDS: LISINOPRIL 5 MG TAB PO SCH (21:36)
[2018-06-01] MEDS: PIPERACILLIN-TAZOBACTAM 3.375 GM in DEXTROSE/WATER 1 50ML.BAG IVPB SCH ×4 (00:42→23:27)
[2018-06-01] MEDS: ACETAMINOPHEN TAB 325 MG TAB PO PRN ×2 (00:42→12:43)
[2018-06-01] MEDS: SULFACETAMIDE SOD 10% OPHTH DROPS 15 ML BTL BOTH EYES SCH ×7 (02:33→21:39)
[2018-06-01 03:31] LABS: HCT 37.6 % (39.0-53.0); MCH 29.8 pg (25.0-35.0); MCV 93.1 fL (80.0-100.0); Mean Platelet Volume 6.9; Platelet Count 176 k/uL (150-450); RBC 4.04 m/uL (4.30-5.90); RDW 13.6 % (11.5-15.5); WBC 9.4 k/uL (3.8-10.6)
[2018-06-01 03:49] LABS: Calcium 8.1 mg/dL (8.4-10.2); Magnesium 1.9 mg/dL (1.6-2.3); Potassium 4.1 mmol/L (3.5-5.1)
[2018-06-01 06:11] LABS: Glucose,Whole Blood 234 mg/dL (75-99)
[2018-06-01] MEDS: LEVOTHYROXINE 75 MCG TAB PO SCH (06:47)
[2018-06-01] MEDS: PANTOPRAZOLE 40 MG TABLET PO SCH (06:47)
[2018-06-01] MEDS: INSULIN ASPART 100 UNIT/ML 1 ML 10 ML VIAL SQ SCH ×4 (06:53→21:38)
[2018-06-01] MEDS: IPRATROPIUM-ALBUTEROL 3 ML NEB INHALATION SCH ×3 (08:28→20:40)
[2018-06-01] MEDS: NYSTATIN 100,000 UNIT/ML SUSP 500,000 UNIT/5 ML CUP PO SCH ×4 (08:46→21:39)
[2018-06-01] MEDS: METOPROLOL TARTRATE 25 MG TAB PO SCH ×3 (08:47→21:34)
[2018-06-01] MEDS: ATORVASTATIN 10 MG TAB PO SCH (08:47)
[2018-06-01] MEDS: AMIODARONE 100 MG TAB PO SCH (08:47)
[2018-06-01] MEDS: FUROSEMIDE 40 MG TAB PO SCH (08:47)
[2018-06-01] MEDS: POTASSIUM CHLORIDE ER 20 MEQ TAB.ER PO SCH (08:47)
--- NOTE | 2018-06-01 12:04 | P.PN ---
Subjective Progress Note Date: 06/01/18 Principal diagnosis: Acute exacerbation of systolic congestive heart failure and atrial fibrillation with RVR. This is an 82-year-old gentleman who follows with Dr. Deleon as his primary care physician. He has a history of atrial fibrillation, systolic congestive heart failure with ejection fraction 40-45%, diabetes mellitus, hypertension, hypothyroidism, macular degeneration, hyperlipidemia, chronic kidney disease stage III, prior history of nicotine dependence, gait dysfunction. 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 He was presented here again on May 17 for hypoxemia and altered mental status. We had seen and evaluated the patient at that time. He was subsequently again transferred to an extended care facility for further rehabilitation on 05/21/2018. He presented here again on 05/26/2018. He was found to have atrial fibrillation with a rapid ventricular response and was admitted to the selective care unit. We are consulted today for evaluation of his ongoing dyspnea. Today's chest x-ray shows scattered patchy infiltrates throughout the right perihilar and left basilar regions which may reflect developing pneumonia or early features of pulmonary edema. No leukocytosis. He did have a T-max of 100.3 yesterday currently afebrile. Urine culture revealed no growth. He is maintaining O2 saturations in the 90s on room air. He remains tachycardic at 119. Blood pressure stable. He is currently difficult to arouse. Unable to obtain any history from the patient. He is a DO NOT RESUSCITATE/DO NOT INTUBATE CODE STATUS per family request. The patient seen again today May 31 2018 in follow-up on the selective care unit. He opens his eyes to verbal stimuli currently nonverbal. He is in no acute distress. He is currently maintaining O2 saturations in the 90s on room air he's been afebrile. Hemodynamically stable. He remains on bronchodilators and Zosyn. He remains an aspiration precautions. Reevaluated today on 06/01/2018, patient is basically about the same, opens eyes to verbal stimuli, not verbal, appears confused. Vitals were noted, heart rate remains elevated and irregular, his blood pressure is 122/72, O2 saturation is 97% on room air. Objective - Vital Signs Vital signs: Vital Signs Temp 97 F L 06/01/18 08:35 Pulse 120 H 06/01/18 08:44 Resp 20 06/01/18 08:35 BP 122/72 06/01/18 08:35 Pulse Ox 97 06/01/18 08:35 Intake & Output 05/31/18 06/01/18 06/01/18 18:59 06:59 18:59 Intake Total 1492 236 Balance 1492 236 Weight 73 kg Intake: IV 10 Invasive Line 2 10 Intake, IV Titration 50 Amount Piperacillin-Tazobactam 3 50 .375 gm In Dextrose/Water 1 50ml.bag @ 12.5 mls/hr IVPB Q8HR [facility] Rx#: [id number] Oral 1432 236 Other: # Voids 1 1 # Bowel Movements 1 - Exam GENERAL EXAM: Opens eyes to verbal stimuli, in no form of respiratory distress. HEAD: Normocephalic. EYES: Normal reaction of pupils, equal size. NOSE: Clear with pink turbinates. THROAT: No erythema or exudates. NECK: No masses, no JVD. CHEST: No chest wall deformity. LUNGS: Equal air entry with crackles in the bilateral posterior bases. CVS: S1 and S2 normal with no audible murmur, irregular rhythm. Tachycardic. ABDOMEN: No hepatosplenomegaly, normal bowel sounds, no guarding or rigidity. SPINE: No scoliosis or deformity SKIN: No rashes CENTRAL NERVOUS SYSTEM: Tone is normal in all 4 extremities. EXTREMITIES: There is no peripheral edema. No clubbing, no cyanosis. Peripheral pulses are intact. - Labs CBC & Chem 7: 06/01/18 03:17 06/01/18 03:17 Labs: Abnormal Lab Results - Last 24 Hours (Table) 05/31/18 05/31/18 06/01/18 Range/Units 16:25 20:51 03:17 RBC 4.04 L (4.30-5.90) m/uL Hgb 12.0 L (13.0-17.5) gm/dL Hct 37.6 L (39.0-53.0) % BUN (9-20) mg/dL Creatinine (0.66-1.25) mg/dL Glucose (74-99) mg/dL POC Glucose (mg/dL) 237 H 275 H (75-99) mg/dL Calcium (8.4-10.2) mg/dL 06/01/18 06/01/18 Range/Units 03:17 06:10 RBC (4.30-5.90) m/uL Hgb (13.0-17.5) gm/dL Hct (39.0-53.0) % BUN 26 H (9-20) mg/dL Creatinine 1.42 H (0.66-1.25) mg/dL Glucose 245 H (74-99) mg/dL POC Glucose (mg/dL) 234 H (75-99) mg/dL Calcium 8.1 L (8.4-10.2) mg/dL Microbiology - Last 24 Hours (Table) 05/30/18 15:40 Urine Culture - Final Urine,Voided 05/30/18 12:46 Blood Culture - Preliminary Blood No Growth after 24 hours Assessment and Plan Assessment: #1 Acute exacerbation of systolic congestive heart failure with ejection fraction 40-45% secondary to atrial fibrillation with rapid ventricular response. #2 Altered mental status. #3 Recent admission for acute hypoxic respiratory failure secondary to aspiration pneumonia. #4 Acute on chronic renal failure. #5 Recent evolving subacute MCA distribution infarct along with moderate diffuse age-related cerebral atrophy and chronic small vessel ischemic changes. #6 Hypothyroidism. #7 Hypertension. #8 Hyperlipidemia. #9 Cholelithiasis. #10 Poor overall functional performance based on the above-mentioned multiple comorbidities. Recommendation: Continue present supportive care measures, long-term prognosis remains very poor and guarded, will follow on when necessary basis. Time with Patient: Less than 30
[2018-06-01] MEDS ORDERED: FUROSEMIDE 10 MG/ML 4 ML VIAL IV STA (12:32)
[2018-06-01] MEDS: THIAMINE 100 MG TAB PO SCH (12:44)
[2018-06-01] MEDS ORDERED: FUROSEMIDE 40 MG TAB PO SCH (12:45)
--- NOTE | 2018-06-01 14:26 | P.PN ---
Subjective Patient is admitted for a atrial fibrillation with rapid ventricular rate unsure whether patient has CHF exacerbation continue with present oral Lasix. We will obtain a BNP. Rate is well controlled kidney function did improve patient is mildly hyponatremic. Patient is still lethargic but more awake and able to eat by himself. 05/29/2018 Clinical condition no significant change patient has issues with the swallowing during his last hospital admission patient had aspiration pneumonia and patient is still on Augmentin. Patient is supposed to be on thick liquids which the patient doesn't like. We'll get speech therapy evaluation again see if there is any change in his swallow. 05/30/2018 Patient is severely lethargic obtained a chest x-ray which is showing significant pulmonary edema. Patient probably aspirated does have low-grade fever Augmentin will be disc in your patient was started on Zosyn and blood cultures urine culture CA will be obtained. Patient prognosis is extremely poor. We'll discuss with the family regarding comfort care and hospice. Unable to answer much of questions today because of severe lethargy 05/31/2018 No significant overnight events patient is doing minimally better, did eat by himself. Although his overall prognosis is extremely poor. We'll discuss with family members regarding his overall goals of care 06/01/2018 Overall his clinical condition has worsened a bit patient became hypoxic does have bilateral crackles Lasix will be switched to IV. Discussed with the family regarding his overall goals of care and comfort care and hospice and family is not ready for that decision yet. Objective - Vital Signs Vital signs: Vital Signs Temp 99.4 F 06/01/18 12:00 Pulse 128 H 06/01/18 12:16 Resp 20 06/01/18 12:00 BP 128/74 06/01/18 12:00 Pulse Ox 95 06/01/18 12:00 Intake & Output 05/31/18 06/01/18 06/01/18 18:59 06:59 18:59 Intake Total 1492 286 Balance 1492 286 Weight 73 kg Intake: IV 10 Invasive Line 2 10 Intake, IV Titration 50 50 Amount Piperacillin-Tazobactam 3 50 50 .375 gm In Dextrose/Water 1 50ml.bag @ 12.5 mls/hr IVPB Q8HR [facility] Rx#: [id number] Oral 1432 236 Other: # Voids 1 1 3 # Bowel Movements 1 - Exam PHYSICAL EXAMINATION: GENERAL: The patient is alert and oriented x3, not in any acute distress. Severely lethargic HEENT: Pupils are round and equally reacting to light. EOMI. No scleral icterus. No conjunctival pallor. Normocephalic, atraumatic. No pharyngeal erythema. No thyromegaly. CARDIOVASCULAR: S1 and S2 present. No murmurs, rubs, or gallops. Tachycardic irregularly irregular rhythm PULMONARY: Chest is clear to auscultation, no wheezing or crackles. ABDOMEN: Soft, nontender, nondistended, normoactive bowel sounds. No palpable organomegaly. MUSCULOSKELETAL: No joint swelling or deformity. EXTREMITIES: No cyanosis, clubbing, or pedal edema. NEUROLOGICAL: Gross neurological examination did not reveal any focal deficits. SKIN: No rashes. - Labs CBC & Chem 7: 06/01/18 03:17 06/01/18 03:17 Labs: Abnormal Lab Results - Last 24 Hours (Table) 05/31/18 05/31/18 06/01/18 Range/Units 16:25 20:51 03:17 RBC 4.04 L (4.30-5.90) m/uL Hgb 12.0 L (13.0-17.5) gm/dL Hct 37.6 L (39.0-53.0) % BUN (9-20) mg/dL Creatinine (0.66-1.25) mg/dL Glucose (74-99) mg/dL POC Glucose (mg/dL) 237 H 275 H (75-99) mg/dL Calcium (8.4-10.2) mg/dL 06/01/18 06/01/18 Range/Units 03:17 06:10 RBC (4.30-5.90) m/uL Hgb (13.0-17.5) gm/dL Hct (39.0-53.0) % BUN 26 H (9-20) mg/dL Creatinine 1.42 H (0.66-1.25) mg/dL Glucose 245 H (74-99) mg/dL POC Glucose (mg/dL) 234 H (75-99) mg/dL Calcium 8.1 L (8.4-10.2) mg/dL Microbiology - Last 24 Hours (Table) 05/30/18 15:40 Urine Culture - Final Urine,Voided 05/30/18 12:46 Blood Culture - Preliminary Blood No Growth after 24 hours Assessment and Plan Plan: -Atrial fibrillation with rapid ventricular rate: Patient does have chronic persistent atrial fibrillation patient will be resumed on his rate control medications, heart rate still high and patient is not on anticoagulant because of his recent subarachnoid hemorrhage -Fever, probably secondary to aspiration again. Patient was switched to Zosyn and urine culture blood cultures are being obtained -Hypertension -Type 2 diabetes mellitus -hyperlipemia -Congestive heart failure chronic systolic dysfunction in acute exacerbation, patient was switched to IV Lasix. And is bit hypoxemic today -Chronic kidney disease stage III creatinine is around his baseline. There is superimposed acute renal failure which improved probably due to heart failure -Hypothyroidism -Dysphagia with the recent aspiration: Speech therapy reviewed -CODE STATUS DO NOT RESUSCITATE
[2018-06-01] MEDS: POTASSIUM CHLORIDE ER 10 MEQ TAB.ER.PRT PO SCH (15:49)
[2018-06-01 16:36] LABS: Glucose,Whole Blood 280 mg/dL (75-99)
[2018-06-01 18:14] LABS: Glucose,Whole Blood 289 mg/dL (75-99)
--- NOTE | 2018-06-01 18:31 | XR ---
EXAMINATION TYPE: XR chest 2V DATE OF EXAM: 06/01/2018 COMPARISON: 05/30/2018 HISTORY: Short of breath TECHNIQUE: Frontal and lateral views of the chest are obtained. FINDINGS: There are bilateral pulmonary infiltrates and more on the right side. Heart is borderline enlarged. There is no definite heart failure. There are chest leads. IMPRESSION: There is evidence of bilateral pneumonia there is worse on the right side. No definite h eart failure. No significant change.
--- NOTE | 2018-06-01 18:33 | CT ---
EXAMINATION TYPE: CT brain wo con DATE OF EXAM: 06/01/2018 COMPARISON: 05/17/2018 HISTORY: Left side facial droop. CT DLP: 1168 mGycm Automated exposure control for dose reduction was used. FINDINGS: There is cerebral cortical atrophy. There is no mass effect nor midline shift. There is extensive hyp odensity throughout the right temporal lobe. The calvarium is intact. IMPRESSION: CEREBRAL ATROPHY. OLD RIGHT TEMPORAL LOBE INFARCT WITHOUT MUCH CHANGE COMPARED TO LAST EXAM. NO EVIDE NCE OF A NEW INFARCT.
[2018-06-01 20:57] LABS: Glucose,Whole Blood 243 mg/dL (75-99)
[2018-06-01] MEDS: DOXAZOSIN 4 MG TAB PO SCH (21:34)
[2018-06-01] MEDS: FUROSEMIDE 10 MG/ML 4 ML VIAL IV SCH (21:38)
[2018-06-02] MEDS: SULFACETAMIDE SOD 10% OPHTH DROPS 15 ML BTL BOTH EYES SCH ×6 (03:17→20:06)
[2018-06-02 06:28] LABS: Calcium 8.1 mg/dL (8.4-10.2); Potassium 4.3 mmol/L (3.5-5.1)
[2018-06-02] MEDS: LEVOTHYROXINE 75 MCG TAB PO SCH (06:31)
[2018-06-02] MEDS: PANTOPRAZOLE 40 MG TABLET PO SCH (06:31)
[2018-06-02 06:33] LABS: Glucose,Whole Blood 203 mg/dL (75-99)
[2018-06-02] MEDS: INSULIN ASPART 100 UNIT/ML 1 ML 10 ML VIAL SQ SCH ×4 (06:43→21:47)
[2018-06-02] MEDS: IPRATROPIUM-ALBUTEROL 3 ML NEB INHALATION SCH ×3 (07:35→19:38)
--- NOTE | 2018-06-02 08:26 | PN ---
PROGRESS NOTE We were requested to see this patient again because of the respiratory distress and atrial fibrillation. This patient has a history of atrial fibrillation. He has a hemorrhagic stroke and respiratory distress. The patient spiked a temperature of 101 today. He is hardly responsive. Heart rate is 100 to 110, blood pressure is 100/70 mmHg. First and second heart sounds. Lungs examination reveals bilateral basal rales. Chest x-ray is suggestive of bilateral pneumonia. FINAL IMPRESSION: This patient's respiratory distress appears to be most likely due to bilateral pneumonia. The patient has atrial fibrillation with a heart rate of 100 to 110. Patient's overall prognosis remains poor and we will continue the current medications. MMODL / IJN: [id number] /
[2018-06-02] MEDS: FUROSEMIDE 10 MG/ML 4 ML VIAL IV SCH (09:24)
[2018-06-02] MEDS: AMIODARONE 100 MG TAB PO SCH (09:24)
[2018-06-02] MEDS: PIPERACILLIN-TAZOBACTAM 3.375 GM in DEXTROSE/WATER 1 50ML.BAG IVPB SCH ×3 (09:24→23:54)
[2018-06-02] MEDS: METOPROLOL TARTRATE 25 MG TAB PO SCH ×2 (09:24→17:33)
[2018-06-02] MEDS: NYSTATIN 100,000 UNIT/ML SUSP 500,000 UNIT/5 ML CUP PO SCH ×4 (09:25→20:06)
[2018-06-02] MEDS: POTASSIUM CHLORIDE ER 20 MEQ TAB.ER PO SCH (09:25)
[2018-06-02] MEDS: ATORVASTATIN 10 MG TAB PO SCH (09:25)
--- NOTE | 2018-06-02 11:27 | P.PN ---
Subjective Progress Note Date: 06/02/18 Principal diagnosis: Acute exacerbation of systolic congestive heart failure and atrial fibrillation with RVR. This is an 82-year-old gentleman who follows with Dr. Deleon as his primary care physician. He has a history of atrial fibrillation, systolic congestive heart failure with ejection fraction 40-45%, diabetes mellitus, hypertension, hypothyroidism, macular degeneration, hyperlipidemia, chronic kidney disease stage III, prior history of nicotine dependence, gait dysfunction. 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 He was presented here again on May 17 for hypoxemia and altered mental status. We had seen and evaluated the patient at that time. He was subsequently again transferred to an extended care facility for further rehabilitation on 05/21/2018. He presented here again on 05/26/2018. He was found to have atrial fibrillation with a rapid ventricular response and was admitted to the selective care unit. We are consulted today for evaluation of his ongoing dyspnea. Today's chest x-ray shows scattered patchy infiltrates throughout the right perihilar and left basilar regions which may reflect developing pneumonia or early features of pulmonary edema. No leukocytosis. He did have a T-max of 100.3 yesterday currently afebrile. Urine culture revealed no growth. He is maintaining O2 saturations in the 90s on room air. He remains tachycardic at 119. Blood pressure stable. He is currently difficult to arouse. Unable to obtain any history from the patient. He is a DO NOT RESUSCITATE/DO NOT INTUBATE CODE STATUS per family request. The patient seen again today May 31 2018 in follow-up on the selective care unit. He opens his eyes to verbal stimuli currently nonverbal. He is in no acute distress. He is currently maintaining O2 saturations in the 90s on room air he's been afebrile. Hemodynamically stable. He remains on bronchodilators and Zosyn. He remains an aspiration precautions. Reevaluated today on 06/01/2018, patient is basically about the same, opens eyes to verbal stimuli, not verbal, appears confused. Vitals were noted, heart rate remains elevated and irregular, his blood pressure is 122/72, O2 saturation is 97% on room air. Reevaluated today on 06/02/2018, basically about the same. Chest x-ray from yesterday was reviewed, there is evidence of bilateral interstitial infiltrates , not clear whether the findings are findings of pneumonia or interstitial edema. I suspect this is mostly pulmonary edema since his BNP level today is over 7000. In the meantime he is covered empirically for presumptive aspiration pneumonia/with Zosyn. He also remains on Lasix at 40 mg IV push every 12 hours for underlying pulmonary edema. Objective - Vital Signs Vital signs: Vital Signs Temp 98 F 06/02/18 08:00 Pulse 110 H 06/02/18 11:23 Resp 19 06/02/18 11:23 BP 110/70 06/02/18 08:00 Pulse Ox 94 L 06/02/18 08:00 Intake & Output 06/01/18 06/02/18 06/02/18 18:59 06:59 18:59 Intake Total 526 150 130 Output Total 6 2 Balance 526 144 128 Weight 72 kg Intake: IV 20 40 Invasive Line 3 20 40 Intake, IV Titration 50 50 Amount Piperacillin-Tazobactam 3 50 50 .375 gm In Dextrose/Water 1 50ml.bag @ 12.5 mls/hr IVPB Q8HR [facility] Rx#: [id number] Oral 476 80 90 Output: Stool 6 2 Other: Voiding Method Diaper Diaper # Voids 3 2 - Exam GENERAL EXAM: Opens eyes to verbal stimuli, in no form of respiratory distress. HEAD: Normocephalic. EYES: Normal reaction of pupils, equal size. NOSE: Clear with pink turbinates. THROAT: No erythema or exudates. NECK: No masses, no JVD. CHEST: No chest wall deformity. LUNGS: Equal air entry with crackles in the bilateral posterior bases. CVS: S1 and S2 normal with no audible murmur, irregular rhythm. Tachycardic. ABDOMEN: No hepatosplenomegaly, normal bowel sounds, no guarding or rigidity. SPINE: No scoliosis or deformity SKIN: No rashes CENTRAL NERVOUS SYSTEM: Tone is normal in all 4 extremities. EXTREMITIES: Chronic venous stasis changes noted bilaterally. - Labs CBC & Chem 7: 06/01/18 03:17 06/02/18 05:28 Labs: Abnormal Lab Results - Last 24 Hours (Table) 06/01/18 06/01/18 06/01/18 Range/Units 11:38 16:25 20:56 BUN (9-20) mg/dL Creatinine (0.66-1.25) mg/dL Glucose (74-99) mg/dL POC Glucose (mg/dL) 289 H 280 H 243 H (75-99) mg/dL Calcium (8.4-10.2) mg/dL 06/02/18 06/02/18 Range/Units 05:28 06:32 BUN 25 H (9-20) mg/dL Creatinine 1.51 H (0.66-1.25) mg/dL Glucose 212 H (74-99) mg/dL POC Glucose (mg/dL) 203 H (75-99) mg/dL Calcium 8.1 L (8.4-10.2) mg/dL Microbiology - Last 24 Hours (Table) 05/30/18 12:46 Blood Culture - Preliminary Blood No Growth after 48 hours Assessment and Plan Assessment: #1 Acute exacerbation of systolic congestive heart failure with ejection fraction 40-45% secondary to atrial fibrillation with rapid ventricular response. #2 Altered mental status. #3 Recent admission for acute hypoxic respiratory failure secondary to aspiration pneumonia. #4 Acute on chronic renal failure. #5 Recent evolving subacute MCA distribution infarct along with moderate diffuse age-related cerebral atrophy and chronic small vessel ischemic changes. #6 Hypothyroidism. #7 Hypertension. #8 Hyperlipidemia. #9 Cholelithiasis. #10 Poor overall functional performance based on the above-mentioned multiple comorbidities. #11 abnormal chest x-ray, mostly consistent with pulmonary edema with abnormal BNP level, however considering the patient's neurological status, he is a set up for possible aspiration pneumonia and he remains on Zosyn. Recommendation: Continue present supportive care measures, long-term prognosis remains very poor and guarded, will follow Time with Patient: Less than 30
[2018-06-02 11:56] LABS: Glucose,Whole Blood 250 mg/dL (75-99)
[2018-06-02] MEDS: THIAMINE 100 MG TAB PO SCH (12:00)
--- NOTE | 2018-06-02 13:24 | P.PN ---
Subjective Patient is admitted for a atrial fibrillation with rapid ventricular rate unsure whether patient has CHF exacerbation continue with present oral Lasix. We will obtain a BNP. Rate is well controlled kidney function did improve patient is mildly hyponatremic. Patient is still lethargic but more awake and able to eat by himself. 05/29/2018 Clinical condition no significant change patient has issues with the swallowing during his last hospital admission patient had aspiration pneumonia and patient is still on Augmentin. Patient is supposed to be on thick liquids which the patient doesn't like. We'll get speech therapy evaluation again see if there is any change in his swallow. 05/30/2018 Patient is severely lethargic obtained a chest x-ray which is showing significant pulmonary edema. Patient probably aspirated does have low-grade fever Augmentin will be disc in your patient was started on Zosyn and blood cultures urine culture CA will be obtained. Patient prognosis is extremely poor. We'll discuss with the family regarding comfort care and hospice. Unable to answer much of questions today because of severe lethargy 05/31/2018 No significant overnight events patient is doing minimally better, did eat by himself. Although his overall prognosis is extremely poor. We'll discuss with family members regarding his overall goals of care 06/01/2018 Overall his clinical condition has worsened a bit patient became hypoxic does have bilateral crackles Lasix will be switched to IV. Discussed with the family regarding his overall goals of care and comfort care and hospice and family is not ready for that decision yet. 06/02/2018 Patient is more lethargic today BNP is elevated respiratory status did improve patient is to Because of which may concern is dehydration patient already has mild worsening in creatinine patient will be switched back to oral Lasix repeat chest x-ray showed bilateral lower lobes infiltrate may have aspiration pneumonia patient is already on Zosyn overall condition is extremely guarded I' m unable to get any History from the patient Objective - Vital Signs Vital signs: Vital Signs Temp 98 F 06/02/18 08:00 Pulse 100 06/02/18 12:00 Resp 19 06/02/18 12:00 BP 100/65 06/02/18 12:00 Pulse Ox 95 06/02/18 12:00 Intake & Output 06/01/18 06/02/18 06/02/18 18:59 06:59 18:59 Intake Total 526 150 130 Output Total 6 2 Balance 526 144 128 Weight 72 kg Intake: IV 20 40 Invasive Line 3 20 40 Intake, IV Titration 50 50 Amount Piperacillin-Tazobactam 3 50 50 .375 gm In Dextrose/Water 1 50ml.bag @ 12.5 mls/hr IVPB Q8HR [facility] Rx#: [id number] Oral 476 80 90 Output: Stool 6 2 Other: Voiding Method Diaper Diaper # Voids 3 2 - Exam PHYSICAL EXAMINATION: GENERAL: Patient is excessively drowsy unable to assess his orientation, not in any acute distress. Severely lethargic HEENT: Pupils are round and equally reacting to light. EOMI. No scleral icterus. No conjunctival pallor. Normocephalic, atraumatic. No pharyngeal erythema. No thyromegaly. CARDIOVASCULAR: S1 and S2 present. No murmurs, rubs, or gallops. Tachycardic irregularly irregular rhythm PULMONARY: Chest is clear to auscultation, no wheezing or crackles. ABDOMEN: Soft, nontender, nondistended, normoactive bowel sounds. No palpable organomegaly. MUSCULOSKELETAL: No joint swelling or deformity. EXTREMITIES: No cyanosis, clubbing, or pedal edema. NEUROLOGICAL: Gross neurological examination did not reveal any new focal deficits. SKIN: No rashes. - Labs CBC & Chem 7: 06/01/18 03:17 06/02/18 05:28 Labs: Abnormal Lab Results - Last 24 Hours (Table) 06/01/18 06/01/18 06/01/18 Range/Units 11:38 16:25 20:56 BUN (9-20) mg/dL Creatinine (0.66-1.25) mg/dL Glucose (74-99) mg/dL POC Glucose (mg/dL) 289 H 280 H 243 H (75-99) mg/dL Calcium (8.4-10.2) mg/dL 06/02/18 06/02/18 06/02/18 Range/Units 05:28 06:32 11:55 BUN 25 H (9-20) mg/dL Creatinine 1.51 H (0.66-1.25) mg/dL Glucose 212 H (74-99) mg/dL POC Glucose (mg/dL) 203 H 250 H (75-99) mg/dL Calcium 8.1 L (8.4-10.2) mg/dL Microbiology - Last 24 Hours (Table) 05/30/18 12:46 Blood Culture - Preliminary Blood No Growth after 48 hours Assessment and Plan Plan: -Atrial fibrillation with rapid ventricular rate: Patient does have chronic persistent atrial fibrillation patient will be resumed on his rate control medications, heart rate still high and patient is not on anticoagulant because of his recent subarachnoid hemorrhage -Fever, probably secondary to aspiration again. Patient was switched to Zosyn and urine culture blood cultures are being obtained -Hypertension -Type 2 diabetes mellitus -hyperlipemia -Congestive heart failure chronic systolic dysfunction in acute exacerbation, patient is on oral Lasix -Chronic kidney disease stage III creatinine is around his baseline. There is superimposed acute renal failure secondary to heart failure sent possibly secondary to diuretic therapy -Hypothyroidism -Dysphagia with the recent aspiration: Speech therapy reviewed -CODE STATUS DO NOT RESUSCITATE
[2018-06-02] MEDS ORDERED: CITALOPRAM HYDROBROMIDE 10 MG TAB PO SCH (14:45)
[2018-06-02] MEDS ORDERED: SODIUM CHLORIDE 0.9% 500 ML IV ONE ×2 (16:20→19:44)
[2018-06-02 17:06] LABS: Glucose,Whole Blood 279 mg/dL (75-99)
[2018-06-02] MEDS: POTASSIUM CHLORIDE ER 10 MEQ TAB.ER.PRT PO SCH (17:32)
[2018-06-02] MEDS: DOXAZOSIN 4 MG TAB PO SCH (20:06)
[2018-06-02] MEDS: ACETAMINOPHEN TAB 325 MG TAB PO PRN (20:11)
[2018-06-02 20:40] LABS: Glucose,Whole Blood 267 mg/dL (75-99)
[2018-06-02] MEDS ORDERED: METOPROLOL TARTRATE 12.5 MG TAB PO SCH (22:00)
[2018-06-03 00:25] LABS: Glucose,Whole Blood 268 mg/dL (75-99)
[2018-06-03] MEDS ORDERED: ONDANSETRON 4 MG/2 ML VIAL IVP PRN (02:17)
[2018-06-03] MEDS ORDERED: MORPHINE SULFATE 4 MG/ML SYRINGE IVP PRN (02:17)
[2018-06-03] MEDS ORDERED: LORazepam 2 MG/ML INJ IV PRN (02:17)
[2018-06-03] MEDS ORDERED: ACETAMINOPHEN SUPPOSITORY 650 MG SUPP RECTAL PRN (02:17)
[2018-06-03] MEDS ORDERED: ATROPINE OPHTH SOLN 1% 5ML BTL SUBLINGUAL PRN (02:17)
[2018-06-03] MEDS: SULFACETAMIDE SOD 10% OPHTH DROPS 15 ML BTL BOTH EYES SCH ×4 (02:54→23:11)
[2018-06-03] MEDS ORDERED: DRY MOUTH SPRAY 44.3 SPRAY/44.3 ML SPRAY MUCOUS MEM PRN (02:56)
[2018-06-03] MEDS ORDERED: FUROSEMIDE 40 MG TAB PO SCH (09:00)
[2018-06-03] MEDS: IPRATROPIUM-ALBUTEROL 3 ML NEB INHALATION SCH ×3 (09:11→20:12)
--- NOTE | 2018-06-03 12:08 | P.PN ---
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 The patient has a recent history of a right temporal CVA has been in and out of the group home. The patient was doing very poorly left-sided apparently the family made the patient a comfort measures but apparently the patient has rallied and seems be doing a bit better. In addition, the patient has a history of acute hypoxemic respiratory failure mental status changes hypothyroidism hypertension hyperlipidemia gallstones and general medical debility with poor overall functional performance. Chest x-ray apparently shows diffuse infiltrates consistent with fluid overload. I spoke to the daughter would like the patient to receive some treatment but nothing super aggressive. Certainly no intubation or mechanical ventilation but certainly medical management would be appropriate at this time. The patient apparently did wake up this morning a poor L his breakfast. Chest x-ray shows bilateral infiltrates worse on the right than left which could be consistent with either pneumonia and/or asymmetric pulmonary edema. Objective - Vital Signs Vital signs: Vital Signs Temp 97.1 F L 06/03/18 11:15 Pulse 110 H 06/03/18 11:16 Resp 22 06/03/18 11:16 BP 88/70 06/03/18 11:15 Pulse Ox 93 L 06/03/18 11:15 Intake & Output 06/02/18 06/03/18 06/03/18 18:59 06:59 18:59 Intake Total 370 60 40 Output Total 2 4 Balance 368 56 40 Weight 72 kg Intake: IV 60 60 40 Invasive Line 3 60 60 40 Oral 310 Output: Stool 2 4 Other: Voiding Method Diaper Diaper # Voids 1 1 - Exam Mild respiratory distress in that the patient appears tachypnea. Somewhat oriented. He does arouse. Can answer basic questions. HEENT examination is grossly unremarkable. Mucous membranes are moist. No oral lesions. Nasal O2 in place Neck supple. Full range of motion. No adenopathy thyromegaly or neck vein distention. Cardiovascular examination a irregular rhythm and rate. The patient clearly is in atrial fibrillation. Heart rate about 120. No distinct murmur noted. Lungs reveal diffuse bilateral rhonchi and crackles. No wheezes. Breath sounds equal bilaterally. Breathing is shallow.. Abdomen soft bowel sounds are heard. No masses or tenderness. Extremities are intact. No cyanosis or clubbing. Minimal edema. Skin is without rash or lesion. Neurologic examination is difficult to assess. - Labs CBC & Chem 7: 06/01/18 03:17 06/02/18 05:28 Labs: Abnormal Lab Results - Last 24 Hours (Table) 06/02/18 06/02/18 06/02/18 Range/Units 11:55 16:19 20:38 POC Glucose (mg/dL) 250 H 279 H 267 H (75-99) mg/dL 06/03/18 Range/Units 00:21 POC Glucose (mg/dL) 268 H (75-99) mg/dL Microbiology - Last 24 Hours (Table) 05/30/18 12:46 Blood Culture - Preliminary Blood No Growth after 72 hours Assessment and Plan Assessment: Assessment Acute exacerbation of systolic heart failure complicated by atrial fibrillation with rapid ventricular response Mental status changes Recent admission for acute hypoxemic respiratory failure secondary to presumed aspiration pneumonia Acute on chronic renal failure Recent right temporal CVA Hypothyroidism Hypertension Hyperlipidemia Cholelithiasis. General medical debility and poor overall functional status Plan: Plan dated 06/03/2018 I had the opportunity to evaluate the patient speak to the patient into the patient's daughter who is a surgeon here at this hospital. She wants to keep the patient a DO NOT RESUSCITATE in [place] [facility] therapy such as intubation mechanical ventilation, etc. She would like medical management. I'll look at the med list. Apparently everything was recently discontinued because the patient with beta comfort measures. We'll continue to follow. Prognosis is guarded. Please see my orders and recommendations. Time with Patient: Less than 30
[2018-06-03] MEDS ORDERED: DILTIAZEM 50 MG in SODIUM CHLORIDE 0.9% 40 ML IV SCH (12:15)
[2018-06-03] MEDS ORDERED: SODIUM CHLORIDE 0.9% 500 ML IV ONE ×2 (13:06→14:00)
[2018-06-03 13:29] LABS: HCT 37.1 % (39.0-53.0); HGB 12.2 gm/dL (13.0-17.5); Hypochromasia Slight; MCH 31.2 pg (25.0-35.0); MCHC 32.9 g/dL (31.0-37.0); MCV 94.7 fL (80.0-100.0); Mean Platelet Volume 8.1; Platelet Count 194 k/uL (150-450); RBC 3.92 m/uL (4.30-5.90); RDW 13.9 % (11.5-15.5)
[2018-06-03 13:47] LABS: Potassium 4.6 mmol/L (3.5-5.1)
[2018-06-03] MEDS ORDERED: SODIUM CHLORIDE 0.9% 2,000 ML IV ONE (14:00)
[2018-06-03] MEDS: METOPROLOL TARTRATE 12.5 MG TAB PO SCH ×2 (14:20→20:44)
--- NOTE | 2018-06-03 14:35 | P.PN ---
Subjective Patient is admitted for a atrial fibrillation with rapid ventricular rate unsure whether patient has CHF exacerbation continue with present oral Lasix. We will obtain a BNP. Rate is well controlled kidney function did improve patient is mildly hyponatremic. Patient is still lethargic but more awake and able to eat by himself. 05/29/2018 Clinical condition no significant change patient has issues with the swallowing during his last hospital admission patient had aspiration pneumonia and patient is still on Augmentin. Patient is supposed to be on thick liquids which the patient doesn't like. We'll get speech therapy evaluation again see if there is any change in his swallow. 05/30/2018 Patient is severely lethargic obtained a chest x-ray which is showing significant pulmonary edema. Patient probably aspirated does have low-grade fever Augmentin will be disc in your patient was started on Zosyn and blood cultures urine culture CA will be obtained. Patient prognosis is extremely poor. We'll discuss with the family regarding comfort care and hospice. Unable to answer much of questions today because of severe lethargy 05/31/2018 No significant overnight events patient is doing minimally better, did eat by himself. Although his overall prognosis is extremely poor. We'll discuss with family members regarding his overall goals of care 06/01/2018 Overall his clinical condition has worsened a bit patient became hypoxic does have bilateral crackles Lasix will be switched to IV. Discussed with the family regarding his overall goals of care and comfort care and hospice and family is not ready for that decision yet. 06/02/2018 Patient is more lethargic today BNP is elevated respiratory status did improve patient is to Because of which may concern is dehydration patient already has mild worsening in creatinine patient will be switched back to oral Lasix repeat chest x-ray showed bilateral lower lobes infiltrate may have aspiration pneumonia patient is already on Zosyn overall condition is extremely guarded I' m unable to get any History from the patient 06/03/2018 Patient was made hospice yesterday with the since his blood pressure improved family wanted to continue her care. Patient will be started on meropenem patient is probably why intravascularly volume depleted. Patient will be given find it cc of normal saline if his saturations are okay we will give him find it more and 75 mL of normal saline per hour. Patient does have mildly low ejection fraction need to closely monitor for pulmonary edema. Patient's Cardizem will be discontinued because of the low blood pressure and low ejection fraction patient will be started on beta brianda if her systolic blood pressure is about 90. Patient is still quite lethargic no crackles on exam. Zosyn was discontinued. Objective - Vital Signs Vital signs: Vital Signs Temp 97.1 F L 06/03/18 11:15 Pulse 120 H 06/03/18 13:22 Resp 22 06/03/18 11:16 BP 88/70 06/03/18 11:15 Pulse Ox 93 L 06/03/18 11:15 Intake & Output 06/02/18 06/03/18 06/03/18 18:59 06:59 18:59 Intake Total 370 60 40 Output Total 2 4 Balance 368 56 40 Weight 72 kg Intake: IV 60 60 40 Invasive Line 3 60 60 40 Oral 310 Output: Stool 2 4 Other: Voiding Method Diaper Diaper # Voids 1 1 - Exam PHYSICAL EXAMINATION: GENERAL: Patient is excessively drowsy unable to assess his orientation, not in any acute distress. Severely lethargic HEENT: Pupils are round and equally reacting to light. EOMI. No scleral icterus. No conjunctival pallor. Normocephalic, atraumatic. No pharyngeal erythema. No thyromegaly. CARDIOVASCULAR: S1 and S2 present. No murmurs, rubs, or gallops. Tachycardic irregularly irregular rhythm PULMONARY: Chest is clear to auscultation, no wheezing or crackles. ABDOMEN: Soft, nontender, nondistended, normoactive bowel sounds. No palpable organomegaly. MUSCULOSKELETAL: No joint swelling or deformity. EXTREMITIES: No cyanosis, clubbing, or pedal edema. NEUROLOGICAL: Gross neurological examination did not reveal any new focal deficits. SKIN: No rashes. - Labs CBC & Chem 7: 06/03/18 13:07 06/03/18 13:07 Labs: Abnormal Lab Results - Last 24 Hours (Table) 06/02/18 06/02/18 06/03/18 Range/Units 16:19 20:38 00:21 WBC (3.8-10.6) k/uL RBC (4.30-5.90) m/uL Hgb (13.0-17.5) gm/dL Hct (39.0-53.0) % BUN (9-20) mg/dL Creatinine (0.66-1.25) mg/dL Glucose (74-99) mg/dL POC Glucose (mg/dL) 279 H 267 H 268 H (75-99) mg/dL Calcium (8.4-10.2) mg/dL 06/03/18 06/03/18 Range/Units 13:07 13:07 WBC 13.0 H (3.8-10.6) k/uL RBC 3.92 L (4.30-5.90) m/uL Hgb 12.2 L (13.0-17.5) gm/dL Hct 37.1 L (39.0-53.0) % BUN 46 H (9-20) mg/dL Creatinine 2.66 H (0.66-1.25) mg/dL Glucose 356 H (74-99) mg/dL POC Glucose (mg/dL) (75-99) mg/dL Calcium 8.0 L (8.4-10.2) mg/dL Microbiology - Last 24 Hours (Table) 05/30/18 12:46 Blood Culture - Preliminary Blood No Growth after 72 hours Assessment and Plan Plan: -Atrial fibrillation with rapid ventricular rate: Patient does have chronic persistent atrial fibrillation patient will be resumed on his rate control medications, heart rate still high and patient is not on anticoagulant because of his recent subarachnoid hemorrhage -Fever, probably secondary to aspiration again. Patient was started on meropenem IV fluids as mentioned above Lasix was discontinued. -Hypertension -Type 2 diabetes mellitus -hyperlipemia -Congestive heart failure chronic systolic dysfunction patient appears to be septic hypovolemic. -Chronic kidney disease stage III creatinine is around his baseline. There is superimposed acute renal failure secondary to heart failure sent possibly secondary to diuretic therapy -Hypothyroidism -Dysphagia chronic with multiple aspirations in the past. -CODE STATUS DO NOT RESUSCITATE
[2018-06-03] MEDS: MEROPENEM 1 GM in SODIUM CHLORIDE 0.9% 100 ML IVPB SCH (15:30)
[2018-06-03] MEDS: PANTOPRAZOLE 40 MG TABLET PO SCH (17:11)
--- NOTE | 2018-06-03 17:12 | XR ---
EXAMINATION: XR chest 1V portable DATE AND TIME: 06/03/2018 4:53 PM CLINICAL INDICATION: possible fluid overload TECHNIQUE: AP upright portable COMPARISON: 06/01/2018 at 6:05 PM FINDINGS: There is no pneumothorax, and no evident pneumoperitoneum. Overall, the lung inflation pattern is improved when compared the prior study. Currently there is onl y mild scattered ill-defined added opacities throughout the lungs bilaterally, nonspecific. There is no angus pulmonary edema. No angus lung consolidation. Mild moderately enlarged cardiac silhouette redemonstrated. No acute bone or soft tissue findings are evident. IMPRESSION: INTERVAL IMPROVEMENT IN THE LUNG INFLATION PATTERN, PARTICULARLY ON THE RIGHT.
[2018-06-03] MEDS: DOXAZOSIN 4 MG TAB PO SCH (20:33)
[2018-06-03] MEDS: ZINC OXIDE 20% OINT 28.4 GM TUBE TOPICAL SCH (20:41)
[2018-06-03] MEDS: ATORVASTATIN 10 MG TAB PO SCH (20:44)
[2018-06-03] MEDS ORDERED: PIPERACILLIN-TAZOBACTAM 3.375 GM in DEXTROSE/WATER 1 50ML.BAG IVPB SCH (21:00)
[2018-06-04] MEDS: MEROPENEM 1 GM in SODIUM CHLORIDE 0.9% 100 ML IVPB SCH ×2 (02:28→16:06)
[2018-06-04] MEDS: SULFACETAMIDE SOD 10% OPHTH DROPS 15 ML BTL BOTH EYES SCH ×5 (02:29→20:36)
[2018-06-04] MEDS: LEVOTHYROXINE 75 MCG TAB PO SCH (06:16)
[2018-06-04] MEDS: PANTOPRAZOLE 40 MG TABLET PO SCH ×2 (06:16→18:01)
[2018-06-04] MEDS ORDERED: INSULIN ASPART 100 UNIT/ML 1 ML 10 ML VIAL SQ ONE (07:42)
[2018-06-04] MEDS: INSULIN ASPART 100 UNIT/ML 1 ML 10 ML VIAL SQ SCH ×4 (07:42→21:36)
[2018-06-04 07:45] LABS: Glucose,Whole Blood 461 mg/dL (75-99)
[2018-06-04] MEDS ORDERED: SYMBICORT 80-4.5 MCG INHALER INHALATION SCH (08:00)
[2018-06-04] MEDS: SODIUM CHLORIDE 0.9% 1,000 ML IV SCH ×2 (08:02→20:09)
[2018-06-04] MEDS: ZINC OXIDE 20% OINT 28.4 GM TUBE TOPICAL SCH ×2 (08:08→20:39)
[2018-06-04] MEDS: AMIODARONE 100 MG TAB PO SCH (08:08)
[2018-06-04] MEDS: METOPROLOL TARTRATE 12.5 MG TAB PO SCH (08:08)
[2018-06-04] MEDS: IPRATROPIUM-ALBUTEROL 3 ML NEB INHALATION SCH ×3 (09:08→20:10)
[2018-06-04 11:34] LABS: Glucose,Whole Blood 303 mg/dL (75-99)
[2018-06-04] MEDS ORDERED: METOPROLOL TARTRATE 12.5 MG TAB PO STA ×2 (11:53→11:55)
--- NOTE | 2018-06-04 11:53 | P.PN ---
Subjective Progress Note Date: 06/04/18 Principal diagnosis: Acute exacerbation of chronic systolic congestive heart failure with ejection fraction 40-45% secondary to atrial fibrillation with rapid ventricular response This is an 82-year-old gentleman who follows with Dr. Deleon as his primary care physician. He has a history of atrial fibrillation, systolic congestive heart failure with ejection fraction 40-45%, diabetes mellitus, hypertension, hypothyroidism, macular degeneration, hyperlipidemia, chronic kidney disease stage III, prior history of nicotine dependence, gait dysfunction. 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 He was presented here again on May 17 for hypoxemia and altered mental status. We had seen and evaluated the patient at that time. He was subsequently again transferred to an extended care facility for further rehabilitation on 05/21/2018. He presented here again on 05/26/2018. He was found to have atrial fibrillation with a rapid ventricular response and was admitted to the selective care unit. We are consulted today for evaluation of his ongoing dyspnea. Today's chest x-ray shows scattered patchy infiltrates throughout the right perihilar and left basilar regions which may reflect developing pneumonia or early features of pulmonary edema. No leukocytosis. He did have a T-max of 100.3 yesterday currently afebrile. Urine culture revealed no growth. He is maintaining O2 saturations in the 90s on room air. He remains tachycardic at 119. Blood pressure stable. He is currently difficult to arouse. Unable to obtain any history from the patient. He is a DO NOT RESUSCITATE/DO NOT INTUBATE CODE STATUS per family request. The patient is seen again today 06/04/2018 in follow-up on the selective care unit. He is maintaining O2 saturations in the high 80s low 90s on 3 L/m per nasal cannula. Chest x-ray did reveal interval improvement in the lung inflation pattern particularly on the right.Slightly tachycardic. Slightly tachypneic. He is on oral amiodarone along with metoprolol. Blood and urine cultures revealed no growth. Objective - Vital Signs Vital signs: Vital Signs Temp 98.1 F 06/04/18 07:57 Pulse 112 H 06/04/18 09:18 Resp 27 H 06/04/18 08:00 BP 104/69 06/04/18 07:57 Pulse Ox 88 L 06/04/18 07:57 Intake & Output 06/03/18 06/04/18 06/04/18 18:59 06:59 18:59 Intake Total 60 600 Balance 60 600 Weight 72 kg 89 kg Intake: IV 60 600 0.9 600 Invasive Line 3 60 Other: Voiding Method Diaper # Voids 0 2 - Exam GENERAL EXAM: Difficult to arouse, lethargic. HEAD: Normocephalic. EYES: Normal reaction of pupils, equal size. NOSE: Clear with pink turbinates. THROAT: No erythema or exudates. NECK: No masses, no JVD. CHEST: No chest wall deformity. LUNGS: Equal air entry with crackles in the bilateral posterior bases. CVS: S1 and S2 normal with no audible murmur, irregular rhythm. Tachycardic. ABDOMEN: No hepatosplenomegaly, normal bowel sounds, no guarding or rigidity. SPINE: No scoliosis or deformity SKIN: No rashes CENTRAL NERVOUS SYSTEM: Tone is normal in all 4 extremities. EXTREMITIES: There is no peripheral edema. No clubbing, no cyanosis. Peripheral pulses are intact. - Labs CBC & Chem 7: 06/03/18 13:07 06/03/18 13:07 Labs: Abnormal Lab Results - Last 24 Hours (Table) 06/03/18 06/03/18 06/04/18 Range/Units 13:07 13:07 07:33 WBC 13.0 H (3.8-10.6) k/uL RBC 3.92 L (4.30-5.90) m/uL Hgb 12.2 L (13.0-17.5) gm/dL Hct 37.1 L (39.0-53.0) % BUN 46 H (9-20) mg/dL Creatinine 2.66 H (0.66-1.25) mg/dL Glucose 356 H (74-99) mg/dL POC Glucose (mg/dL) 461 H (75-99) mg/dL Calcium 8.0 L (8.4-10.2) mg/dL 06/04/18 Range/Units 11:12 WBC (3.8-10.6) k/uL RBC (4.30-5.90) m/uL Hgb (13.0-17.5) gm/dL Hct (39.0-53.0) % BUN (9-20) mg/dL Creatinine (0.66-1.25) mg/dL Glucose (74-99) mg/dL POC Glucose (mg/dL) 303 H (75-99) mg/dL Calcium (8.4-10.2) mg/dL Microbiology - Last 24 Hours (Table) 05/30/18 12:46 Blood Culture - Preliminary Blood No Growth after 96 hours Assessment and Plan Assessment: Impression: #1 Acute exacerbation of systolic congestive heart failure with ejection fraction 40-45% secondary to atrial fibrillation with rapid ventricular response. #2 Altered mental status. #3 Recent admission for acute hypoxic respiratory failure secondary to aspiration pneumonia. #4 Acute on chronic renal failure. Last creatinine 2.66. #5 Recent evolving subacute MCA distribution infarct along with moderate diffuse age-related cerebral atrophy and chronic small vessel ischemic changes. #6 Hypothyroidism. #7 Hypertension. #8 Hyperlipidemia. #9 Cholelithiasis. #10 Poor overall functional performance based on the above-mentioned multiple comorbidities. Plan: The patient was seen and evaluated by Dr. Smith. The patient remains aspiration precautions. Continued on bronchodilators and meropenem. We'll continue to follow and make further recommendations based on his clinical status. I, the cosigning physician, performed a history & physical examination of the patient. Lungs sounds with crackles in the bilateral posterior bases. Maintaining good O2 saturations in the 90s on 3 L/m per nasal cannula. I discussed the assessment and plan of care with my nurse practitioner, Kaiele Ross. I attest to the above note as dictated by her.
[2018-06-04] MEDS: CITALOPRAM HYDROBROMIDE 10 MG TAB PO SCH (12:21)
--- NOTE | 2018-06-04 12:32 | P.PN ---
Subjective Patient is admitted for a atrial fibrillation with rapid ventricular rate unsure whether patient has CHF exacerbation continue with present oral Lasix. We will obtain a BNP. Rate is well controlled kidney function did improve patient is mildly hyponatremic. Patient is still lethargic but more awake and able to eat by himself. 05/29/2018 Clinical condition no significant change patient has issues with the swallowing during his last hospital admission patient had aspiration pneumonia and patient is still on Augmentin. Patient is supposed to be on thick liquids which the patient doesn't like. We'll get speech therapy evaluation again see if there is any change in his swallow. 05/30/2018 Patient is severely lethargic obtained a chest x-ray which is showing significant pulmonary edema. Patient probably aspirated does have low-grade fever Augmentin will be disc in your patient was started on Zosyn and blood cultures urine culture CA will be obtained. Patient prognosis is extremely poor. We'll discuss with the family regarding comfort care and hospice. Unable to answer much of questions today because of severe lethargy 05/31/2018 No significant overnight events patient is doing minimally better, did eat by himself. Although his overall prognosis is extremely poor. We'll discuss with family members regarding his overall goals of care 06/01/2018 Overall his clinical condition has worsened a bit patient became hypoxic does have bilateral crackles Lasix will be switched to IV. Discussed with the family regarding his overall goals of care and comfort care and hospice and family is not ready for that decision yet. 06/02/2018 Patient is more lethargic today BNP is elevated respiratory status did improve patient is to Because of which may concern is dehydration patient already has mild worsening in creatinine patient will be switched back to oral Lasix repeat chest x-ray showed bilateral lower lobes infiltrate may have aspiration pneumonia patient is already on Zosyn overall condition is extremely guarded I' m unable to get any History from the patient 06/03/2018 Patient was made hospice yesterday with the since his blood pressure improved family wanted to continue her care. Patient will be started on meropenem patient is probably why intravascularly volume depleted. Patient will be given find it cc of normal saline if his saturations are okay we will give him find it more and 75 mL of normal saline per hour. Patient does have mildly low ejection fraction need to closely monitor for pulmonary edema. Patient's Cardizem will be discontinued because of the low blood pressure and low ejection fraction patient will be started on beta brianda if her systolic blood pressure is about 90. Patient is still quite lethargic no crackles on exam. Zosyn was discontinued. 06/04/2018 Patient is doing better today his blood pressure improved patient dose of metoprolol will be increased to 25 twice a day. Patient is still tachycardic in atrial fibrillation patient will be started on subcu heparin patient will be started on antidepressant. Family is discussing about PEG tube patient is on 100 mL of normal saline which will continue his oxygen saturations dropped will do it chest x-ray., Nutrition consult. Infectious disease will be consulted regarding antibiotics patient is presently on meropenem for possible aspiration pneumonia. Patient kidney function has worsened a bit, I'm expecting it'll improve with his IV fluids. Objective - Vital Signs Vital signs: Vital Signs Temp 98.1 F 06/04/18 07:57 Pulse 153 H 06/04/18 11:52 Resp 27 H 06/04/18 08:00 BP 104/69 06/04/18 07:57 Pulse Ox 88 L 06/04/18 07:57 Intake & Output 06/03/18 06/04/18 06/04/18 18:59 06:59 18:59 Intake Total 60 600 Balance 60 600 Weight 72 kg 89 kg Intake: IV 60 600 0.9 600 Invasive Line 3 60 Other: Voiding Method Diaper # Voids 0 2 - Exam PHYSICAL EXAMINATION: GENERAL: Patient is excessively drowsy unable to assess his orientation, not in any acute distress. Severely lethargic HEENT: Pupils are round and equally reacting to light. EOMI. No scleral icterus. No conjunctival pallor. Normocephalic, atraumatic. No pharyngeal erythema. No thyromegaly. CARDIOVASCULAR: S1 and S2 present. No murmurs, rubs, or gallops. Tachycardic irregularly irregular rhythm PULMONARY: Chest is clear to auscultation, no wheezing or crackles. ABDOMEN: Soft, nontender, nondistended, normoactive bowel sounds. No palpable organomegaly. MUSCULOSKELETAL: No joint swelling or deformity. EXTREMITIES: No cyanosis, clubbing, or pedal edema. NEUROLOGICAL: Gross neurological examination did not reveal any new focal deficits. SKIN: No rashes. - Labs CBC & Chem 7: 06/03/18 13:07 06/03/18 13:07 Labs: Abnormal Lab Results - Last 24 Hours (Table) 06/03/18 06/03/18 06/04/18 Range/Units 13:07 13:07 07:33 WBC 13.0 H (3.8-10.6) k/uL RBC 3.92 L (4.30-5.90) m/uL Hgb 12.2 L (13.0-17.5) gm/dL Hct 37.1 L (39.0-53.0) % BUN 46 H (9-20) mg/dL Creatinine 2.66 H (0.66-1.25) mg/dL Glucose 356 H (74-99) mg/dL POC Glucose (mg/dL) 461 H (75-99) mg/dL Calcium 8.0 L (8.4-10.2) mg/dL 06/04/18 Range/Units 11:12 WBC (3.8-10.6) k/uL RBC (4.30-5.90) m/uL Hgb (13.0-17.5) gm/dL Hct (39.0-53.0) % BUN (9-20) mg/dL Creatinine (0.66-1.25) mg/dL Glucose (74-99) mg/dL POC Glucose (mg/dL) 303 H (75-99) mg/dL Calcium (8.4-10.2) mg/dL Microbiology - Last 24 Hours (Table) 05/30/18 12:46 Blood Culture - Preliminary Blood No Growth after 96 hours Assessment and Plan Plan: -Atrial fibrillation with rapid ventricular rate: Patient does have chronic persistent atrial fibrillation patient will be resumed on his rate control medications, heart rate still high and patient is not on anticoagulantion because of his recent subarachnoid hemorrhage. Metoprolol dose will be increased today continue with amiodarone -Fever, probably secondary to aspiration again. Patient was started on meropenem IV fluids as mentioned above Lasix was discontinued. 8 IV fluids blood pressures better controlled patient still remains tachycardic in atrial fibrillation -Hypertension: Patient is actually hypotensive because of sepsis and A. fib -Type 2 diabetes mellitus and blood sugars are very high and will let him on sliding scale insulin and continue with the 10 units of Lantus dose of which may need to be increased tomorrow or tonight -hyperlipemia -Congestive heart failure chronic systolic dysfunction patient appears to be septic hypovolemic. Off Lasix -Chronic kidney disease stage III creatinine is around his baseline. There is superimposed acute renal failure secondary to heart failure sent possibly secondary to diuretic therapy -Hypothyroidism -Dysphagia chronic with multiple aspirations in the past. -CODE STATUS DO NOT RESUSCITATE
[2018-06-04 16:23] LABS: Glucose,Whole Blood 155 mg/dL (75-99)
[2018-06-04] MEDS: DILTIAZEM 50 MG in SODIUM CHLORIDE 0.9% 40 ML IV SCH ×2 (16:31→20:50)
[2018-06-04] MEDS: HEPARIN SODIUM,PORCINE 5,000 UNIT/ML 1 ML VIAL SQ SCH (20:36)
[2018-06-04] MEDS: METOPROLOL TARTRATE 25 MG TAB PO SCH (20:37)
[2018-06-04] MEDS: ATORVASTATIN 10 MG TAB PO SCH (20:37)
[2018-06-04 21:01] LABS: Glucose,Whole Blood 232 mg/dL (75-99)
--- NOTE | 2018-06-04 22:57 | P.CONS ---
History of Present Illness - Reason for Consult Consult date: 06/04/18 - Chief Complaint shortness of breath - History of Present Illness 82-year-old male presents to Hospital from the extended care facility with increasing shortness of breath. 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 The patient is chronically anticoagulated with his atrial fibrillation, apparently he has subtherapeutic INR and developed the stroke and then had hemorrhagic conversion. He was hospitalized from May 09- and then went to [facility] on the [place]. Shortly thereafter he had difficulty with respiration became quite short of breath without evidence of aspiration pneumonia. This was treated sent back to rehab and now presents again with significant shortness of breath with concerns to aspiration pneumonia and congestive heart failure which should be acute on chronic systolic type. Over the last several days the patient has significant decline of his status. He had hypotension and hypoxia and consequently the decision was for comfort care. The patient has rallied and has had some improvement in consequently he has now no longer an comfort care is appropriately a DO NOT RESUSCITATE. The patient is awake and arousable but has very poor insight and very poor hearing and the family is concerned about him being upset at times. The patient's 2 daughters and grandson are present at the time of evaluation. There many questions are answered. Review of Systems ROS unobtainable: due to mental status Past Medical History Past Medical History: Atrial Fibrillation, Heart Failure, CVA/TIA, Diabetes Mellitus, Hypertension, Pneumonia, Thyroid Disorder Additional Past Medical History / Comment(s): macular degeneration, massive stroke History of Any Multi-Drug Resistant Organisms: None Reported Past Surgical History: Orthopedic Surgery Additional Past Surgical History / Comment(s): hemorroidectomy, bilateral knee surgery Past Psychological History: No Psychological Hx Reported Additional Psychological History / Comment(s): , was living with the and the family home until his stroke. retired. No experience. No recent international travel, used to do some missionary work. Performed tobacco smoker. No notation of significant alcohol use or recreational drug use. No animals in the home. 1 son has from glioblastoma multiform Smoking Status: Former smoker Past Alcohol Use History: Rare Past Drug Use History: None Reported Medications and Allergies Home Medications and Allergies Comment(s): Current Medications Acetaminophen (Tylenol Tab) 650 mg PO Q6HR PRN PRN Reason: Mild Pain or Fever > 100.5 Last Admin: 06/02/18 20:11 Dose: 650 mg Acetaminophen (Tylenol Suppository) 650 mg RECTAL Q4HR PRN PRN Reason: Fever and/or Mild Pain Albuterol/Ipratropium (Duoneb 0.5 Mg-3 Mg/3 Ml Soln) 3 ml INHALATION RT-TID [facility] Last Admin: 06/04/18 20:10 Dose: 3 ml Albuterol/Ipratropium (Duoneb 0.5 Mg-3 Mg/3 Ml Soln) 3 ml INHALATION RT-TID PRN PRN Reason: Shortness Of Breath Or Wheezing Amiodarone HCl (Cordarone) 100 mg PO DAILY [facility] Last Admin: 06/04/18 08:08 Dose: 100 mg Atorvastatin Calcium (Lipitor) 10 mg PO HS [facility] Last Admin: 06/04/18 20:37 Dose: 10 mg Citalopram Hydrobromide (Celexa) 10 mg PO DAILY [facility] Last Admin: 06/04/18 12:21 Dose: 10 mg Doxazosin Mesylate (Cardura) 4 mg PO HS [facility] Last Admin: 06/03/18 20:33 Dose: Not Given Heparin Sodium (Porcine) (Heparin) 5,000 unit SQ Q12HR [facility] Last Admin: 06/04/18 20:36 Dose: 5,000 unit Meropenem 1 gm/ Sodium (Chloride) 100 mls @ 200 mls/hr IVPB Q12H [facility]; Protocol Last Admin: 06/04/18 16:06 Dose: 200 mls/hr Sodium Chloride (Saline 0.9%) 1,000 mls @ 100 mls/hr IV .Q10H [facility] Last Admin: 06/04/18 20:09 Dose: Not Given Diltiazem HCl 50 mg/ Sodium (Chloride) 50 mls @ 10 mls/hr IV .Q5H [facility] Last Admin: 06/04/18 20:50 Dose: 10 mg/hr, 10 mls/hr Insulin Aspart (Novolog) 0 unit SQ ACHS [facility]; Protocol Last Admin: 06/04/18 21:36 Dose: 3 unit Levothyroxine Sodium (Synthroid) 75 mcg PO DAILY@0630 [facility] Last Admin: 06/04/18 06:16 Dose: 75 mcg Metoprolol Tartrate (Lopressor) 25 mg PO BID [facility] Last Admin: 06/04/18 20:37 Dose: 25 mg Multi-Ingredient Ointment (Zinc Oxide 20% Oint) 1 applic TOPICAL BID [facility] Last Admin: 06/04/18 20:39 Dose: 1 applic Ondansetron HCl (Zofran) 4 mg IVP Q8HR PRN PRN Reason: Nausea/emesis Pantoprazole Sodium (Protonix) 40 mg PO AC-BID [facility] Last Admin: 06/04/18 18:01 Dose: 40 mg Saliva Substitute (Mouthkote Solution) 1 spray MUCOUS MEM QID PRN PRN Reason: Dry Mouth Sulfacetamide Sodium (Bleph-10) 2 drops BOTH EYES Q4HR [facility] Last Admin: 06/04/18 20:36 Dose: 2 drops Home Medications Medication Instructions Recorded Confirmed Type Acetaminophen/Diphenhydramine 1 tab PO 05/27/18 05/27/18 History [Tylenol PM 500-25mg] Amiodarone [Cordarone] 100 mg PO DAILY 05/27/18 05/27/18 History Atorvastatin [Lipitor] 10 mg PO 05/27/18 05/27/18 History Calcium/Magnesium/Zinc 1 tab PO DAILY@1200 05/27/18 05/27/18 History [Colrqtw-Ewcyromvv-Swku Tablet] Dexamethasone [Decadron] 2 mg PO DAILY 05/27/18 05/27/18 History Dimethicone/Zinc Oxide [Inzo Zinc 1 applic TOPICAL BID 05/27/18 05/27/18 History Oxide Barrier Cream] Doxazosin [Cardura] 4 mg PO HS 05/27/18 05/27/18 History Finasteride [Proscar] 5 mg PO DAILY 05/27/18 05/27/18 History Fluticasone/Vilanterol [Breo 1 puff INHALATION RT-DAILY 05/27/18 05/27/18 History Ellipta 100-25 Mcg Inhaler] Folic Acid 1 mg PO DAILY@1200 05/27/18 05/27/18 History Furosemide [Lasix] 40 mg PO DAILY@0600 05/27/18 05/27/18 History INSULIN LISPRO (HumaLOG) [HumaLOG] See Protocol SQ ACHS 05/27/18 05/27/18 History Insulin Glargine,Hum.rec.anlog 10 unit SQ HS 05/27/18 05/27/18 History [Basaglar Kwikpen U-100] Ipratropium-Albuterol Nebulize 3 ml INHALATION RT-Q4H PRN 05/27/18 05/27/18 History [Duoneb 0.5 mg-3 mg/3 ml Soln] Ipratropium-Albuterol Nebulize 3 ml INHALATION RT-TID 05/27/18 05/27/18 History [Duoneb 0.5 mg-3 mg/3 ml Soln] Levothyroxine Sodium [Synthroid] 75 mcg PO DAILY@0605/27/18 05/27/18 History Metoprolol Tartrate 25 mg PO BID 05/27/18 05/27/18 History Multivits,Th W-Ca,Fe,Oth Min 1 tab PO DAILY@119905/27/18 05/27/18 History [Therapeutic M] [place]-3 Fatty Acids/Fish Oil [Fish 1 cap PO DAILY@119905/27/18 05/27/18 History Oil 1,000 mg Softgel] Pantoprazole Sodium [Protonix] 40 mg PO DAILY 05/27/18 05/27/18 History Potassium Chloride [Klor-Con 20] 10 meq PO DAILY@1700 05/27/18 05/27/18 History Potassium Chloride [Klor-Con 20] 20 meq PO DAILY@0905/27/18 05/27/18 History Sulfacetamide Sodium 2 drop BOTH EYES Q4H 05/27/18 05/27/18 History [Sulfacetamide Sod 10% Ophth Soln] Thiamine HCl [Vitamin B-1] 100 mg PO DAILY@119905/27/18 05/27/18 History Turmeric Root Extract [Turmeric] 500 mg PO HS 05/27/18 05/27/18 History Allergies Allergy/AdvReac Type Severity Reaction Status Date / Time No Known Allergies Allergy Verified 05/26/18 23:19 Physical Exam Vitals: Vital Signs Temp Pulse Pulse Pulse Resp BP BP 06/04/18 20:24 89 06/04/18 20:11 89 06/04/18 20:00 98.7 F 125 H 109 H 20 112/75 06/04/18 19:37 142 H 28 H 06/04/18 16:00 97.7 F 140 H 71 25 H 111/65 06/04/18 12:54 100 06/04/18 12:40 104 H 06/04/18 12:00 71 18 98/60 06/04/18 11:52 153 H 06/04/18 09:18 112 H 06/04/18 09:08 124 H 06/04/18 08:00 122 H 27 H 06/04/18 07:57 98.1 F 108 H 27 H 104/69 06/04/18 04:00 97.6 F 100 22 107/58 06/03/18 23:50 98 F 122 H 20 100/57 Pulse Ox 06/04/18 20:24 06/04/18 20:11 06/04/18 20:00 92 L 06/04/18 19:37 06/04/18 16:00 92 L 06/04/18 12:54 06/04/18 12:40 06/04/18 12:00 88 L 06/04/18 11:52 06/04/18 09:18 06/04/18 09:08 06/04/18 08:00 06/04/18 07:57 88 L 06/04/18 04:00 93 L 06/03/18 23:50 92 L Intake and Output 06/04/18 06/04/18 06/04/18 06:59 14:59 22:59 Intake Total 600 163.167 Balance 600 163.167 Intake: IV 600 0.9 600 Intake, IV Titration 43.167 Amount Diltiazem 50 mg In Sodium 43.167 Chloride 0.9% 40 ml @ 10 MG/HR 10 mls/hr IV .Q5H [facility] Rx#:[id number] Oral 120 Other: Voiding Method Diaper Diaper # Voids 2 1 1 # Bowel Movements 1 Weight 89 kg 89 kg pleasant 82-year-old male status post stroke HEENT: Anicteric conjunctiva are pink and moist nasal mucosa grossly intact without significant lesions, there is no thrush. Neck: The neck is supple without significant lymphadenopathy or thyromegaly. Lungs: Good bilateral air entry here is evidence of a few crackles at the left base so The right base however has loud bronchial soundsand there are some minimal dullnes Heart: irregular irregular with NORMAL s1 AND s2 NO s3 SOFT s4 no significant murmur click or rub Abdomen: Positive bowel sounds soft and nontender without palpable masses or organomegaly. There was no guarding or rebound. Extremities: Upper extremities intact with IV without difficulty in the right arm. Bilateral lower extremities have edema but no significant ulcerations Neuro: Patient is awake and interactive, poor historian did not follow commands well but easily recognizes his family's voices interacts briefly with them Results CBC & Chem 7: 06/03/18 13:07 06/03/18 13:07 Labs: Abnormal Lab Results - Last 24 Hours (Table) 06/04/18 06/04/18 06/04/18 Range/Units 07:33 11:12 16:21 POC Glucose (mg/dL) 461 H 303 H 155 H (75-99) mg/dL 06/04/18 Range/Units 21:00 POC Glucose (mg/dL) 232 H (75-99) mg/dL Microbiology - Last 24 Hours (Table) 05/30/18 12:46 Blood Culture - Preliminary Blood No Growth after 120 hours Laboratory Results WBC 13.0 k/uL (3.8-10.6) H 06/03/18 13:07 RBC 3.92 m/uL (4.30-5.90) L 06/03/18 13:07 Hgb 12.2 gm/dL (13.0-17.5) L 06/03/18 13:07 Hct 37.1 % (39.0-53.0) L 06/03/18 13:07 MCV 94.7 fL (80.0-100.0) 06/03/18 13:07 MCH 31.2 pg (25.0-35.0) 06/03/18 13:07 MCHC 32.9 g/dL (31.0-37.0) 06/03/18 13:07 RDW 13.9 % (11.5-15.5) 06/03/18 13:07 Plt Count 194 k/uL (150-450) 06/03/18 13:07 Neutrophils % 75 % 05/28/18 05:30 Lymphocytes % 13 % 05/28/18 05:30 Monocytes % 7 % 05/28/18 05:30 Eosinophils % 3 % 05/28/18 05:30 Basophils % 0 % 05/28/18 05:30 Neutrophils # 5.0 k/uL (1.3-7.7) 05/28/18 05:30 Lymphocytes # 0.9 k/uL (1.0-4.8) L 05/28/18 05:30 Monocytes # 0.5 k/uL (0-1.0) 05/28/18 05:30 Eosinophils # 0.2 k/uL (0-0.7) 05/28/18 05:30 Basophils # 0.0 k/uL (0-0.2) 05/28/18 05:30 Hypochromasia Slight 06/03/18 13:07 PT 10.9 sec (9.0-12.0) 05/26/18 23:10 INR 1.1 (<1.2) 05/26/18 23:10 APTT 23.1 sec (22.0-30.0) 05/26/18 23:10 VBG pH 7.44 (7.31-7.41) H 05/26/18 23:10 VBG pCO2 33 mmHg (37-51) L 05/26/18 23:10 VBG HCO3 22 mmol/L (24-28) L 05/26/18 23:10 Sodium 138 mmol/L (137-145) 06/03/18 13:07 Potassium 4.6 mmol/L (3.5-5.1) 06/03/18 13:07 Chloride 104 mmol/L (98-107) 06/03/18 13:07 Carbon Dioxide 23 mmol/L (22-30) 06/03/18 13:07 Anion Gap 11 mmol/L 06/03/18 13:07 BUN 46 mg/dL (9-20) H 06/03/18 13:07 Creatinine 2.66 mg/dL (0.66-1.25) H 06/03/18 13:07 Est GFR (CKD-EPI)AfAm 25 (>60 ml/min/1.73 sqM) 06/03/18 13:07 Est GFR (CKD-EPI)NonAf 21 (>60 ml/min/1.73 sqM) 06/03/18 13:07 Glucose 356 mg/dL (74-99) H 06/03/18 13:07 POC Glucose (mg/dL) 232 mg/dL (75-99) H 06/04/18 21:00 POC Glu [employer] Montse Bagley 06/04/18 21:[address] Glu mg/dL 192 05/26/18 23:10 Hemoglobin A1c 8.3 % (4.0-6.0) H 05/26/18 23:10 Lactic Ac Sepsis Rflx Y 05/26/18 23:59 Plasma Lactic Acid Raffy 2.0 mmol/L (0.7-2.0) 06/01/18 14:38 Calcium 8.0 mg/dL (8.4-10.2) L 06/03/18 13:07 Magnesium 1.9 mg/dL (1.6-2.3) 06/01/18 03:17 Total Bilirubin 0.8 mg/dL (0.2-1.3) 05/28/18 05:30 AST 18 U/L (17-59) 05/28/18 05:30 ALT 33 U/L (21-72) 05/28/18 05:30 Alkaline Phosphatase 75 U/L (38-126) 05/28/18 05:30 Total Creatine Kinase <20 U/L (55-170) L 05/27/18 12:16 CK-MB (CK-2) 1.0 ng/mL (0.0-2.4) 05/27/18 12:16 CK-MB (CK-2) Rel Index 05/27/18 12:16 Troponin I 0.014 ng/mL (0.000-0.034) 05/27/18 12:16 NT-Pro-B Natriuret Pep 7110 pg/mL 06/02/18 05:28 Total Protein 4.6 g/dL (6.3-8.2) L 05/28/18 05:30 Albumin 2.4 g/dL (3.5-5.0) L 05/28/18 05:30 Urine Color Light Yellow 05/26/18 11:00 Urine Appearance Clear (Clear) 05/26/18 11:00 Urine pH 5.0 (5.0-8.0) 05/26/18 11:00 Ur Specific [place] 1.006 (1.001-1.035) 05/26/18 11:00 Urine Protein Negative (Negative) 05/26/18 11:00 Urine Glucose (UA) 2+ (Negative) H 05/26/18 11:00 Urine Ketones Negative (Negative) 05/26/18 11:00 Urine Blood Trace (Negative) H 05/26/18 11:00 Urine Nitrite Negative (Negative) 05/26/18 11:00 Urine Bilirubin Negative (Negative) 05/26/18 11:00 Urine Urobilinogen <2.0 mg/dL (<2.0) 05/26/18 11:00 Ur Leukocyte Esterase Negative (Negative) 05/26/18 11:00 Urine RBC 3 /hpf (0-5) 05/26/18 11:00 Urine WBC 1 /hpf (0-5) 05/26/18 11:00 Ur Squamous Epith Cells <1 /hpf (0-4) 05/26/18 11:00 Urine Mucus Rare /hpf (None) H 05/26/18 11:00 Microbiology 05/30/18 12:46 Blood Blood Culture - Preliminary No Growth after 120 hours 05/30/18 15:40 Urine,Voided Urine Culture - Final 05/27/18 11:00 Urine,Catheterized Urine Culture - Final Chest x-ray: report reviewed, image reviewed (bibasilar infiltrate right greater than left) Assessment and Plan (1) Cerebrovascular accident Current Visit: No Status: Acute Code(s): I63.9 - CEREBRAL INFARCTION, UNSPECIFIED SNOMED Code(s): 335853614 (2) Aspiration pneumonia Narrative/Plan: 82-year-old male who has multiple medical troubles including atrial fibrillation, chronic systolic congestive heart failure, chronic kidney disease stage III. The recent cerebrovascular accident right temporal artery distribution with hemorrhagic conversion. The patient has been quite debilitated and has been cared for at extended care since his stroke. He developed a bout of aspiration pneumonia was having some improvement until there is evidence of further aspiration. He is now admitted with this difficulty and had significant decline of his status. He was briefly on comfort care because he was doing so poorly but is now rallied and is having some improvement. The family would like gastroenterology involved for placement of a PEG tube to determine if he can have some further improvement over time. The patient to allow some nutrition, hydration and medications. This is discussed in great length with the family that just because the PEG tube is there does not mean it must be used. And if desire to continue to be removed if they do not want it to be used further in the future. It however might allow him to have some improvement although they're aware of his very poor prognosis. He did have sitting in fever and leukocytosis and antibiotic therapy was just transitioned to meropenem and that will continue for the next short period of time until we have some further data cultures however are negative at this time. He her is improving is receiving respiratory treatments. The family's questions are answered. Current Visit: Yes Status: Acute Code(s): J69.0 - PNEUMONITIS DUE TO INHALATION OF FOOD AND VOMIT SNOMED Code(s): 689382325 (3) Fever Current Visit: Yes Status: Acute Code(s): R50.9 - FEVER, UNSPECIFIED SNOMED Code(s): 866483924
[2018-06-05] MEDS: DOXAZOSIN 4 MG TAB PO SCH ×2 (00:37→23:30)
[2018-06-05] MEDS: SULFACETAMIDE SOD 10% OPHTH DROPS 15 ML BTL BOTH EYES SCH ×7 (00:41→23:40)
[2018-06-05] MEDS: DILTIAZEM 50 MG in SODIUM CHLORIDE 0.9% 40 ML IV SCH ×5 (00:53→23:30)
[2018-06-05] MEDS: MEROPENEM 1 GM in SODIUM CHLORIDE 0.9% 100 ML IVPB SCH ×2 (03:56→15:54)
[2018-06-05] MEDS: SODIUM CHLORIDE 0.9% 1,000 ML IV SCH ×3 (03:57→23:40)
[2018-06-05 05:55] LABS: Glucose,Whole Blood 247 mg/dL (75-99)
[2018-06-05] MEDS: LEVOTHYROXINE 75 MCG TAB PO SCH (06:43)
[2018-06-05 07:08] LABS: HCT 35.1 % (39.0-53.0); HGB 11.1 gm/dL (13.0-17.5); Hypochromasia Slight; MCH 30.1 pg (25.0-35.0); MCHC 31.6 g/dL (31.0-37.0); MCV 95.1 fL (80.0-100.0); Platelet Count 165 k/uL (150-450); RBC 3.69 m/uL (4.30-5.90); RDW 14.3 % (11.5-15.5)
[2018-06-05 07:25] LABS: Albumin 2.3 g/dL (3.5-5.0); Calcium 7.8 mg/dL (8.4-10.2); Potassium 4.5 mmol/L (3.5-5.1); Total Bilirubin 0.5 mg/dL (0.2-1.3); Total Protein 4.8 g/dL (6.3-8.2)
[2018-06-05] MEDS: IPRATROPIUM-ALBUTEROL 3 ML NEB INHALATION SCH ×3 (08:05→21:15)
[2018-06-05] MEDS: ZINC OXIDE 20% OINT 28.4 GM TUBE TOPICAL SCH ×2 (09:38→21:58)
[2018-06-05] MEDS: HEPARIN SODIUM,PORCINE 5,000 UNIT/ML 1 ML VIAL SQ SCH ×2 (09:38→21:42)
[2018-06-05] MEDS: METOPROLOL TARTRATE 25 MG TAB PO SCH (09:38)
[2018-06-05] MEDS: AMIODARONE 100 MG TAB PO SCH (09:38)
[2018-06-05 09:42] LABS: Glucose,Whole Blood 278 mg/dL (75-99)
[2018-06-05] MEDS: INSULIN ASPART 100 UNIT/ML 1 ML 10 ML VIAL SQ SCH ×4 (10:28→21:41)
[2018-06-05] MEDS: PANTOPRAZOLE 40 MG TABLET PO SCH ×2 (10:29→17:26)
[2018-06-05] MEDS: CITALOPRAM HYDROBROMIDE 10 MG TAB PO SCH (10:29)
[2018-06-05 11:34] LABS: Glucose,Whole Blood 277 mg/dL (75-99)
--- NOTE | 2018-06-05 12:04 | P.CONS ---
History of Present Illness - Reason for Consult Consult date: 06/05/18 PEG tube insertion Requesting physician: Marce Elizondo - Chief Complaint elevated heart rate concern altered mental status - History of Present Illness 82-year-old gentleman admitted several days ago from [facility] on the [place] with shortness of breath elevated heart rate atrial fibrillation. Past medical history of CAD, chronic systolic heart failure EF 40-45%, A. 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 Request for PEG tube evaluation. Patient had experienced some change in his clinical status over the last week family requested comfort care however patient appeared to be doing better the other day tolerating small amounts of his diet but has not had a significant nutritional intake over the last month and subsequently developed fever aspiration pneumonia. Family is requesting PEG tube insertion for nutritional medication support with the understanding that this may not improve his overall clinical status. Chest x-ray 2 days ago reported interval improvement in lung inflation pattern. This morning he seems to be struggling a little more with his respirations heart rate is in the 120s as high as 140s. Afebrile. Oxygen saturations greater than 92% with O2 supplementation. Current laboratory studies white count 15. Hemoglobin 11.1. Platelet 165. BUN 61. Creatinine 2.9. Albumin 2.3. INR 1.1. Review of Systems Obtained from medical records nursing staff Constitutional: Admitted with mental status changes. Fever. HEENT: Negative for migraines, history of macular degeneration, earaches, drainage, tinnitus, oral mucosal lesions, dysphagia, or odynophagia. Cardiac: Admitted with arrhythmia elevated heart rate history of A. fib. Respiratory: Negative for shortness of breath, hemoptysis, cough, or sputum production. Gastrointestinal: See HPI for pertinent findings. Genitourinary: Negative for hematuria, urgency, frequency, polyuria, dysuria, or penile discharge. Musculoskeletal: Negative for muscle aches, swelling, arthritis, and arthralgias. Neurologic: Recent hemorrhagic stroke. Endocrine: History of hypothyroidism. Skin: Negative for rash or itching. Psychiatric: Negative history for depression and anxiety ROS unobtainable: due to mental status Past Medical History Past Medical History: Atrial Fibrillation, Heart Failure, CVA/TIA, Diabetes Mellitus, Hypertension, Pneumonia, Thyroid Disorder Additional Past Medical History / Comment(s): macular degeneration, massive stroke History of Any Multi-Drug Resistant Organisms: None Reported Past Surgical History: Orthopedic Surgery Additional Past Surgical History / Comment(s): hemorroidectomy, bilateral knee surgery Past Psychological History: No Psychological Hx Reported Additional Psychological History / Comment(s): , was living with the and the family home until his stroke. retired. No experience. No recent international travel, used to do some [employer] work. Performed tobacco smoker. No notation of significant alcohol use or recreational drug use. No animals in the home. 1 son has from glioblastoma multiform Smoking Status: Former smoker Past Alcohol Use History: Rare Past Drug Use History: None Reported Medications and Allergies Home Medications Medication Instructions Recorded Confirmed Type Acetaminophen/Diphenhydramine 1 tab PO HS 05/27/18 05/27/18 History [Tylenol PM 500-25mg] Amiodarone [Cordarone] 100 mg PO DAILY 05/27/18 05/27/18 History Atorvastatin [Lipitor] 10 mg PO HS 05/27/18 05/27/18 History Calcium/Magnesium/Zinc 1 tab PO DAILY@1200 05/27/18 05/27/18 History [Ucwwbho-Wxcfwvdxh-Kzdd Tablet] Dexamethasone [Decadron] 2 mg PO DAILY 05/27/18 05/27/18 History Dimethicone/Zinc Oxide [Inzo Zinc 1 applic TOPICAL BID 05/27/18 05/27/18 History Oxide Barrier Cream] Doxazosin [Cardura] 4 mg PO HS 05/27/18 05/27/18 History Finasteride [Proscar] 5 mg PO DAILY 05/27/18 05/27/18 History Fluticasone/Vilanterol [Breo 1 puff INHALATION RT-DAILY 05/27/18 05/27/18 History Ellipta 100-25 Mcg Inhaler] Folic Acid 1 mg PO DAILY@1200 05/27/18 05/27/18 History Furosemide [Lasix] 40 mg PO DAILY@0600 05/27/18 05/27/18 History INSULIN LISPRO (HumaLOG) [HumaLOG] See Protocol SQ ACHS 05/27/18 05/27/18 History Insulin Glargine,Hum.rec.anlog 10 unit SQ HS 05/27/18 05/27/18 History [Basaglar Kwikpen U-100] Ipratropium-Albuterol Nebulize 3 ml INHALATION RT-Q4H PRN 05/27/18 05/27/18 History [Duoneb 0.5 mg-3 mg/3 ml Soln] Ipratropium-Albuterol Nebulize 3 ml INHALATION RT-TID 05/27/18 05/27/18 History [Duoneb 0.5 mg-3 mg/3 ml Soln] Levothyroxine Sodium [Synthroid] 75 mcg PO DAILY@0600 05/27/18 05/27/18 History Metoprolol Tartrate 25 mg PO BID 05/27/18 05/27/18 History Multivits,Th W-Ca,Fe,Oth Min 1 tab PO DAILY@1200 05/27/18 05/27/18 History [Therapeutic M] [place]-3 Fatty Acids/Fish Oil [Fish 1 cap PO DAILY@119905/27/18 05/27/18 History Oil 1,000 mg Softgel] Pantoprazole Sodium [Protonix] 40 mg PO DAILY 05/27/18 05/27/18 History Potassium Chloride [Klor-Con 20] 10 meq PO DAILY@1700 05/27/18 05/27/18 History Potassium Chloride [Klor-Con 20] 20 meq PO DAILY@0900 05/27/18 05/27/18 History Sulfacetamide Sodium 2 drop BOTH EYES Q4H 05/27/18 05/27/18 History [Sulfacetamide Sod 10% Ophth Soln] Thiamine HCl [Vitamin B-1] 100 mg PO DAILY@1200 05/27/18 05/27/18 History Turmeric Root Extract [Turmeric] 500 mg PO HS 05/27/18 05/27/18 History Allergies Allergy/AdvReac Type Severity Reaction Status Date / Time No Known Allergies Allergy Verified 05/26/18 23:19 Physical Exam Vitals: Vital Signs Temp Pulse Pulse Pulse Resp BP BP 06/05/18 08:10 93 06/05/18 08:07 95 06/05/18 08:00 107 H 24 06/05/18 07:17 98.2 F 107 H 24 9606/05/18 04:00 97.5 F L 149 H 116 H 20 99/65 06/05/18 00:00 98.5 F 107 H 93 22 96/06/04/18 20:24 89 06/04/18 20:11 89 09/05/18 20:00 98.7 F 125 H 109 H 20 112/75 06/04/18 19:37 142 H 28 H 06/04/18 16:00 97.7 F 140 H 71 25 H 111/65 06/04/18 12:54 100 06/04/18 12:40 104 H 06/04/18 12:00 71 18 98/60 06/04/18 11:52 153 H Pulse Ox 06/05/18 08:10 06/05/18 08:07 95 06/05/18 08:00 06/05/18 07:17 94 L 06/05/18 04:00 94 L 06/05/18 00:00 93 L 06/04/18 20:24 06/04/18 20:11 06/04/18 20:00 92 L 06/04/18 19:37 06/04/18 16:00 92 L 06/04/18 12:54 06/04/18 12:40 06/04/18 12:00 88 L 06/04/18 11:52 Intake and Output 06/04/18 06/05/18 06/05/18 22:59 06:59 14:59 Intake Total 243.167 870.5 Balance 243.167 870.5 Intake: Intake, IV Titration 43.167 790.5 Amount Diltiazem 50 mg In Sodium 43.167 40.5 Chloride 0.9% 40 ml @ 10 MG/HR 10 mls/hr IV .Q5H [facility] Rx#:[id number] Sodium Chloride 0.9% 1, 750 000 ml @ 100 mls/hr IV . Q10H [facility] Rx#:[id number] Oral 200 80 Other: Voiding Method Diaper Diaper Diaper # Voids 1 2 1 # Bowel Movements 1 1 0 Weight 89 kg 0 g General appearance: The patient is resting easily awakened. HET: Head is normocephalic and atraumatic. Pupils are equal and reactive. Oropharynx is clear without lesions. Neck: Supple without lymphadenopathy. Trachea midline. Heart: S1 S2. Lungs: Diminished in bilateral bases. Abdomen: Soft, nontender, nondistended with bowel sounds. No peritoneal signs. No palpable organomegaly or masses. Extremities: +1 bilateral lower extremity edema. Neurological: Lethargic but arousable response to family friends at bedside. No focal deficits. Strength and sensation are grossly intact. Results CBC & Chem 7: 06/05/18 06:27 06/05/18 06:27 Labs: Abnormal Lab Results - Last 24 Hours (Table) 06/04/18 06/04/18 06/04/18 Range/Units 11:12 16:21 21:00 WBC (3.8-10.6) k/uL RBC (4.30-5.90) m/uL Hgb (13.0-17.5) gm/dL Hct (39.0-53.0) % Chloride (98-107) mmol/L BUN (9-20) mg/dL Creatinine (0.66-1.25) mg/dL Glucose (74-99) mg/dL POC Glucose (mg/dL) 303 H 155 H 232 H (75-99) mg/dL Calcium (8.4-10.2) mg/dL Alkaline Phosphatase (38-126) U/L Total Protein (6.3-8.2) g/dL Albumin (3.5-5.0) g/dL 06/05/18 06/05/18 06/05/18 Range/Units 05:53 06:27 06:27 WBC 15.0 H (3.8-10.6) k/uL RBC 3.69 L (4.30-5.90) m/uL Hgb 11.1 L (13.0-17.5) gm/dL Hct 35.1 L (39.0-53.0) % Chloride 110 H (98-107) mmol/L BUN 61 H (9-20) mg/dL Creatinine 2.94 H (0.66-1.25) mg/dL Glucose 237 H (74-99) mg/dL POC Glucose (mg/dL) 247 H (75-99) mg/dL Calcium 7.8 L (8.4-10.2) mg/dL Alkaline Phosphatase 165 H (38-126) U/L Total Protein 4.8 L (6.3-8.2) g/dL Albumin 2.3 L (3.5-5.0) g/dL 06/05/18 Range/Units 09:40 WBC (3.8-10.6) k/uL RBC (4.30-5.90) m/uL Hgb (13.0-17.5) gm/dL Hct (39.0-53.0) % Chloride (98-107) mmol/L BUN (9-20) mg/dL Creatinine (0.66-1.25) mg/dL Glucose (74-99) mg/dL POC Glucose (mg/dL) 278 H (75-99) mg/dL Calcium (8.4-10.2) mg/dL Alkaline Phosphatase (38-126) U/L Total Protein (6.3-8.2) g/dL Albumin (3.5-5.0) g/dL Microbiology - Last 24 Hours (Table) 05/30/18 12:46 Blood Culture - Preliminary Blood No Growth after 120 hours Assessment and Plan (1) Protein-calorie malnutrition, mild Narrative/Plan: 82-year-old gentleman recent hemorrhagic stroke admitted with Oneil starks RVCindy mental status changes aspiration pneumonia with fever unable to maintain adequate oral nutrition for the last month component of mild protein calorie malnutrition. Current Visit: Yes Status: Acute Code(s): E44.1 - MILD PROTEIN-CALORIE MALNUTRITION SNOMED Code(s): 07279888 (2) Atrial fibrillation Current Visit: Yes Status: Acute Code(s): I48.91 - UNSPECIFIED ATRIAL FIBRILLATION SNOMED Code(s): 55016459 (3) Aspiration pneumonia Current Visit: Yes Status: Acute Code(s): J69.0 - PNEUMONITIS DUE TO INHALATION OF FOOD AND VOMIT SNOMED Code(s): 264896175 (4) Fever Current Visit: Yes Status: Acute Code(s): R50.9 - FEVER, UNSPECIFIED SNOMED Code(s): 307566426 (5) Cerebrovascular accident Current Visit: No Status: Acute Code(s): I63.9 - CEREBRAL INFARCTION, UNSPECIFIED SNOMED Code(s): 482956061 Plan: 1. Family requested Dr. Nusrat Salinas for PEG tube insertion will proceed tomorrow morning at 0700. Continue with oral medications as tolerated overall patient's clinical status is guarded and he is an increased endoscopic anesthesia risk secondary to his recent CVA, aspiration pneumonia, present elevated heart rate, and variable respiratory rate however oxygen saturation has maintained greater than 92% with O2 supplementation. Family understands the endoscopic anesthesia risks and has requested continuance of NO CODE STATUS they understand insertion of PEG tube may not necessarily improve his overall clinical status. Continue GI prophylaxis symptomatic and supportive care. 2. Nothing by mouth after midnight. 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 The patient has indicated understanding and acceptance of the risks and procedures discussed. Thank you for this kind referral and the opportunity to participate in the care of your patient. This consultation was discussed with Dr. Salinas. The impression and plan of care have been directed as dictated.
[2018-06-05] MEDS: METOPROLOL TARTRATE 50 MG TAB PO SCH ×2 (12:17→21:44)
--- NOTE | 2018-06-05 12:59 | P.PN ---
Subjective Progress Note Date: 06/05/18 Principal diagnosis: Acute exacerbation of chronic systolic congestive heart failure with ejection fraction 40-45% secondary to atrial fibrillation with rapid ventricular response This is an 82-year-old gentleman who follows with Dr. Deleon as his primary care physician. He has a history of atrial fibrillation, systolic congestive heart failure with ejection fraction 40-45%, diabetes mellitus, hypertension, hypothyroidism, macular degeneration, hyperlipidemia, chronic kidney disease stage III, prior history of nicotine dependence, gait dysfunction. 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 He was presented here again on May 17 for hypoxemia and altered mental status. We had seen and evaluated the patient at that time. He was subsequently again transferred to an extended care facility for further rehabilitation on 05/21/2018. He presented here again on 05/26/2018. He was found to have atrial fibrillation with a rapid ventricular response and was admitted to the selective care unit. We are consulted today for evaluation of his ongoing dyspnea. Today's chest x-ray shows scattered patchy infiltrates throughout the right perihilar and left basilar regions which may reflect developing pneumonia or early features of pulmonary edema. No leukocytosis. He did have a T-max of 100.3 yesterday currently afebrile. Urine culture revealed no growth. He is maintaining O2 saturations in the 90s on room air. He remains tachycardic at 119. Blood pressure stable. He is currently difficult to arouse. Unable to obtain any history from the patient. He is a DO NOT RESUSCITATE/DO NOT INTUBATE CODE STATUS per family request. The patient is seen again today 06/04/2018 in follow-up on the selective care unit. He is maintaining O2 saturations in the high 80s low 90s on 3 L/m per nasal cannula. Chest x-ray did reveal interval improvement in the lung inflation pattern particularly on the right.Slightly tachycardic. Slightly tachypneic. He is on oral amiodarone along with metoprolol. Blood and urine cultures revealed no growth. The patient is seen again today 06/05/2018 in follow-up on the selective care unit. He is currently nonverbal. His is at the bedside and states he usually is more awake and alert in the afternoons. He is still requiring 6 L high flow nasal cannula to maintain O2 saturations in the 90s. He remains on DuoNeb inhalations and meropenem. He has been tachycardic. Current BP 113/61. 0.9 normal saline at 100 ML's per hour. White count 15.0. Hemoglobin 11.1. Creatinine 2.94. Infectious disease has been consulted. GI services have been consulted for PEG tube insertion. Objective - Vital Signs Vital signs: Vital Signs Temp 98.2 F 06/05/18 07:17 Pulse 131 H 06/05/18 11:47 Resp 18 06/05/18 11:47 BP 113/61 06/05/18 11:46 Pulse Ox 93 L 06/05/18 11:46 Intake & Output 06/04/18 06/05/18 06/05/18 18:59 06:59 18:59 Intake Total 120 993.667 Balance 120 993.667 Weight 89 kg 0 g 97 kg Intake: Intake, IV Titration 833.667 Amount Diltiazem 50 mg In Sodium 83.667 Chloride 0.9% 40 ml @ 10 MG/HR 10 mls/hr IV .Q5H [facility] Rx#:[id number] Sodium Chloride 0.9% 1, 750 000 ml @ 100 mls/hr IV . Q10H [facility] Rx#:[id number] Oral 120 160 Other: Voiding Method Diaper Diaper Diaper # Voids 1 2 1 # Bowel Movements 1 1 0 - Exam GENERAL EXAM: Difficult to arouse, lethargic. HEAD: Normocephalic. EYES: Normal reaction of pupils, equal size. NOSE: Clear with pink turbinates. THROAT: No erythema or exudates. NECK: No masses, no JVD. CHEST: No chest wall deformity. LUNGS: Equal air entry with crackles in the bilateral posterior bases. CVS: S1 and S2 normal with no audible murmur, irregular rhythm. Tachycardic. ABDOMEN: No hepatosplenomegaly, normal bowel sounds, no guarding or rigidity. SPINE: No scoliosis or deformity SKIN: No rashes CENTRAL NERVOUS SYSTEM: Tone is normal in all 4 extremities. EXTREMITIES: There is no peripheral edema. No clubbing, no cyanosis. Peripheral pulses are intact. - Labs CBC & Chem 7: 06/05/18 06:27 06/05/18 06:27 Labs: Abnormal Lab Results - Last 24 Hours (Table) 06/04/18 06/04/18 06/05/18 Range/Units 16:21 21:00 05:53 WBC (3.8-10.6) k/uL RBC (4.30-5.90) m/uL Hgb (13.0-17.5) gm/dL Hct (39.0-53.0) % Chloride (98-107) mmol/L BUN (9-20) mg/dL Creatinine (0.66-1.25) mg/dL Glucose (74-99) mg/dL POC Glucose (mg/dL) 155 H 232 H 247 H (75-99) mg/dL Calcium (8.4-10.2) mg/dL Alkaline Phosphatase (38-126) U/L Total Protein (6.3-8.2) g/dL Albumin (3.5-5.0) g/dL 06/05/18 06/05/18 06/05/18 Range/Units 06:27 06:27 09:40 WBC 15.0 H (3.8-10.6) k/uL RBC 3.69 L (4.30-5.90) m/uL Hgb 11.1 L (13.0-17.5) gm/dL Hct 35.1 L (39.0-53.0) % Chloride 110 H (98-107) mmol/L BUN 61 H (9-20) mg/dL Creatinine 2.94 H (0.66-1.25) mg/dL Glucose 237 H (74-99) mg/dL POC Glucose (mg/dL) 278 H (75-99) mg/dL Calcium 7.8 L (8.4-10.2) mg/dL Alkaline Phosphatase 165 H (38-126) U/L Total Protein 4.8 L (6.3-8.2) g/dL Albumin 2.3 L (3.5-5.0) g/dL 06/05/18 Range/Units 11:33 WBC (3.8-10.6) k/uL RBC (4.30-5.90) m/uL Hgb (13.0-17.5) gm/dL Hct (39.0-53.0) % Chloride (98-107) mmol/L BUN (9-20) mg/dL Creatinine (0.66-1.25) mg/dL Glucose (74-99) mg/dL POC Glucose (mg/dL) 277 H (75-99) mg/dL Calcium (8.4-10.2) mg/dL Alkaline Phosphatase (38-126) U/L Total Protein (6.3-8.2) g/dL Albumin (3.5-5.0) g/dL Microbiology - Last 24 Hours (Table) 05/30/18 12:46 Blood Culture - Preliminary Blood No Growth after 120 hours Assessment and Plan Assessment: Impression: #1 Acute exacerbation of systolic congestive heart failure with ejection fraction 40-45% secondary to atrial fibrillation with rapid ventricular response. #2 Altered mental status. #3 Recent admission for acute hypoxic respiratory failure secondary to aspiration pneumonia. #4 Acute on chronic renal failure. Last creatinine 2.94. #5 Recent evolving subacute MCA distribution infarct along with moderate diffuse age-related cerebral atrophy and chronic small vessel ischemic changes. #6 Hypothyroidism. #7 Hypertension. #8 Hyperlipidemia. #9 Cholelithiasis. #10 Poor overall functional performance based on the above-mentioned multiple comorbidities. Plan: The patient was seen and evaluated by Dr. Orona. The patient remains aspiration precautions. Continued on bronchodilators and meropenem. Infectious diseases been consulted. GI services have also been consulted consulted for possible PEG tube placement. We'll continue to follow and make further recommendations based on his clinical status. I, the cosigning physician, performed a history & physical examination of the patient. Lungs sounds with crackles in the bilateral posterior bases. Maintaining good O2 saturations in the 90s on 6 L/m per nasal cannula. I discussed the assessment and plan of care with my nurse practitioner, Kailee Ross. I attest to the above note as dictated by her.
--- NOTE | 2018-06-05 13:03 | P.PN ---
Subjective Progress Note Date: 06/04/18 We're requested to see the patient again because of atrial fibrillation with rapid ventricular response. Patient has a history of atrial fibrillation as well as history of hemorrhagic stroke. Patient's heart rate is running 130s to 150s. Patient is minimally responsive. Blood pressure is running around 100/ 60. Apparently there had been talks of possible Comfort Care however it's been decided to pursue more aggressive management with possible PEG tube placement. He is currently on amiodarone 100 mg by mouth daily and metoprolol titrate 25 mg by mouth twice a day. Objective - Vital Signs Vital signs: Vital Signs Temp 98.2 F 06/05/18 07:17 Pulse 131 H 06/05/18 11:47 Resp 18 06/05/18 11:47 BP 113/61 06/05/18 11:46 Pulse Ox 93 L 06/05/18 11:46 Intake & Output 06/04/18 06/05/18 06/05/18 18:59 06:59 18:59 Intake Total 120 993.667 Balance 120 993.667 Weight 89 kg 0 g 97 kg Intake: Intake, IV Titration 833.667 Amount Diltiazem 50 mg In Sodium 83.667 Chloride 0.9% 40 ml @ 10 MG/HR 10 mls/hr IV .Q5H [facility] Rx#:[id number] Sodium Chloride 0.9% 1, 750 000 ml @ 100 mls/hr IV . Q10H [facility] Rx#:[id number] Oral 120 160 Other: Voiding Method Diaper Diaper Diaper # Voids 1 2 1 # Bowel Movements 1 1 0 - Exam PHYSICAL EXAMINATION: HEENT: [Head is atraumatic, normocephalic. Neck is supple. There is no elevated jugular venous pressure.] HEART EXAMINATION: [Heart sounds irregularly irregular, S1 and S2 with tachycardia noted.] CHEST EXAMINATION:[ Lungs reveal faint crackles bilateral bases. No chest wall tenderness is noted on palpation or with deep breathing.] ABDOMEN: [ Soft, nontender. Bowel sounds are heard. No organomegaly noted]. EXTREMITIES:[ 2+ peripheral pulses with no evidence of peripheral edema and no calf tenderness noted]. NEUROLOGIC [patient is lethargic, difficult to arouse.] . - Labs CBC & Chem 7: 06/05/18 06:27 06/05/18 06:27 Labs: Abnormal Lab Results - Last 24 Hours (Table) 06/04/18 06/04/18 06/05/18 Range/Units 16:21 21:00 05:53 WBC (3.8-10.6) k/uL RBC (4.30-5.90) m/uL Hgb (13.0-17.5) gm/dL Hct (39.0-53.0) % Chloride (98-107) mmol/L BUN (9-20) mg/dL Creatinine (0.66-1.25) mg/dL Glucose (74-99) mg/dL POC Glucose (mg/dL) 155 H 232 H 247 H (75-99) mg/dL Calcium (8.4-10.2) mg/dL Alkaline Phosphatase (38-126) U/L Total Protein (6.3-8.2) g/dL Albumin (3.5-5.0) g/dL 06/05/18 06/05/18 06/05/18 Range/Units 06:27 06:27 09:40 WBC 15.0 H (3.8-10.6) k/uL RBC 3.69 L (4.30-5.90) m/uL Hgb 11.1 L (13.0-17.5) gm/dL Hct 35.1 L (39.0-53.0) % Chloride 110 H (98-107) mmol/L BUN 61 H (9-20) mg/dL Creatinine 2.94 H (0.66-1.25) mg/dL Glucose 237 H (74-99) mg/dL POC Glucose (mg/dL) 278 H (75-99) mg/dL Calcium 7.8 L (8.4-10.2) mg/dL Alkaline Phosphatase 165 H (38-126) U/L Total Protein 4.8 L (6.3-8.2) g/dL Albumin 2.3 L (3.5-5.0) g/dL 06/05/18 Range/Units 11:33 WBC (3.8-10.6) k/uL RBC (4.30-5.90) m/uL Hgb (13.0-17.5) gm/dL Hct (39.0-53.0) % Chloride (98-107) mmol/L BUN (9-20) mg/dL Creatinine (0.66-1.25) mg/dL Glucose (74-99) mg/dL POC Glucose (mg/dL) 277 H (75-99) mg/dL Calcium (8.4-10.2) mg/dL Alkaline Phosphatase (38-126) U/L Total Protein (6.3-8.2) g/dL Albumin (3.5-5.0) g/dL Microbiology - Last 24 Hours (Table) 05/30/18 12:46 Blood Culture - Preliminary Blood No Growth after 120 hours Assessment and Plan Assessment: #1 acute on chronic systolic congestive heart failure with ejection fraction of 40-45%, secondary to atrial fibrillation with rapid ventricular response #2 chronic atrial fibrillation, no longer on anticoagulation secondary to hemorrhagic stroke #3 poorly controlled ventricular response #4 acute on chronic renal failure #5 altered mental status #6 recent evolving subacute MCA distribution infarct Plan: From cardiology perspective, patient's prognosis remains poor. We will add Cardizem drip for better heart rate control. Continue to follow the patient provide further recommendations accordingly. STRU[employer] F[employer]IC[employer] APPRENTICE note has been reviewed, I agree with a documented findings and plan of care. Patient was seen and examined.
--- NOTE | 2018-06-05 13:05 | P.PN ---
Subjective Progress Note Date: 06/05/18 We're requested to see the patient again because of atrial fibrillation with rapid ventricular response. Patient has a history of atrial fibrillation as well as history of hemorrhagic stroke. Patient's heart rate is running 130s to 150s. Patient is minimally responsive. Blood pressure is running around 100/ 60. Apparently there had been talks of possible Comfort Care however it's been decided to pursue more aggressive management with possible PEG tube placement. He is currently on amiodarone 100 mg by mouth daily and metoprolol titrate 25 mg by mouth twice a day. He was initiated on IV Cardizem yesterday which was discontinued due to heart rate of 60 and hypotension with a systolic blood pressure of 80. Heart rate is currently 120s to 130s. Objective - Vital Signs Vital signs: Vital Signs Temp 98.2 F 06/05/18 07:17 Pulse 131 H 06/05/18 11:47 Resp 18 06/05/18 11:47 BP 113/61 06/05/18 11:46 Pulse Ox 93 L 06/05/18 11:46 Intake & Output 06/04/18 06/05/18 06/05/18 18:59 06:59 18:59 Intake Total 120 993.667 Balance 120 993.667 Weight 89 kg 0 g 97 kg Intake: Intake, IV Titration 833.667 Amount Diltiazem 50 mg In Sodium 83.667 Chloride 0.9% 40 ml @ 10 MG/HR 10 mls/hr IV .Q5H [facility] Rx#:[id number] Sodium Chloride 0.9% 1, 750 000 ml @ 100 mls/hr IV . Q10H [facility] Rx#:[id number] Oral 120 160 Other: Voiding Method Diaper Diaper Diaper # Voids 1 2 1 # Bowel Movements 1 1 0 - Exam PHYSICAL EXAMINATION: HEENT: [Head is atraumatic, normocephalic. Neck is supple. There is no elevated jugular venous pressure.] HEART EXAMINATION: [Heart sounds irregularly irregular, S1 and S2 with tachycardia noted.] CHEST EXAMINATION:[ Lungs reveal faint crackles bilateral bases. No chest wall tenderness is noted on palpation or with deep breathing.] ABDOMEN: [ Soft, nontender. Bowel sounds are heard. No organomegaly noted]. EXTREMITIES:[ 2+ peripheral pulses with no evidence of peripheral edema and no calf tenderness noted]. NEUROLOGIC [patient is lethargic, difficult to arouse.] . - Labs CBC & Chem 7: 06/05/18 06:27 06/05/18 06:27 Labs: Abnormal Lab Results - Last 24 Hours (Table) 06/04/18 06/04/18 06/05/18 Range/Units 16:21 21:00 05:53 WBC (3.8-10.6) k/uL RBC (4.30-5.90) m/uL Hgb (13.0-17.5) gm/dL Hct (39.0-53.0) % Chloride (98-107) mmol/L BUN (9-20) mg/dL Creatinine (0.66-1.25) mg/dL Glucose (74-99) mg/dL POC Glucose (mg/dL) 155 H 232 H 247 H (75-99) mg/dL Calcium (8.4-10.2) mg/dL Alkaline Phosphatase (38-126) U/L Total Protein (6.3-8.2) g/dL Albumin (3.5-5.0) g/dL 06/05/18 06/05/18 06/05/18 Range/Units 06:27 06:27 09:40 WBC 15.0 H (3.8-10.6) k/uL RBC 3.69 L (4.30-5.90) m/uL Hgb 11.1 L (13.0-17.5) gm/dL Hct 35.1 L (39.0-53.0) % Chloride 110 H (98-107) mmol/L BUN 61 H (9-20) mg/dL Creatinine 2.94 H (0.66-1.25) mg/dL Glucose 237 H (74-99) mg/dL POC Glucose (mg/dL) 278 H (75-99) mg/dL Calcium 7.8 L (8.4-10.2) mg/dL Alkaline Phosphatase 165 H (38-126) U/L Total Protein 4.8 L (6.3-8.2) g/dL Albumin 2.3 L (3.5-5.0) g/dL 06/05/18 Range/Units 11:33 WBC (3.8-10.6) k/uL RBC (4.30-5.90) m/uL Hgb (13.0-17.5) gm/dL Hct (39.0-53.0) % Chloride (98-107) mmol/L BUN (9-20) mg/dL Creatinine (0.66-1.25) mg/dL Glucose (74-99) mg/dL POC Glucose (mg/dL) 277 H (75-99) mg/dL Calcium (8.4-10.2) mg/dL Alkaline Phosphatase (38-126) U/L Total Protein (6.3-8.2) g/dL Albumin (3.5-5.0) g/dL Microbiology - Last 24 Hours (Table) 05/30/18 12:46 Blood Culture - Preliminary Blood No Growth after 120 hours Assessment and Plan Assessment: #1 acute on chronic systolic congestive heart failure with ejection fraction of 40-45%, secondary to atrial fibrillation with rapid ventricular response #2 chronic atrial fibrillation, no longer on anticoagulation secondary to hemorrhagic stroke #3 poorly controlled ventricular response #4 acute on chronic renal failure #5 altered mental status #6 recent evolving subacute MCA distribution infarct Plan: From cardiology perspective, patient's prognosis remains poor. We will increase metoprolol for better heart rate control. Continue to follow the patient provide further recommendations accordingly. CHAIN [employer]KER [employer] note has been reviewed, I agree with a documented findings and plan of care. Patient was seen and examined.
[2018-06-05 16:26] LABS: Glucose,Whole Blood 218 mg/dL (75-99)
[2018-06-05 20:23] LABS: Glucose,Whole Blood 240 mg/dL (75-99)
[2018-06-05] MEDS: LACTATED RINGERS 1,000 ML IV SCH (21:24)
[2018-06-05] MEDS: INSULIN DETEMIR 100 UNIT/ML 10 ML VIAL SQ SCH (21:41)
[2018-06-05] MEDS: ATORVASTATIN 10 MG TAB PO SCH (21:42)
--- NOTE | 2018-06-05 22:34 | P.PN ---
Subjective Progress Note Date: 06/05/18 82-year-old male presents to Hospital from the extended care facility with increasing shortness of breath. 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 The patient is chronically anticoagulated with his atrial fibrillation, apparently he has subtherapeutic INR and developed the stroke and then had hemorrhagic conversion. He was hospitalized from May 09- [place] [facility] [place] thereafter he had difficulty with respiration became quite short of breath without evidence of aspiration pneumonia. This was treated sent back to rehab and now presents again with significant shortness of breath with concerns to aspiration pneumonia and congestive heart failure which should be acute on chronic systolic type. Over the last several days the patient has significant decline of his status. He had hypotension and hypoxia and consequently the decision was for comfort care. The patient has rallied and has had some improvement in consequently he has now no longer an comfort care is appropriately a DO NOT RESUSCITATE. The patient is awake and arousable but has very poor insight and very poor hearing and the family is concerned about him being upset at times. The patient has been seen by gastroenterology and his plans for PEG tube in the morning Objective - Vital Signs Vital signs: Vital Signs Temp 97.9 F 06/05/18 20:00 Pulse 111 H 06/05/18 21:26 Resp 22 06/05/18 20:00 BP 96/63 06/05/18 20:00 Pulse Ox 95 06/05/18 21:15 Intake & Output 06/05/18 06/05/18 06/06/18 06:59 18:59 06:59 Intake Total 993.667 Balance 993.667 Weight 0 g 97 kg Intake: Intake, IV Titration 833.667 Amount Diltiazem 50 mg In Sodium 83.667 Chloride 0.9% 40 ml @ 10 MG/HR 10 mls/hr IV .Q5H [facility] Rx#:[id number] Sodium Chloride 0.9% 1, 750 000 ml @ 100 mls/hr IV . Q10H [facility] Rx#:[id number] Oral 160 Other: Voiding Method Diaper Diaper # Voids 2 1 # Bowel Movements 1 1 - Exam pleasant 82-year-old male status post stroke HEENT: Anicteric conjunctiva are pink and moist nasal mucosa grossly intact without significant lesions, there is no thrush. Neck: The neck is supple without significant lymphadenopathy or thyromegaly. Lungs: Good bilateral air entry here is evidence of a few crackles at the left base so The right base however has loud bronchial soundsand there are some minimal dullnes Heart: irregular irregular with NORMAL s1 AND s2 NO s3 SOFT s4 no significant murmur click or rub Abdomen: Positive bowel sounds soft and nontender without palpable masses or organomegaly. There was no guarding or rebound. Extremities: Upper extremities intact with IV without difficulty in the right arm. Bilateral lower extremities have edema but no significant ulcerations Neuro: Patient is awake and interactive, poor historian did not follow commands well but easily recognizes his family's voices interacts briefly with them - Labs CBC & Chem 7: 18 06:27 06/05/18 06:27 Labs: Abnormal Lab Results - Last 24 Hours (Table) 06/05/18 06/05/18 06/05/18 Range/Units 05:53 06:27 06:27 WBC 15.0 H (3.8-10.6) k/uL RBC 3.69 L (4.30-5.90) m/uL Hgb 11.1 L (13.0-17.5) gm/dL Hct 35.1 L (39.0-53.0) % Chloride 110 H (98-107) mmol/L BUN 61 H (9-20) mg/dL Creatinine 2.94 H (0.66-1.25) mg/dL Glucose 237 H (74-99) mg/dL POC Glucose (mg/dL) 247 H (75-99) mg/dL Calcium 7.8 L (8.4-10.2) mg/dL Alkaline Phosphatase 165 H (38-126) U/L Total Protein 4.8 L (6.3-8.2) g/dL Albumin 2.3 L (3.5-5.0) g/dL 06/05/18 06/05/18 06/05/18 Range/Units 09:40 11:33 16:25 WBC (3.8-10.6) k/uL RBC (4.30-5.90) m/uL Hgb (13.0-17.5) gm/dL Hct (39.0-53.0) % Chloride (98-107) mmol/L BUN (9-20) mg/dL Creatinine (0.66-1.25) mg/dL Glucose (74-99) mg/dL POC Glucose (mg/dL) 278 H 277 H 218 H (75-99) mg/dL Calcium (8.4-10.2) mg/dL Alkaline Phosphatase (38-126) U/L Total Protein (6.3-8.2) g/dL Albumin (3.5-5.0) g/dL 06/05/18 Range/Units 20:21 WBC (3.8-10.6) k/uL RBC (4.30-5.90) m/uL Hgb (13.0-17.5) gm/dL Hct (39.0-53.0) % Chloride (98-107) mmol/L BUN (9-20) mg/dL Creatinine (0.66-1.25) mg/dL Glucose (74-99) mg/dL POC Glucose (mg/dL) 240 H (75-99) mg/dL Calcium (8.4-10.2) mg/dL Alkaline Phosphatase (38-126) U/L Total Protein (6.3-8.2) g/dL Albumin (3.5-5.0) g/dL Microbiology - Last 24 Hours (Table) 05/30/18 12:46 Blood Culture - Final Blood No Growth after 144 hours Laboratory Results WBC 15.0 k/uL (3.8-10.6) H 06/05/18 06:27 RBC 3.69 m/uL (4.30-5.90) L 06/05/18 06:27 Hgb 11.1 gm/dL (13.0-17.5) L 06/05/18 06:27 Hct 35.1 % (39.0-53.0) L 06/05/18 06:27 MCV 95.1 fL (80.0-100.0) 06/05/18 06:27 MCH 30.1 pg (25.0-35.0) 06/05/18 06: MCHC 31.6 g/dL (31.0-37.0) 06/05/18 06:27 RDW 14.3 % (11.5-15.5) 06/05/18 06:27 Plt Count 165 k/uL (150-450) 06/05/18 06:27 Neutrophils % 75 % 05/28/18 05:30 Lymphocytes % 13 % 05/28/18 05:30 Monocytes % 7 % 05/28/18 05:30 Eosinophils % 3 % 05/28/18 05:30 Basophils % 0 % 05/28/18 05:30 Neutrophils # 5.0 k/uL (1.3-7.7) 05/28/18 05:30 Lymphocytes # 0.9 k/uL (1.0-4.8) L 05/28/18 05:30 Monocytes # 0.5 k/uL (0-1.0) 05/28/18 05:30 Eosinophils # 0.2 k/uL (0-0.7) 05/28/18 05:30 Basophils # 0.0 k/uL (0-0.2) 05/28/18 05:30 Hypochromasia Slight 06/05/18 06:27 PT 10.9 sec (9.0-12.0) 05/26/18 23:10 INR 1.1 (<1.2) 05/26/18 23:10 APTT 23.7 sec (22.0-30.0) 06/05/18 06:27 VBG pH 7.44 (7.31-7.41) H 05/26/18 23:10 VBG pCO2 33 mmHg (37-51) L 05/26/18 23:10 VBG HCO3 22 mmol/L (24-28) L 05/26/18 23:10 Sodium 142 mmol/L (137-145) 06/05/18 06:27 Potassium 4.5 mmol/L (3.5-5.1) 06/05/18 06:27 Chloride 110 mmol/L (98-107) H 06/05/18 06:27 Carbon Dioxide 22 mmol/L (22-30) 06/05/18 06:27 Anion Gap 10 mmol/L 06/05/18 06:27 BUN 61 mg/dL (9-20) H 06/05/18 06:27 Creatinine 2.94 mg/dL (0.66-1.25) H 06/05/18 06:27 Est GFR (CKD-EPI)AfAm 22 (>60 ml/min/1.73 sqM) 06/05/18 06:27 Est GFR (CKD-EPI)NonAf 19 (>60 ml/min/1.73 sqM) 06/05/18 06:27 Glucose 237 mg/dL (74-99) H 06/05/18 06:27 POC Glucose (mg/dL) 240 mg/dL (75-99) H 06/05/18 20:21 POC Glu [employer] Consultant ID Vania Antony 06/05/18 20:[address] Glu mg/dL 192 05/26/18 23:10 Hemoglobin A1c 8.3 % (4.0-6.0) H 05/26/18 23:10 Lactic Ac Sepsis Rflx Y 05/26/18 23:59 Plasma Lactic Acid Raffy 2.0 mmol/L (0.7-2.0) 06/01/18 14:38 Calcium 7.8 mg/dL (8.4-10.2) L 06/05/18 06:27 Magnesium 1.9 mg/dL (1.6-2.3) 06/01/18 03:17 Total Bilirubin 0.5 mg/dL (0.2-1.3) 06/05/18 06:27 AST 32 U/L (17-59) 06/05/18 06:27 ALT 61 U/L (21-72) 06/05/18 06:27 Alkaline Phosphatase 165 U/L (38-126) H 06/05/18 06:27 Total Creatine Kinase <20 U/L (55-170) L 05/27/18 12:16 CK-MB (CK-2) 1.0 ng/mL (0.0-2.4) 05/27/18 12:16 CK-MB (CK-2) Rel Index 05/27/18 12:16 Troponin I 0.014 ng/mL (0.000-0.034) 05/27/18 12:16 NT-Pro-B Natriuret Pep 7110 pg/mL 06/02/18 05:28 Total Protein 4.8 g/dL (6.3-8.2) L 06/05/18 06:27 Albumin 2.3 g/dL (3.5-5.0) L 06/05/18 06:27 Urine Color Light Yellow 05/26/18 11:00 Urine Appearance Clear (Clear) 05/26/18 11:00 Urine pH 5.0 (5.0-8.0) 05/26/18 11:00 Ur Specific [place] 1.006 (1.001-1.035) 05/26/18 11:00 Urine Protein Negative (Negative) 05/26/18 11:00 Urine Glucose (UA) 2+ (Negative) H 05/26/18 11:00 Urine Ketones Negative (Negative) 05/26/18 11:00 Urine Blood Trace (Negative) H 05/26/18 11:00 Urine Nitrite Negative (Negative) 05/26/18 11:00 Urine Bilirubin Negative (Negative) 05/26/18 11:00 Urine Urobilinogen <2.0 mg/dL (<2.0) 05/26/18 11:00 Ur Leukocyte Esterase Negative (Negative) 05/26/18 11:00 Urine RBC 3 /hpf (0-5) 05/26/18 11:00 Urine WBC 1 /hpf (0-5) 05/26/18 11:00 Ur Squamous Epith Cells <1 /hpf (0-4) 05/26/18 11:00 Urine Mucus Rare /hpf (None) H 05/26/18 11:00 Microbiology 05/30/18 12:46 Blood Blood Culture - Final No Growth after 144 hours 05/30/18 15:40 Urine,Voided Urine Culture - Final 05/27/18 11:00 Urine,Catheterized Urine Culture - Final Assessment and Plan (1) Cerebrovascular accident Current Visit: No Status: Acute Code(s): I63.9 - CEREBRAL INFARCTION, UNSPECIFIED SNOMED Code(s): 996106081 (2) Aspiration pneumonia Narrative/Plan: 82-year-old male who has multiple medical troubles including atrial fibrillation, chronic systolic congestive heart failure, chronic kidney disease stage III. The recent cerebrovascular accident right temporal artery distribution with hemorrhagic conversion. The patient has been quite debilitated and has been cared for at extended care since his stroke. He developed a bout of aspiration pneumonia was having some improvement until there is evidence of further aspiration. He is now admitted with this difficulty and had significant decline of his status. He was briefly on comfort care because he was doing so poorly but is now rallied and is having some improvement. The family would like gastroenterology involved for placement of a PEG tube to determine if he can have some further improvement over time. The patient to allow some nutrition, hydration and medications. This is discussed in great length with the family that just because the PEG tube is there does not mean it must be used. And if desire to continue to be removed if they do not want it to be used further in the future. It however might allow him to have some improvement although they're aware of his very poor prognosis. He did have significant fever and leukocytosis and antibiotic therapy was just transitioned to meropenem and that will continue for the next short period of time until we have some further data cultures however are negative at this time. He is improving is receiving respiratory treatments. The family's questions are answered. 06/05/2018 patient is comfortable at this time. PEG tube is been planned for the morning and the family is well aware of the pros and cons of the procedure. Their goal is to try to provide him some nutrition, fluids and medications to keep him as comfortable as they can into the future. There optimistically hopeful but are also very realistic. Current Visit: Yes Status: Acute Code(s): J69.0 - PNEUMONITIS DUE TO INHALATION OF FOOD AND VOMIT SNOMED Code(s): 905528511 (3) Fever Current Visit: Yes Status: Acute Code(s): R50.9 - FEVER, UNSPECIFIED SNOMED Code(s): 287032826
[2018-06-06] MEDS: DILTIAZEM 50 MG in SODIUM CHLORIDE 0.9% 40 ML IV SCH ×3 (02:57→20:00)
[2018-06-06] MEDS: MEROPENEM 500 MG in SODIUM CHLORIDE 0.9% 50 ML IVPB SCH ×2 (03:22→17:19)
[2018-06-06] MEDS: SULFACETAMIDE SOD 10% OPHTH DROPS 15 ML BTL BOTH EYES SCH ×6 (03:23→23:12)
[2018-06-06] MEDS ORDERED: ceFAZolin 2,000 MG in DEXTROSE/WATER 1 50ML.BAG IVPB ONE (06:00)
[2018-06-06] MEDS ORDERED: ceFAZolin IN SWFI 2 GM/20 ML SYRINGE IVP ONE (06:00)
[2018-06-06 06:08] LABS: Glucose,Whole Blood 135 mg/dL (75-99)
[2018-06-06] MEDS: LEVOTHYROXINE 75 MCG TAB PO SCH (06:15)
[2018-06-06] MEDS: PANTOPRAZOLE 40 MG TABLET PO SCH ×2 (06:16→17:20)
[2018-06-06] MEDS: INSULIN ASPART 100 UNIT/ML 1 ML 10 ML VIAL SQ SCH ×4 (06:19→20:56)
[2018-06-06] MEDS ORDERED: LIDOCAINE 1% INJ 10MG/ML (20 ML MDV) ONE (07:15)
[2018-06-06] MEDS ORDERED: PHENYLEPHRINE-0.9% NACL SYG 1 MG/10 ML SYRINGE ONE (07:15)
[2018-06-06] MEDS ORDERED: MIDAZOLAM 2 MG/2 ML VIAL ONE (07:15)
[2018-06-06] MEDS ORDERED: PROPOFOL 10 MG/ML 20 ML VIAL IV ONE (07:15)
[2018-06-06] MEDS ORDERED: IV FLUID CONTINUATION 1,000 ML IV ONE (07:26)
--- NOTE | 2018-06-06 07:36 | P.PCN ---
Date of Procedure: 06/06/18 Procedure(s) Performed: Brief history: Patient is a -82 year-old pleasant white male, scheduled for an EGD with PEG tube placement today. He has history of recent CVA and was admitted to the hospital with difficulty R to mental status and aspiration pneumonia. Presently on broad-spectrum antibiotics. Because of oropharyngeal dysphagia for recent CVA he is scheduled for an upper endoscopy with PEG tube placement. Procedure performed: EGD with PEG tube placement Preoperative diagnosis: Oropharyngeal dysphagia/recent CVA/aspiration pneumonia IV sedation by anesthesia Procedure: After informed consent was obtained with the patient as well as the family the patient was brought into the endoscopy unit. IV conscious sedation was administered by anesthesia under continuous monitoring. The Olympus GF 160 video endoscope was inserted into the mouth and esophagus intubated without any difficulty and was gradually advanced to the stomach and duodenum. The bulb of the duodenum was visualized which appeared normal. I was not able to advance the scope into the second portion of the duodenum. The scope at this time was withdrawn to the stomach adequately insufflated with air. Adequate transillumination was achieved onto the anterior abdominal wall. At the site of adequate transillumination and maximal finger indentation, on the anterior abdominal wall, this area was sterilely prepped and draped. One percent Xylocaine was infiltrated into the skin and a small incision was made. Trocar and cannula was passed through the incision into the stomach cavity. The trocar was removed. Guidewire was passed through the cannula into the stomach cavity which was held by the snare that was passed through the scope. The guidewire along with the scope was gently withdrawn from the stomach esophagus out of the mouth. A 20-[employer] PEG tube was passed over the guidewire and was gently advanced into the mouth and esophagus and stomach. With gentle traction the guidewire along with the PEG tube was pulled from the anterior abdominal wall until the internal bumper appeared to be in secure position. Repeat EGD was performed and the esophagus intubated without any difficulty and was advanced into the stomach. The internal bumper appeared to be in secure position. The visualized portions of the antrum body cardia and fundus of the stomach appeared normal. The esophagus was carefully examined as the scope was gradually being withdrawn which appeared normal. There was a small hiatal hernia noted. At this time external bumper was placed on the PEG tube closer to the anterior abdominal wall at 3 cm saleem. The patient tolerated the procedure well. Impression: Successful 20-[employer] PEG tube placement as described above. Small hiatal hernia. Recommendations: Findings of this examination were discussed with the patient's family. The patient will be started on tube feeds tomorrow. Post-PEG tube orders were written.
[2018-06-06] MEDS: IPRATROPIUM-ALBUTEROL 3 ML NEB INHALATION SCH ×3 (07:55→21:00)
[2018-06-06] MEDS: ZINC OXIDE 20% OINT 28.4 GM TUBE TOPICAL SCH ×2 (08:50→20:48)
[2018-06-06] MEDS: METOPROLOL TARTRATE 50 MG TAB PO SCH ×2 (08:51→20:48)
[2018-06-06] MEDS: CITALOPRAM HYDROBROMIDE 10 MG TAB PO SCH (08:51)
[2018-06-06] MEDS: AMIODARONE 100 MG TAB PO SCH (08:51)
[2018-06-06] MEDS: HEPARIN SODIUM,PORCINE 5,000 UNIT/ML 1 ML VIAL SQ SCH ×2 (08:51→20:48)
[2018-06-06] MEDS ORDERED: DILTIAZEM ORAL 60 MG TAB PO SCH ×2 (11:00→16:00)
[2018-06-06] MEDS: IPRATROPIUM-ALBUTEROL 3 ML NEB INHALATION PRN ×2 (11:03→17:37)
--- NOTE | 2018-06-06 11:39 | XR ---
EXAMINATION TYPE: XR chest 1V portable DATE OF EXAM: 06/06/2018 COMPARISON: 06/03/2018 INDICATION: Shortness of breath, cough TECHNIQUE: Single frontal view of the chest is obtained. FINDINGS: The heart size is mildly prominent but stable. The pulmonary vasculature is normal. There is interval development of a patchy infiltrate within the periphery of the right midlung. Corre late for pneumonia. Follow-up is recommended. Some blunting the right costophrenic angle is present. IMPRESSION: 1. Interval development of a patchy infiltrate within the periphery of the right midlung with some bl unting the right costophrenic angle. Correlate for pneumonia. Follow-up is recommended.
[2018-06-06] MEDS ORDERED: DILTIAZEM DRIP BOLUS FROM BAG 1 MG SOLN IV ONE (12:06)
[2018-06-06] MEDS: SODIUM CHLORIDE 0.9% 1,000 ML IV SCH ×2 (12:11→20:49)
[2018-06-06 12:17] LABS: Glucose,Whole Blood 124 mg/dL (75-99)
[2018-06-06] MEDS ORDERED: DILTIAZEM 50 MG in SODIUM CHLORIDE 0.9% 40 ML IV SCH (12:30)
[2018-06-06 15:14] VITALS: BMI 32.5
--- NOTE | 2018-06-06 15:42 | P.PN ---
Subjective Progress Note Date: 06/06/18 We're requested to see the patient again because of atrial fibrillation with rapid ventricular response. Patient has a history of atrial fibrillation as well as history of hemorrhagic stroke. Patient's heart rate is running 130s to 150s. Patient is minimally responsive. Blood pressure is running around 100/ 60. Apparently there had been talks of possible Comfort Care however it's been decided to pursue more aggressive management with possible PEG tube placement. He is currently on IV Cardizem, amiodarone 100 mg by mouth daily and metoprolol titrate 50 mg by mouth twice a day. Heart rate remains hovering around 100-120. Objective - Vital Signs Vital signs: Vital Signs Temp 97.0 F L 06/06/18 08:00 Pulse 120 H 06/06/18 11:52 Resp 20 06/06/18 11:52 BP 125/73 06/06/18 11:47 Pulse Ox 93 L 06/06/18 11:47 Intake & Output 06/05/18 06/06/18 06/06/18 18:59 06:59 18:59 Intake Total 740 350 Balance 740 350 Weight 97 kg 97 kg Intake: IV 350 Intake, IV Titration 400 Amount Sodium Chloride 0.9% 1, 400 000 ml @ 100 mls/hr IV . Q10H [facility] Rx#:[id number] Oral 340 Other: Voiding Method Diaper Diaper Diaper # Voids 1 1 # Bowel Movements 1 0 - Exam PHYSICAL EXAMINATION: HEENT: [Head is atraumatic, normocephalic. Neck is supple. There is no elevated jugular venous pressure.] HEART EXAMINATION: [Heart sounds irregularly irregular, S1 and S2 with tachycardia noted.] CHEST EXAMINATION:[ Lungs reveal faint crackles bilateral bases. No chest wall tenderness is noted on palpation or with deep breathing.] ABDOMEN: [ Soft, nontender. Bowel sounds are heard. No organomegaly noted]. EXTREMITIES:[ 2+ peripheral pulses with no evidence of peripheral edema and no calf tenderness noted]. NEUROLOGIC [patient is lethargic, difficult to arouse.] . - Labs CBC & Chem 7: 06/05/18 06:27 06/05/18 06:27 Labs: Abnormal Lab Results - Last 24 Hours (Table) 06/05/18 06/05/18 06/06/18 Range/Units 16:25 20:21 06:07 POC Glucose (mg/dL) 218 H 240 H 135 H (75-99) mg/dL 06/06/18 Range/Units 12:16 POC Glucose (mg/dL) 124 H (75-99) mg/dL Microbiology - Last 24 Hours (Table) 05/30/18 12:46 Blood Culture - Final Blood No Growth after 144 hours Assessment and Plan Assessment: #1 acute on chronic systolic congestive heart failure with ejection fraction of 40-45%, secondary to atrial fibrillation with rapid ventricular response #2 chronic atrial fibrillation, no longer on anticoagulation secondary to hemorrhagic stroke #3 poorly controlled ventricular response #4 acute on chronic renal failure #5 altered mental status #6 recent evolving subacute MCA distribution infarct Plan: From cardiology perspective, patient's prognosis remains poor. We will start the patient on Cardizem 60 mg by mouth 3 times a day, stop amiodarone and stop Cardizem drip. Continue metoprolol 50 mg by mouth twice a day. We will continue to follow patient write further recommendation accordingly. SENIOR COMMISSARY AGENT note has been reviewed, I agree with a documented findings and plan of care. Patient was seen and examined.
--- NOTE | 2018-06-06 15:48 | P.PN ---
Subjective Progress Note Date: 06/06/18 This is an 82-year-old gentleman who follows with Dr. Deleon as his primary care physician. He has a history of atrial fibrillation, systolic congestive heart failure with ejection fraction 40-45%, diabetes mellitus, hypertension, hypothyroidism, macular degeneration, hyperlipidemia, chronic kidney disease stage III, prior history of nicotine dependence, gait dysfunction. 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 He was presented here again on May 17 for hypoxemia and altered mental status. We had seen and evaluated the patient at that time. He was subsequently again transferred to an extended care facility for further rehabilitation on 05/21/2018. He presented here again on 05/26/2018. He was found to have atrial fibrillation with a rapid ventricular response and was admitted to the selective care unit. We are consulted today for evaluation of his ongoing dyspnea. Today's chest x-ray shows scattered patchy infiltrates throughout the right perihilar and left basilar regions which may reflect developing pneumonia or early features of pulmonary edema. No leukocytosis. He did have a T-max of 100.3 yesterday currently afebrile. Urine culture revealed no growth. He is maintaining O2 saturations in the 90s on room air. He remains tachycardic at 119. Blood pressure stable. He is currently difficult to arouse. Unable to obtain any history from the patient. He is a DO NOT RESUSCITATE/DO NOT INTUBATE CODE STATUS per family request. The patient is seen again today 06/04/2018 in follow-up on the selective care unit. He is maintaining O2 saturations in the high 80s low 90s on 3 L/m per nasal cannula. Chest x-ray did reveal interval improvement in the lung inflation pattern particularly on the right.Slightly tachycardic. Slightly tachypneic. He is on oral amiodarone along with metoprolol. Blood and urine cultures revealed no growth. The patient is seen again today 06/05/2018 in follow-up on the selective care unit. He is currently nonverbal. His is at the bedside and states he usually is more awake and alert in the afternoons. He is still requiring 6 L high flow nasal cannula to maintain O2 saturations in the 90s. He remains on DuoNeb inhalations and meropenem. He has been tachycardic. Current BP 113/61. 0.9 normal saline at 100 ML's per hour. White count 15.0. Hemoglobin 11.1. Creatinine 2.94. Infectious disease has been consulted. GI services have been consulted for PEG tube insertion. 97 2017, patient is being seen in the follow-up. Unfortunately is doing poorly. He underwent a PEG tube insertion today without any complications. Enterofeeding has not been started yet. This will be started with the next 24 hours. Neurologically is doing poorly. He mumbles. He moans. He is nonverbal. He seems to have some degree of shortness of breath even at rest. He has a congested cough. A repeat chest x-ray was done and there is development of a right-sided patchy pulmonary infiltrate probably progression of his underlying pneumonia. The patient is currently nothing by mouth. There is a suspicion for an underlying aspiration pneumonia in this patient. He is a DNR/DNI CODE STATUS. The patient is still in atrial fibrillation. He is known to have coronary artery disease and he is known to have chronic systolic congestion heart failure with an ejection fraction of 40-45% and he suffered a hemorrhagic temporal stroke on the right recently and since then his condition is been progressively declining. The patient has not developed any seizure activity. He is on oxygen at 5 L per minute nasal cannula and his pulse ox is 93%. His heart rate is in the 110-120 irregular consistent with atrial fibrillation. PEG tube site is clean for now.He is renal function is progressively getting worse in the creatinine is up to 2.9. He remains quite debilitated and nothing by mouth for the time being. I fluids are running at home as an hour. Objective - Vital Signs Vital signs: Vital Signs Temp 97.0 F L 06/06/18 08:00 Pulse 120 H 06/06/18 11:52 Resp 20 06/06/18 11:52 BP 125/73 06/06/18 11:47 Pulse Ox 93 L 06/06/18 11:47 Intake & Output 06/05/18 06/06/18 06/06/18 18:59 06:59 18:59 Intake Total 740 350 Balance 740 350 Weight 97 kg 97 kg Intake: IV 350 Intake, IV Titration 400 Amount Sodium Chloride 0.9% 1, 400 000 ml @ 100 mls/hr IV . Q10H [facility] Rx#:[id number] Oral 340 Other: Voiding Method Diaper Diaper Diaper # Voids 1 1 # Bowel Movements 1 0 - Exam pleasant 82-year-old male status post stroke, seems to be a mild degree of distress as the patient grimaces and moans yet he does not follow any conversation. He withdraws to painful stimulation. He keeps his eyes closed and he does not have any eye contact with the medical staff. HEENT: Anicteric conjunctiva are pink and moist nasal mucosa grossly intact without significant lesions, there is no thrush. Neck: The neck is supple without significant lymphadenopathy or thyromegaly. Lungs: Good bilateral air entry here is evidence of a few crackles at the left base so The right base however has loud bronchial soundsand there are some minimal dullnes, on today's evaluation there is some increased wheezing heard bilaterally. Heart: irregular irregular with NORMAL s1 AND s2 NO s3 SOFT s4 no significant murmur click or rub Abdomen: Positive bowel sounds soft and nontender without palpable masses or organomegaly. There was no guarding or rebound. The PEG tube site is dry clean and intact and the patient has no significant abdominal tenderness. Extremities: Upper extremities intact with IV without difficulty in the right arm. Bilateral lower extremities have edema but no significant ulcerations Neuro: Patient is not interactive, I was told that he was able to get to his family yesterday evening however his mentation waxes and wanes. He withdraws to deep painful stimulation. I have not seen him speak for today. He grimaces. No facial asymmetry at this point in time. There may be some right facial weakness for now. - Labs CBC & Chem 7: 06/05/18 06:27 06/05/18 06:27 Labs: Abnormal Lab Results - Last 24 Hours (Table) 06/05/18 06/05/18 06/06/18 Range/Units 16:25 20:21 06:07 POC Glucose (mg/dL) 218 H 240 H 135 H (75-99) mg/dL 06/06/18 Range/Units 12:16 POC Glucose (mg/dL) 124 H (75-99) mg/dL Microbiology - Last 24 Hours (Table) 05/30/18 12:46 Blood Culture - Final Blood No Growth after 144 hours Assessment and Plan Plan: Assessment 1 acute hypoxic respiratory failure secondary to underlying pneumonia, suspect aspiration pneumonia 2 patchy bilateral pulmonary infiltrates worse on the right, possibly underlying pneumonia and the patient is currently on IV Merrem 3 right temporal hemorrhagic stroke with secondary neurological deficit and impairment in his mentation with altered mentation for now. 4 enteral feeding via PEG tube will be initiated tomorrow 5 chronic atrial fibrillation 6 acute kidney injury on top of chronic renal failure/chronic kidney disease 7 hypothyroidism 8 hypertension 9 hyperlipidemia 10 cholelithiasis 11 significant debility post stroke with ongoing complications of respiratory failure/pneumonia/CHF/dysphagia and aspiration post PEG tube insertion. CODE STATUS is DNR/DNI Plan Continue IV Merrem. Cardizem drip for rate control in regards to atrial fibrillation. No tobacco evidence for now. Aspiration precautions. Continue IV fluids. Monitor renal function. Initiate PEG tube insertion for tomorrow. Prognosis would largely dependent on his ability to recover from this pneumonia and is admitted to recover from his massive right temporal hemorrhagic stroke. Note that the family opted not to do any surgical interventions back then which was reasonably acceptable knowing that he is older and he has multiple comorbidities as mentioned.
--- NOTE | 2018-06-06 16:01 | P.PN ---
Subjective Progress Note Date: 06/05/18 Principal diagnosis: Atrial fibrillation with rapid ventricular rate Acute CHF Pneumonia possibly aspiration Patient is admitted for a atrial fibrillation with rapid ventricular rate unsure whether patient has CHF exacerbation continue with present oral Lasix. We will obtain a BNP. Rate is well controlled kidney function did improve patient is mildly hyponatremic. Patient is still lethargic but more awake and able to eat by himself. 05/29/2018 Clinical condition no significant change patient has issues with the swallowing during his last hospital admission patient had aspiration pneumonia and patient is still on Augmentin. Patient is supposed to be on thick liquids which the patient doesn't like. We'll get speech therapy evaluation again see if there is any change in his swallow. 05/30/2018 Patient is severely lethargic obtained a chest x-ray which is showing significant pulmonary edema. Patient probably aspirated does have low-grade fever Augmentin will be disc in your patient was started on Zosyn and blood cultures urine culture CA will be obtained. Patient prognosis is extremely poor. We'll discuss with the family regarding comfort care and hospice. Unable to answer much of questions today because of severe lethargy 05/31/2018 No significant overnight events patient is doing minimally better, did eat by himself. Although his overall prognosis is extremely poor. We'll discuss with family members regarding his overall goals of care 06/01/2018 Overall his clinical condition has worsened a bit patient became hypoxic does have bilateral crackles Lasix will be switched to IV. Discussed with the family regarding his overall goals of care and comfort care and hospice and family is not ready for that decision yet. 06/02/2018 Patient is more lethargic today BNP is elevated respiratory status did improve patient is to Because of which may concern is dehydration patient already has mild worsening in creatinine patient will be switched back to oral Lasix repeat chest x-ray showed bilateral lower lobes infiltrate may have aspiration pneumonia patient is already on Zosyn overall condition is extremely guarded I' m unable to get any History from the patient 06/03/2018 Patient was made hospice yesterday with the since his blood pressure improved family wanted to continue her care. Patient will be started on meropenem patient is probably why intravascularly volume depleted. Patient will be given find it cc of normal saline if his saturations are okay we will give him find it more and 75 mL of normal saline per hour. Patient does have mildly low ejection fraction need to closely monitor for pulmonary edema. Patient's Cardizem will be discontinued because of the low blood pressure and low ejection fraction patient will be started on beta brianda if her systolic blood pressure is about 90. Patient is still quite lethargic no crackles on exam. Zosyn was discontinued. 06/04/2018 Patient is doing better today his blood pressure improved patient dose of metoprolol will be increased to 25 twice a day. Patient is still tachycardic in atrial fibrillation patient will be started on subcu heparin patient will be started on antidepressant. Family is discussing about PEG tube patient is on 100 mL of normal saline which will continue his oxygen saturations dropped will do it chest x-ray., Nutrition consult. Infectious disease will be consulted regarding antibiotics patient is presently on meropenem for possible aspiration pneumonia. Patient kidney function has worsened a bit, I'm expecting it'll improve with his IV fluids. 06/05/2018 Patient is awake alert but can't not communicate. Heart rate is still elevated and metoprolol dose increased to 50 mg twice a day. Still requiring oxygen with another cannula at 6 L. Patient is being continued on IV fluids and cannot tolerate oral diet due to dysphagia and aspiration. Patient is being continued on antibiotics and breathing treatments. GI is planning for PEG tube placement today. No fever no chills. Complete review of systems could not be obtained from the patient. Current medications reviewed. Objective - Vital Signs Vital signs: Vital Signs Temp 97.2 F L 06/05/18 16:00 Pulse 87 06/05/18 16:09 Resp 24 06/05/18 16:00 BP 77/57 06/05/18 16:00 Pulse Ox 92 L 06/05/18 16:00 Intake & Output 06/04/18 06/05/18 06/05/18 18:59 06:59 18:59 Intake Total 120 993.667 Balance 120 993.667 Weight 89 kg 0 g 97 kg Intake: Intake, IV Titration 833.667 Amount Diltiazem 50 mg In Sodium 83.667 Chloride 0.9% 40 ml @ 10 MG/HR 10 mls/hr IV .Q5H [facility] Rx#:[id number] Sodium Chloride 0.9% 1, 750 000 ml @ 100 mls/hr IV . Q10H [facility] Rx#:[id number] Oral 120 160 Other: Voiding Method Diaper Diaper Diaper # Voids 1 2 1 # Bowel Movements 1 1 1 - Exam GENERAL: Patient is awake but excessively drowsy unable to assess his orientation, not in any acute distress. Severely lethargic HEENT: Pupils are round and equally reacting to light. EOMI. No scleral icterus. No conjunctival pallor. Normocephalic, atraumatic. No pharyngeal erythema. No thyromegaly. CARDIOVASCULAR: S1 and S2 present. No murmurs, rubs, or gallops. Tachycardic irregularly irregular rhythm PULMONARY: Chest is clear to auscultation, no wheezing or crackles. Diminished bibasilar air entry. ABDOMEN: Soft, nontender, nondistended, normoactive bowel sounds. No palpable organomegaly. MUSCULOSKELETAL: No joint swelling or deformity. EXTREMITIES: No cyanosis, clubbing, or pedal edema. NEUROLOGICAL: Patient is very drowsy and lethargic. Gross neurological examination did not reveal any new focal deficits. SKIN: No rashes or skin lesions. Psychiatric: Could not be assessed at this time. - Labs CBC & Chem 7: 06/05/18 06:27 06/05/18 06:27 Labs: Abnormal Lab Results - Last 24 Hours (Table) 06/04/18 06/05/18 06/05/18 Range/Units 21:00 05:53 06:27 WBC 15.0 H (3.8-10.6) k/uL RBC 3.69 L (4.30-5.90) m/uL Hgb 11.1 L (13.0-17.5) gm/dL Hct 35.1 L (39.0-53.0) % Chloride (98-107) mmol/L BUN (9-20) mg/dL Creatinine (0.66-1.25) mg/dL Glucose (74-99) mg/dL POC Glucose (mg/dL) 232 H 247 H (75-99) mg/dL Calcium (8.4-10.2) mg/dL Alkaline Phosphatase (38-126) U/L Total Protein (6.3-8.2) g/dL Albumin (3.5-5.0) g/dL 06/05/18 06/05/18 06/05/18 Range/Units 06:27 09:40 11:33 WBC (3.8-10.6) k/uL RBC (4.30-5.90) m/uL Hgb (13.0-17.5) gm/dL Hct (39.0-53.0) % Chloride 110 H (98-107) mmol/L BUN 61 H (9-20) mg/dL Creatinine 2.94 H (0.66-1.25) mg/dL Glucose 237 H (74-99) mg/dL POC Glucose (mg/dL) 278 H 277 H (75-99) mg/dL Calcium 7.8 L (8.4-10.2) mg/dL Alkaline Phosphatase 165 H (38-126) U/L Total Protein 4.8 L (6.3-8.2) g/dL Albumin 2.3 L (3.5-5.0) g/dL 06/05/18 Range/Units 16:25 WBC (3.8-10.6) k/uL RBC (4.30-5.90) m/uL Hgb (13.0-17.5) gm/dL Hct (39.0-53.0) % Chloride (98-107) mmol/L BUN (9-20) mg/dL Creatinine (0.66-1.25) mg/dL Glucose (74-99) mg/dL POC Glucose (mg/dL) 218 H (75-99) mg/dL Calcium (8.4-10.2) mg/dL Alkaline Phosphatase (38-126) U/L Total Protein (6.3-8.2) g/dL Albumin (3.5-5.0) g/dL Microbiology - Last 24 Hours (Table) 05/30/18 12:46 Blood Culture - Final Blood No Growth after 144 hours Assessment and Plan Assessment: -Atrial fibrillation with rapid ventricular rate: Patient does have chronic persistent atrial fibrillation patient . resumed on his rate control medications , heart rate still high and patient is not on anticoagulantion because of his recent subarachnoid hemorrhage. Metoprolol dose will be increased. continue with amiodarone -Fever, probably secondary to aspiration pneumonia again. Patient was started on meropenem IV fluids as mentioned above Lasix was discontinued. blood pressures better controlled patient still remains tachycardic in atrial fibrillation -Hypertension: Patient is actually hypotensive because of sepsis and A. fib -Type 2 diabetes mellitus and blood sugars are very high and will let him on sliding scale insulin and continue with the 10 units of Lantus dose of which may need to be increased tomorrow or tonight -hyperlipemia -Acute on chronic CHF with systolic dysfunction ejection fraction 40-45% -Chronic kidney disease stage III creatinine is around his baseline. There is superimposed acute renal failure secondary to heart failure sent possibly secondary to diuretic therapy -Hypothyroidism -Dysphagia chronic with multiple aspirations in the past. GI service consulted for PEG tube placement. - Poor functional status -CODE STATUS DO NOT RESUSCITATE Time with Patient: Greater than 30
--- NOTE | 2018-06-06 16:09 | P.PN ---
Subjective Progress Note Date: 06/06/18 Principal diagnosis: Atrial fibrillation with rapid ventricular rate Acute CHF Pneumonia possibly aspiration Patient is admitted for a atrial fibrillation with rapid ventricular rate unsure whether patient has CHF exacerbation continue with present oral Lasix. We will obtain a BNP. Rate is well controlled kidney function did improve patient is mildly hyponatremic. Patient is still lethargic but more awake and able to eat by himself. 05/29/2018 Clinical condition no significant change patient has issues with the swallowing during his last hospital admission patient had aspiration pneumonia and patient is still on Augmentin. Patient is supposed to be on thick liquids which the patient doesn't like. We'll get speech therapy evaluation again see if there is any change in his swallow. 05/30/2018 Patient is severely lethargic obtained a chest x-ray which is showing significant pulmonary edema. Patient probably aspirated does have low-grade fever Augmentin will be disc in your patient was started on Zosyn and blood cultures urine culture CA will be obtained. Patient prognosis is extremely poor. We'll discuss with the family regarding comfort care and hospice. Unable to answer much of questions today because of severe lethargy 05/31/2018 No significant overnight events patient is doing minimally better, did eat by himself. Although his overall prognosis is extremely poor. We'll discuss with family members regarding his overall goals of care 06/01/2018 Overall his clinical condition has worsened a bit patient became hypoxic does have bilateral crackles Lasix will be switched to IV. Discussed with the family regarding his overall goals of care and comfort care and hospice and family is not ready for that decision yet. 06/02/2018 Patient is more lethargic today BNP is elevated respiratory status did improve patient is to Because of which may concern is dehydration patient already has mild worsening in creatinine patient will be switched back to oral Lasix repeat chest x-ray showed bilateral lower lobes infiltrate may have aspiration pneumonia patient is already on Zosyn overall condition is extremely guarded I' m unable to get any History from the patient 06/03/2018 Patient was made hospice yesterday with the since his blood pressure improved family wanted to continue her care. Patient will be started on meropenem patient is probably why intravascularly volume depleted. Patient will be given find it cc of normal saline if his saturations are okay we will give him find it more and 75 mL of normal saline per hour. Patient does have mildly low ejection fraction need to closely monitor for pulmonary edema. Patient's Cardizem will be discontinued because of the low blood pressure and low ejection fraction patient will be started on beta brianda if her systolic blood pressure is about 90. Patient is still quite lethargic no crackles on exam. Zosyn was discontinued. 06/04/2018 Patient is doing better today his blood pressure improved patient dose of metoprolol will be increased to 25 twice a day. Patient is still tachycardic in atrial fibrillation patient will be started on subcu heparin patient will be started on antidepressant. Family is discussing about PEG tube patient is on 100 mL of normal saline which will continue his oxygen saturations dropped will do it chest x-ray., Nutrition consult. Infectious disease will be consulted regarding antibiotics patient is presently on meropenem for possible aspiration pneumonia. Patient kidney function has worsened a bit, I'm expecting it'll improve with his IV fluids. 06/05/2018 Patient is awake alert but can't not communicate. Heart rate is still elevated and metoprolol dose increased to 50 mg twice a day. Still requiring oxygen with another cannula at 6 L. Patient is being continued on IV fluids and cannot tolerate oral diet due to dysphagia and aspiration. Patient is being continued on antibiotics and breathing treatments. GI is planning for PEG tube placement today. No fever no chills. 06/06/2018 Patient did have PEG tube placement this morning. Otherwise patient is still drowsy and lethargic now. Able to open his eyes with verbal commands. And falls back to sleep again. Sometimes moans with pain when moved in the bed. Heart rate is still elevated. Patient is being continued on with a phosphate twice a day and Cardizem drip converted to by mouth. Amiodarone has been stopped now. Patient does have baseline shortness of breath. Chest x-ray showed interval development of patchy infiltrate within the periphery of the right midlung with some blunting the right costophrenic angle. Correlate for pneumonia. Renal function worsen with creatinine increased from 2.66--->2.94 today. Patient's overall prognosis is poor with multiple medical problems and comorbid conditions. Complete review of systems could not be obtained from the patient. Current medications reviewed. Active Medications Generic Name Dose Route Start Last Admin Trade Name Freq PRN Reason Stop Dose Admin Acetaminophen 650 mg 05/27/18 00:42 06/02/18 20:11 Tylenol Tab PO 650 mg Q6HR PRN Administration Mild Pain or Fever > 100.5 Acetaminophen 650 mg 06/03/18 02:17 Tylenol Suppository RECTAL Q4HR PRN Fever and/or Mild Pain Albuterol/Ipratropium 3 ml 05/27/18 08:00 06/06/18 07:55 Duoneb 0.5 Mg-3 Mg/3 Ml Soln INHALATION Not Given RT-TID [facility]N Albuterol/Ipratropium 3 ml 06/03/18 12:08 06/06/18 11:03 Duoneb 0.5 Mg-3 Mg/3 Ml Soln INHALATION 3 ml RT-TID PRN Administration Shortness Of Breath Or Wheezing Atorvastatin Calcium 10 mg 06/03/18 21:00 06/05/18 21:42 Lipitor PO 10 mg HS MART[facility]N Administration Citalopram Hydrobromide 10 mg 06/04/18 12:00 06/06/18 08:51 Celexa PO 10 mg DAILY [facility]N Administration Diltiazem HCl 60 mg 06/06/18 16:00 Cardizem Oral PO TID [facility]ART[facility] Doxazosin Mesylate 4 mg 06/03/18 21:00 06/05/18 23:30 Cardura PO Not Given HS [facility] Heparin Sodium (Porcine) 5,000 unit 06/04/18 21:00 06/06/18 08:51 Heparin SQ 5,000 unit Q12HR [facility]N Administration Sodium Chloride 1,000 mls @ 100 mls/hr 06/04/18 07:15 06/06/18 12:11 Saline 0.9% IV 100 mls/hr .Q10H [facility] Administration Meropenem 500 mg/ Sodium 50 mls @ 100 mls/hr 06/06/18 04:00 06/06/18 03:22 Chloride IVPB 100 mls/hr Q12H [facility] Administration Protocol Lactated Ringer's 1,000 mls @ 20 mls/hr 06/05/18 19:15 06/05/18 21:24 Lactated Ringers IV Not Given .Q24H [facility] Insulin Aspart 0 unit 06/04/18 07:30 06/06/18 12:10 Novolog SQ Not Given ACHS [facility] Protocol Insulin Detemir 10 unit 06/05/18 21:00 06/05/18 21:41 Levemir SQ 10 unit HS [facility] Administration Levothyroxine Sodium 75 mcg 06/04/18 06:30 06/06/18 06:15 Synthroid PO 75 mcg DAILY@0630 [facility]N Administration Metoprolol Tartrate 50 mg 06/05/18 11:45 06/06/18 08:51 Lopressor PO 50 mg BID [facility] Administration Multi-Ingredient Ointment 1 applic 06/03/18 21:00 06/06/18 08:50 Zinc Oxide 20% Oint TOPICAL 1 applic BID [facility]N Administration Ondansetron HCl 4 mg 06/03/18 02:17 Zofran IVP Q8HR PRN Nausea/emesis Pantoprazole Sodium 40 mg 06/03/18 17:30 06/06/18 06:16 Protonix PO 40 mg AC-BID [facility] Administration Saliva Substitute 1 spray 06/03/18 02:56 Mouthkote Solution MUCOUS MEM QID PRN Dry Mouth Sulfacetamide Sodium 2 drops 06/03/18 16:00 06/06/18 12:11 Bleph-10 BOTH EYES 2 drops Q4HR [facility] Administration Objective - Vital Signs Vital signs: Vital Signs Temp 97.0 F L 06/06/18 08:00 Pulse 120 H 06/06/18 11:52 Resp 20 06/06/18 11:52 BP 125/73 06/06/18 11:47 Pulse Ox 93 L 06/06/18 11:47 Intake & Output 06/05/18 06/06/18 06/06/18 18:59 06:59 18:59 Intake Total 740 350 Balance 740 350 Weight 97 kg 97 kg Intake: IV 350 Intake, IV Titration 400 Amount Sodium Chloride 0.9% 1, 400 000 ml @ 100 mls/hr IV . Q10H [facility] Rx#:[id number] Oral 340 Other: Voiding Method Diaper Diaper Diaper # Voids 1 1 # Bowel Movements 1 0 - Exam GENERAL: Patient is awake but excessively drowsy unable to assess his orientation, not in any acute distress. Severely lethargic HEENT: Pupils are round and equally reacting to light. EOMI. No scleral icterus. No conjunctival pallor. Normocephalic, atraumatic. No pharyngeal erythema. No thyromegaly. CARDIOVASCULAR: S1 and S2 present. No murmurs, rubs, or gallops. Tachycardic irregularly irregular rhythm PULMONARY: Chest is clear to auscultation, no wheezing or crackles. Diminished bibasilar air entry. ABDOMEN: Soft, nontender, nondistended, normoactive bowel sounds. No palpable organomegaly. MUSCULOSKELETAL: No joint swelling or deformity. EXTREMITIES: No cyanosis, clubbing, or pedal edema. NEUROLOGICAL: Patient is very drowsy and lethargic. Gross neurological examination did not reveal any new focal deficits. SKIN: No rashes or skin lesions. Psychiatric: Could not be assessed at this time. - Labs CBC & Chem 7: 06/05/18 06:27 06/05/18 06:27 Labs: Abnormal Lab Results - Last 24 Hours (Table) 06/05/18 06/05/18 06/06/18 Range/Units 16:25 20:21 06:07 POC Glucose (mg/dL) 218 H 240 H 135 H (75-99) mg/dL 06/06/18 Range/Units 12:16 POC Glucose (mg/dL) 124 H (75-99) mg/dL Microbiology - Last 24 Hours (Table) 05/30/18 12:46 Blood Culture - Final Blood No Growth after 144 hours Assessment and Plan Assessment: -Atrial fibrillation with rapid ventricular rate: Patient does have chronic persistent atrial fibrillation patient . resumed on his rate control medications , heart rate still high and patient is not on anticoagulantion because of his recent subarachnoid hemorrhage. Metoprolol dose will be increased. continue with amiodarone -Fever, probably secondary to aspiration pneumonia again. Patient was started on meropenem IV fluids as mentioned above Lasix was discontinued. blood pressures better controlled patient still remains tachycardic in atrial fibrillation -Hypertension: Patient is actually hypotensive because of sepsis and A. fib -Type 2 diabetes mellitus and blood sugars are very high and will let him on sliding scale insulin and continue with the 10 units of Lantus dose of which may need to be increased tomorrow or tonight -hyperlipemia -Acute on chronic CHF with systolic dysfunction ejection fraction 40-45% -Chronic kidney disease stage III creatinine is around his baseline. There is superimposed acute renal failure secondary to heart failure sent possibly secondary to diuretic therapy -Hypothyroidism -Dysphagia chronic with multiple aspirations in the past. 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 DNR/DNI Time with Patient: Greater than 30
[2018-06-06 16:33] LABS: Glucose,Whole Blood 123 mg/dL (75-99)
--- NOTE | 2018-06-06 20:07 | P.PN ---
Subjective Progress Note Date: 06/06/18 82-year-old male presents to Hospital from the extended care facility with increasing shortness of breath. 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 The patient is chronically anticoagulated with his atrial fibrillation, apparently he has subtherapeutic INR and developed the stroke and then had hemorrhagic conversion. He was hospitalized from May 09- and then went to [facility] on the [place]. Shortly thereafter he had difficulty with respiration became quite short of breath without evidence of aspiration pneumonia. This was treated sent back to rehab and now presents again with significant shortness of breath with concerns to aspiration pneumonia and congestive heart failure which should be acute on chronic systolic type. Over the last several days the patient has significant decline of his status. He had hypotension and hypoxia and consequently the decision was for comfort care. The patient has rallied and has had some improvement in consequently he has now no longer an comfort care is appropriately a DO NOT RESUSCITATE. The patient is awake and arousable but has very poor insight and very poor hearing and the family is concerned about him being upset at times. The patient has been seen by gastroenterology and his plans for PEG tube in the morning June 06, 2018 the patient is now status post PEG tube placement. Doing relatively well at this time. Does not seem to be in any acute distress. Family is relieved there is now access for fluids and nutrition. Objective - Vital Signs Vital signs: Vital Signs Temp 97.0 F L 06/06/18 08:00 Pulse 110 H 06/06/18 17:50 Resp 20 06/06/18 16:00 BP 90/55 06/06/18 16:00 Pulse Ox 94 L 06/06/18 16:00 Intake & Output 06/06/18 06/06/18 06/07/18 06:59 18:59 06:59 Intake Total 740 350 Balance 740 350 Weight 97 kg Intake: IV 350 Intake, IV Titration 400 Amount Sodium Chloride 0.9% 1, 400 000 ml @ 100 mls/hr IV . Q10H [facility] Rx#:[id number] Oral 340 Other: Voiding Method Diaper Diaper # Voids 1 # Bowel Movements 0 - Exam pleasant 82-year-old male status post stroke HEENT: Anicteric conjunctiva are pink and moist nasal mucosa grossly intact without significant lesions, there is no thrush. Neck: The neck is supple without significant lymphadenopathy or thyromegaly. Lungs: Good bilateral air entry here is evidence of a few crackles at the left base so The right base however has loud bronchial soundsand there are some minimal dullnes Heart: irregular irregular with NORMAL s1 AND s2 NO s3 SOFT s4 no significant murmur click or rub Abdomen: Positive bowel sounds soft and nontender without palpable masses or organomegaly. There was no guarding or rebound. Extremities: Upper extremities intact with IV without difficulty in the right arm. Bilateral lower extremities have edema but no significant ulcerations Neuro: Patient is arousable with sleepy - Labs CBC & Chem 7: 06/05/18 06:27 06/05/18 06:27 Labs: Abnormal Lab Results - Last 24 Hours (Table) 06/05/18 06/06/18 06/06/18 Range/Units 20:21 06:07 12:16 POC Glucose (mg/dL) 240 H 135 H 124 H (75-99) mg/dL 06/06/18 Range/Units 16:31 POC Glucose (mg/dL) 123 H (75-99) mg/dL Laboratory Results WBC 15.0 k/uL (3.8-10.6) H 06/05/18 06:27 RBC 3.69 m/uL (4.30-5.90) L 06/05/18 06:27 Hgb 11.1 gm/dL (13.0-17.5) L 06/05/18 06:27 Hct 35.1 % (39.0-53.0) L 06/05/18 06:27 MCV 95.1 fL (80.0-100.0) 06/05/18 06:27 MCH 30.1 pg (25.0-35.0) 06/05/18 06: MCHC 31.6 g/dL (31.0-37.0) 06/05/18 06: RDW 14.3 % (11.5-15.5) 06/05/18 06:27 Plt Count 165 k/uL (150-450) 06/05/18 06:27 Neutrophils % 75 % 05/28/18 05:30 Lymphocytes % 13 % 05/28/18 05:30 Monocytes % 7 % 05/28/18 05:30 Eosinophils % 3 % 05/28/18 05:30 Basophils % 0 % 05/28/18 05:30 Neutrophils # 5.0 k/uL (1.3-7.7) 05/28/18 05:30 Lymphocytes # 0.9 k/uL (1.0-4.8) L 05/28/18 05:30 Monocytes # 0.5 k/uL (0-1.0) 05/28/18 05:30 Eosinophils # 0.2 k/uL (0-0.7) 05/28/18 05:30 Basophils # 0.0 k/uL (0-0.2) 05/28/18 05:30 Hypochromasia Slight 06/05/18 06:27 PT 10.9 sec (9.0-12.0) 05/26/18 23:10 INR 1.1 (<1.2) 05/26/18 23:10 APTT 23.7 sec (22.0-30.0) 06/05/18 06:27 VBG pH 7.44 (7.31-7.41) H 05/26/18 23:10 VBG pCO2 33 mmHg (37-51) L 05/26/18 23:10 VBG HCO3 22 mmol/L (24-28) L 05/26/18 23:10 Sodium 142 mmol/L (137-145) 06/05/18 06:27 Potassium 4.5 mmol/L (3.5-5.1) 06/05/18 06:27 Chloride 110 mmol/L (98-107) H 06/05/18 06:27 Carbon Dioxide 22 mmol/L (22-30) 06/05/18 06:27 Anion Gap 10 mmol/L 06/05/18 06:27 BUN 61 mg/dL (9-20) H 06/05/18 06:27 Creatinine 2.94 mg/dL (0.66-1.25) H 06/05/18 06:27 Est GFR (CKD-EPI)AfAm 22 (>60 ml/min/1.73 sqM) 06/05/18 06:27 Est GFR (CKD-EPI)NonAf 19 (>60 ml/min/1.73 sqM) 06/05/18 06:27 Glucose 237 mg/dL (74-99) H 06/05/18 06:27 POC Glucose (mg/dL) 123 mg/dL (75-99) H 06/06/18 16:31 POC Glu [employer] ID Iraida Duran 06/06/18 16:[address] Glu mg/dL 192 05/26/18 23:10 Hemoglobin A1c 8.3 % (4.0-6.0) H 05/26/18 23:10 Lactic Ac Sepsis Rflx Y 05/26/18 23:59 Plasma Lactic Acid Raffy 2.0 mmol/L (0.7-2.0) 06/01/18 14:38 Calcium 7.8 mg/dL (8.4-10.2) L 06/05/18 06:27 Magnesium 1.9 mg/dL (1.6-2.3) 06/01/18 03:17 Total Bilirubin 0.5 mg/dL (0.2-1.3) 06/05/18 06:27 AST 32 U/L (17-59) 06/05/18 06:27 ALT 61 U/L (21-72) 06/05/18 06:27 Alkaline Phosphatase 165 U/L (38-126) H 06/05/18 06:27 Total Creatine Kinase <20 U/L (55-170) L 05/27/18 12:16 CK-MB (CK-2) 1.0 ng/mL (0.0-2.4) 05/27/18 12:16 CK-MB (CK-2) Rel Index 05/27/18 12:16 Troponin I 0.014 ng/mL (0.000-0.034) 05/27/18 12:16 NT-Pro-B Natriuret Pep 7110 pg/mL 06/02/18 05:28 Total Protein 4.8 g/dL (6.3-8.2) L 06/05/18 06:27 Albumin 2.3 g/dL (3.5-5.0) L 06/05/18 06:27 Urine Color Light Yellow 05/26/18 11:00 Urine Appearance Clear (Clear) 05/26/18 11:00 Urine pH 5.0 (5.0-8.0) 05/26/18 11:00 Ur Specific [place] 1.006 (1.001-1.035) 05/26/18 11:00 Urine Protein Negative (Negative) 05/26/18 11:00 Urine Glucose (UA) 2+ (Negative) H 05/26/18 11:00 Urine Ketones Negative (Negative) 05/26/18 11:00 Urine Blood Trace (Negative) H 05/26/18 11:00 Urine Nitrite Negative (Negative) 05/26/18 11:00 Urine Bilirubin Negative (Negative) 05/26/18 11:00 Urine Urobilinogen <2.0 mg/dL (<2.0) 05/26/18 11:00 Ur Leukocyte Esterase Negative (Negative) 05/26/18 11:00 Urine RBC 3 /hpf (0-5) 05/26/18 11:00 Urine WBC 1 /hpf (0-5) 05/26/18 11:00 Ur Squamous Epith Cells <1 /hpf (0-4) 05/26/18 11:00 Urine Mucus Rare /hpf (None) H 05/26/18 11:00 Microbiology 05/30/18 12:46 Blood Blood Culture - Final No Growth after 144 hours 05/30/18 15:40 Urine,Voided Urine Culture - Final 05/27/18 11:00 Urine,Catheterized Urine Culture - Final Assessment and Plan (1) Cerebrovascular accident Current Visit: No Status: Acute Code(s): I63.9 - CEREBRAL INFARCTION, UNSPECIFIED SNOMED Code(s): 130320883 (2) Aspiration pneumonia Narrative/Plan: 82-year-old male who has multiple medical troubles including atrial fibrillation, chronic systolic congestive heart failure, chronic kidney disease stage III. The recent cerebrovascular accident right temporal artery distribution with hemorrhagic conversion. The patient has been quite debilitated and has been cared for at extended care since his stroke. He developed a bout of aspiration pneumonia was having some improvement until there is evidence of further aspiration. He is now admitted with this difficulty and had significant decline of his status. He was briefly on comfort care because he was doing so poorly but is now rallied and is having some improvement. The family would like gastroenterology involved for placement of a PEG tube to determine if he can have some further improvement over time. The patient to allow some nutrition, hydration and medications. This is discussed in great length with the family that just because the PEG tube is there does not mean it must be used. And if desire to continue to be removed if they do not want it to be used further in the future. It however might allow him to have some improvement although they're aware of his very poor prognosis. He did have significant fever and leukocytosis and antibiotic therapy was just transitioned to meropenem and that will continue for the next short period of time until we have some further data cultures however are negative at this time. He is improving is receiving respiratory treatments. The family's questions are answered. 06/05/2018 patient is comfortable at this time. PEG tube is been planned for the morning and the family is well aware of the pros and cons of the procedure. Their goal is to try to provide him some nutrition, fluids and medications to keep him as comfortable as they can into the future. There optimistically hopeful but are also very realistic. June 06, 2018 patient is status post PEG this comfortable at this time. tube feed can be started tomorrow as well as some fluids. Patient will transition to extended care in the near future. The family will allow the patient to do be utilized for nutrition and fluids. However the patient has a significant decline of his status they will not plan on having him come back to hospital for any further interventions. Current Visit: Yes Status: Acute Code(s): J69.0 - PNEUMONITIS DUE TO INHALATION OF FOOD AND VOMIT SNOMED Code(s): 126191439 (3) Fever Current Visit: Yes Status: Acute Code(s): R50.9 - FEVER, UNSPECIFIED SNOMED Code(s): 129462544
[2018-06-06] MEDS: DOXAZOSIN 4 MG TAB PO SCH (20:48)
[2018-06-06] MEDS: ATORVASTATIN 10 MG TAB PO SCH (20:48)
[2018-06-06] MEDS: LACTATED RINGERS 1,000 ML IV SCH (20:49)
[2018-06-06] MEDS: INSULIN DETEMIR 100 UNIT/ML 10 ML VIAL SQ SCH (20:51)
[2018-06-06 21:05] LABS: Glucose,Whole Blood 169 mg/dL (75-99)
[2018-06-07] MEDS: DILTIAZEM 50 MG in SODIUM CHLORIDE 0.9% 40 ML IV SCH ×6 (00:15→21:23)
[2018-06-07] MEDS: MEROPENEM 500 MG in SODIUM CHLORIDE 0.9% 50 ML IVPB SCH ×2 (04:30→18:47)
[2018-06-07] MEDS: SULFACETAMIDE SOD 10% OPHTH DROPS 15 ML BTL BOTH EYES SCH ×6 (04:33→23:12)
[2018-06-07 06:03] LABS: Glucose,Whole Blood 125 mg/dL (75-99)
[2018-06-07] MEDS: INSULIN ASPART 100 UNIT/ML 1 ML 10 ML VIAL SQ SCH ×4 (06:07→20:38)
[2018-06-07] MEDS: SODIUM CHLORIDE 0.9% 1,000 ML IV SCH ×3 (06:32→22:41)
[2018-06-07 06:36] LABS: Basophils % (A) 0 %; Eosinophils % (A) 0 %; HCT 38.6 % (39.0-53.0); HGB 11.7 gm/dL (13.0-17.5); Hypochromasia Moderate; Lymphocytes # (A) 0.9 k/uL (1.0-4.8); Lymphocytes % (A) 5 %; MCH 29.2 pg (25.0-35.0); MCHC 30.3 g/dL (31.0-37.0); MCV 96.3 fL (80.0-100.0); Mean Platelet Volume 9.2; Monocytes # (A) 0.6 k/uL (0-1.0); Monocytes % (A) 3 %; Neutrophils # (A) 14.5 k/uL (1.3-7.7); Neutrophils % (A) 90 %; Platelet Count 146 k/uL (150-450); RBC 4.01 m/uL (4.30-5.90); RDW 14.6 % (11.5-15.5); WBC 16.1 k/uL (3.8-10.6)
[2018-06-07 07:01] LABS: Calcium 8.3 mg/dL (8.4-10.2); Potassium 4.2 mmol/L (3.5-5.1)
[2018-06-07] MEDS: IPRATROPIUM-ALBUTEROL 3 ML NEB INHALATION SCH ×3 (07:31→20:39)
[2018-06-07] MEDS: HEPARIN SODIUM,PORCINE 5,000 UNIT/ML 1 ML VIAL SQ SCH ×2 (09:19→20:59)
[2018-06-07] MEDS: ZINC OXIDE 20% OINT 28.4 GM TUBE TOPICAL SCH ×2 (09:21→22:41)
--- NOTE | 2018-06-07 11:27 | XR ---
EXAMINATION TYPE: XR chest 1V portable DATE OF EXAM: 06/07/2018 HISTORY: pneumonia. REFERENCE: Previous study dated 06/06/2018. FINDINGS: There is worsening consolidation in both legs. The heart is enlarged. No definite pleural f luid is seen. IMPRESSION: 1. WORSENING BILATERAL AIRSPACE DISEASE. 2. CARDIOMEGALY.
[2018-06-07 12:14] LABS: Glucose,Whole Blood 133 mg/dL (75-99)
--- NOTE | 2018-06-07 12:54 | P.PN ---
Subjective Progress Note Date: 06/07/18 We're requested to see the patient again because of atrial fibrillation with rapid ventricular response. Patient has a history of atrial fibrillation as well as history of hemorrhagic stroke. Patient's heart rate is running 100s. Patient is minimally responsive. Blood pressure is running around 100/60. Apparently there had been talks of possible Comfort Care however it's been decided to pursue more aggressive management with PEG tube placement. He is currently on IV Cardizem. He has been nothing by mouth and not currently using the PEG tube. Objective - Vital Signs Vital signs: Vital Signs Temp 97.8 F 06/07/18 08:00 Pulse 114 H 06/07/18 08:00 Resp 24 06/07/18 08:00 BP 98/54 06/07/18 08:00 Pulse Ox 89 L 06/07/18 08:00 Intake & Output 06/06/18 06/07/18 06/07/18 18:59 06:59 18:59 Intake Total 350 1085.167 50 Output Total 501 1 Balance 350 584.167 49 Weight 97 kg 94.5 kg Intake: IV 350 Intake, IV Titration 935.167 50 Amount Diltiazem 50 mg In Sodium 85.167 50 Chloride 0.9% 40 ml @ 10 MG/HR 10 mls/hr IV .Q5H [facility] Rx#:[id number] Meropenem 500 mg In 50 Sodium Chloride 0.9% 50 ml @ 100 mls/hr IVPB Q12H [facility] Rx#:[id number] Sodium Chloride 0.9% 1, 800 000 ml @ 100 mls/hr IV . Q10H [facility] Rx#:[id number] Oral 150 Output: Urine 500 Stool 1 1 Other: Voiding Method Diaper Diaper Diaper # Voids 1 1 # Bowel Movements 0 0 - Exam PHYSICAL EXAMINATION: HEENT: [Head is atraumatic, normocephalic. Neck is supple. There is no elevated jugular venous pressure.] HEART EXAMINATION: [Heart sounds irregularly irregular, S1 and S2 with tachycardia noted.] CHEST EXAMINATION:[ Lungs reveal faint crackles bilateral bases. No chest wall tenderness is noted on palpation or with deep breathing.] ABDOMEN: [ Soft, nontender. Bowel sounds are heard. No organomegaly noted]. EXTREMITIES:[ 2+ peripheral pulses with no evidence of peripheral edema and no calf tenderness noted]. NEUROLOGIC [patient is lethargic, difficult to arouse.] . - Labs CBC & Chem 7: 06/07/18 06:21 06/07/18 06:21 Labs: Abnormal Lab Results - Last 24 Hours (Table) 06/06/18 06/06/18 06/07/18 Range/Units 16:31 20:45 06:01 WBC (3.8-10.6) k/uL RBC (4.30-5.90) m/uL Hgb (13.0-17.5) gm/dL Hct (39.0-53.0) % MCHC (31.0-37.0) g/dL Plt Count (150-450) k/uL Neutrophils # (1.3-7.7) k/uL Lymphocytes # (1.0-4.8) k/uL Chloride (98-107) mmol/L Carbon Dioxide (22-30) mmol/L BUN (9-20) mg/dL Creatinine (0.66-1.25) mg/dL Glucose (74-99) mg/dL POC Glucose (mg/dL) 123 H 169 H 125 H (75-99) mg/dL Calcium (8.4-10.2) mg/dL 06/07/18 06/07/18 06/07/18 Range/Units 06:21 06:21 12:07 WBC 16.1 H (3.8-10.6) k/uL RBC 4.01 L (4.30-5.90) m/uL Hgb 11.7 L (13.0-17.5) gm/dL Hct 38.6 L (39.0-53.0) % MCHC 30.3 L (31.0-37.0) g/dL Plt Count 146 L (150-450) k/uL Neutrophils # 14.5 H (1.3-7.7) k/uL Lymphocytes # 0.9 L (1.0-4.8) k/uL Chloride 115 H (98-107) mmol/L Carbon Dioxide 21 L (22-30) mmol/L BUN 77 H (9-20) mg/dL Creatinine 2.96 H (0.66-1.25) mg/dL Glucose 141 H (74-99) mg/dL POC Glucose (mg/dL) 133 H (75-99) mg/dL Calcium 8.3 L (8.4-10.2) mg/dL Assessment and Plan Assessment: #1 acute on chronic systolic congestive heart failure with ejection fraction of 40-45%, secondary to atrial fibrillation with rapid ventricular response #2 chronic atrial fibrillation, no longer on anticoagulation secondary to hemorrhagic stroke #3 poorly controlled ventricular response #4 acute on chronic renal failure #5 altered mental status #6 recent evolving subacute MCA distribution infarct Plan: From cardiology perspective, patient's prognosis remains poor. We will continue the patient on Cardizem drip as patient is nothing by mouth at this time. Further recommendations to follow. [employer] note has been reviewed, I agree with a documented findings and plan of care. Patient was seen and examined.
--- NOTE | 2018-06-07 13:21 | P.PN ---
Subjective Progress Note Date: 06/07/18 Principal diagnosis: Acute exacerbation of chronic systolic congestive heart failure with ejection fraction 40-45% secondary to atrial fibrillation with rapid ventricular response This is an 82-year-old gentleman who follows with Dr. Deleon as his primary care physician. He has a history of atrial fibrillation, systolic congestive heart failure with ejection fraction 40-45%, diabetes mellitus, hypertension, hypothyroidism, macular degeneration, hyperlipidemia, chronic kidney disease stage III, prior history of nicotine dependence, gait dysfunction. 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 He was presented here again on May 17 for hypoxemia and altered mental status. We had seen and evaluated the patient at that time. He was subsequently again transferred to an extended care facility for further rehabilitation on 05/21/2018. He presented here again on 05/26/2018. He was found to have atrial fibrillation with a rapid ventricular response and was admitted to the selective care unit. We are consulted today for evaluation of his ongoing dyspnea. Today's chest x-ray shows scattered patchy infiltrates throughout the right perihilar and left basilar regions which may reflect developing pneumonia or early features of pulmonary edema. No leukocytosis. He did have a T-max of 100.3 yesterday currently afebrile. Urine culture revealed no growth. He is maintaining O2 saturations in the 90s on room air. He remains tachycardic at 119. Blood pressure stable. He is currently difficult to arouse. Unable to obtain any history from the patient. He is a DO NOT RESUSCITATE/DO NOT INTUBATE CODE STATUS per family request. The patient is seen again today 06/04/2018 in follow-up on the selective care unit. He is maintaining O2 saturations in the high 80s low 90s on 3 L/m per nasal cannula. Chest x-ray did reveal interval improvement in the lung inflation pattern particularly on the right.Slightly tachycardic. Slightly tachypneic. He is on oral amiodarone along with metoprolol. Blood and urine cultures revealed no growth. The patient is seen again today 06/05/2018 in follow-up on the selective care unit. He is currently nonverbal. His is at the bedside and states he usually is more awake and alert in the afternoons. He is still requiring 6 L high flow nasal cannula to maintain O2 saturations in the 90s. He remains on DuoNeb inhalations and meropenem. He has been tachycardic. Current BP 113/61. 0.9 normal saline at 100 ML's per hour. White count 15.0. Hemoglobin 11.1. Creatinine 2.94. Infectious disease has been consulted. GI services have been consulted for PEG tube insertion. 06 06 2018, patient is being seen in the follow-up. Unfortunately is doing poorly. He underwent a PEG tube insertion today without any complications. Enterofeeding has not been started yet. This will be started with the next 24 hours. Neurologically is doing poorly. He mumbles. He moans. He is nonverbal. He seems to have some degree of shortness of breath even at rest. He has a congested cough. A repeat chest x-ray was done and there is development of a right-sided patchy pulmonary infiltrate probably progression of his underlying pneumonia. The patient is currently nothing by mouth. There is a suspicion for an underlying aspiration pneumonia in this patient. He is a DNR/DNI CODE STATUS. The patient is still in atrial fibrillation. He is known to have coronary artery disease and he is known to have chronic systolic congestion heart failure with an ejection fraction of 40-45% and he suffered a hemorrhagic temporal stroke on the right recently and since then his condition is been progressively declining. The patient has not developed any seizure activity. He is on oxygen at 5 L per minute nasal cannula and his pulse ox is 93%. His heart rate is in the 110-120 irregular consistent with atrial fibrillation. PEG tube site is clean for now.He is renal function is progressively getting worse in the creatinine is up to 2.9. He remains quite debilitated and nothing by mouth for the time being. I fluids are running at home as an hour. The patient was seen again today 06/07/2018 in follow-up on the selective care unit. He continues to do quite poorly. He is currently nonverbal. Not opening his eyes to loud verbal stimuli. He has a grimaced look on his face. He has a loose nonproductive cough. He is currently 89% on 5 L high flow nasal cannula. His heart remains irregular, tachycardic. He is back on Cardizem drip at 10 mg per hour. He is afebrile. He is currently on meropenem. Today' s chest x-ray shows worsening bilateral airspace disease along with cardiomegaly. White count 16.1. Hemoglobin 11.7. Creatinine 2.96. Objective - Vital Signs Vital signs: Vital Signs Temp 97.8 F 06/07/18 08:00 Pulse 114 H 06/07/18 08:00 Resp 24 06/07/18 08:00 BP 98/54 06/07/18 08:00 Pulse Ox 89 L 06/07/18 08:00 Intake & Output 06/06/18 06/07/18 06/07/18 18:59 06:59 18:59 Intake Total 350 1085.167 50 Output Total 501 1 Balance 350 584.167 49 Weight 97 kg 94.5 kg Intake: IV 350 Intake, IV Titration 935.167 50 Amount Diltiazem 50 mg In Sodium 85.167 50 Chloride 0.9% 40 ml @ 10 MG/HR 10 mls/hr IV .Q5H [facility] Rx#:[id number] Meropenem 500 mg In 50 Sodium Chloride 0.9% 50 ml @ 100 mls/hr IVPB Q12H [facility] Rx#:[id number] Sodium Chloride 0.9% 1, 800 000 ml @ 100 mls/hr IV . Q10H [facility] Rx#:[id number] Oral 150 Output: Urine 500 Stool 1 1 Other: Voiding Method Diaper Diaper Diaper # Voids 1 1 # Bowel Movements 0 0 - Exam GENERAL EXAM: Difficult to arouse, lethargic. HEAD: Normocephalic. EYES: Normal reaction of pupils, equal size. NOSE: Clear with pink turbinates. THROAT: No erythema or exudates. NECK: No masses, no JVD. CHEST: No chest wall deformity. LUNGS: Equal air entry with crackles in the bilateral posterior bases. CVS: S1 and S2 normal with no audible murmur, irregular rhythm. Tachycardic. ABDOMEN: No hepatosplenomegaly, normal bowel sounds, no guarding or rigidity. SPINE: No scoliosis or deformity SKIN: No rashes CENTRAL NERVOUS SYSTEM: Tone is normal in all 4 extremities. EXTREMITIES: There is no peripheral edema. No clubbing, no cyanosis. Peripheral pulses are intact. - Labs CBC & Chem 7: 06/07/18 06:21 06/07/18 06:21 Labs: Abnormal Lab Results - Last 24 Hours (Table) 06/06/18 06/06/18 06/07/18 Range/Units 16:31 20:45 06:01 WBC (3.8-10.6) k/uL RBC (4.30-5.90) m/uL Hgb (13.0-17.5) gm/dL Hct (39.0-53.0) % MCHC (31.0-37.0) g/dL Plt Count (150-450) k/uL Neutrophils # (1.3-7.7) k/uL Lymphocytes # (1.0-4.8) k/uL Chloride (98-107) mmol/L Carbon Dioxide (22-30) mmol/L BUN (9-20) mg/dL Creatinine (0.66-1.25) mg/dL Glucose (74-99) mg/dL POC Glucose (mg/dL) 123 H 169 H 125 H (75-99) mg/dL Calcium (8.4-10.2) mg/dL 06/07/18 06/07/18 06/07/18 Range/Units 06:21 06:21 12:07 WBC 16.1 H (3.8-10.6) k/uL RBC 4.01 L (4.30-5.90) m/uL Hgb 11.7 L (13.0-17.5) gm/dL Hct 38.6 L (39.0-53.0) % MCHC 30.3 L (31.0-37.0) g/dL Plt Count 146 L (150-450) k/uL Neutrophils # 14.5 H (1.3-7.7) k/uL Lymphocytes # 0.9 L (1.0-4.8) k/uL Chloride 115 H (98-107) mmol/L Carbon Dioxide 21 L (22-30) mmol/L BUN 77 H (9-20) mg/dL Creatinine 2.96 H (0.66-1.25) mg/dL Glucose 141 H (74-99) mg/dL POC Glucose (mg/dL) 133 H (75-99) mg/dL Calcium 8.3 L (8.4-10.2) mg/dL Assessment and Plan Assessment: Impression: #1 Acute exacerbation of systolic congestive heart failure with ejection fraction 40-45% secondary to atrial fibrillation with rapid ventricular response. #2 Altered mental status. #3 Recent admission for acute hypoxic respiratory failure secondary to aspiration pneumonia. #4 Acute on chronic renal failure. Last creatinine 2.94. #5 Recent evolving subacute MCA distribution infarct along with moderate diffuse age-related cerebral atrophy and chronic small vessel ischemic changes. #6 Hypothyroidism. #7 Hypertension. #8 Hyperlipidemia. #9 Cholelithiasis. #10 Poor overall functional performance based on the above-mentioned multiple comorbidities. Plan: The patient was seen and evaluated by Dr. Orona. The patient's overall prognosis remains quite poor. The patient is a DO NOT RESUSCITATE/DO NOT INTUBATE CODE STATUS. We would recommend hospice referral at this point. I, the cosigning physician, performed a history & physical examination of the patient. Lungs sounds with crackles in the bilateral posterior bases. Maintaining good O2 saturations in the 90s on 5 L/m per nasal cannula. I discussed the assessment and plan of care with my nurse practitioner, Kailee Ross. I attest to the above note as dictated by her.
[2018-06-07] MEDS: MORPHINE SULFATE 2 MG/ML SYRINGE IVP PRN ×2 (15:52→22:41)
[2018-06-07] MEDS ORDERED: FUROSEMIDE 10 MG/ML 4 ML VIAL IV STA (16:41)
[2018-06-07 16:43] LABS: Glucose,Whole Blood 113 mg/dL (75-99)
[2018-06-07] MEDS ORDERED: SODIUM CHLORIDE 0.9% 1,000 ML IV SCH (16:45)
[2018-06-07] MEDS: methylPREDNISolone SOD SUCCI 125 MG/2 ML VIAL IV SCH ×2 (16:56→23:11)
--- NOTE | 2018-06-07 17:32 | P.PN ---
Subjective Progress Note Date: 06/07/18 82-year-old male presents to Hospital from the extended care facility with increasing shortness of breath. 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 The patient is chronically anticoagulated with his atrial fibrillation, apparently he has subtherapeutic INR and developed the stroke and then had hemorrhagic conversion. He was hospitalized from May 09- and then went to [facility] on the [place]. Shortly thereafter he had difficulty with respiration became quite short of breath without evidence of aspiration pneumonia. This was treated sent back to rehab and now presents again with significant shortness of breath with concerns to aspiration pneumonia and congestive heart failure which should be acute on chronic systolic type. Over the last several days the patient has significant decline of his status. He had hypotension and hypoxia and consequently the decision was for comfort care. The patient has rallied and has had some improvement in consequently he has now no longer an comfort care is appropriately a DO NOT RESUSCITATE. The patient is awake and arousable but has very poor insight and very poor hearing and the family is concerned about him being upset at times. The patient has been seen by gastroenterology and his plans for PEG tube in the morning June 06, 2018 the patient is now status post PEG tube placement. Doing relatively well at this time. Does not seem to be in any acute distress. Family is relieved there is now access for fluids and nutrition. June 07 2018 patient is now having marked worsening of his respiratory failure. Family members are arriving given that he is full no code. Objective - Vital Signs Vital signs: Vital Signs Temp 97.8 F 06/07/18 08:00 Pulse 116 H 06/07/18 14:07 Resp 24 06/07/18 12:00 BP 98/54 06/07/18 08:00 Pulse Ox 89 L 06/07/18 08:00 Intake & Output 06/06/18 06/07/18 06/07/18 18:59 06:59 18:59 Intake Total 350 1085.167 50 Output Total 501 2 Balance 350 584.167 48 Weight 97 kg 94.5 kg Intake: IV 350 Intake, IV Titration 935.167 50 Amount Diltiazem 50 mg In Sodium 85.167 50 Chloride 0.9% 40 ml @ 10 MG/HR 10 mls/hr IV .Q5H [facility] Rx#:[id number] Meropenem 500 mg In 50 Sodium Chloride 0.9% 50 ml @ 100 mls/hr IVPB Q12H [facility] Rx#:[id number] Sodium Chloride 0.9% 1, 800 000 ml @ 100 mls/hr IV . Q10H [facility] Rx#:[id number] Oral 150 Output: Urine 500 Stool 1 2 Other: Voiding Method Diaper Diaper Diaper # Voids 1 1 1 # Bowel Movements 0 0 - Exam pleasant 82-year-old male status post stroke patient in respiratory distress HEENT: Anicteric conjunctiva are pink and moist nasal mucosa grossly intact without significant lesions, there is no thrush. Neck: The neck is supple without significant lymphadenopathy or thyromegaly. Lungs: Coarse crackles in lung kim prominent bronchial sounds right base Heart: irregular irregular with NORMAL s1 AND s2 NO s3 SOFT s4 no significant murmur click or rub Abdomen: Positive bowel sounds soft and nontender without palpable masses or organomegaly. There was no guarding or rebound. Extremities: Upper extremities intact with IV without difficulty in the right arm. Bilateral lower extremities have edema but no significant ulcerations Neuro: Patient is arousable with sleepy - Labs CBC & Chem 7: 06/07/18 06:21 06/07/18 06:21 Labs: Abnormal Lab Results - Last 24 Hours (Table) 06/06/18 06/07/18 06/07/18 Range/Units 20:45 06:01 06:21 WBC 16.1 H (3.8-10.6) k/uL RBC 4.01 L (4.30-5.90) m/uL Hgb 11.7 L (13.0-17.5) gm/dL Hct 38.6 L (39.0-53.0) % MCHC 30.3 L (31.0-37.0) g/dL Plt Count 146 L (150-450) k/uL Neutrophils # 14.5 H (1.3-7.7) k/uL Lymphocytes # 0.9 L (1.0-4.8) k/uL Chloride (98-107) mmol/L Carbon Dioxide (22-30) mmol/L BUN (9-20) mg/dL Creatinine (0.66-1.25) mg/dL Glucose (74-99) mg/dL POC Glucose (mg/dL) 169 H 125 H (75-99) mg/dL Calcium (8.4-10.2) mg/dL 06/07/18 06/07/18 06/07/18 Range/Units 06:21 12:07 16:33 WBC (3.8-10.6) k/uL RBC (4.30-5.90) m/uL Hgb (13.0-17.5) gm/dL Hct (39.0-53.0) % MCHC (31.0-37.0) g/dL Plt Count (150-450) k/uL Neutrophils # (1.3-7.7) k/uL Lymphocytes # (1.0-4.8) k/uL Chloride 115 H (98-107) mmol/L Carbon Dioxide 21 L (22-30) mmol/L BUN 77 H (9-20) mg/dL Creatinine 2.96 H (0.66-1.25) mg/dL Glucose 141 H (74-99) mg/dL POC Glucose (mg/dL) 133 H 113 H (75-99) mg/dL Calcium 8.3 L (8.4-10.2) mg/dL Laboratory Results WBC 16.1 k/uL (3.8-10.6) H 06/07/18 06:21 RBC 4.01 m/uL (4.30-5.90) L 06/07/18 06:21 Hgb 11.7 gm/dL (13.0-17.5) L 06/07/18 06:21 Hct 38.6 % (39.0-53.0) L 06/07/18 06:21 MCV 96.3 fL (80.0-100.0) 06/07/18 06:21 MCH 29.2 pg (25.0-35.0) 06/07/18 06:21 MCHC 30.3 g/dL (31.0-37.0) L 06/07/18 06:21 RDW 14.6 % (11.5-15.5) 06/07/18 06:21 Plt Count 146 k/uL (150-450) L 06/07/18 06:21 Neutrophils % 90 % 06/07/18 06:21 Lymphocytes % 5 % 06/07/18 06:21 Monocytes % 3 % 06/07/18 06:21 Eosinophils % 0 % 06/07/18 06:21 Basophils % 0 % 06/07/18 06:21 Neutrophils # 14.5 k/uL (1.3-7.7) H 06/07/18 06:21 Lymphocytes # 0.9 k/uL (1.0-4.8) L 06/07/18 06:21 Monocytes # 0.6 k/uL (0-1.0) 06/07/18 06:21 Eosinophils # 0.0 k/uL (0-0.7) 06/07/18 06:21 Basophils # 0.0 k/uL (0-0.2) 06/07/18 06:21 Hypochromasia Moderate 06/07/18 06:21 PT 10.9 sec (9.0-12.0) 05/26/18 23:10 INR 1.1 (<1.2) 05/26/18 23:10 APTT 23.7 sec (22.0-30.0) 06/05/18 06:27 VBG pH 7.44 (7.31-7.41) H 05/26/18 23:10 VBG pCO2 33 mmHg (37-51) L 05/26/18 23:10 VBG HCO3 22 mmol/L (24-28) L 05/26/18 23:10 Sodium 145 mmol/L (137-145) 06/07/18 06:21 Potassium 4.2 mmol/L (3.5-5.1) 06/07/18 06:21 Chloride 115 mmol/L (98-107) H 06/07/18 06:21 Carbon Dioxide 21 mmol/L (22-30) L 06/07/18 06:21 Anion Gap 9 mmol/L 06/07/18 06:21 BUN 77 mg/dL (9-20) H 06/07/18 06:21 Creatinine 2.96 mg/dL (0.66-1.25) H 06/07/18 06:21 Est GFR (CKD-EPI)AfAm 22 (>60 ml/min/1.73 sqM) 06/07/18 06:21 Est GFR (CKD-EPI)NonAf 19 (>60 ml/min/1.73 sqM) 06/07/18 06:21 Glucose 141 mg/dL (74-99) H 06/07/18 06:21 POC Glucose (mg/dL) 113 mg/dL (75-99) H 06/07/18 16:33 POC Glu [employer] ID Maryanne Bettencourt 06/07/18 16:[address] Glu mg/dL 192 05/26/18 23:10 Hemoglobin A1c 8.3 % (4.0-6.0) H 05/26/18 23:10 Lactic Ac Sepsis Rflx Y 05/26/18 23:59 Plasma Lactic Acid Raffy 2.0 mmol/L (0.7-2.0) 06/01/18 14:38 Calcium 8.3 mg/dL (8.4-10.2) L 06/07/18 06:21 Magnesium 1.9 mg/dL (1.6-2.3) 06/01/18 03:17 Total Bilirubin 0.5 mg/dL (0.2-1.3) 06/05/18 06:27 AST 32 U/L (17-59) 06/05/18 06:27 ALT 61 U/L (21-72) 06/05/18 06:27 Alkaline Phosphatase 165 U/L (38-126) H 06/05/18 06:27 Total Creatine Kinase <20 U/L (55-170) L 05/27/18 12:16 CK-MB (CK-2) 1.0 ng/mL (0.0-2.4) 05/27/18 12:16 CK-MB (CK-2) Rel Index 05/27/18 12:16 Troponin I 0.014 ng/mL (0.000-0.034) 05/27/18 12:16 NT-Pro-B Natriuret Pep 7110 pg/mL 06/02/18 05:28 Total Protein 4.8 g/dL (6.3-8.2) L 06/05/18 06:27 Albumin 2.3 g/dL (3.5-5.0) L 06/05/18 06:27 Urine Color Light Yellow 05/26/18 11:00 Urine Appearance Clear (Clear) 05/26/18 11:00 Urine pH 5.0 (5.0-8.0) 05/26/18 11:00 Ur Specific [place] 1.006 (1.001-1.035) 05/26/18 11:00 Urine Protein Negative (Negative) 05/26/18 11:00 Urine Glucose (UA) 2+ (Negative) H 05/26/18 11:00 Urine Ketones Negative (Negative) 05/26/18 11:00 Urine Blood Trace (Negative) H 05/26/18 11:00 Urine Nitrite Negative (Negative) 05/26/18 11:00 Urine Bilirubin Negative (Negative) 05/26/18 11:00 Urine Urobilinogen <2.0 mg/dL (<2.0) 05/26/18 11:00 Ur Leukocyte Esterase Negative (Negative) 05/26/18 11:00 Urine RBC 3 /hpf (0-5) 05/26/18 11:00 Urine WBC 1 /hpf (0-5) 05/26/18 11:00 Ur Squamous Epith Cells <1 /hpf (0-4) 05/26/18 11:00 Urine Mucus Rare /hpf (None) H 05/26/18 11:00 Microbiology 05/30/18 12:46 Blood Blood Culture - Final No Growth after 144 hours 05/30/18 15:40 Urine,Voided Urine Culture - Final 05/27/18 11:00 Urine,Catheterized Urine Culture - Final Assessment and Plan (1) Cerebrovascular accident Current Visit: No Status: Acute Code(s): I63.9 - CEREBRAL INFARCTION, UNSPECIFIED SNOMED Code(s): 681881552 (2) Aspiration pneumonia Narrative/Plan: 82-year-old male who has multiple medical troubles including atrial fibrillation, chronic systolic congestive heart failure, chronic kidney disease stage III. The recent cerebrovascular accident right temporal artery distribution with hemorrhagic conversion. The patient has been quite debilitated and has been cared for at extended care since his stroke. He developed a bout of aspiration pneumonia was having some improvement until there is evidence of further aspiration. He is now admitted with this difficulty and had significant decline of his status. He was briefly on comfort care because he was doing so poorly but is now rallied and is having some improvement. The family would like gastroenterology involved for placement of a PEG tube to determine if he can have some further improvement over time. The patient to allow some nutrition, hydration and medications. This is discussed in great length with the family that just because the PEG tube is there does not mean it must be used. And if desire to continue to be removed if they do not want it to be used further in the future. It however might allow him to have some improvement although they're aware of his very poor prognosis. He did have significant fever and leukocytosis and antibiotic therapy was just transitioned to meropenem and that will continue for the next short period of time until we have some further data cultures however are negative at this time. He is improving is receiving respiratory treatments. The family's questions are answered. 06/05/2018 patient is comfortable at this time. PEG tube is been planned for the morning and the family is well aware of the pros and cons of the procedure. Their goal is to try to provide him some nutrition, fluids and medications to keep him as comfortable as they can into the future. There optimistically hopeful but are also very realistic. June 06, 2018 patient is status post PEG this comfortable at this time. tube feed can be started tomorrow as well as some fluids. Patient will transition to extended care in the near future. The family will allow the patient to do be utilized for nutrition and fluids. However the patient has a significant decline of his status they will not plan on having him come back to hospital for any further interventions. 06/07/2018 patient has not had a marked worsening of his status, appears to be having progressive respiratory failure. The family has been called by the nursing to come to the bedside he is full no code. Current Visit: Yes Status: Acute Code(s): J69.0 - PNEUMONITIS DUE TO INHALATION OF FOOD AND VOMIT SNOMED Code(s): 081991485 (3) Fever Current Visit: Yes Status: Acute Code(s): R50.9 - FEVER, UNSPECIFIED SNOMED Code(s): 849641812
[2018-06-07] MEDS: METOPROLOL TARTRATE 50 MG TAB PO SCH ×2 (18:43→20:59)
[2018-06-07] MEDS: LEVOTHYROXINE 75 MCG TAB PO SCH (18:43)
[2018-06-07] MEDS: PANTOPRAZOLE 40 MG TABLET PO SCH (18:43)
[2018-06-07] MEDS: CITALOPRAM HYDROBROMIDE 10 MG TAB PO SCH (18:43)
[2018-06-07 20:24] LABS: Glucose,Whole Blood 104 mg/dL (75-99)
--- NOTE | 2018-06-07 20:35 | PN ---
PROGRESS NOTE DATE OF SERVICE: 06/07/2018 This 82-year-old gentleman was admitted with significant stroke, also a change in mental status. The patient also had atrial fibrillation with fast ventricular rate. The patient also had CHF exacerbation. Patient also had features aspiration pneumonia. Because of concern of aspiration, a PEG tube was also placed. The patient is currently a NO CODE at this time. The patient was on apparent comfort care previously. Currently, the patient is minimally verbal and some shortness of breath. The patient is on broad-spectrum IV antibiotics. Multiple consultants, including Pulmonary as well as Infectious Disease, are following the patient closely. The most recent chest x-ray which was reviewed by me showed some bilateral shadows as well. PAST MEDICAL HISTORY: Reviewed. REVIEW OF SYSTEMS: Could not be taken. CURRENT MEDICATIONS: Reviewed, include: 1. Tylenol 650 every 6 hours p.r.n. 3. DuoNeb t.i.d. and p.r.n. 4. Lipitor 10 mg q.h.s. 5. Celexa 10 mg p.o. daily. 6. Cardizem drip. 7. Cardura 4 mg p.o. q.h.s. 8. P.r.n. heparin 5 subcu b.i.d. 9. Novolin. 10.Synthroid. 11.Meropenem. PHYSICAL EXAM: Patient is conscious, confused. Pulse is 120. Blood pressure is 98/54, respirations 24, temperature is 97.8, pulse ox is 98% on 5L. HEENT: Conjunctivae normal. Oral mucosa moist. NECK: No jugular venous distention. No carotid bruits. No lymph node enlargement. CARDIOVASCULAR: S1, S2 muffled. RESPIRATORY: Breath sounds diminished in the bases. Bilateral scattered rhonchi and crackles. ABDOMEN: Soft, PEG tube. LEGS: No edema. No swelling. NERVOUS SYSTEM: Diffusely weak. LAB INVESTIGATIONS: At this time show WBC 16.2, hemoglobin 11.7. Sodium 140, potassium 4.2, creatinine is 2.96. ASSESSMENT: 1. Atrial fibrillation with a fast ventricular rate, present on admission. 2. Fever, possible aspiration pneumonia bilateral, on IV meropenem. 3. Hypertension. 4. History of recent massive stroke with hemorrhagic conversion in the right temporal lobe infarct. 5. Hypertension. 6. Diabetes mellitus type 2. 7. Hyperlipidemia. 8. Congestive heart failure with acute on chronic systolic dysfunction, ejection fraction 40%-45%. 9. Chronic kidney stage 3. 10.Hypothyroidism. 11.Dysphagia, status post percutaneous endoscopic gastrostomy tube placement. 12.Change in mental status, metabolic encephalopathy, toxic. 13.NO CODE, NO CPR, NO VENT. RECOMMENDATION AND DISCUSSION: In this 82-year-old gentleman who presented with multiple complex medical issues , will monitor the patient closely, continue the current medical management, continue symptomatic treatment. Otherwise, optimize the bronchodilator treatment, aspiration precautions and resume the home medications. The overall prognosis extremely guarded because of multiple complex medical issues and we discussed with the family. The patient is currently NO CODE, NO CPR, NO VENT. TERRY / ALIREZAN: [id number] / ANASTASIYA
[2018-06-07] MEDS: BUDESONIDE 1 MG/2 ML NEBU INHALATION SCH (20:39)
[2018-06-07] MEDS: DOXAZOSIN 4 MG TAB PO SCH ×2 (20:59→21:26)
[2018-06-07] MEDS: ATORVASTATIN 10 MG TAB PO SCH ×2 (20:59→21:26)
[2018-06-07] MEDS: INSULIN DETEMIR 100 UNIT/ML 10 ML VIAL SQ SCH (21:24)
[2018-06-08] MEDS: DILTIAZEM 50 MG in SODIUM CHLORIDE 0.9% 40 ML IV SCH ×2 (00:54→04:55)
[2018-06-08] MEDS: MEROPENEM 500 MG in SODIUM CHLORIDE 0.9% 50 ML IVPB SCH ×2 (04:33→18:16)
[2018-06-08] MEDS: SULFACETAMIDE SOD 10% OPHTH DROPS 15 ML BTL BOTH EYES SCH ×5 (04:35→19:29)
[2018-06-08] MEDS: methylPREDNISolone SOD SUCCI 125 MG/2 ML VIAL IV SCH ×3 (06:15→18:16)
[2018-06-08 06:29] LABS: Glucose,Whole Blood 223 mg/dL (75-99)
[2018-06-08] MEDS: INSULIN ASPART 100 UNIT/ML 1 ML 10 ML VIAL SQ SCH ×4 (06:33→20:44)
[2018-06-08 08:12] LABS: Basophils % (A) 0 %; Eosinophils % (A) 0 %; Hypochromasia Moderate; Lymphocytes # (A) 0.5 k/uL (1.0-4.8); Lymphocytes % (A) 3 %; MCH 30.1 pg (25.0-35.0); MCHC 30.8 g/dL (31.0-37.0); MCV 97.7 fL (80.0-100.0); Mean Platelet Volume 8.2; Monocytes # (A) 0.3 k/uL (0-1.0); Monocytes % (A) 2 %; Neutrophils # (A) 15.1 k/uL (1.3-7.7); Neutrophils % (A) 94 %; Platelet Count 134 k/uL (150-450); RBC 3.99 m/uL (4.30-5.90); RDW 15.4 % (11.5-15.5)
--- NOTE | 2018-06-08 08:12 | XR ---
EXAMINATION TYPE: XR chest 1V portable DATE OF EXAM: 06/08/2018 HISTORY: pneumonia. REFERENCE: Previous study dated 06/07/2018. FINDINGS: The heart is enlarged. There is bilateral airspace disease essentially unchanged from previ ous. There is a small right effusion. IMPRESSION: NO SIGNIFICANT INTERVAL CHANGE IN THE APPEARANCE OF THE CHEST.
[2018-06-08 08:24] LABS: Calcium 8.3 mg/dL (8.4-10.2); Potassium 4.4 mmol/L (3.5-5.1)
[2018-06-08] MEDS ORDERED: PANTOPRAZOLE 40 MG/10 ML VIAL IVP SCH (09:00)
[2018-06-08] MEDS ORDERED: LEVOTHYROXINE IVP 100 MCG/5 ML VIAL IV SCH (09:00)
[2018-06-08] MEDS: BUDESONIDE 1 MG/2 ML NEBU INHALATION SCH ×2 (09:11→19:41)
[2018-06-08] MEDS: IPRATROPIUM-ALBUTEROL 3 ML NEB INHALATION SCH ×3 (09:11→19:41)
[2018-06-08] MEDS: HEPARIN SODIUM,PORCINE 5,000 UNIT/ML 1 ML VIAL SQ SCH ×2 (09:18→19:31)
[2018-06-08] MEDS: CITALOPRAM HYDROBROMIDE 10 MG TAB PO SCH (09:18)
[2018-06-08] MEDS: METOPROLOL TARTRATE 50 MG TAB PO SCH ×2 (09:18→19:32)
[2018-06-08] MEDS: ZINC OXIDE 20% OINT 28.4 GM TUBE TOPICAL SCH ×2 (09:21→19:33)
[2018-06-08 12:03] LABS: Glucose,Whole Blood 200 mg/dL (75-99)
[2018-06-08] MEDS ORDERED: DEXTROSE 5% IN WATER 1,000 ML IV SCH (12:45)
--- NOTE | 2018-06-08 14:06 | P.PN ---
Subjective Progress Note Date: 06/08/18 This is an 82-year-old gentleman who follows with Dr. Deleon as his primary care physician. He has a history of atrial fibrillation, systolic congestive heart failure with ejection fraction 40-45%, diabetes mellitus, hypertension, hypothyroidism, macular degeneration, hyperlipidemia, chronic kidney disease stage III, prior history of nicotine dependence, gait dysfunction. 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 He was presented here again on May 17 for hypoxemia and altered mental status. We had seen and evaluated the patient at that time. He was subsequently again transferred to an extended care facility for further rehabilitation on 05/21/2018. He presented here again on 05/26/2018. He was found to have atrial fibrillation with a rapid ventricular response and was admitted to the selective care unit. We are consulted today for evaluation of his ongoing dyspnea. Today's chest x-ray shows scattered patchy infiltrates throughout the right perihilar and left basilar regions which may reflect developing pneumonia or early features of pulmonary edema. No leukocytosis. He did have a T-max of 100.3 yesterday currently afebrile. Urine culture revealed no growth. He is maintaining O2 saturations in the 90s on room air. He remains tachycardic at 119. Blood pressure stable. He is currently difficult to arouse. Unable to obtain any history from the patient. He is a DO NOT RESUSCITATE/DO NOT INTUBATE CODE STATUS per family request. The patient is seen again today 06/04/2018 in follow-up on the selective care unit. He is maintaining O2 saturations in the high 80s low 90s on 3 L/m per nasal cannula. Chest x-ray did reveal interval improvement in the lung inflation pattern particularly on the right.Slightly tachycardic. Slightly tachypneic. He is on oral amiodarone along with metoprolol. Blood and urine cultures revealed no growth. The patient is seen again today 06/05/2018 in follow-up on the selective care unit. He is currently nonverbal. His is at the bedside and states he usually is more awake and alert in the afternoons. He is still requiring 6 L high flow nasal cannula to maintain O2 saturations in the 90s. He remains on DuoNeb inhalations and meropenem. He has been tachycardic. Current BP 113/61. 0.9 normal saline at 100 ML's per hour. White count 15.0. Hemoglobin 11.1. Creatinine 2.94. Infectious disease has been consulted. GI services have been consulted for PEG tube insertion. 06 06 2018, patient is being seen in the follow-up. Unfortunately is doing poorly. He underwent a PEG tube insertion today without any complications. Enterofeeding has not been started yet. This will be started with the next 24 hours. Neurologically is doing poorly. He mumbles. He moans. He is nonverbal. He seems to have some degree of shortness of breath even at rest. He has a congested cough. A repeat chest x-ray was done and there is development of a right-sided patchy pulmonary infiltrate probably progression of his underlying pneumonia. The patient is currently nothing by mouth. There is a suspicion for an underlying aspiration pneumonia in this patient. He is a DNR/DNI CODE STATUS. The patient is still in atrial fibrillation. He is known to have coronary artery disease and he is known to have chronic systolic congestion heart failure with an ejection fraction of 40-45% and he suffered a hemorrhagic temporal stroke on the right recently and since then his condition is been progressively declining. The patient has not developed any seizure activity. He is on oxygen at 5 L per minute nasal cannula and his pulse ox is 93%. His heart rate is in the 110-120 irregular consistent with atrial fibrillation. PEG tube site is clean for now.He is renal function is progressively getting worse in the creatinine is up to 2.9. He remains quite debilitated and nothing by mouth for the time being. I fluids are running at home as an hour. The patient was seen again today 06/07/2018 in follow-up on the selective care unit. He continues to do quite poorly. He is currently nonverbal. Not opening his eyes to loud verbal stimuli. He has a grimaced look on his face. He has a loose nonproductive cough. He is currently 89% on 5 L high flow nasal cannula. His heart remains irregular, tachycardic. He is back on Cardizem drip at 10 mg per hour. He is afebrile. He is currently on meropenem. Today' s chest x-ray shows worsening bilateral airspace disease along with cardiomegaly. White count 16.1. Hemoglobin 11.7. Creatinine 2.96. On 06/08/2018 of seeing this patient for a follow-up. The patient is a bit more interactive compared to yesterday. He still has significant limitation in his neurologic function. He keeps his eyes closed and he grimaces. He doesn't follow commands all the time. On and off he may stay few words or a very short sentences and then go back to sleep. He is breathing is less labored compared to yesterday. He was bronchus spastic and wheezy. I started him on IV Solu- Medrol. As such she is bronchospasm improved compared to yesterday. Chest x- ray still showing stable bilateral consolidation slightly more on the right. He has a congested cough unable to bring up any sputum. No fever or chills. He remains on IV Merrem. He was started on enteral feeding for nutritional support and currently is being fed with vital one point with respect to. The enterofeeding is running at 20 mL an hour. His renal functions and. Yet stable compared to yesterday. The sodium level is up to 149. And, the patient will be started on D5 water infusion to counteract his hyperchloremic hypernatremia. ID is on the case. Had a discussion with Dr. Deleon his son yesterday. Objective - Vital Signs Vital signs: Vital Signs Temp 97.5 F L 06/08/18 04:00 Pulse 108 H 06/08/18 13:25 Resp 22 06/08/18 08:00 BP 113/76 06/08/18 04:00 Pulse Ox 92 L 06/08/18 04:00 Intake & Output 06/07/18 06/08/18 06/08/18 18:59 06:59 18:59 Intake Total 100 951.834 Output Total 3 300 1 Balance 97 651.834 -1 Weight 95.5 kg Intake: Intake, IV Titration 100 851.834 Amount Diltiazem 50 mg In Sodium 100 101.834 Chloride 0.9% 40 ml @ 10 MG/HR 10 mls/hr IV .Q5H [facility]ART[facility]N Rx#:[id number] Sodium Chloride 0.9% 1, 750 000 ml @ 75 mls/hr IV . [id number] [facility] Rx#:[id number] Oral 10 Tube Feeding 90 Output: Urine 300 Straight 300 Stool 3 1 Other: Voiding Method Diaper Diaper Diaper # Voids 1 1 - Exam GENERAL EXAM: Difficult to arouse, lethargic. HEAD: Normocephalic. EYES: Normal reaction of pupils, equal size. NOSE: Clear with pink turbinates. THROAT: No erythema or exudates. NECK: No masses, no JVD. CHEST: No chest wall deformity. LUNGS: Equal air entry with crackles in the bilateral posterior bases. CVS: S1 and S2 normal with no audible murmur, irregular rhythm. Tachycardic. ABDOMEN: No hepatosplenomegaly, normal bowel sounds, no guarding or rigidity. SPINE: No scoliosis or deformity SKIN: No rashes CENTRAL NERVOUS SYSTEM: Tone is normal in all 4 extremities. EXTREMITIES: There is no peripheral edema. No clubbing, no cyanosis. Peripheral pulses are intact. - Labs CBC & Chem 7: 06/08/18 07:54 06/08/18 07:54 Labs: Abnormal Lab Results - Last 24 Hours (Table) 06/07/18 06/07/18 06/08/18 Range/Units 16:33 20:22 06:27 WBC (3.8-10.6) k/uL RBC (4.30-5.90) m/uL Hgb (13.0-17.5) gm/dL MCHC (31.0-37.0) g/dL Plt Count (150-450) k/uL Neutrophils # (1.3-7.7) k/uL Lymphocytes # (1.0-4.8) k/uL Sodium (137-145) mmol/L Chloride (98-107) mmol/L Carbon Dioxide (22-30) mmol/L BUN (9-20) mg/dL Creatinine (0.66-1.25) mg/dL Glucose (74-99) mg/dL POC Glucose (mg/dL) 113 H 104 H 223 H (75-99) mg/dL Calcium (8.4-10.2) mg/dL 06/08/18 06/08/18 06/08/18 Range/Units 07:54 07:54 11:26 WBC 16.0 H (3.8-10.6) k/uL RBC 3.99 L (4.30-5.90) m/uL Hgb 12.0 L (13.0-17.5) gm/dL MCHC 30.8 L (31.0-37.0) g/dL Plt Count 134 L (150-450) k/uL Neutrophils # 15.1 H (1.3-7.7) k/uL Lymphocytes # 0.5 L (1.0-4.8) k/uL Sodium 149 H (137-145) mmol/L Chloride 119 H (98-107) mmol/L Carbon Dioxide 20 L (22-30) mmol/L BUN 79 H (9-20) mg/dL Creatinine 2.87 H (0.66-1.25) mg/dL Glucose 236 H (74-99) mg/dL POC Glucose (mg/dL) 200 H (75-99) mg/dL Calcium 8.3 L (8.4-10.2) mg/dL Assessment and Plan Plan: Assessment 1 acute hypoxic respiratory failure secondary to underlying pneumonia, suspect aspiration pneumonia. Chest x-ray still showing bilateral consolidation right more than left. Findings are essentially stable compared to yesterday. Less short of breath compared to yesterday and last bronchus spastic and wheezy and the patient is still on a combination of Merrem, bronchodilators and IV Solu Medrol was also initiated yesterday. 2 patchy bilateral pulmonary infiltrates worse on the right, possibly underlying pneumonia and the patient is currently on IV Merrem 3 right temporal hemorrhagic stroke with secondary neurological deficit and impairment in his mentation with altered mentation for now. 4 enteral feeding via PEG tube will be initiated tomorrow 5 chronic atrial fibrillation, on no anticoagulants due to concern of hemorrhagic stroke 6 acute kidney injury on top of chronic renal failure/chronic kidney disease, renal function remains stable 7 hypothyroidism 8 hypertension 9 hyperlipidemia 10 cholelithiasis 11 significant debility post stroke with ongoing complications of respiratory failure/pneumonia/CHF/dysphagia and aspiration post PEG tube insertion. CODE STATUS is DNR/DNI 12 enteral feeding for nutritional support and the patient is currently on vital 1.2. Plan Continue IV Merrem. Continue bronchodilators. Continue steroids. Switch this patient to D5 water infusion at the rate of 75 mL an hour. Monitor the sodium and chloride level. Renal function is stable at creatinine of 2.8. Repeat levels tomorrow. Aspiration precautions. DNR/DNI CODE STATUS. Family understands the condition. We'll try to go with conservative measures and follow his condition closely. The patient is currently off the Cardizem drip. We'll continue to follow.
--- NOTE | 2018-06-08 17:52 | PN ---
PROGRESS NOTE Mr. Deleon remains in atrial fibrillation, the rate control is better. He has had a PEG tube in now but is able to take some oral medications and therefore I will resume Lopressor 50 mg b.i.d. and discontinue Cardizem drip. Prognosis, however, remains guarded. Patient has prior stroke and remains in atrial fibrillation which is persistent. S1, S2 heard normally, irregularity in rhythm noted, short systolic murmur noted. Lungs reveal diminished air entry. Rest of physical examination unchanged. Prognosis remains poor. MMODL / IJN: [id number] /
[2018-06-08 19:10] LABS: Glucose,Whole Blood 329 mg/dL (75-99)
[2018-06-08] MEDS: SODIUM CHLORIDE 0.9% 1,000 ML IV SCH (19:25)
[2018-06-08] MEDS: DOXAZOSIN 4 MG TAB PO SCH (19:31)
[2018-06-08] MEDS: ATORVASTATIN 10 MG TAB PO SCH (19:31)
[2018-06-08 20:40] LABS: Glucose,Whole Blood 321 mg/dL (75-99)
[2018-06-08] MEDS: INSULIN DETEMIR 100 UNIT/ML 10 ML VIAL SQ SCH (20:44)
[2018-06-08 21:05] VITALS: BP 116/73; PULSE 69; RESP 20; TEMP 98
--- NOTE | 2018-06-08 21:49 | PN ---
PROGRESS NOTE DATE OF SERVICE: 06/08/2018. INTERVAL HISTORY: This 82-year-old gentleman who was admitted with significant stroke with some hemorrhagic conversion also had atrial fibrillation. Patient also has aspiration pneumonia. PEG tube has been inserted. Patient also had renal failure. The most recent chest x-ray done today showed no significant interval changes. Dr. Orona is following the patient and also Dr. Brandon is following the patient. Patient is on broad-spectrum IV antibiotics at this time. PHYSICAL EXAM: Patient is stuporous. Pulse is 114, blood pressure is 119/87, respiration 22, temperature is 97.4, pulse ox 98% on 7 L. HEENT: Conjunctivae normal. Oral mucosa moist. Neck is no jugular venous distention. No carotid bruit. No lymph node enlargement. Cardiovascular: S1, S2 muffled. Respiratory: Breath sounds diminished in the bases. A few scattered rhonchi and crackles. Expiratory wheezing also present. ABDOMEN: Soft, nontender. Nervous system: Diffusely weak. LABS: WBC 16, hemoglobin is 12, sodium 149, and creatinine is 2.87. ASSESSMENT: 1. Atrial fibrillation with fast ventricular rate present on admission. 2. Fever, possible aspiration pneumonia, bilateral, right more the left on IV meropenem. 3. Hypertension. 4. Change in mental status, metabolic encephalopathy, multifactorial. 5. History of recent massive stroke with hemorrhagic conversion on the right temporal lobe infarct. 6. Hypertension. 7. Diabetes mellitus type 2. 8. Status post PEG tube placement. 9. Hyperlipidemia. 10.History of congestive heart failure with acute on chronic systolic dysfunction, ejection fraction 40-45 percent. 11.Chronic kidney disease stage 3 with acute on chronic renal failure. 12.Hypothyroidism. 13.Dysphagia, status post PEG tube placement. 14.NO CODE, NO CPR, NO VENT. RECOMMENDATIONS AND DISCUSSION: I recommend to continue current medications. Continue with monitoring and symptomatic treatment. Otherwise, at this time, continue IV fluids cautiously. Monitor oxygenation. Otherwise, continue the bronchodilators. Continue the rest of medications. Continue steroids. Monitor blood sugars closely. Guarded prognosis because of multiple complex medical issues. Further recommendations to follow. MMODL / IJN: [id number] /
--- NOTE | 2018-06-10 10:06 | CDI ---
Last Revision, August 2017 Documentation Clarification Form Date: 06/12/2018 9:44:35 AM From: Addie Martínez Phone: If you have a question, contact Hattie Ramsey, Keg Washer at between 8am and 5pm. Admit Date: 05/27/2018 12:43:00 AM Patient Name: Aba Deleon Visit Number: [id number] Discharge Date: 06/08/18 ATTENTION: The Clinical Documentation Specialists (CDI) and [facility] Coding Staff appreciate your assistance in clarifying documentation. Please respond to the clarification below the line at the bottom and electronically sign. The CDI & [facility] Coding staff will review the response and follow-up if needed. Please note: Queries are made part of the Legal Health Record. If you have any questions, please contact the author of this message via ITS. Dr. Hickey, Documentation in prg notes 06/05 and 06/06 states "patient is hypertensive, but hypotensive currently due to sepsis." ED notes: "Recent CVA admission to this institution with pneumonia and sepsis." History/Risk Factors: CVA, dysphagia, aspiration pneumonia WBC/Left Shift 6.8 on admit , then 06/05 15.0 Vitals signs on admission: 96.6F to 101F on 05/28, HR 106 , RR 16 BP 134/86 Antibiotics: Augmentin, Zosyn , Meropenem In your professional opinion, please clarify if patient had sepsis, if so- was it Present on Admit - Yes or No Sepsis- confirmed Sepsis - possible Sepsis- ruled out Severe Sepsis Septic Shock Other, please specify Unable to determine Severe Sepsis MTDD
--- NOTE | 2018-06-10 23:45 | DS ---
DISCHARGE SUMMARY DATE OF SERVICE: 06/11/2018. DIAGNOSES: 1. Massive stroke with hemorrhagic conversion in the right temporal lobe infarct. 2. Atrial fibrillation with fast ventricular rate. 3. Fever, possible aspiration pneumonia. 4. Hypertension. 5. Change in mental status, metabolic encephalopathy, multifactorial. 6. History of hypertension. 7. History of diabetes type 2. 8. Status post PEG tube placement. 9. Hyperlipidemia. 10.History of congestive heart failure with chronic systolic dysfunction. Ejection fraction 40% to 45% percent. 11.Chronic kidney disease stage 3 with acute on chronic renal failure. 12.Hypothyroidism. 13.Dysphagia, status post PEG tube placement. 14.NO CODE, NO CPR, NO VENT. HISTORY OF PRESENT ILLNESS: This 82-year-old gentleman with a past history of multiple medical problems, had recent acute massive stroke. The patient was admitted with atrial fibrillation with fast ventricular rate. The patient also had multiple other medical conditions including aspiration pneumonia. PEG tube was inserted. Atrial junction was treated in conjunction with Cardiology. Despite active intervention and treatment, the patient's condition did not improve and the patient succumbed to his above-mentioned medical issues. The patient has been significantly debilitated by the massive stroke with change in mental status and other medical issues including dysphagia. The prognosis remained guarded throughout the hospital stay. The case was discussed with family on multiple occasions. Please refer to multiple documentum consultant notes and progress notes for further information. The patient was also seen by multiple consultants including Dr. Orona and Dr. Khai Dupont and Dr. Brandon during the most recent hospitalization as well. MMODL / IJN: [id number] /
--- NOTE | 2018-06-13 10:16 | CDI ---
Last Revision, August 2017 Documentation Clarification Form Date: 06/13/2018 9:59:55 AM From: Addie Martínez Phone: If you have a question about this query, please contact Hattie Ramsey Furnace Loader at [phone] between 8am and 5pm. Admit Date: 05/27/2018 12:43:00 AM Patient Name: Aba Deleon Visit Number: [id number] Discharge Date: 06/10/18 ATTENTION: The Clinical Documentation Specialists (CDI) and [facility] Coding Staff appreciate your assistance in clarifying documentation. Please respond to the clarification below the line at the bottom and electronically sign. The CDI & [facility] Coding staff will review the response and follow-up if needed. Please note: Queries are made part of the Legal Health Record. If you have any questions, please contact the author of this message via ITS. Kala Harman MD The following has been documented previous query "severe sepsis" History/Risk Factors: spiked temp 101 within 24 hours of admit 05/28, immunocompromised on Decadron, aspiration pneumonia, AMS Clinical Indicators: 101F WBC's up to 15.0, elevated lactic acid and patient in A fib. Treatment: Augmentin switched to Zosyn Definition of Present on Admission (POA): A diagnosis present at the time the order for admission to inpatient status was written. For each diagnosis, documentation must be clear to determine if the condition was present at the time of the patients inpatient admission or developed during the hospital stay. Please clarify if severe sepsis was POA: Y = Yes, the condition was present at the time of the order for inpatient admission. N = No, the condition was not present at the time of the order for inpatient admission. W = Clinically undetermined if the condition was present at the time of the order for inpatient admission. Present on Admission MTDD
== END 2018-06-08 21:55 | disposition expired | DRG 871 ==
LOC: EC 23:03 → 6SEL 05-27 00:43
PROVIDERS: ADMIT Hospitalist; ATTEND Hospitalist
PROC: 3E0G76Z Introduction of Nutritional Substance into Upper GI, Via Natural or Artificial Opening (ICD-10-PCS; 2018-06-06)
PROC: 0DH63UZ Insertion of Feeding Device into Stomach, Percutaneous Approach (ICD-10-PCS; principal; 2018-06-06 07:00)
DX: A41.9 Sepsis, unspecified organism (principal); J69.0 Pneumonitis due to inhalation of food and vomit; G92 Toxic encephalopathy; I50.23 Acute on chronic systolic (congestive) heart failure; I48.1 Persistent atrial fibrillation; E44.1 Mild protein-calorie malnutrition; E87.0 Hyperosmolality and hypernatremia; E87.1 Hypo-osmolality and hyponatremia; E87.2 Acidosis; I13.0 Hypertensive heart and chronic kidney disease with heart failure and stage 1 through stage 4 chronic kidney disease, or unspecified chronic kidney disease; J98.11 Atelectasis; N17.9 Acute kidney failure, unspecified; I62.9 Nontraumatic intracranial hemorrhage, unspecified; R65.20 Severe sepsis without septic shock; E03.9 Hypothyroidism, unspecified; E11.22 Type 2 diabetes mellitus with diabetic chronic kidney disease; E78.5 Hyperlipidemia, unspecified; E86.0 Dehydration; E87.8 Other disorders of electrolyte and fluid balance, not elsewhere classified; H35.30 Unspecified macular degeneration; I25.10 Atherosclerotic heart disease of native coronary artery without angina pectoris; I48.2 Chronic atrial fibrillation; J98.01 Acute bronchospasm; K44.9 Diaphragmatic hernia without obstruction or gangrene; K80.20 Calculus of gallbladder without cholecystitis without obstruction; N18.3 Chronic kidney disease, stage 3 (moderate); R13.12 Dysphagia, oropharyngeal phase; Z51.5 Encounter for palliative care; Z66 Do not resuscitate; Z79.01 Long term (current) use of anticoagulants; Z79.4 Long term (current) use of insulin; Z79.51 Long term (current) use of inhaled steroids; Z87.891 Personal history of nicotine dependence; I69.391 Dysphagia following cerebral infarction; H91.90 Unspecified hearing loss, unspecified ear; Z87.01 Personal history of pneumonia (recurrent); R26.9 Unspecified abnormalities of gait and mobility; Z79.890 Hormone replacement therapy; Z79.899 Other long term (current) drug therapy; R09.02 Hypoxemia
CPT/HCPCS: 36415; 43246; 70450; 71045; 71046; 80048; 80053; 81001; 82550; 82553; 82803; 83036; 83605; 83735; 83880; 84132; 84484; 85025; 85027; 85610; 85730; 87040; 87086; 93005; 94640; 94760; 99285